=== PATIENT | male | born 1940 | race Caucasian/White ===

== ENCOUNTER → 2016-10-07 | Outpatient (CLI) | payer MEDICARE, BC ==
[~2016-10-07] VITALS: Ht 180.3 cm; Wt 76.7 kg
[~2016-10-07] MED LIST: ALDA25TA PO; AMLO5TAB2 PO; ASPI32ECTA PO; ATOR1TAB21 PO; HYDR200T3 PO; LABETALOL HCL 100 MG/20 ML VIAL As Ordered ONE; LIDOCAINE 2% INJ 100 MG/5 ML SDV (FOR ANES.) As Ordered ONE; METF500T PO; MIDAZOLAM INJ 2 MG/2 ML VIAL (J2250) As Ordered ONE; NS 1,000 ML IV SCH; OMEP20CA3 PO; ONDANSETRON 4MG/2ML VIAL (J2405) As Ordered ONE; PROPOFOL 200 MG/20 ML VIAL As Ordered ONE; [UNRECOGNIZED DRUG - CODE] PO
--- NOTE | 2016-10-07 12:22 | ROOR ---
Patient Name: Taj Marks Procedure Date: 10/07/2016 12:03 PM Date of : 1940 Age: 76 Room: [facility] Gender: Male Note Status: Finalized Procedure: Upper GI endoscopy + SBB Indications: Iron deficiency anemia Providers: Eder Freire MD Referring MD: Main Chavez NP Requesting Provider: Medicines: Monitored Anesthesia Care Complications: No immediate complications. Procedure: Pre-Anesthesia Assessment: - The heart rate, respiratory rate, oxygen saturations, blood pressure, adequacy of pulmonary ventilation, and response to care were monitored throughout the procedure. The Endoscope was introduced through the mouth, and advanced to the second part of duodenum. The upper GI endoscopy was accomplished without difficulty. The patient tolerated the procedure well. Findings: The Z-line was regular and was found 38 cm from the incisors. A small hiatus hernia was present. No other significant abnormalities were identified in a careful examination of the stomach. The exam of the duodenum was otherwise normal. Multiple biopsies were obtained with cold forceps for evaluation of celiac disease randomly in the 2nd part of the duodenum. The exam was otherwise without abnormality. Impression: - Z-line regular, 38 cm from the incisors. - Small hiatus hernia. - The examination was otherwise normal. - Multiple biopsies were obtained in the 2nd part of the duodenum. - The examination was otherwise normal. Recommendation: - Patient has a contact number available for emergencies. The signs and symptoms of potential delayed complications were discussed with the patient. Return to normal activities tomorrow. Written discharge instructions were provided to the patient. - Discharge patient to home. - Continue present medications. - Await pathology results. - Telephone GI clinic for pathology results in 1 week. - Return to referring physician. - The findings and recommendations were discussed with the patient's family. Eder Freire MD Eder Freire MD 10/07/2016 12:21:27 PM This report has been signed electronically. Number of Addenda: 0 Note Initiated On: 10/07/2016 12:03 PM Estimated Blood Loss: Estimated blood loss: none.
--- NOTE | 2016-10-07 12:36 | ROOR ---
Patient Name: Taj Marks Procedure Date: 10/07/2016 12:04 PM Date of : 1940 Age: 76 Room: [facility] Gender: Male Note Status: Finalized Procedure: Colonoscopy to Cecum Indications: Unexplained iron deficiency anemia Providers: Eder Freire MD Referring MD: Main Chavez NP Requesting Provider: Medicines: Monitored Anesthesia Care Complications: No immediate complications. Procedure: Pre-Anesthesia Assessment: - The heart rate, respiratory rate, oxygen saturations, blood pressure, adequacy of pulmonary ventilation, and response to care were monitored throughout the procedure. The Colonoscope was introduced through the anus and advanced to the cecum, identified by appendiceal orifice and ileocecal valve. The colonoscopy was performed without difficulty. The patient tolerated the procedure well. The quality of the bowel preparation was good. Findings: The perianal and digital rectal examinations were normal. Non-bleeding internal hemorrhoids were found during retroflexion. The hemorrhoids were small and Grade I (internal hemorrhoids that do not prolapse). Multiple small and large-mouthed diverticula were found in the recto-sigmoid colon, in the sigmoid colon and in the descending colon. The exam was otherwise without abnormality on direct and retroflexion views. Impression: - Non-bleeding internal hemorrhoids. - Diverticulosis in the recto-sigmoid colon, in the sigmoid colon and in the descending colon. - The examination was otherwise normal on direct and retroflexion views. - No specimens collected. - The exam was otherwise normal to the cecum. Recommendation: - Patient has a contact number available for emergencies. The signs and symptoms of potential delayed complications were discussed with the patient. Return to normal activities tomorrow. Written discharge instructions were provided to the patient. - Discharge patient to home. - Continue present medications. - Repeat colonoscopy for symptoms only, due to age. - Return to referring physician. - The findings and recommendations were discussed with the patient's family. Eder Freire MD Eder Freire MD 10/07/2016 12:36:21 PM This report has been signed electronically. Number of Addenda: 0 Note Initiated On: 10/07/2016 12:04 PM Estimated Blood Loss: Estimated blood loss: none.
[2016-10-07 13:00] VITALS: BP 137/66
== END | disposition home or self-care (01) ==
LOC: M OPP 10:36
PROVIDERS: ATTEND Internal Medicine Gastroenterology
DX: D50.9 Iron deficiency anemia, unspecified (principal); K64.0 First degree hemorrhoids; K57.30 Diverticulosis of large intestine without perforation or abscess without bleeding; K44.9 Diaphragmatic hernia without obstruction or gangrene; I10 Essential (primary) hypertension; E78.00 Pure hypercholesterolemia, unspecified; E11.9 Type 2 diabetes mellitus without complications; R12 Heartburn; M35.3 Polymyalgia rheumatica; Z79.899 Other long term (current) drug therapy; Z79.82 Long term (current) use of aspirin; Z79.84 Long term (current) use of oral hypoglycemic drugs; Z87.891 Personal history of nicotine dependence
CPT/HCPCS: 43239; 45378; 88305; J2250; J2405

== ENCOUNTER 2019-03-12 22:38 | Emergency (ER) | payer MEDICARE, BC ==
[~2019-03-12] VITALS: Ht 180.3 cm; Wt 77.3 kg
[~2019-03-12 22:38] MED LIST changes: -ALDA25TA PO; -AMLO5TAB2 PO; +AMLO5TAB6 PO; +ASPI-255 PO; -ASPI32ECTA PO; -LABETALOL HCL 100 MG/20 ML VIAL As Ordered ONE; -LIDOCAINE 2% INJ 100 MG/5 ML SDV (FOR ANES.) As Ordered ONE; -METF500T PO; +METF500T13 PO; -MIDAZOLAM INJ 2 MG/2 ML VIAL (J2250) As Ordered ONE; -NS 1,000 ML IV SCH; -ONDANSETRON 4MG/2ML VIAL (J2405) As Ordered ONE; -PROPOFOL 200 MG/20 ML VIAL As Ordered ONE; +SPIR1TAB34 PO
[2019-03-12] MEDS ORDERED: METH2.5T48 PO (22:55)
[2019-03-12] MEDS ORDERED: FOLI1TAB11 PO (22:55)
[2019-03-12] MEDS ORDERED: ASPIRIN 325 MG TAB PO ONE (23:00)
[2019-03-12 23:05] LABS: BASO # 0.1 10^3/uL (0.0-0.2); BASO % 0.5 % (0.0-1.0); EOS # 0.2 10^3/uL (0.0-0.50); HEMATOCRIT 34.5 % (42.0-52.0); HEMOGLOBIN 11.4 g/dl (13.5-17.5); LYMPH % 20.1 % (24.0-44.0); MEAN CORPUSCULAR HEMOGLOBIN 31.8 pg (27.0-33.0); MEAN CORPUSCULAR VOLUME 96.1 fl (80.0-96.0); MONO # 0.9 10^3/uL (0.0-0.8); MONO % 8.9 % (0.0-5.0); NEUTROPHILS # 6.7 10^3/uL (1.8-7.7); NEUTROPHILS % 68.1 % (36.0-66.0); PLATELET COUNT, AUTOMATED 308 10^3/uL (150-450); RED BLOOD COUNT 3.59 10^6/uL (4.30-6.10); WHITE BLOOD COUNT 9.8 10^3/uL (4.0-10.0)
[2019-03-12 23:16] LABS: INR 1.05; PARTIAL THROMBOPLASTIN TIME 30.8 SECONDS (25.0-38.4); PROTHROMBIN TIME 13.4 SECONDS (11.8-14.0)
[2019-03-12 23:30] LABS: BLOOD UREA NITROGEN 27 MG/DL (7-18); CALCIUM LEVEL 9.3 MG/DL (8.8-10.2); CARBON DIOXIDE LEVEL 26 MEQ/L (21-32); CHLORIDE LEVEL 107 MEQ/L (98-107); CK-MB VALUE MASS 4.1 NG/ML (<3.6); CPK CREATINE PHOSPHOKINASE 172 U/L (39-308); CREATININE FOR GFR 1.41 MG/DL (0.70-1.30); GLOMERULAR FILTRATION RATE 51.6 (>42); GLUCOSE, FASTING 129 MG/DL (70-100); MB/CK RELATIVE INDEX 2.38 (< OR =4); POTASSIUM SERUM 4.2 MEQ/L (3.5-5.1); SODIUM LEVEL 141 MEQ/L (136-145); TROPONIN I < 0.02 NG/ML (< 0.10)
[2019-03-13 03:32] LABS: CK-MB VALUE MASS 3.4 NG/ML (<3.6); CPK CREATINE PHOSPHOKINASE 157 U/L (39-308); MB/CK RELATIVE INDEX 2.17 (< OR =4); TROPONIN I < 0.02 NG/ML (< 0.10)
[2019-03-13 04:00] VITALS: BP 132/60
--- NOTE | 2019-03-13 07:10 | REP ---
Clinical: Chest pain. Technique: Portable AP upright view. Comparison: None. Findings: COPD and emphysematous changes are appreciated with scattered scarring. No focal consolidation, effusion, or pneumothorax. This time and cardiac silhouette normal. Skeletal structures intact. Impression: COPD/emphysematous changes. Electronically Signed by Manish Beaulieu MD 03/13/2019 07:02 A
--- NOTE | 2019-03-13 07:11 | ECGEPIP ---
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
--- NOTE | 2019-03-13 07:13 | ECGEPIP ---
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
== END 2019-03-13 04:02 | disposition home or self-care (01) ==
LOC: M ED 22:38
DX: R07.89 Other chest pain (principal); R00.1 Bradycardia, unspecified; I44.0 Atrioventricular block, first degree; E11.9 Type 2 diabetes mellitus without complications; I10 Essential (primary) hypertension; K21.9 Gastro-esophageal reflux disease without esophagitis; I20.9 Angina pectoris, unspecified; Z87.891 Personal history of nicotine dependence; Z79.82 Long term (current) use of aspirin; Z79.899 Other long term (current) drug therapy

== ENCOUNTER 2019-12-16 11:01 | Observation (INO) | payer MEDICARE, BC ==
[~2019-12-16] VITALS: Ht 177.8 cm; Wt 79.9 kg
[~2019-12-16 11:01] MED LIST changes: +FOLI1TAB11 PO; +METH2.5T48 PO; +OMEP1CAP73 PO; -OMEP20CA3 PO
[2019-12-16] MEDS ORDERED: ALBUTEROL 90 MCG/ACT 8GM HFA INHALER INH ONE (12:15)
--- NOTE | 2019-12-16 12:40 | REP ---
Clinical: Cough and dyspnea. Comparison: 03/12/2019. Findings: Mediastinum and cardiac silhouette are normal. Lung tong demonstrate diffuse chronic pleuroparenchymal changes. A very subtle superimposed left basilar infiltrate cannot be excluded and should be correlated with auscultation. No focal consolidation. No effusion. No pneumothorax. Skeletal structures intact. Impression: Chronic stable changes. Very subtle superimposed left basilar infiltrate cannot be excluded and should be correlated with physical examination and auscultation. Electronically Signed by Manish Beaulieu MD 12/16/2019 12:32 P
[2019-12-16 12:48] LABS: BASO # 0.1 10^3/uL (0.0-0.2); BASO % 0.3 % (0.0-1.0); EOS # 0.1 10^3/uL (0.0-0.5); EOS % 0.4 % (0.0-3.0); HEMATOCRIT 37.2 % (42.0-52.0); HEMOGLOBIN 12.3 g/dl (13.5-17.5); LYMPH # 0.9 10^3/uL (1.5-5.0); LYMPH % 3.4 % (24.0-44.0); MEAN CORPUSCULAR HEMOGLOBIN 31.1 pg (27.0-33.0); MEAN CORPUSCULAR HGB CONC 33.1 g/dl (32.0-36.5); MEAN CORPUSCULAR VOLUME 94.2 fl (80.0-96.0); MONO # 1.7 10^3/uL (0.0-0.8); MONO % 6.1 % (0.0-5.0); NEUTROPHILS # 24.2 10^3/uL (1.5-8.5); NEUTROPHILS % 88.3 % (36.0-66.0); PLATELET COUNT, AUTOMATED 413 10^3/uL (150-450); RED BLOOD COUNT 3.95 10^6/uL (4.30-6.10); WHITE BLOOD COUNT 27.4 10^3/uL (4.0-10.0)
[2019-12-16 13:16] LABS: ALBUMIN 3.2 GM/DL (3.2-5.2); ALT/SGPT 49 U/L (12-78); BILIRUBIN,DIRECT 0.2 MG/DL (0.0-0.2); BILIRUBIN,TOTAL 0.4 MG/DL (0.2-1.0); BLOOD UREA NITROGEN 40 MG/DL (7-18); CALCIUM LEVEL 10.2 MG/DL (8.8-10.2); CARBON DIOXIDE LEVEL 24 MEQ/L (21-32); CHLORIDE LEVEL 103 MEQ/L (98-107); CK-MB VALUE MASS 2.4 NG/ML (<3.6); CPK CREATINE PHOSPHOKINASE 97 U/L (39-308); CREATININE FOR GFR 1.97 MG/DL (0.70-1.30); GLUCOSE, FASTING 122 MG/DL (70-100); MB/CK RELATIVE INDEX 2.47 (< OR =4); NT-PRO BNP 160 PG/ML (<450); POTASSIUM SERUM 5.1 MEQ/L (3.5-5.1); SODIUM LEVEL 136 MEQ/L (136-145); TOTAL PROTEIN 7.2 GM/DL (6.4-8.2); TROPONIN I < 0.02 NG/ML (< 0.10)
--- NOTE | 2019-12-16 13:58 | REP ---
Clinical: Cough and leukocytosis with history of COPD. Technique: Axial noncontrast images from the thoracic inlet to the upper abdomen with coronal and sagittal re-formations. Findings: Lung tong demonstrate mild chronic interstitial changes and minimal basilar scarring (left greater than right). Extremely subtle multifocal areas of airspace disease and mild left lower lobe atelectasis cannot be excluded and may reflect an early pneumonitis. No discrete focal consolidation yet appreciated. No pleural effusion or pneumothorax. Tracheobronchial tree is patent. No adenopathy. Thoracic aorta without aneurysm. No cardiomegaly or pericardial effusion. Surrounding musculoskeletal structures are intact. Limited upper abdomen demonstrates bilateral renal hypodensities likely representing cysts and nonspecific 1.7 cm left adrenal nodule. Impression: 1. No prior examinations are available for comparison and a subtle early multifocal pneumonitis with left basilar prominence cannot definitively be excluded. 2. Hepatic hypodensities likely representing cysts and nonspecific 1.7 cm left adrenal nodule likely adenoma although evaluation is limited. Outpatient follow-up pre and postcontrast CT should be considered for further investigation unless prior examinations are made available for comparison. Electronically Signed by Manish Beaulieu MD 12/16/2019 01:49 P
[2019-12-16] MEDS: NS 1,000 ML IV SCH (16:10)
[2019-12-16] MEDS: PIPERACILLIN/TAZOBACTAM SOD 4.5 GM in D5W MINI-BAG PLUS 50 ML IV SCH ×2 (16:10→23:57)
[2019-12-16] MEDS ORDERED: AFRISPR3 NARES (16:23)
[2019-12-16] MEDS ORDERED: METH2.5T48 PO (16:23)
[2019-12-16] MEDS ORDERED: C 50TAB PO (16:23)
[2019-12-16] MEDS ORDERED: VITMTA PO (16:23)
[2019-12-16 16:24] LABS: CK-MB VALUE MASS 2.1 NG/ML (<3.6); CPK CREATINE PHOSPHOKINASE 132 U/L (39-308); MB/CK RELATIVE INDEX 1.59 (< OR =4); TROPONIN I < 0.02 NG/ML (< 0.10)
[2019-12-16 16:30] VITALS: BP 117/75
[2019-12-16] MEDS: ASPIRIN ENTERIC 325 MG TAB PO SCH (18:02)
[2019-12-16] MEDS: MULTIVITAMINS/MINERALS THERAP 1 TAB PO SCH (18:03)
[2019-12-16] MEDS: HYDROXYCHLOROQUINE 200 MG TAB PO SCH (18:03)
[2019-12-16] MEDS: ATORVASTATIN 20 MG TAB PO SCH (18:03)
[2019-12-16] MEDS: FOLIC ACID 1 MG TAB PO SCH (18:03)
[2019-12-16] MEDS: amLODIPine 5 MG TAB PO SCH (18:05)
[2019-12-16 18:27] LABS: APPEARANCE, URINE HAZY (CLEAR); BACTERIA, URINE AUTO NEGATIVE (NEGATIVE); BILIRUBIN, URINE AUTO NEGATIVE (NEGATIVE); BLOOD, URINE BLOOD NEGATIVE (NEGATIVE); COLOR, URINE YELLOW (YELLOW); GLUCOSE, URINE (UA) AUTO NEGATIVE (NEGATIVE); KETONE, URINE AUTO TRACE mg/dL (NEGATIVE); LEUKOCYTE ESTERASE, URINE AUTO NEGATIVE (NEGATIVE); NITRITE, URINE AUTO NEGATIVE (NEGATIVE); PROTEIN, URINE AUTO NEGATIVE (NEGATIVE); RBC, URINE AUTO 2 /HPF (0-3); SPECIFIC GRAVITY URINE AUTO 1.017 (1.002-1.035); SQUAMOUS EPITHELIAL CELL UR AU 0 /HPF (0-6); UROBILINOGEN, URINE AUTO 0.2 mg/dL (0.0-2.0); WBC, URINE AUTO 2 /HPF (0-3)
--- NOTE | 2019-12-16 19:10 | HPE ---
DATE OF ADMISSION: 12/16/2019 TIME: Approximately 3:00 p.m. CHIEF COMPLAINT: Worsening shortness of breath despite being treated as an outpatient for pneumonia. HISTORY OF PRESENT ILLNESS: Mr. Marks is an 79-year-old gentleman who has a past medical history pertinent for psoriatic arthritis, for which he is on immunosuppressive therapy, consistent of Plaquenil, as well as Methotrexate. He stopped his methotrexate approximately 2 weeks ago when he started feeling more short of breath. This has progressed. He recently contacted his primary care provider about 6 days ago and was prescribed Levaquin, he has completed approximately 5 of a 7 day course and continues to feel no improvement. Therefore, he sought medical attention today in the emergency room. The patient also has a history of coronary artery disease. He underwent a left heart catheterization in 2002. At that time, he was told that he had 50% disease and was managed with medications only. He has had no subsequent catheterization since then. His last stress test was approximately 5 years ago and he was told that he had some disease but apparently had gotten lost to followup. He reports having some chest pressure symptoms at times and he reports that his shortness of breath is more pronounced with activity. He does have a chronic sinusitis and had seen his ENT doctor approximately 2 months ago. Otherwise, he reports no significant worsening of his postnasal drip. He has no orthopnea. No lower extremity swelling. Today in the emergency room, he was noted to have oxygen saturation of 97% on room air. He was treated with a nebulizer with some improvement in his dyspnea. He is not exhibiting any labored breathing nor any wheezing at rest. A chest x-ray was questionable for a left lower lobe infiltrate and therefore the emergency room physical proceeded to obtain a CT scan of his chest with PE protocol and this did not show any evidence of pulmonary embolism, but did show that he possibly could have developing pneumonitis. His white blood cell count is 27,000 today. He is otherwise afebrile and hemodynamically stable. The only other abnormality on his laboratories is that his baseline creatinine, which is usually around 1.6 secondary to chronic kidney disease stage III is 1.9 today. Otherwise, his electrocardiogram (EKG) as well as preliminary troponin and basic metabolic panel (BMP) are all relatively within his baseline range. Due to his elevated white blood cell count and no improvement with outpatient antibiotics, it is recommended for admission to the hospitalist service for further treatment and evaluation. ALLERGIES: No known drug allergies. MEDICATIONS: The patient's current medications at home are: - Norvasc 5 mg daily - full dose aspirin - atorvastatin 20 mg - folic acid 1 mg twice a day - Plaquenil 20 mg twice a day - Moexipril 7.5 mg by mouth daily - omeprazole 20 mg by mouth daily - aldactone/hydrochlorothiazide one tablet daily PAST MEDICAL HISTORY: 1. Psoriatic arthritis. 2. Hyperlipidemia. 3. Hypertension. 4. Gastroesophageal reflux disease (GERD). 5. Coronary artery disease, medically managed, status post left heart catheterization in 2002. 6. History of tobacco abuse, he quit in 1967. 7. History of chronic obstructive pulmonary disease (COPD) documented on previous films but was unaware of this and has not been treated for it. 8. Chronic kidney disease stage III. 9. History of rheumatic fever as a child with no concomitant rheumatic heart disease. 10. History of chronic sinusitis. 11. History of basal cell carcinoma on his nose that was subsequently excised. PAST SURGICAL HISTORY: Pertinent for: 1. Skin excision of basal cell carcinoma with grafting. 2. Left heart catheterization. SOCIAL HISTORY: He is an ex smoker, quit in 1967. He is . He lives with his . He occasionally drinks wine. He does not use any illicit drugs. His is his surrogate decision maker. He is a FULL CODE. FAMILY HISTORY: Notable for his mother who from complications of chronic obstructive pulmonary disease (COPD). Father from complications of diabetes. REVIEW OF SYSTEMS: 12-systems reviewed with the patient and otherwise negative. He reports that he has been off his methotrexate for approximately 2 to 4 weeks. He last saw his ENT physician approximately 2 months ago and was told that everything is fine with his sinusitis. RELEVANT LABORATORIES: Electrocardiogram (EKG) showed normal sinus rhythm with borderline first degree AV block. Initial troponin is negative, pro BNP is 160. White count is 27,000 with left shift with 88% neutrophils. Hemoglobin 12, hematocrit 37, platelet count 413. Sodium 136, potassium 5.1, chloride 103, bicarbonate 24, BUN 40, creatinine 1.97, glucose 122, lactic acid is 2.5, calcium is 10.2. CT scan of the chest, please reference full report and images for details, no prior examination available for comparison, showed subtle early multifocal pneumonitis with left basilar prominence cannot definitively be excluded, hepatic hypodense that likely represents cyst, and nonspecified 1.7 cm left adrenal nodule, likely adenoma, although evaluation is limited, outpatient followup pre and post contrast CT should be considered for further investigation unless prior examinations are made available for comparison. Chest x-ray showed chronic stable changes, very subtle superimposed left basilar infiltrate cannot be excluded and should be correlated with physical examination and auscultation. IMPRESSION: 1. Leukocytosis, likely secondary to underlying community acquired pneumonia. Given that the patient has a history of being on immunosuppressive medications, he likely could have a gram-negative pneumonia consistent with possible pseudomonas. He will be admitted to observation status for now. He will be placed on intravenous Zosyn, which will be renally dosed. We will repeat complete blood count (CBC) in the morning. We will order sputum, as well as blood cultures. 2. Chronic obstructive pulmonary disease (COPD) without exacerbation. The patient will be given DuoNeb as needed for now. We will restart him on Spiriva at discharge. 3. Acute on chronic renal failure with chronic kidney disease stage III. We will obtain urine sodium, as well as creatinine to calculate a fraction of secretion of sodium. THe patient will be gently hydrated with normal saline at 75 mL an hour. We will hold his fpuftjxptqm-dqnmnvmzyf-inpioo (DINAH) inhibitor, as well as aldactone and hydrochlorothiazide. Recheck his basic metabolic panel (BMP) in the morning. 4. 1.7 cm adrenal nodule noted on CT of the chest. This can be followed up as an outpatient. 5. Chronic coronary artery disease. The patient will be monitored on telemetry. We will repeat the serial troponins and we will also order echocardiogram to assess for LV function. I would recommend that if his troponins remain negative and echo does not show any significant wall motion abnormality that he undergo a stress test as an outpatient. 6. Psoriatic arthritis. The patient's methotrexate has already been held by himself. We will continue with his Plaquenil for now. His psoriatic arthritis is stable. The patient will be a FULL CODE and placed on deep vein thrombosis (DVT) prophylaxis consisting of Lovenox and sequential compression devices.
[2019-12-16] MEDS: IPRATROPIUM 0.5MG/ALBUTEROL 2.5MG INH SOL UD 3ML (DUONEB)(J7620) NEB SCH (19:51)
[2019-12-16] MEDS: ENOXAPARIN 40 MG/0.4 ML SYRINGE (J1650) SC SCH (20:32)
[2019-12-16 20:37] LABS: CK-MB VALUE MASS 2.7 NG/ML (<3.6); CPK CREATINE PHOSPHOKINASE 130 U/L (39-308); MB/CK RELATIVE INDEX 2.08 (< OR =4); TROPONIN I < 0.02 NG/ML (< 0.10)
[2019-12-16 22:00] VITALS: BP 124/78
[2019-12-17] MEDS: IPRATROPIUM 0.5MG/ALBUTEROL 2.5MG INH SOL UD 3ML (DUONEB)(J7620) NEB SCH ×4 (01:22→20:01)
[2019-12-17] MEDS: NS 1,000 ML IV SCH ×2 (03:47→18:06)
[2019-12-17 06:00] VITALS: BP 140/69
[2019-12-17 06:15] LABS: HEMATOCRIT 34.6 % (42.0-52.0); HEMOGLOBIN 11.3 g/dl (13.5-17.5); MEAN CORPUSCULAR HEMOGLOBIN 30.8 pg (27.0-33.0); MEAN CORPUSCULAR HGB CONC 32.7 g/dl (32.0-36.5); MEAN CORPUSCULAR VOLUME 94.3 fl (80.0-96.0); PLATELET COUNT, AUTOMATED 421 10^3/uL (150-450); RED BLOOD COUNT 3.67 10^6/uL (4.30-6.10); WHITE BLOOD COUNT 17.1 10^3/uL (4.0-10.0)
[2019-12-17 06:47] LABS: CALCIUM LEVEL 9.8 MG/DL (8.8-10.2); CHOLESTEROL RISK RATIO 2.2 (<5); CREATININE FOR GFR 1.92 MG/DL (0.70-1.30); GLOMERULAR FILTRATION RATE 36.1 (>35); POTASSIUM SERUM 3.9 MEQ/L (3.5-5.1)
[2019-12-17] MEDS: PIPERACILLIN/TAZOBACTAM SOD 4.5 GM in D5W MINI-BAG PLUS 50 ML IV SCH ×3 (08:47→22:55)
[2019-12-17] MEDS: ATORVASTATIN 20 MG TAB PO SCH (08:48)
[2019-12-17] MEDS: MULTIVITAMINS/MINERALS THERAP 1 TAB PO SCH (08:48)
[2019-12-17] MEDS: FOLIC ACID 1 MG TAB PO SCH (08:48)
[2019-12-17] MEDS: ASPIRIN ENTERIC 325 MG TAB PO SCH (08:48)
[2019-12-17] MEDS: HYDROXYCHLOROQUINE 200 MG TAB PO SCH (08:48)
[2019-12-17] MEDS: amLODIPine 5 MG TAB PO SCH (08:51)
[2019-12-17] MEDS ORDERED: PREVNAR 13 VACCINE SYRINGE (CPT CODE:90670) IM ONE (09:00)
[2019-12-17 14:00] VITALS: BP 118/67
--- NOTE | 2019-12-17 14:11 | IPNPDOC ---
Subjective Date Seen The patient was seen on 12/17/19. Subjective Chief Complaint/HPI alma rosa feels improved breathing this morning, no fever. Less winded when ambulating to bathroom. Objective Physical Examination General Exam: Positive: Cooperative, No Acute Distress Eye Exam: Positive: PERRLA, EOMI; Negative: Sclera icteric ENT Exam: Positive: Mucous membr. moist/pink Neck Exam: Positive: Supple; Negative: JVD Chest Exam: Positive: Clear to auscultation Heart Exam: Positive: Rate Normal Telemetry: Positive: No significant arrhythmia Abdomen Exam: Positive: Normal bowel sounds Extremity Exam: Negative: Clubbing, Cyanosis, Edema Skin Exam: Negative: Rash Neuro Exam: Positive: Normal Gait, Normal Speech, Strength at 5/5 X4 ext Psych Exam: Positive: Mental status NL, Mood NL Assessment /Plan Assessment # Possible gram negative CAP with leukocytosis failed outpatient therapy with oral levaquin # Hx chronic immunosuppression - wbc improving, down from 27k to 17k this am - continue zosyn to cover for possible gram negative organism with hx of immunosuppression - procalcitonin pending, but a normal value with hx of immunosuppression would still require abx treatment - hopefully home in am # COPD w/o exacerbation - start Spiriva at discharge - nebs prn - echo pending in am to eval LVEF # JAMES with chronic kidney disease stage III. - holding ACEI, aldactone and HCTZ - continue IVFs x 24 hours - check renal ULS # 1.7 cm adrenal nodule noted on CT of the chest. - follow up as an outpatient with pcp # Chronic coronary artery disease. - serial trops x 3 normal - echo pending - LDL 33 - stress test as outpatient # Psoriatic arthritis - stable - holding methotrexate - continue Plaquenil Plan/VTE VTE Prophylaxis Ordered?: Yes VTE Exclusion Mechanical Proph: N/A:VTE Prophy Ordered VTE Exclusion Pharmacological: N/A:VTE Prophy Ordered VS, I&O, 24H, Fishbone Vital Signs/I&O Vital Signs Date Time Temp Pulse Resp B/P (MAP) Pulse Ox O2 Delivery O2 Flow Rate FiO2 12/17/19 08:51 93 113/64 12/17/19 06:00 98.5 18 97 Room Air I&O- Last 24 Hours up to 6 AM 12/17/19 06:00 Intake Total 1825 ml Output Total 0 ml Balance 1825 ml Laboratory Data 24H LABS Laboratory Tests 2 12/16/19 15:44: Total Creatine Kinase 132, Creatine Kinase MB 2.1, Creatine Kinase MB Relative Index 1.59, Troponin I < 0.02 12/16/19 17:06: Lactic Acid Followup at 4 Hours 2.6*H 12/16/19 17:58: Urine Color YELLOW, Urine Appearance HAZY, Urine pH 5.0, Urine Specific [place] 1.017, Urine Protein NEGATIVE, Urine Glucose (Auto)(UA) NEGATIVE, Urine Ketones (Auto) TRACEH, Urine Blood NEGATIVE, Urine Nitrite NEGATIVE, Urine Bilirubin NEGATIVE, Urine Urobilinogen 0.2, Urine Leukocyte Esterase (Auto) NEGATIVE, Urine WBC (Auto) 2, Urine RBC (Auto) 2, Urine Hyaline Casts (Auto) 3, Urine Bacteria (Auto) NEGATIVE, Urine Squamous Epithelial Cells 0, Urine Sperm (Auto) , Urine Random Creatinine 132.0, Urine Random Sodium 97 12/16/19 20:01: Total Creatine Kinase 130, Creatine Kinase MB 2.7, Creatine Kinase MB Relative Index 2.08, Troponin I < 0.02 12/17/19 05:07: Nucleated Red Blood Cells % (auto) 0.0, Anion Gap 9, Glomerular Filtration Rate 36.1, Calcium Level 9.8, Triglycerides Level 75, Total Cholesterol 88, LDL Cholesterol 33, Non-HDL Cholesterol (LDL + VLDL) 48, Total HDL Cholesterol 40, Cholesterol/HDL Ratio 2.200 CBC/BMP Laboratory Tests 12/17/19 05:07 Microbiology Microbiology 12/16/19 Gram Stain - Final, Resulted 12/16/19 Sputum Culture, Resulted Pending 12/16/19 Respiratory Virus Panel (PCR) (DANIA) - Final, Complete 12/16/19 Blood Culture - Preliminary, Resulted No growth after 24 hours . All specim... 12/16/19 Blood Culture - Preliminary, Resulted No growth after 24 hours . All specim... JANENE ANSARI MD Dec 17, 2019 13:51
--- NOTE | 2019-12-17 16:07 | ECGEPIP ---
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
[2019-12-17 20:19] VITALS: BP 159/73
[2019-12-17] MEDS: ENOXAPARIN 40 MG/0.4 ML SYRINGE (J1650) SC SCH (20:24)
--- NOTE | 2019-12-17 20:48 | ECGEPIP ---
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 PVCs are new Electronically Signed on 12-17-2019 20:48:27 EDT by Ahsan Barragan
[2019-12-17 21:15] LABS: MAGNESIUM LEVEL 1.6 MG/DL (1.8-2.4); POTASSIUM SERUM 4.4 MEQ/L (3.5-5.1)
[2019-12-17] MEDS ORDERED: MAG SULF 1GM/100ML (MAG RUN) 1 GM in IV 1 EA IV ONE (21:45)
[2019-12-17 22:00] VITALS: BP 152/70
[2019-12-18] MEDS: IPRATROPIUM 0.5MG/ALBUTEROL 2.5MG INH SOL UD 3ML (DUONEB)(J7620) NEB SCH ×2 (01:26→07:47)
[2019-12-18] MEDS: NS 1,000 ML IV SCH (05:25)
[2019-12-18 06:00] VITALS: BP 149/70
[2019-12-18 07:47] LABS: HEMATOCRIT 35.3 % (42.0-52.0); HEMOGLOBIN 11.8 g/dl (13.5-17.5); MEAN CORPUSCULAR HEMOGLOBIN 32.3 pg (27.0-33.0); MEAN CORPUSCULAR HGB CONC 33.4 g/dl (32.0-36.5); MEAN CORPUSCULAR VOLUME 96.7 fl (80.0-96.0); PLATELET COUNT, AUTOMATED 431 10^3/uL (150-450); RED BLOOD COUNT 3.65 10^6/uL (4.30-6.10); WHITE BLOOD COUNT 15.9 10^3/uL (4.0-10.0)
[2019-12-18] MEDS ORDERED: MAGNESIUM OXIDE 400 MG TAB (MAG-OX) PO ONE (08:00)
[2019-12-18] MEDS: PIPERACILLIN/TAZOBACTAM SOD 4.5 GM in D5W MINI-BAG PLUS 50 ML IV SCH (08:15)
[2019-12-18] MEDS: ATORVASTATIN 20 MG TAB PO SCH (08:16)
[2019-12-18] MEDS: ASPIRIN ENTERIC 325 MG TAB PO SCH (08:16)
[2019-12-18] MEDS: MULTIVITAMINS/MINERALS THERAP 1 TAB PO SCH (08:16)
[2019-12-18] MEDS: FOLIC ACID 1 MG TAB PO SCH (08:16)
[2019-12-18 08:17] VITALS: BP 139/68
[2019-12-18] MEDS: amLODIPine 5 MG TAB PO SCH (08:17)
[2019-12-18] MEDS: HYDROXYCHLOROQUINE 200 MG TAB PO SCH (08:19)
[2019-12-18] MEDS ORDERED: AMOX875T2 PO (09:46)
[2019-12-18] MEDS ORDERED: SLOWTAB2 PO (09:46)
[2019-12-18] MEDS ORDERED: SPIR1CAP INH (09:57)
--- NOTE | 2019-12-18 09:58 | IPNPDOC ---
Subjective Date Seen The patient was seen on 12/18/19. Subjective Chief Complaint/HPI Taj's breathing is stable and has not worsened since admission. He actually feels better. Overnight he had some trigeminy and the tuber machine operator ordered an ekg which showed NSR with pvc and 1 avb. His magnesium level was found to be low. He denies any chest complaints. Objective Physical Examination General Exam: Positive: Cooperative, No Acute Distress Eye Exam: Positive: PERRLA, EOMI; Negative: Sclera icteric ENT Exam: Positive: Mucous membr. moist/pink Neck Exam: Positive: Supple; Negative: JVD Chest Exam: Positive: Clear to auscultation Heart Exam: Positive: Rate Normal, Normal S1, Normal S2; Negative: Murmurs Telemetry: Positive: PVCs Abdomen Exam: Positive: Normal bowel sounds Extremity Exam: Negative: Clubbing, Cyanosis, Edema Skin Exam: Negative: Rash Neuro Exam: Positive: Normal Gait, Normal Speech, Strength at 5/5 X4 ext Psych Exam: Positive: Mental status NL, Mood NL Assessment /Plan Assessment # Possible gram negative CAP with leukocytosis failed outpatient therapy with oral levaquin # Hx chronic immunosuppression - wbc improving, down from 27k to 15k this am - procalcitonin 0.2, but a normal value with hx of immunosuppression would still require abx treatment - home today - Augmentin bid x 5 days # COPD w/o exacerbation - start Spiriva at discharge - nebs prn - echo pending today to eval LVEF # JAMES with chronic kidney disease stage III. - holding ACEI, aldactone and HCTZ - continue IVFs x 24 hours - check renal ULS # 1.7 cm adrenal nodule noted on CT of the chest. - follow up as an outpatient with pcp # Chronic coronary artery disease. - serial trops x 3 normal - echo pending, once completed can go home - LDL 33 - stress test as outpatient # Psoriatic arthritis - stable - holding methotrexate - continue Plaquenil # PVCs due to HypoMag - slow mag bid x 10 days Plan/VTE VTE Prophylaxis Ordered?: Yes VTE Exclusion Mechanical Proph: N/A:VTE Prophy Ordered VTE Exclusion Pharmacological: N/A:VTE Prophy Ordered VS, I&O, 24H, Fishbone Vital Signs/I&O Vital Signs Date Time Temp Pulse Resp B/P (MAP) Pulse Ox O2 Delivery O2 Flow Rate FiO2 3/30/20 08:17 99 139/68 12/18/19 06:00 97.6 18 96 Room Air I&O- Last 24 Hours up to 6 AM 12/18/19 06:00 Intake Total 2505 ml Balance 2505 ml Laboratory Data 24H LABS Laboratory Tests 2 12/17/19 20:46: Magnesium Level 1.6L 12/18/19 05:12: Nucleated Red Blood Cells % (auto) 0.0 12/18/19 05:15: Magnesium Level 1.3L CBC/BMP Laboratory Tests 12/17/19 20:46 12/18/19 05:12 Microbiology Microbiology 12/16/19 Gram Stain - Final, Complete 12/16/19 Sputum Culture - Final, Complete 12/16/19 Respiratory Virus Panel (PCR) (DANIA) - Final, Complete 12/16/19 Blood Culture - Preliminary, Resulted No growth after 24 hours . All specim... 12/16/19 Blood Culture - Preliminary, Resulted No growth after 24 hours . All specim... JANENE ANSARI MD Dec 18, 2019 09:58
--- NOTE | 2019-12-18 15:33 | ECHO ---
DATE OF STUDY: 12/18/2019 REFERRING PHYSICIAN: Dr. Wilson Haddad INDICATION: Dyspnea. HEIGHT: 178 cm WEIGHT: 80 kg 2-D MEASUREMENTS: Left atrium: 3.2 cm Ventricular septum: 1.06 cm Posterior wall: 0.85 cm Left ventricle diastole: 3.2 cm Aortic root: 2.6 cm Aortic annulus: 2.0 cm Inferior vena cava: 1.7 cm (more than 50% respiratory variation) DOPPLER MEASUREMENTS: Trace aortic regurgitation. No aortic stenosis. Aortic valve velocity: 134 cm/sec LVOT velocity: 101 cm/sec LVOT VTI: 21.4 cm No mitral stenosis or regurgitation. Mitral E velocity: 61.7 cm/sec Mitral A velocity: 87.4 cm/sec Very mild tricuspid regurgitation. Estimate right ventricle systolic pressure 27-32 mmHg assuming a right atrial pressure of 5-10 mmHg. No pulmonic regurgitation. Pulmonary artery acceleration time method suggests PA systolic pressure 22 mmHg. MITRAL ANNULAR TISSUE DOPPLER E prime septal: 8.2 cm/sec E prime lateral: 8.5 cm/sec DESCRIPTION: The rhythm was sinus. This was a moderately technically difficult echocardiogram. This was a 2-D, M-mode, color flow Doppler and pulsed wave Doppler examination and included mitral annular tissue Doppler. CONCLUSIONS: 1. Hyperkinetic left ventricular systolic function. No obvious regional wall motion abnormalities. Left ventricular ejection fraction (LVEF) at least 75%. Grade 1 LV diastolic dysfunction. 2. Suggestive of normal PA systolic pressure and estimated right ventricular systolic pressure. Normal right ventricle size and systolic function. 3. No pericardial perfusion. 4. Mild aortic valve sclerosis of a 3-cusp aortic valve. Trace aortic regurgitation. 5. Moderately technically difficult echocardiogram.
--- NOTE | 2019-12-19 07:03 | DSES ---
DATE OF ADMISSION: 12/16/2019 DATE OF DISCHARGE: 12/18/2019 DISCHARGE DIAGNOSES: 1. Possible gram negative community acquired pneumonia with leukocytosis and failed outpatient therapy with oral Levaquin. 2. History of chronic immunosuppression. 3. Chronic obstructive pulmonary disease (COPD) without exacerbation based on CT chest imaging. 4. Acute kidney injury on chronic kidney disease stage III. 5. 1.7 cm adrenal nodule noted on CT scan of the chest. 6. Chronic coronary artery disease. 7. Psoriatic arthritis. 8. Premature ventricular contractions (PVCs) due to hypomagnesemia. 9. Hypomagnesemia. PROCEDURES PERFORMING DURING HOSPITALIZATION: None. CONSULTANTS ON THIS CASE: None. DISPOSITION: The patient was discharged home. LABS THAT ARE PENDING AT TIME OF DISCHARGE: None. DISCHARGE INSTRUCTIONS: The patient was instructed to take antibiotics as prescribed for the next 5 days. He is to followup with his primary care provider in a week and with Dr. Emery in 1-2 weeks for outpatient cardiac stress testing. CONDITION AT DISCHARGE: Improved from admission. RELEVANT LABS OBTAINED DURING THE PATIENT'S HOSPITAL STAY: Sputum gram stain and culture showed normal kristina present. Respiratory viral panel was negative. Blood cultures after 48 hours showed no growth. White count on admission was 27,000. With treatment with antibiotics he improved to 15.9. Hemoglobin was 11.8, hematocrit 35.3, platelet count 431,000. Lactic acid was 2.6 on admission, magnesium was 1.6, sodium 136, potassium 3.9, chloride 103, bicarb 24, anion gap 9, creatinine 1.92, glucose 116, cholesterol was 88, triglycerides 75, LDL 33, HDL was 40. Troponin markers times three were negative. Procalcitonin was 0.2. Urinalysis was unremarkable. IMAGING STUDIES OBTAINED DURING THE PATIENT'S HOSPITALIZATION: CT scan of the chest: Please reference imaging and radiologic reports for detail. No prior examinations were available for comparison. Subtle early multifocal pneumonitis with left basilar prominence cannot definitively be excluded. Hepatic hypodensities likely representing cysts and nonspecific 1.7 cm left adrenal nodule likely adenoma although evaluation is limited. Outpatient followup pre and postcontrast CT should be considered for further investigation unless prior examinations are made available for comparison. DISCHARGE MEDICATIONS: - amoxicillin 875 mg twice a day for five days - Slow-Mag one tablet twice a day for 10 days - Spiriva one capsule daily - Norvasc 5 mg daily - ascorbic acid 500 mg by mouth daily - full dose aspirin daily - atorvastatin 20 mg daily - folic acid 2 mg daily - Plaquenil 400 mg daily - methotrexate 15 mg weekly - moexipril 7.5 mg by mouth daily - multivitamin one capsule daily - omeprazole 20 mg daily - Afrin two sprays twice a day as needed for nasal congestion - spironolactone/hydrochlorothiazide one tablet daily HOSPITAL COURSE: Mr. Marks is an 79-year-old gentleman who began experiencing shortness of breath (SOB) as an outpatient. He was prescribed oral Levaquin by his primary care physician. After taking it for approximately five of a seven day course, the patient did not feel improved whatsoever so he sought medical attention in the ED. He was noted to have stable oxygen saturation in excess of 95% on room air; however, he was noted to have a significantly elevated white blood cell count of 27,000. A CT chest without contrast was obtained due to his renal function. This demonstrated ground glass opacity suspicious for early developing pneumonia/pneumonitis. He was admitted to the hospitalist service. He had blood culture drawn which grew no organism during his stay. Respiratory viral panel was found to be negative. Because the patient is immunocompromised a procalcitonin had been drawn in the ED, but came back normal; however, in this setting it is hard to determine whether he had a true infection, so he as he was improving with antibiotics we chose to continue them. He was transitioned from Zosyn to Augmentin. An echocardiogram was checked during this hospitalization to rule out any underlying cardiomyopathy. He was found to have a normal left ventricular ejection fraction (LVEF) without any visible wall motion abnormalities or significant valvular heart disease. Serial troponins times three were negative. I recommended a followup with Dr. Emery who he has had a past relationship with for outpatient stress testing as it has been some time since he has had a stress test and it has been over 17 years since he had a left heart catheterization, which at that time showed 50% coronary artery disease (CAD). The patient is discharged home in stable condition.
== END 2019-12-18 12:57 | disposition home or self-care (01) ==
LOC: M ED 11:01 → M ED INP 11:02 → ENRESERVTM 15:34 → ENRESERVDT 15:34 → M MSPAV 16:32
PROVIDERS: ADMIT Internal Medicine; ATTEND Internal Medicine
DX: J18.9 Pneumonia, unspecified organism (principal); D72.829 Elevated white blood cell count, unspecified; D89.89 Other specified disorders involving the immune mechanism, not elsewhere classified; J44.9 Chronic obstructive pulmonary disease, unspecified; N17.9 Acute kidney failure, unspecified; N18.3 Chronic kidney disease, stage 3 (moderate); E27.9 Disorder of adrenal gland, unspecified; I25.10 Atherosclerotic heart disease of native coronary artery without angina pectoris; L40.50 Arthropathic psoriasis, unspecified; E83.42 Hypomagnesemia; I49.3 Ventricular premature depolarization; I44.0 Atrioventricular block, first degree; E78.5 Hyperlipidemia, unspecified; I11.9 Hypertensive heart disease without heart failure; K21.9 Gastro-esophageal reflux disease without esophagitis; J32.9 Chronic sinusitis, unspecified; Z85.828 Personal history of other malignant neoplasm of skin; Z87.891 Personal history of nicotine dependence; Z79.899 Other long term (current) drug therapy; Z79.2 Long term (current) use of antibiotics; Z79.82 Long term (current) use of aspirin
CPT/HCPCS: 36415; 71045; 71250; 80048; 80061; 80076; 81001; 82550; 82553; 82570; 83605; 83735; 83880; 84145; 84300; 84484; 85025; 85027; 87040; 87070; 87205; 87486; 87581; 87633; 87798; 90670; 93005; 93041; 93306; 94640; 94760; 96365; 96372; 96376; 99285; G0009; G0378; J1650; J2543; J3475

== ENCOUNTER → 2019-12-22 | Outpatient (CLI) | payer MEDICARE, BC ==
[~2019-12-22] MED LIST changes: +AFRISPR3 NARES; +AMOX875T2 PO; +AUGM875T28 PO; +C 50TAB PO; +SLOWTAB2 PO; +SPIR1CAP INH; +VITMTA PO
== END ==
LOC: M LABSMTC 10:45
PROVIDERS: ATTEND Family Medicine
DX: Z11.59 Encounter for screening for other viral diseases (principal); Z20.828 Contact with and (suspected) exposure to other viral communicable diseases

== ENCOUNTER 2019-12-23 14:39 | Inpatient (IN) | payer MEDICARE, BC ==
[~2019-12-23] VITALS: Ht 180.3 cm; Wt 75.8 kg
[~2019-12-23 14:39] MED LIST changes: -AUGM875T28 PO
[2019-12-23 16:37] LABS: BASO # 0.1 10^3/uL (0.0-0.2); BASO % 0.3 % (0.0-1.0); EOS # 0.1 10^3/uL (0.0-0.5); EOS % 0.3 % (0.0-3.0); HEMOGLOBIN 12.5 g/dl (13.5-17.5); LYMPH # 1.4 10^3/uL (1.5-5.0); MEAN CORPUSCULAR HEMOGLOBIN 30.9 pg (27.0-33.0); MEAN CORPUSCULAR HGB CONC 32.9 g/dl (32.0-36.5); MEAN CORPUSCULAR VOLUME 94.1 fl (80.0-96.0); MONO # 1.7 10^3/uL (0.0-0.8); NEUTROPHILS % 88.9 % (36.0-66.0); PLATELET COUNT, AUTOMATED 482 10^3/uL (150-450); RED BLOOD COUNT 4.04 10^6/uL (4.30-6.10)
[2019-12-23 16:47] LABS: WHITE BLOOD COUNT 34.9 10^3/uL (4.0-10.0)
[2019-12-23 17:11] LABS: ALBUMIN 3.1 GM/DL (3.2-5.2); ALT/SGPT 58 U/L (12-78); BILIRUBIN,DIRECT 0.1 MG/DL (0.0-0.2); BILIRUBIN,TOTAL 0.5 MG/DL (0.2-1.0); BLOOD UREA NITROGEN 34 MG/DL (7-18); CALCIUM LEVEL 10.7 MG/DL (8.8-10.2); CARBON DIOXIDE LEVEL 23 MEQ/L (21-32); CHLORIDE LEVEL 103 MEQ/L (98-107); CK-MB VALUE MASS 1.9 NG/ML (<3.6); CPK CREATINE PHOSPHOKINASE 78 U/L (39-308); GLOMERULAR FILTRATION RATE 34.4 (>35); GLUCOSE, FASTING 121 MG/DL (70-100); MB/CK RELATIVE INDEX 2.44 (< OR =4); NT-PRO BNP 299 PG/ML (<450); POTASSIUM SERUM 4.7 MEQ/L (3.5-5.1); SODIUM LEVEL 134 MEQ/L (136-145); THYROID STIMULATING HORMONE 0.876 uIU/ML (0.358-3.740); TOTAL PROTEIN 7.4 GM/DL (6.4-8.2); TROPONIN I < 0.02 NG/ML (< 0.10)
[2019-12-23] MEDS ORDERED: PIPERACILLIN/TAZOBACTAM SOD 3.375 GM in D5W MINI-BAG PLUS 50 ML IV ONE (17:45)
[2019-12-23] MEDS ORDERED: NS 500 ML IV ONE (17:45)
[2019-12-23] MEDS ORDERED: AUGM875T28 PO (18:00)
[2019-12-23] MEDS ORDERED: SLOWTAB2 PO (18:00)
[2019-12-23] MEDS ORDERED: ACETAMINOPHEN TAB 650MG DOSE (2X325MG) PO PRN (18:15)
[2019-12-23] MEDS ORDERED: cefTRIAXone SOD 2 GM in D5W MINI-BAG PLUS 50 ML IV SCH (19:00)
--- NOTE | 2019-12-23 19:17 | HPEPDOC ---
[facility] Medical History & Physical Date of Admission Dec 23, 2019 Date of Service: Dec 23, 2019 Primary Care Physician: ЮЛИЯ GANT MD [facility] Attending Physician: MARISELA SANDOVAL MD History and Physical CHIEF COMPLAINT: Worsening SOB, recent admission for PNA HISTORY OF PRESENT ILLNESS: Taj Marks is a 79 YO M with psoriatic arthritis (on Plaquenil) who presents shortly after discharge from previous admission for community-acquired pneumonia with worsening shortness of breath, cough productive of yellow sputum, and fever of 100.8 at home. He states that since his discharge on December 17, he has felt worse over time. He feels much more short of breath with activity and has been coughing more frequently. Prior to the last admission he completed a course of Levaquin with no improvement of his symptoms. On the last admission, the patient had 3 days of IV Zosyn and was then transitioned to and sent home on PO Augmentin. He completed the course of Augmentin. His sputum culture from last admission grew gram positive cocci in clusters, chains and gram positive rods. PAST MEDICAL HISTORY: 1. Psoriatic arthritis. 2. Hyperlipidemia. 3. Hypertension. 4. Gastroesophageal reflux disease (GERD). 5. Coronary artery disease, medically managed, status post left heart catheterization in 2002. 6. History of tobacco abuse, he quit in 1967. 7. History of chronic obstructive pulmonary disease (COPD) documented on previous films but was unaware of this and has not been treated for it. 8. Chronic kidney disease stage III. 9. History of rheumatic fever as a child with no concomitant rheumatic heart disease. 10. History of chronic sinusitis. 11. History of basal cell carcinoma on his nose that was subsequently excised. PAST SURGICAL HISTORY: 1. Skin excision of basal cell carcinoma with grafting. 2. Left heart catheterization. SOCIAL HISTORY: He is an ex smoker, quit in 1967. He is . He lives with his . He occasionally drinks wine. He does not use any illicit drugs. His is his surrogate decision maker. He is a [employer]. FAMILY HISTORY: Notable for his mother who from complications of chronic obstructive pulmonary disease (COPD). Father from complications of diabetes. ALLERGIES: Please see below. REVIEW OF SYSTEMS: CONSTITUTIONAL: Reports Fevers and chills HEENT: denies vision changes, no sinus problems, denies any trouble swallowing CARDIOVASCULAR: no palpitations RESPIRATORY: Reports worsening shortness of breath and frequent coughing productive of yellow sputum GENITOURINARY: No dysuria MUSCULOSKELETAL: Denies any joint/muscle pain GASTROINTESTINAL: Denies abdominal pain, no nausea/vomiting/diarrhea SKIN: No new rashes or lesions NEUROLOGICAL: No loss of sensation PSYCHIATRIC: Reports normal mood, no delusions or hallucinations ENDOCRINE: No hot/cold intolerance HEMATOLOGIC/LYMPHATIC: No easy bruising, no lumps/bumps ALLERGIC/IMMUNOLOGIC: No sinus symptoms HOME MEDICATIONS: Please see below. PHYSICAL EXAMINATION: VITAL SIGNS: Please see below. GENERAL APPEARANCE: Laying in bed, appears stated age, no acute distress, calm, cooperative HEENT: EOMI, PERRLA, neck is supple with no thyromegaly or lymphadenopathy RESPIRATORY: Decreased breath sounds bilaterally with no adventitious breath sounds appreciated CARDIOVASCULAR: no JVD, RRR, no murmurs/rubs/gallops ABDOMEN: Soft, nontender to palpation in all four quadrants, no masses/organomegaly EXTREMITIES: no clubbing, cyanosis or edema noted NEUROLOGICAL: No obvious focal deficits PSYCHIATRIC: normal mood/affect Skin: No rashes or ulcers. LN: No significant cervical or inguinal lymphadenopathy LABORATORY DATA: See below. IMAGING: CXR (unofficial read): possible left lower lobe infiltrate CT CHEST (12/16/2019): Impression: 1. No prior examinations are available for comparison and a subtle early multifocal pneumonitis with left basilar prominence cannot definitively be excluded. 2. Hepatic hypodensities likely representing cysts and nonspecific 1.7 cm left adrenal nodule likely adenoma although evaluation is limited. Outpatient follow-up pre and postcontrast CT should be considered for further investigation unless prior examinations are made available for comparison. MICROBIOLOGY: Please see below. ASSESSMENT: This is an 79 YO M with history of psoriatic arthritis (on Plaquenil) who presents with worsening shortness of breath and frequent cough in setting of recent hospitalization for community-acquired PNA. PLAN: 1. Leukocytosis: ddx- PNA vs viral respiratory infection -Patient was tested for COVID-19 on 12/22/19, pending results -WBC found to be 34.9 and was last measured at 15.9 at discharge from last hospitalization. Patient has not been on steroids -Started on IV Doxycycline and IV Zosyn -Blood cultures pending -Peripheral smear ordered for leukocytosis, awaiting pathologist review 2. Shortness of breath, cough: likely due to treatment failure of CA-PNA -Patient is afebrile and not requiring supplemental oxygen -CXR today shows no change in LLL infiltrate compared to prior CXR. Previous Chest CT demonstrates LLL atelectasis and possible multifocal pneumonitis -Sputum culture pending 3. CAD: LH Cath in 2002 revealed 50% disease and managed on medications only -Continue ASA 4. COPD: -Patient has no known formal diagnosis of COPD but has heavy smoking history and is on Spiriva prescribed by PCP. Will need outpatient PFTs 5. Acute on Chronic Renal failure, Stage III: -BUN/Cr found to be 34/2.0. Appears to be at baseline 5. Psoriatic arthritis: -Continue Plaquenil 6. HTN: -Continue HCTZ, Spironolactone, Amlodipine 7. GERD: -Continue Omeprazole DVT ppx: Lovenox DISPO: Pending clinical improvement Attending Addendum: I discussed the care and management of this patient with resident in detail and agree with the plan above. Vital Signs Vital Signs Date Time Temp Pulse Resp B/P (MAP) Pulse Ox O2 Delivery O2 Flow Rate FiO2 12/23/19 17:09 98.0 12/23/19 16:31 88 20 100/55 (70) 93 Room Air Laboratory Data Labs 24H Laboratory Tests 2 12/23/19 15:59: Anion Gap 8, Glomerular Filtration Rate 34.4L, Calcium Level 10.7H, Total Bilirubin 0.5, Direct Bilirubin 0.1, Aspartate Amino Transf (AST/SGOT) 32, Alanine Aminotransferase (ALT/SGPT) 58, Alkaline Phosphatase 96, Total Creatine Kinase 78, Creatine Kinase MB 1.9, Creatine Kinase MB Relative Index 2.44, T roponin I < 0.02, [id number]-Type Natriuretic Peptide 299, Total Protein 7.4, Albumin 3.1L, Albumin/Globulin Ratio 0.72L, Thyroid Stimulating Hormone (TSH) 0.876 12/23/19 16:00: Immature Granulocyte % (Auto) 1.5, Neutrophils (%) (Auto) 88.9H, Lymphocytes (%) (Auto) 4.0L, Monocytes (%) (Auto) 5.0, Eosinophils (%) (Auto) 0.3, Basophils (%) (Auto) 0.3, Neutrophils # (Auto) 31.0H, Lymphocytes # (Auto) 1.4L, Monocytes # (Auto) 1.7H, Eosinophils # (Auto) 0.1, Basophils # (Auto) 0.1, Nucleated Red Blood Cells % (auto) 0.0, Lactic Acid Level 2.2*H CBC/BMP Laboratory Tests 12/23/19 15:59 12/23/19 16:00 Microbiology Microbiology 12/23/19 Blood Culture, Received Pending 12/23/19 Gram Stain, Received Pending 12/23/19 Sputum Culture, Received Pending 12/23/19 Blood Culture, Received Pending Home Medications Scheduled Amlodipine Besylate (Amlodipine Besylate) 5 Mg Tab, 5 MG PO DAILY Amoxicillin/Potassium Clav (Augmentin 875-125 Tablet) 1 Each Tablet, 1 TAB PO BID TOOK LAST TAB MORNING OF 12/23/2019 Ascorbic Acid (Vitamin C) 500 Mg Tablet, 500 MG PO DAILY Aspirin (Aspirin EC) 325 Mg Tabec, 325 MG PO DAILY Atorvastatin Calcium (Atorvastatin Calcium) 20 Mg Tab, 20 MG PO DAILY Folic Acid (Folic Acid) 1 Mg Tablet, 2 MG PO DAILY Hydroxychloroquine Sulfate (Hydroxychloroquine Sulfate) 200 Mg Tab, 400 MG PO DAILY Magnesium Chloride (Slow-Mag) 71.5 Mg Tablet.dr, 1 TAB PO BID Moexipril HCl (Moexipril HCl) 7.5 Mg Tab, 7.5 MG PO DAILY Multivitamins (Thera M Plus Tablet) 1 Each Tablet, 1 TAB PO DAILY Omeprazole (Omeprazole) 20 Mg Cap, 20 MG PO DAILY Spironolact/Hydrochlorothiazid (Spironolactone-Hctz 25-25 Tab) 1 Ea Tab, 1 TAB PO DAILY Scheduled PRN Oxymetazoline HCl (Afrin) 15 Ml Mist, 2 SPRAYS NARES BID PRN for NASAL CONGESTION Allergies Coded Allergies: No Known Allergies (Unverified , 12/23/19) A-FIB/CHADSVASC A-FIB History Current/History of A-Fib/PAF?: No GME ATTESTATION GME ATTESTATION My faculty preceptor for this patient encounter was physically present during the encounter and was fully available. All aspects of the patient interview, examination, medical decision making process, and medical care plan development were reviewed and approved by the faculty preceptor. The faculty preceptor is aware and concurs with the plan as stated in the body of this note and will attest to such by his/her cosignature. CASSIUS ALEXANDER MD Dec 23, 2019 19:17 MARISELA SANDOVAL MD Dec 23, 2019 20:34
[2019-12-23 19:52] LABS: ERYTHROCYTE SEDIMENTATION RATE 75 mm/hr (0-20)
[2019-12-23 21:00] VITALS: BP 110/70
[2019-12-23] MEDS ORDERED: DOCUSATE SODIUM 100 MG CAP PO SCH (21:00)
[2019-12-23] MEDS: DOXYCYCLINE HYCLATE 100 MG in D5W MINI-BAG PLUS 100 ML IV SCH (21:29)
[2019-12-24] VITALS (7 sets, daily range): BP systolic 92–120; BP diastolic 46–78
[2019-12-24] MEDS: PIPERACILLIN/TAZOBACTAM SOD 2.25 GM in D5W MINI-BAG PLUS 50 ML IV SCH ×4 (01:32→22:30)
[2019-12-24 06:39] LABS: HEMATOCRIT 35.7 % (42.0-52.0); HEMOGLOBIN 11.7 g/dl (13.5-17.5); MEAN CORPUSCULAR HEMOGLOBIN 30.7 pg (27.0-33.0); MEAN CORPUSCULAR HGB CONC 32.8 g/dl (32.0-36.5); MEAN CORPUSCULAR VOLUME 93.7 fl (80.0-96.0); PLATELET COUNT, AUTOMATED 420 10^3/uL (150-450); RED BLOOD COUNT 3.81 10^6/uL (4.30-6.10); WHITE BLOOD COUNT 18.4 10^3/uL (4.0-10.0)
--- NOTE | 2019-12-24 06:52 | REP ---
CHEST, SINGLE VIEW: Single view of the chest is performed and compared to a prior study of 12/16/2019. There appears to be left base infiltrate once again, appearing similar to the prior exam. There is underlying interstitial prominence bilaterally. The heart is normal in size. The mediastinal silhouette is unchanged. IMPRESSION: Left base infiltrate appears similar to prior study 12/16/2019. Electronically Signed by Umair Okeefe MD 12/24/2019 10:54 A
[2019-12-24 06:55] LABS: ALBUMIN 2.6 GM/DL (3.2-5.2); BILIRUBIN,TOTAL 0.5 MG/DL (0.2-1.0); CALCIUM LEVEL 9.8 MG/DL (8.8-10.2); CREATININE FOR GFR 1.7 MG/DL (0.70-1.30); GLOMERULAR FILTRATION RATE 41.5 (>35); POTASSIUM SERUM 4.4 MEQ/L (3.5-5.1); TOTAL PROTEIN 6.5 GM/DL (6.4-8.2)
[2019-12-24] MEDS: SPIRONOLACTONE 25 MG TAB PO SCH (08:48)
[2019-12-24] MEDS: ATORVASTATIN 20 MG TAB PO SCH (08:49)
[2019-12-24] MEDS: lisinopriL 5 MG TAB PO SCH (08:49)
[2019-12-24] MEDS: amLODIPine 5 MG TAB PO SCH (08:49)
[2019-12-24] MEDS: OMEPRAZOLE 20 MG CAP PO SCH (08:49)
[2019-12-24] MEDS: HYDROXYCHLOROQUINE 200 MG TAB PO SCH (08:49)
[2019-12-24] MEDS: ASPIRIN ENTERIC 325 MG TAB PO SCH (08:50)
[2019-12-24] MEDS: FOLIC ACID 1 MG TAB PO SCH (08:50)
[2019-12-24] MEDS ORDERED: hydroCHLOROthiazide 25 MG TAB PO SCH (09:00)
[2019-12-24] MEDS ORDERED: ENOXAPARIN 40MG/0.4ML SYRINGE (J1650 PER 10MG) SC SCH (09:00)
[2019-12-24] MEDS: DOXYCYCLINE HYCLATE 100 MG in D5W MINI-BAG PLUS 100 ML IV SCH (09:29)
[2019-12-24] MEDS: MAG SULF 1GM/100ML (MAG RUN) 1 GM in IV 1 EA IV SCH ×5 (10:36→15:21)
--- NOTE | 2019-12-24 14:42 | IPNPDOC ---
Date Seen The patient was seen on 12/24/19. Progress Note SUBJECTIVE: 79-year-old male with past medical history of coronary artery disease status post left heart cath, COPD, psoriatic arthritis, rheumatoid arthritis, hypertension and hyperlipidemia was admitted for possible pneumonia. Patient was recently hospitalized for pneumonia, treated with 3 days of IV Zosyn followed by oral Augmentin to complete antibiotic course at home. Patient completed his antibiotics 1-2 days prior to arrival, reports initial improvement in symptoms but further progression. 2. Worsening dyspnea and cough productive of yellow sputum. Patient reports feeling better today, continues to have mild dyspnea and cough, otherwise asymptomatic. He denies any chest pain, nausea, vomiting, abdominal pain or diarrhea. 10 point review of system is negative except for above PHYSICAL EXAMINATION: VITAL SIGNS: Please see below. GENERAL: No distress HEENT: Normocephalic, atraumatic, moist mucous membranes NECK: Supple CARDIOVASCULAR EXAMINATION: S1, S2, no murmurs RESPIRATORY EXAMINATION: Scattered rhonchi, no wheezing ABDOMINAL EXAMINATION: Soft, nontender, nondistended, positive bowel sounds EXTREMITIES: Range of motion intact SKIN: No rash NEUROLOGICAL EXAMINATION: Alert and oriented 3, no focal deficits PSYCHIATRIC EXAMINATION: Calm and cooperative LABORATORY DATA, IMAGING STUDIES, MICROBIOLOGY: Please see below. ASSESSMENT AND PLAN: 79-year-old male with multiple medical comorbidities is admitted for pneumonia. PROBLEMS: 1. Possible pneumonia: Patient recently hospitalized and treated for pneumonia, returned with continuation of shortness of breath/cough along with significant leukocytosis. Based on patient's history and presentation. It is unknown if current symptoms are chronic due to underlying COPD or related to partially treated pneumonia. It is my suspicion that patient does not have an overwhelming infection that was not treated adequately previously, inflammatory markers significantly elevated, which may indicate an alternative etiology for leukocytosis. We'll continue antibiotics through today, if patient continues to improve, we'll discontinue antibiotics tomorrow. Pro-calcitonin pending. 2. COPD: Continue home regimen, supplemental oxygen as needed to maintain O2 sats between 88-92%. 3. Hypertension: Continue Norvasc and lisinopril, appears slightly dehydrated, blood pressure low normal, will discontinue hydrochlorothiazide for now. 4. Coronary artery disease: Continue optimal medical management with aspirin, statin. 5. Chronic kidney disease: Currently at baseline, will monitor. 6. Rheumatoid arthritis: Continue Plaquenil. DVT prophylaxis: Lovenox. GI prophylaxis: Home PPI VS, I&O, 24H, Fishbone Vital Signs/I&O Vital Signs Date Time Temp Pulse Resp B/P (MAP) Pulse Ox O2 Delivery O2 Flow Rate FiO2 12/24/19 12:00 98.5 82 16 102/54 (70) 90 Room Air I&O- Last 24 Hours up to 6 AM 12/24/19 06:00 Intake Total 890 ml Output Total 400 ml Balance 490 ml Laboratory Data 24H LABS Laboratory Tests 2 12/23/19 15:59: Anion Gap 8, Glomerular Filtration Rate 34.4L, Calcium Level 10.7H, Total Bilirubin 0.5, Direct Bilirubin 0.1, Aspartate Amino Transf (AST/SGOT) 32, Alanine Aminotransferase (ALT/SGPT) 58, Alkaline Phosphatase 96, Total Creatine Kinase 78, Creatine Kinase MB 1.9, Creatine Kinase MB Relative Index 2.44, Troponin I < 0.02, C-Reactive Protein, Quantitative 10.70H, KN-Jjr-Y-Type Natriuretic Peptide 299, Total Protein 7.4, Albumin 3.1L, Albumin/Globulin Ratio 0.72L, Thyroid Stimulating Hormone (TSH) 0.876 12/23/19 16:00: Immature Granulocyte % (Auto) 1.5, Neutrophils (%) (Auto) 88.9H, Lymphocytes (%) (Auto) 4.0L, Monocytes (%) (Auto) 5.0, Eosinophils (%) (Auto) 0.3, Basophils (%) (Auto) 0.3, Neutrophils # (Auto) 31.0H, Lymphocytes # (Auto) 1.4L, Monocytes # (Auto) 1.7H, Eosinophils # (Auto) 0.1, Basophils # (Auto) 0.1, Nucleated Red Blood Cells % (auto) 0.0, Differential Slide Review Report, Peripheral Blood Smear Path Consult PERIPHERAL SMEAR, Erythrocyte Sedimentation Rate 75H, Lactic Acid Level 2.2*H 12/23/19 19:47: Urine Color YELLOW, Urine Appearance CLOUDYH, Urine pH 5.0, Urine Specific Grav ity 1.024, Urine Protein NEGATIVE, Urine Glucose (UA) 1+H, Urine Ketones TRACEH, Urine Blood NEGATIVE, Urine Nitrite NEGATIVE, Urine Bilirubin NEGATIVE, Urine Urobilinogen 0.2, Urine Leukocyte Esterase NEGATIVE, Urine WBC (Auto) 34H, Urine RBC (Auto) 125H, Urine Hyaline Casts (Auto) 9, Urine Bacteria (Auto) NEGATIVE, Urine Squamous Epithelial Cells 1, Urine Calcium Oxalate Cryst (Auto) MODERATE, Urine Mucus (Auto) SMALL, Urine Sperm (Auto) SMALLH, Methicillin-Resist S.aureus DNA PCR NOT DETECTED 12/23/19 20:49: Lactic Acid Followup at 4 Hours 2.3*H 12/24/19 05:53: Nucleated Red Blood Cells % (auto) 0.0, Anion Gap 10, Glomerular Filtration Rate 41.5, Calcium Level 9.8, Magnesium Level 1.0L, Total Bilirubin 0.5, Aspartate Amino Transf (AST/SGOT) 23, Alanine Aminotransferase (ALT/SGPT) 46, Alkaline Phosphatase 87, Total Protein 6.5, Albumin 2.6L, Albumin/Globulin Ratio 0.67L CBC/BMP Laboratory Tests 12/23/19 15:59 12/23/19 16:00 12/24/19 05:53 Microbiology Microbiology 12/23/19 Urine Culture, Received Pending 12/23/19 Respiratory Virus Panel (PCR) (DANIA) - Final, Complete 12/23/19 Blood Culture, Received Pending 12/23/19 Gram Stain - Final, Resulted 12/23/19 Sputum Culture, Resulted Pending 12/23/19 Blood Culture, Received Pending MARISELA SANDOVAL MD Dec 24, 2019 14:42
[2019-12-24] MEDS ORDERED: MAGNESIUM SULFATE 1GM/100ML D5W BAG (10MG/ML) As Ordered ONE (15:17)
[2019-12-24] MEDS ORDERED: SODIUM CHLORIDE 0.9% 1000ML IV ONE (17:30)
[2019-12-24] MEDS ORDERED: ENOXAPARIN 30MG/0.3ML SYRINGE (J1650 PER 10MG) SC SCH (21:00)
[2019-12-25] VITALS: BP 102/52
[2019-12-25] MEDS: DOXYCYCLINE HYCLATE 100 MG in D5W MINI-BAG PLUS 100 ML IV SCH ×2 (00:12→09:39)
[2019-12-25] MEDS: PIPERACILLIN/TAZOBACTAM SOD 2.25 GM in D5W MINI-BAG PLUS 50 ML IV SCH ×2 (03:35→08:20)
[2019-12-25 04:00] VITALS: BP 102/54
[2019-12-25 05:29] LABS: HEMATOCRIT 34.6 % (42.0-52.0); HEMOGLOBIN 11.6 g/dl (13.5-17.5); MEAN CORPUSCULAR HEMOGLOBIN 31.8 pg (27.0-33.0); MEAN CORPUSCULAR HGB CONC 33.5 g/dl (32.0-36.5); MEAN CORPUSCULAR VOLUME 94.8 fl (80.0-96.0); PLATELET COUNT, AUTOMATED 405 10^3/uL (150-450); RED BLOOD COUNT 3.65 10^6/uL (4.30-6.10); WHITE BLOOD COUNT 16.1 10^3/uL (4.0-10.0)
[2019-12-25 06:06] LABS: ALBUMIN 2.6 GM/DL (3.2-5.2); BILIRUBIN,TOTAL 0.3 MG/DL (0.2-1.0); CALCIUM LEVEL 9.7 MG/DL (8.8-10.2); CREATININE FOR GFR 1.86 MG/DL (0.70-1.30); GLOMERULAR FILTRATION RATE 37.4 (>35); PHOSPHORUS LEVEL 4.1 MG/DL (2.5-4.9); POTASSIUM SERUM 4.5 MEQ/L (3.5-5.1); TOTAL PROTEIN 6.5 GM/DL (6.4-8.2)
[2019-12-25 06:54] LABS: MAGNESIUM LEVEL 1.7 MG/DL (1.8-2.4)
[2019-12-25 07:56] VITALS: BP 132/60
[2019-12-25] MEDS: HYDROXYCHLOROQUINE 200 MG TAB PO SCH (08:18)
[2019-12-25] MEDS: FOLIC ACID 1 MG TAB PO SCH (08:18)
[2019-12-25] MEDS: OMEPRAZOLE 20 MG CAP PO SCH (08:18)
[2019-12-25] MEDS: ATORVASTATIN 20 MG TAB PO SCH (08:18)
[2019-12-25] MEDS: SPIRONOLACTONE 25 MG TAB PO SCH (08:19)
[2019-12-25] MEDS: ASPIRIN ENTERIC 325 MG TAB PO SCH (08:23)
[2019-12-25] MEDS ORDERED: MAGNESIUM OXIDE 400 MG TAB (MAG-OX) PO ONE (09:00)
[2019-12-25 11:39] VITALS: BP 127/60
[2019-12-25] MEDS: amLODIPine 5 MG TAB PO SCH (12:21)
[2019-12-25] MEDS: lisinopriL 5 MG TAB PO SCH (12:22)
[2019-12-27 14:07] LABS: BODY FLUID CULTURE Not indicated. (.); LEGIONELLA ANTIGEN URINE Negative (Negative); ORGANISM ID Not indicated. (.); SPECIMEN SOURCE Urine (.); URINE STREP PNEUMONIAE ANTIGEN Negative (Negative)
--- NOTE | 2020-01-02 08:17 | DS.PDOC ---
Discharge Summary General Date of Admission Dec 23, 2019 at 19:08 Date of Discharge 12/25/19 Attending Physician: MARISELA SANDOVAL MD Discharge Summary PROCEDURES PERFORMED DURING STAY: None. ADMITTING DIAGNOSES: 1. Leukocytosis, dehydration. DISCHARGE DIAGNOSES: 1. Leukocytosis, dehydration. COMPLICATIONS/CHIEF COMPLAINT: Ckd,Copd,Leukocytosis,Pneumonia. HISTORY OF PRESENT ILLNESS: 79-year-old male with past medical history of coronary artery disease, COPD and chronic kidney disease, was admitted initially for possible recurrent pneumonia. He had recently been hospitalized and treated for pneumonia, workup was negative and his clinical presentation was not suspicious for infectious etiology. Patient did have elevated lactate, low normal blood pressure and dehydration with slightly elevated creatinine from baseline at time of presentation. It was likely due to decreased oral intake along with patient's diuretics. Patient was given gentle hydration with holding diuretics and his labs had significant improvement. Leukocytosis, most likely reactive as it improved substantially within 24 hours. Patient's antibiotics were discontinued along with spironolactone and hydrochlorothiazide that he is advised to follow up outpatient with his PCP in 1-2 weeks to reassess the need for diuretics. He is clinically stable for discharge at this time. HOSPITAL COURSE: As above. DISCHARGE MEDICATIONS: Please see below. ALLERGIES: Please see below. PHYSICAL EXAMINATION: VITAL SIGNS: Please see below. GENERAL: No distress HEENT: Normocephalic, atraumatic, moist mucous membranes NECK: Supple CARDIOVASCULAR EXAMINATION: S1, S2, no murmurs RESPIRATORY EXAMINATION: Scattered rhonchi, no wheezing ABDOMINAL EXAMINATION: Soft, nontender, nondistended, positive bowel sounds EXTREMITIES: Range of motion intact SKIN: No rash NEUROLOGICAL EXAMINATION: Alert and oriented 3, no focal deficits PSYCHIATRIC EXAMINATION: Calm and cooperative LABORATORY DATA: Please see below. IMAGING: Chest x-ray without acute pathology PROGNOSIS: Fair ACTIVITY: As tolerated. DIET: Cardiac DISCHARGE PLAN: Follow with PCP in 1-2 weeks DISPOSITION: 01 Home, Self-Care. DISCHARGE INSTRUCTIONS: 1. As above. DISCHARGE CONDITION: Stable. TIME SPENT ON DISCHARGE: Greater than 26 minutes. Microbiology Microbiology 12/23/19 Urine Culture - Final, Complete 12/23/19 Respiratory Virus Panel (PCR) (DANIA) - Final, Complete 12/23/19 Blood Culture - Final, Complete NO GROWTH AFTER 5 DAYS 12/23/19 Gram Stain - Final, Complete 12/23/19 Sputum Culture - Final, Complete Yeast Like Organism 12/23/19 Blood Culture - Final, Complete NO GROWTH AFTER 5 DAYS Discharge Medications Scheduled Amlodipine Besylate (Amlodipine Besylate) 5 Mg Tab, 5 MG PO DAILY, (Reported) Ascorbic Acid (Vitamin C) 500 Mg Tablet, 500 MG PO DAILY, (Reported) Aspirin (Aspirin EC) 325 Mg Tabec, 325 MG PO DAILY, (Reported) Atorvastatin Calcium (Atorvastatin Calcium) 20 Mg Tab, 20 MG PO DAILY, (Reported) Folic Acid (Folic Acid) 1 Mg Tablet, 2 MG PO DAILY, (Reported) Hydroxychloroquine Sulfate (Hydroxychloroquine Sulfate) 200 Mg Tab, 400 MG PO DAILY, (Reported) Magnesium Chloride (Slow-Mag) 71.5 Mg Tablet.dr, 1 TAB PO BID, (Reported) Moexipril HCl (Moexipril HCl) 7.5 Mg Tab, 7.5 MG PO DAILY, (Reported) Multivitamins (Thera M Plus Tablet) 1 Each Tablet, 1 TAB PO DAILY, (Reported) Omeprazole (Omeprazole) 20 Mg Cap, 20 MG PO DAILY, (Reported) Scheduled PRN Oxymetazoline HCl (Afrin) 15 Ml Mist, 2 SPRAYS NARES BID PRN for NASAL CONGESTION, (Reported) Allergies Coded Allergies: No Known Allergies (Unverified , 12/23/19) MARISELA SANDOVAL MD Jan 02, 2020 08:17
== END 2019-12-25 14:28 | disposition home or self-care (01) | DRG 641 ==
LOC: M ED 14:39 → M ED INP 19:08 → ENRESERV 20:00 → M PCU 21:00
PROVIDERS: ADMIT Internal Medicine; ATTEND Internal Medicine
DX: E86.0 Dehydration (principal); D72.829 Elevated white blood cell count, unspecified; L40.50 Arthropathic psoriasis, unspecified; E78.5 Hyperlipidemia, unspecified; N18.3 Chronic kidney disease, stage 3 (moderate); J44.9 Chronic obstructive pulmonary disease, unspecified; I12.9 Hypertensive chronic kidney disease with stage 1 through stage 4 chronic kidney disease, or unspecified chronic kidney disease; K21.9 Gastro-esophageal reflux disease without esophagitis; I25.10 Atherosclerotic heart disease of native coronary artery without angina pectoris; J32.9 Chronic sinusitis, unspecified; Z85.828 Personal history of other malignant neoplasm of skin; Z79.82 Long term (current) use of aspirin; Z11.59 Encounter for screening for other viral diseases; Z20.828 Contact with and (suspected) exposure to other viral communicable diseases; Z87.891 Personal history of nicotine dependence

== ENCOUNTER → 2020-01-03 | Outpatient (CLI) | payer MEDICARE, BC ==
[~2020-01-03] MED LIST changes: +AUGM875T28 PO; +ISOVUE-370 76% 100ML VIAL (Q9967) As Ordered ONE
--- NOTE | 2020-01-03 17:32 | REP ---
CT ABDOMEN WITH AND WITHOUT IV CONTRAST: CT abdomen performed prior to and following the intravenous administration of 75 mL Isovue-370. Sagittal and coronal reconstruction images are performed. COMPARISON: Comparison made with prior CT of the chest 12/16/2019. Visualized lung bases demonstrate interstitial fibrotic change. The liver is unremarkable. The spleen is normal in size with no intrinsic abnormality. Low density nodule of the right adrenal gland measures 9 mm in diameter consistent with a small adenoma. There is an oval low density nodule in the left adrenal gland measuring 2.1 x 1.4 cm consistent with an adenoma. There is benign thickening of the adjacent inferior left adrenal gland. The pancreas demonstrates no mass. There are bilateral renal cysts. The dominant cysts in the right upper pole measure 2.5 cm and 2.8 cm in diameter. There is a dominant cyst in the left mid kidney 2.7 cm. There is no hydronephrosis bilaterally. There is no evidence of nephrolithiasis. There is calcification of the thoracic aorta without aneurysm. There is no adenopathy, free air or free fluid. No bowel wall thickening is seen. There are degenerative changes of the spine. IMPRESSION: Bilateral adrenal adenomas. Bilateral renal cysts. Electronically Signed by Umair Okeefe MD 01/03/2020 07:28 P
== END ==
LOC: M RAD 15:05
PROVIDERS: ATTEND Internal Medicine Cardiovascular Disease
DX: N28.1 Cyst of kidney, acquired (principal); D35.00 Benign neoplasm of unspecified adrenal gland
CPT/HCPCS: 74170; Q9967

== ENCOUNTER → 2020-02-10 | Outpatient (CLI) | payer MEDICARE, BC ==
[~2020-02-10] MED LIST changes: -ISOVUE-370 76% 100ML VIAL (Q9967) As Ordered ONE
--- NOTE | 2020-02-13 11:43 | REP ---
REASON FOR EXAM: Followup. COMPARISON: 12/23/[address] Beaulieu. The patchy opacities seen previously in the left lower lobe have significantly improved if not completely cleared. There is basilar fibrotic change status quo. The pleural angles remain sharp. The heart is not enlarged. There are no new abnormal opacities. There is no significant change in the appearance of the osseous structures. IMPRESSION: Improvement and chronic changes as described above. Electronically Signed by Wesley Crowley DO 02/13/2020 12:27 P
== END ==
LOC: M LAB 08:15
PROVIDERS: ATTEND Family Medicine
DX: D72.829 Elevated white blood cell count, unspecified (principal); R05 Cough; J84.10 Pulmonary fibrosis, unspecified

== ENCOUNTER → 2020-03-07 | Outpatient (CLI) | payer MEDICARE, BC ==
[~2020-03-07] MED LIST changes: +AMLO1TAB24 PO; -AMLO5TAB6 PO
[2020-03-07 15:43] LABS: BASO % 0.1 % (0.0-1.0); HEMATOCRIT 36.8 % (42.0-52.0); LYMPH # 0.4 10^3/uL (1.5-5.0); LYMPH % 3.2 % (24.0-44.0); MEAN CORPUSCULAR HEMOGLOBIN 30.8 pg (27.0-33.0); MEAN CORPUSCULAR HGB CONC 32.6 g/dl (32.0-36.5); MEAN CORPUSCULAR VOLUME 94.6 fl (80.0-96.0); MONO # 0.2 10^3/uL (0.0-0.8); MONO % 1.5 % (0.0-5.0); NEUTROPHILS # 12.4 10^3/uL (1.5-8.5); NEUTROPHILS % 94.4 % (36.0-66.0); PLATELET COUNT, AUTOMATED 199 10^3/uL (150-450); RED BLOOD COUNT 3.89 10^6/uL (4.30-6.10); WHITE BLOOD COUNT 13.1 10^3/uL (4.0-10.0)
[2020-03-07 16:02] LABS: ERYTHROCYTE SEDIMENTATION RATE 7 mm/hr (0-20)
[2020-03-07 16:39] LABS: ALBUMIN 3.5 GM/DL (3.2-5.2); ALT/SGPT 74 U/L (12-78); BILIRUBIN,TOTAL 0.8 MG/DL (0.2-1.0); BLOOD UREA NITROGEN 35 MG/DL (7-18); C REACTIVE PROTEIN QUANTITATIV 0.37 MG/DL (0.00-0.30); CARBON DIOXIDE LEVEL 23 MEQ/L (21-32); CHLORIDE LEVEL 97 MEQ/L (98-107); CREATININE FOR GFR 1.46 MG/DL (0.70-1.30); GLOMERULAR FILTRATION RATE 49.5 (>35); GLUCOSE, FASTING 542 MG/DL (70-100); RHEUMATOID FACTOR QUANT < 10.0 IU/ML (<15.0); SODIUM LEVEL 128 MEQ/L (136-145); TOTAL PROTEIN 6.5 GM/DL (6.4-8.2)
[2020-03-26 17:10] LABS: ANCA-ATYPICAL <1:20 titer (Neg:<1:20); ANGIOTENSIN 1 CONVERTING ENZYM 7 U/L (14-82); ANTINUCLEAR ANTIBODIES DIRECT Negative (Negative); ASPERGILLUS FUMIGATUS AB Negative (Negative); AUREOBASIDIUM PULLULANS Negative (Negative); CYCLIC CITRULLINATED PEPTIDE 6 units (0-19); CYTOPLASMIC NEUTROP AB ANCA-C <1:20 titer (Neg:<1:20); MICROPOLYSPORA FAENI AB Negative (Negative); PERINUCLEAR AB ANCA-P <1:20 titer (Neg:<1:20); PIGEON SERUM AB Negative (Negative); SJOGREN'S ANTI SS-A <0.2 AI (0.0-0.9); SJOGREN'S ANTI SS-B <0.2 AI (0.0-0.9); THERMOACTINOMYCES SACCHARI Negative (Negative); THERMOACTINOMYCES VULGARIS Negative (Negative)
[2020-04-06 08:06] LABS: ANTI JO-1 ANTIBODIES <0.2
== END ==
LOC: M LAB 14:59
PROVIDERS: ATTEND Internal Medicine Pulmonary Disease
DX: J84.9 Interstitial pulmonary disease, unspecified (principal)

== ENCOUNTER → 2020-03-20 | Outpatient (CLI) | payer MEDICARE, BC ==
[~2020-03-20] MED LIST changes: -AMLO1TAB24 PO; +AMLO5TAB6 PO
--- NOTE | 2020-03-20 09:23 | REP ---
Clinical: Evaluate for interstitial pulmonary disease. Comparison: 12/16/2019. Technique: Axial high-resolution images obtained in prone and supine positioning on inspiration and expiration. Findings: Minimal chronic scarring at the lingula and right middle lobe are again identified and essentially unchanged as compared with 12/16/2019. No significant abnormal interstitial or reticulonodular changes are appreciated by CT to suggest pulmonary disease. No acute consolidation, significant nodule or mass lesion. The previously noted scattered interstitial pneumonitis on 12/16/2019 appears to have resolved. Chronic stable 2 cm bulla is identified in the left upper lobe and essentially unchanged. No effusion. No pneumothorax. Mediastinum again demonstrates atherosclerotic changes to the thoracic aorta and coronary arteries without aortic aneurysm or cardiomegaly. No pericardial effusion. No obvious adenopathy. Surrounding musculoskeletal structures are intact. Impression: 1. Minimal chronic-appearing age-related changes without CT evidence for underlying interstitial pulmonary disease. 2. No acute mediastinal or pleuroparenchymal process and no adenopathy noted. 3. Previously identified presumed interstitial pneumonitis on 12/16/2019 appears to have resolved. Electronically Signed by Manish Beaulieu MD 03/20/2020 09:15 A
== END ==
LOC: M RAD 07:21
PROVIDERS: ATTEND Internal Medicine Pulmonary Disease
DX: J84.9 Interstitial pulmonary disease, unspecified (principal)

== ENCOUNTER → 2020-07-04 | Outpatient (CLI) | payer MEDICARE, BC ==
[~2020-07-04] MED LIST changes: +AMLO1TAB24 PO; -AMLO5TAB6 PO
--- NOTE | 2020-07-04 12:27 | REPPI ---
INDICATION: L40.50 Z79.52 COMPARISON: None. TECHNIQUE: AP, lateral, bilateral oblique views of the right and left hand.. FINDINGS: Right hand demonstrates mild advanced arthritic changes at the 1st through 4th metacarpal heads and MCP joints including joint space narrowing and spurring at the 1st, 2nd, and 3rd metacarpal heads. Moderate osteoarthritic changes noted involving the interphalangeal joints including subchondral sclerosis, scattered marginal spurring and minimal joint space narrowing. Advanced arthritic changes are also suggested at the 1st and 2nd carpometacarpal joints including subchondral sclerosis/heterogeneity, joint space narrowing and spurring. Left hand demonstrates mild advanced arthritic changes at the 1st through 3rd metacarpal heads and MCP joints including joint space narrowing and spurring at the 1st, and 3rd metacarpal heads. Moderate osteoarthritic changes noted involving the interphalangeal joints including subchondral sclerosis, scattered marginal spurring and minimal joint space narrowing most notably at the 5th proximal interphalangeal joint. Moderate arthritic changes are also suggested at the 1st and 2nd carpometacarpal joints including subchondral sclerosis/heterogeneity, joint space and narrowing. IMPRESSION: Scattered moderate to advanced osteoarthritic degenerative changes <Electronically signed by Manish Beaulieu > 07/04/20 [id number]
--- NOTE | 2020-07-04 13:08 | REPPI ---
INDICATION: L40.50 Z79.52 COMPARISON: None. TECHNIQUE: AP, lateral, bilateral oblique views of the right and left foot. FINDINGS: Right foot demonstrates generalized age-related changes and a large calcaneal heel spur. There is mild arthritic change at the 1st metatarsophalangeal joint including subchondral sclerosis with minimal joint space narrowing. No evidence for obvious acute or healed injury. Left foot demonstrates generalized age-related changes and a moderate calcaneal heel spur. There is mild arthritic change at the 1st metatarsophalangeal joint including subchondral sclerosis with minimal joint space narrowing. No evidence for obvious acute or healed injury IMPRESSION: Generalized age-related changes as noted above. No acute fracture or dislocation. <Electronically signed by Manish Beaulieu > 07/04/20 [id number]
--- NOTE | 2020-07-04 13:11 | REPPI ---
INDICATION: L40.50 Z79.52 COMPARISON: None. TECHNIQUE: AP, lateral, bilateral oblique views of the right and left wrist. FINDINGS: Left wrist demonstrates moderate arthritic changes at the 1st and 2nd carpal/metacarpal joints include subchondral sclerosis/heterogeneity, joint space narrowing, and subtle spurring. Increased sclerosis to the radial surface with decreased radiocarpal joint space is also appreciated. Right wrist demonstrates moderate arthritic changes at the 1st and 2nd carpal/metacarpal joints include subchondral sclerosis/heterogeneity, joint space narrowing, and subtle spurring. Increased sclerosis to the radial surface with decreased radiocarpal joint space is also appreciated. IMPRESSION: Symmetric bilateral arthritic changes <Electronically signed by Manish Beaulieu > 07/04/20 [id number]
--- NOTE | 2020-07-04 13:13 | REPPI ---
INDICATION: L40.50 Z79.52 COMPARISON: Comparison chest x-ray February 10, 2020.. TECHNIQUE: Three views of the left shoulder are obtained. FINDINGS: There is moderate glenohumeral osteoarthritic spurring. The glenohumeral articulation is normally aligned. There is mild AC joint spurring and narrowing. No erosive changes seen. Periarticular soft tissues are unremarkable. IMPRESSION: Moderate glenohumeral osteoarthritis. Mild AC joint osteoarthritis. No acute bony abnormality. <Electronically signed by Corby Cardenas > 07/04/20 [id number]
== END ==
LOC: M PLAIMG 11:42
PROVIDERS: ATTEND Internal Medicine
DX: M77.31 Calcaneal spur, right foot (principal); M77.32 Calcaneal spur, left foot; M19.071 Primary osteoarthritis, right ankle and foot; M19.072 Primary osteoarthritis, left ankle and foot; M19.041 Primary osteoarthritis, right hand; M19.042 Primary osteoarthritis, left hand; M19.012 Primary osteoarthritis, left shoulder; M19.031 Primary osteoarthritis, right wrist; M19.032 Primary osteoarthritis, left wrist; L40.50 Arthropathic psoriasis, unspecified; Z79.52 Long term (current) use of systemic steroids

== ENCOUNTER → 2020-07-04 | Outpatient (CLI) | payer MEDICARE, BC ==
--- NOTE | 2020-07-12 15:19 | DEXA ---
AP SPINE L1 - L4 1.404 1.7 2.1 LT FEMUR TOTAL 1.228 1.7 2.0 LT NECK 1.152 0.8 2.2 RT FEMUR TOTAL 1.134 1.0 1.4 RT NECK 1.053 0.1 1.4 TOTAL BODY TOTAL OTHER COMMENTS: Normal bone densitometry of the spine and hips. FOLLOW-UP: Recommendation for the next bone density exam: 5 years. KUSUM
== END ==
LOC: M WHC 10:57
PROVIDERS: ATTEND Internal Medicine
DX: L40.50 Arthropathic psoriasis, unspecified (principal); Z79.52 Long term (current) use of systemic steroids

== ENCOUNTER → 2021-03-28 | Outpatient (CLI) | payer MEDICARE, BC ==
--- NOTE | 2021-03-28 15:33 | REP ---
INDICATION: PAIN COMPARISON: None. TECHNIQUE: AP, lateral, bilateral oblique and sunrise views. FINDINGS: There is no evidence for acute fracture or dislocation. The tibiofemoral joint appears essentially age-appropriate. Martorell view demonstrates increased sclerosis along the posterior patellar margin with subtle patellofemoral joint space narrowing and small associated spurring/osteophyte formation. Lateral view demonstrates suprapatellar effusion. IMPRESSION: 1. Suprapatellar effusion along with degenerative changes to the patellofemoral joint. 2. No acute fracture or dislocation. <Electronically signed by Manish Beaulieu > 03/28/21 0244
== END ==
LOC: M WUC 14:26
PROVIDERS: ATTEND Physician Assistant
DX: M17.12 Unilateral primary osteoarthritis, left knee (principal)

== ENCOUNTER 2021-07-03 16:03 | Emergency (ER) | payer MEDICARE, BC ==
[~2021-07-03] VITALS: Ht 175.3 cm; Wt 77.2 kg
[~2021-07-03 16:03] MED LIST changes: -ATEN25TA PO; -ECOT81TA5 PO; -ELIQ5TAB PO; -GLIP2.5T6 PO; -OTEZ1TAB3 PO
--- OUTSIDE RECORDS SUMMARY | 2021-07-03 16:13 | CCD ---
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.52 Active confirmed 13246819195636115 Problem Interstitial lung disease J84.9 Active confirmed 207968993 Problem 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 Active confirmed 72130 9000 ALLERGIES No Known Allergies ENCOUNTERS from 1940 to 2021-04-22 Encounter Location Date Provider Diagnosis [facility] Rheumatology [address] [place] [address] [place] [address] Apr, Adri Mckeon Psoriatic arthritis L40.50 IMMUNIZATIONS No Information SOCIAL HISTORY Tobacco Use: Social History Observation Description Date Details (start date - stop date) Former Smoker Sex Assigned At : Social History Observation Description Sex Assigned At Unknown Alcohol Screening: Question Answer Notes Did you have a drink containing alcohol in the past year? Ye s Points 1 Interpretation Negative How often did you have six or more drinks on one occas ion in the past year? Never (0 points) How many drinks did you have on a typica l day when you were drinking in the past year? 1 or 2 (0 points) How often did you have a drink containing alcohol in t he past year? Monthly or less (1 point) Tobacco Use: Question Answer Notes Are you a: former smoker Smoking x 52 years. REASON FOR REFERRAL No Information VITAL SIGNS No information MEDICATIONS Medication SIG (Take, Route, Frequency, Duration) Notes Start Da te End Date Status Otezla 10 & 20 & 30 MG as directed Orally Twice a day for 30 day s 04 Jul, 2020 Not-Taking Methotrexate Sodium 7.5 MG as directed Orally Weekly Not-Taking glipiZIDE 5 MG 1 tablet 30 minutes before b reakfast Orally Once a day for 30 day(s) Active Magnesium Chloride - as directed Daily Not -Taking predniSONE 5 MG 1 tablet Orally Once a day for 30 days Active Aspirin 325 MG 1 tablet Orally Once a day for 30 day(s) Active predniSONE 1 MG 2 tablets Orally Once a day for 30 days Active Otezla 30 MG 1 tablet Orally Twice a day for 30 day(s) Jul, Active Multivitamin - 1 tablet Orally Once a day for 30 day(s) Active Atorvastatin Calcium 20 MG 1 tablet Orally Once a day for 30 day(s) Everyother day Active Omeprazole 40 MG 1 capsule 30 minutes before morning meal Orally Once a day for 30 day(s) Active Folic Acid 1 MG 1 tablet Orally Once a day for 30 day(s) x1 tabl et twice daily Not-Taking Moexipril HCl 7.5 MG 1 tablet 1 hour before a romain l Orally Once a day for 30 day(s) Active Spironolactone-HCTZ 25-25 MG one half Orally Once a day Active Minoxidil 2.5 MG 1 tablet Orally Once a day for 30 day(s) 3 tablets d aily Not-Taking Vitamin D3 125 MCG (5000 UT) 1 tablet Orally Once a day Active predniSONE 2.5 MG 3 tablet Orally Once a day for 30 days 0 2 Jul, 2020 Not-Taking Vitamin C - as directed Orally X1 Daily Activ e Hydroxychloroquine Sulfate 200 MG 1 tablet Orally twice judy y for 90 days 200 MG twice daily Active PROCEDURES No Information RESULTS No Results REASON FOR VISIT Medication Refill Request: Prednisone MEDICAL (GENERAL) HISTORY Type Description Date Medical History Diabetes Mellitus Medical History Psoriatic Arthritis Medical History Psoriasis Medical History Iron Deficiency Anemia Medical History Diverticulosis Medical History Hemorrhoids Medical History Rheumatic Fever Medical History Low Back Pain Medical History Angina Medical History Hypertension Medical History Esophageal Reflux Medical History Vitamin D Deficiency Medical History Internal Hemmorrhoids Surgical History Basal cell carcinoma-nose 2018 Hospitalization History Lung issues 12/2019 Goals Section No Information Health Concerns No Information MEDICAL EQUIPMENT No Information MENTAL STATUS No Information FUNCTIONAL STATUS No Information ASSESSMENTS Encounter Date Diagnosis Assessment Notes Treatment Notes Treatm ent Clinical Notes Apr, Psoriatic arthritis (ICD-10 - L40.50) PLAN OF TREATMENT Medication Medication Name Sig Start Date Stop Date predniSONE 1 MG 2 tablets Orally Once a day for 30 days predniSONE 5 MG 1 tablet Orally Once a day for 30 days Next Appt Details Provider Name:Adri Mckeon, 2021-04-28 09:45:00 AM, [address] [facility], , [place], [address], Provider Name:Bee Lara, 2021-06-10 07:30:00 AM, [address] [facility], , [place], [address], Insurance Providers Payer Name Payer Address Payer Phone Insured Name Patient Relati onship to Insured Coverage Start Date Coverage End Date [facility] [phone] [facility] [phone] [place] E[place]ON MEDICARE Part A and B [address] [facility] [phone] [place] E[place]ON
--- OUTSIDE RECORDS SUMMARY | 2021-07-03 16:13 | CCD | Continuity of Care Document ---
Author Author Taj FREIRE M.D. Organization Unknown Address [address] [place] [address] Phone [phone] Care Team Providers Care Wash Box Operator Name Role Phone Noah Rowe MD [facility] [phone] Problems Active Problems Provider Date Diarrhea Eder Freire M.D. Onset: 04/03/20 21 Screening for malignant neoplasm of colon Eder ellison M.D. Onset: 08/21/2016 Anemia Eder Freire M.D. Onset: 08/24/20 16 Social History Type Date Description Comments Sex Unknown ETOH Use Occasionally Tobacco Use Start: Unknown End: Unknown Patient is a former smoker QUIT 1969 Allergies, Adverse Reactions, Alerts Description No Known Drug Allergies Medications Active Medications SIG Qnty Indications Ordering Provide r Date Hydroxychloroquine Sulfate 200mg T ninats Jesus Aguilar MD Prednisone 5mg Tablets Take 3 Tablets By Mouth Every Morning For 1 Week And Then 2 Every Morn Unknown Spironolactone/Hydrochlorothiazide 25-25mg Tablets Jesus Aguilar MD Moexipril HCL 7.5mg Tablets Jesus Aguilar MD Atorvastatin Calcium 20mg Tablets Jesus Aguilar MD Omeprazole 20mg Capsules Jesus Salmon MD Aspirin 325mg Tablets Unknown Otezla 30mg Tablets Unknown Multiple Vitamin Tablets Unknown Vitamin C 500mg Capsules Unknown D3 High Potency 125mcg (5000 Ut) C apsules Unknown Immunizations Description No Information Available Vital Signs Date Vital Result Comment 04/03/2021 4:03pm Height 71 inches 5'11" Weight 171.00 lb BP Systolic 130 mmHg BP Diastolic 64 mmHg Heart Rate 80 /min BMI (Body Mass Index) 23.8 kg/m2 Weight 77.566 kg Body Temperature 96.3 F 08/21/2016 11:33am Height 71 inches 5'11" Weight 169.00 lb BP Systolic 135 mmHg BP Diastolic 82 mmHg Heart Rate 62 /min BMI (Body Mass Index) 23.6 kg/m2 Weight 76.658 kg Results Description No Information Available Procedures Date Code Description Status 04/03/2021 29674 Office/Outpatient New Low MDM 30 -44 Minutes Completed Medical Devices Description No Information Available Encounters Type Date Location Provider Dx Diagnosis Office Visit 04/03/2021 3:45p Main Office Eder Freire M.D. R 19.4 Change in bowel habit Assessments Date Code Description Provider 04/03/2021 R19.4 Change in bowel habit Eder Freire M.D. Plan of Treatment Future Appointment(s):* 06/05/2021 3:30 pm - Eder Freire M.D. at Main Office 04/03/2021 - Eder Freire M.D.* R19.4 Change in bowel habit* Comments:* 80 yo wm who presents for a h/o diarrhea/irregular bowel habits. Last scope was in 2017. No c/o abdominal pain, weight loss, positive change in bowel habits, no rectal bleeding. No family h/o colon cancer. No h/o chest pain, or sob. Pt is on Otezla/Plaquenil for psoriatic arthritis. Side effects include, diarrhea + nausea/vomiting.Plan:1. High fiber diet.2. Metamucil daily.3. Hold on scopes.4. Office in 2 months. Functional Status Description No Information Available Mental Status Description No Information Available Referrals Description No Information Available
--- OUTSIDE RECORDS SUMMARY | 2021-07-03 16:13 | CCD ---
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.52 Active confirmed [id number] Problem Interstitial lung disease J84.9 Active confirmed 137533402 Problem 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 Active confirmed 86048 9000 ALLERGIES No Known Allergies ENCOUNTERS from 1940 to 2021-05-06 Encounter Location Date Provider Diagnosis [facility] Rheumatology [address] [place] [address] [place] [address] Apr, Adri Mckeon IMMUNIZATIONS No Information SOCIAL HISTORY Tobacco Use: [...] Notes Start Da te End Date Status Magnesium Chloride - as directed Daily Not -Taking Multivitamin - 1 tablet Orally Once a day for 30 day(s) Active Methotrexate Sodium 7.5 MG as directed Orally Weekly Not-Taking predniSONE 2.5 MG 3 tablet Orally Once a day for 30 days 0 2 Jul, 2020 Not-Taking Aspirin 325 MG 1 tablet Orally Once a day for 30 day(s) Active Folic Acid 1 MG 1 tablet Orally Once a day for 30 day(s) x1 tabl et twice daily Not-Taking predniSONE 1 MG 4 tablets Orally Once a day for 30 days Active Hydroxychloroquine Sulfate 200 MG 1 tablet Orally twice judy y for 90 days 200 MG twice daily Active Otezla 30 MG 1 tablet Orally Twice a day for 30 day(s) Jul, Active Vitamin D3 125 MCG (5000 UT) 1 tablet Orally Once a day Active Atorvastatin Calcium 20 MG 1 tablet Orally Once a day for 30 day(s) Everyother day Active Spironolactone-HCTZ 25-25 MG one half Orally Once a day Active glipiZIDE 5 MG 1 tablet 30 minutes before b reakfast Orally Once a day for 30 day(s) Active Vitamin C - as directed Orally X1 Daily Activ e Omeprazole 40 MG 1 capsule 30 minutes before morning meal Orally Once a day for 30 day(s) Active Moexipril HCl 7.5 MG 1 tablet 1 hour before a romain l Orally Once a day for 30 day(s) Active predniSONE 5 MG 1 tablet Orally Once a day for 30 days Active Otezla 10 & 20 & 30 MG as directed Orally Twice a day for 30 day s Jul, Not-Taking Minoxidil 2.5 MG 1 tablet Orally Once a day for 30 day(s) 3 tablets d aily Not-Taking PROCEDURES No Information RESULTS No Results REASON FOR VISIT Increased knee pain, phlegm MEDICAL (GENERAL) HISTORY Type Description Date Medical [...] No Information FUNCTIONAL STATUS No Information ASSESSMENTS No Information PLAN OF TREATMENT Medication Medication Name Sig Start Date Stop Date predniSONE 1 MG 4 tablets Orally Once a day for 30 days predniSONE 5 MG 1 tablet Orally Once a day for 30 days Next Appt Details Provider Name:Bee Lara, 2021-06-10 07:30:00 AM, [address] [facility], , [place], [address], Provider Name:Adri Mckeon, 2021-06-26 11:15:00 AM, [address] [facility], , [place], [address], Insurance Providers Payer Name Payer Address Payer Phone Insured Name Patient Relati onship to Insured Coverage Start Date Coverage End Date [facility] [phone] [facility] [phone] [place] MEDICARE Part A and B [address] [facility] [id number] [phone] [place]CIAN[place] EATON self
--- OUTSIDE RECORDS SUMMARY | 2021-07-03 16:13 | CCD | Continuity of Care Document ---
Author Author Taj GARCIA MD Organization Unknown Address [address] [place] [address] Phone [phone] Care Team Providers Care Business Information Analyst Name Role Phone Bandar Carrero AUTM [phone] Noah Rowe MD AUTM [phone] Problems Description No Information Available Social History Type Date Description Comments Sex Unknown Allergies, Adverse Reactions, Alerts Description No Information Available Medications Active Medications SIG Qnty Indications Ordering Provide r Date Amoxicillin/Clavulanate Potassium 875-125mg Tablets Take One Tablet By Mouth Every 12 Hours For 7 Days Unknown Accu-Chek Verón[place] Plus w/Device Kit Use as Directed Daily Unknown Cephalexin 500mg Capsules Mayela Alvarenga PA-C Spironolactone/Hydrochlorothiazide 25-25mg Tablets Noah Rowe MD 0 Otezla 10&20&30mg TBPK Ardi Mckeon MD Prednisolone Acetate 1% Suspension Instill One Drop In The Left Eye Four Times A Day as Directed Unknown Glipizide ER 5mg Tablets ER 24HR Take 1 2 Tablets By Mouth Once A Day as Directed Unknown Omeprazole 40mg Capsules Noah Flynn MD Prednisone 2.5mg Tablets Adri Mckeon MD Glipizide ER 2.5mg Tablets ER 24HR Noah Rowe MD Moexipril HCL 7.5mg Tablets Noah Rowe MD Accu-Chek Verónica Plus Strips Noah Rowe MD Prednisone 5mg Tablets Adri Mckeon MD Prednisone 1mg Tablets Adri Mckeon MD Atorvastatin Calcium 20mg Tablets Noah Rowe MD Ipratropium Orient 0.03% Solution Noah Rowe MD Hydroxychloroquine Sulfate 200mg T ablets Adri Mckeon MD Otezla 30mg Tablets Adri Mckeon MD Immunizations Description No Information Available Vital Signs Date Vital Result Comment 04/01/2021 1:41pm Body Temperature 96.9 F Height 70.5 inches 5'10.50" Weight 170.12 lb BMI (Body Mass Index) 24.1 kg/m2 Results Description No Information Available Procedures Date Code Description Status 04/01/2021 51028 Office/Outpatient New Low MDM 30 -44 Minutes Completed Medical Devices Description No Information Available Encounters Type Date Location Provider Dx Diagnosis Office Visit 04/01/2021 1:15p [facility] Frederick Garcia MD M17.12 Unilateral primary osteoarthritis, left knee Assessments Date Code Description Provider 04/01/2021 M17.12 Unilateral primary osteoarthriti s, left knee Frederick Garcia MD Plan of Treatment 04/01/2021 - Frederick Garcia MD* M17.12 Unilateral primary osteoarthritis, left knee* Follow up:* prn Functional Status Description No Information Available Mental Status Description No Information Available Referrals Description No Information Available
--- OUTSIDE RECORDS SUMMARY | 2021-07-03 16:13 | CCD | Continuity of Care Document ---
Author Author Pulmonary Lab, Taj Moreland Organization Unknown Address [address] [place] [address] Phone [phone] Care Team Providers Care Press Tender Star Signal Name Role Phone Noah Rowe M.D. AUTM [phone] Dulce Reyes AUTM [phone] AUTM Unavailable Problems Active Problems Provider Date Essential hypertension Amandeep Washington MD Onset: 09/22/2019 Social History Type Date Description Comments Sex Unknown ETOH Use Currently consumes alcohol 6 a w [place] Tobacco Use Start: Unknown End: Patient is a former smoker pt does not recall how much he smoked daily or what age/year he started Smoking Status Reviewed: 11/01/20 Patient is a former smoker pt does not recall how much he smoked daily or what age/year he started Allergies, Adverse Reactions, Alerts Description No Known Drug Allergies Medications Active Medications SIG Qnty Indications Ordering Provide r Date Spironolactone/Hydrochlorothiazide 25-25mg Tablets 1 tab by mouth once dialy Unknown Atorvastatin Calcium 20mg Tablets 1 tab by mouth every other day Unknown Amlodipine Besylate 2.5mg Tablets 1 tab by mouth every day Unknown Moexipril HCL 7.5mg Tablets 1 tab once daily Unknown Omeprazole 40mg Capsules DR once daily Unknown Multi Vitamin Tablets 1 t ab once daily Unknown Vitamin D3 Maximum Strength 125mcg (5000 Ut) Capsules once daily Unknown Aspirin Adult 325mg Tablets 1 tab by mouth every day Unknown Glipizide 5mg Tablets over 200 one tab daily, under 200 2 tabs daily Unknown Plaquenil 200mg Tablets 2 tabs by mouth every day Unknown Prednisone 5mg Tablets 1 1/2 by mouth every day (7.5mg) Unknown Otezla 30mg Tablets 1 tab by mouth twice a day Unknown Immunizations Description No Information Available Vital Signs Date Vital Result Comment 11/01/2020 10:15am BP Systolic 118 mmHg BP Diastolic 80 mmHg Heart Rate 65 /min O2 % BldC Oximetry 95 % Body Temperature 96.3 F Height 71 inches 5'11" Weight 177.00 lb BMI (Body Mass Index) 24.7 kg/m2 [place] Body Weight 172 lb Weight 80.287 kg BSA (Body Surface Area) 2.00 m2 08/01/2020 8:16am BP Systolic 138 mmHg BP Diastolic 72 mmHg Heart Rate 71 /min O2 % BldC Oximetry 99 % Body Temperature 97.0 F Height 71 inches 5'11" Weight 176.00 lb BMI (Body Mass Index) 24.5 kg/m2 [place] Body Weight 172 lb Weight 79.834 kg BSA (Body Surface Area) 2.00 m2 Results Description No Information Available Procedures Date Code Description Status 11/01/2020 18842 Office/Outpatient Established Mo d MDM 30-39 Min Completed 11/01/2020 96651 Diffusing Capacity Completed 11/01/2020 66047 Plethysmography Determination Lyn ng Volumes & Per Airway Resist Completed 11/01/2020 04773 Spirometry Completed Medical Devices Description No Information Available Encounters Type Date Location Provider Dx Diagnosis Office Visit 11/01/2020 11:00a [facility] Pulmonary/Thoracic K Elida colvin M.D. J84.9 Interstitial pulmonary disea se, unspecified J43.9 Emphysema, unspecified Z87.891 Personal history of nicotine dependence L40.9 Psoriasis, unspecified Assessments Date Code Description Provider 04/14/2021 J84.9 Interstitial pulmonary disease, unspecified Pulmonary Lab 11/01/2020 J84.9 Interstitial pulmonary disease, unspecified Elida Parikh M.D. 11/01/2020 J84.9 Interstitial pulmonary disease, unspecified Pulmonary Lab 11/01/2020 J43.9 Emphysema, unspecified Rony Parikh M.D. 11/01/2020 Z87.891 Personal history of nicotine dep Elida Ross M.D. 11/01/2020 L40.9 Psoriasis, unspecified Rony Parikh M.D. Plan of Treatment Future Appointment(s):* 04/18/2021 2:00 pm - Elida Parikh M.D. at [facility] Pulmonary/Thoracic 11/01/2020 - Elida Parikh M.D.* J84.9 Interstitial pulmonary disease, unspecified * J43.9 Emphysema, unspecified * Z87.891 Personal history of nicotine dependence * L40.9 Psoriasis, unspecified * * Follow up:* Follow-up in 5-6 mo with PFT Functional Status Functional Condition Comment Date Status Independent with all ADL's Activ e Independent with all IADL's Acti ve Mental Status Mental Condition Comment Date Status None Active Referrals Description No Information Available
--- OUTSIDE RECORDS SUMMARY | 2021-07-03 16:13 | CCD ---
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 Active confirmed [id number] Problem Interstitial lung disease J84.9 Active confirmed 081011517 Problem 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 Active confirmed 20158 9000 ALLERGIES No Known Allergies ENCOUNTERS from 1940 to 2021-05-22 Encounter Location Date Provider Diagnosis [facility] Rheumatology [address] [place] [address] [place] [address] May, Adri Mckeon Psoriatic arthritis L40.50 IMMUNIZATIONS No [...] Once a day for 30 days Active Vitamin D3 125 MCG (5000 UT) 1 tablet Orally Once a day Active Hydroxychloroquine Sulfate 200 MG 1 tablet Orally twice judy y for 90 days 200 MG twice daily Active Otezla 30 MG 1 tablet Orally Twice a day for 30 day(s ) Please contact the patient, when the prescription is ready, thank you. Jul, Active Atorvastatin Calcium 20 MG 1 tablet [...] Results REASON FOR VISIT Medication Refill Request: Otezla Refill MEDICAL (GENERAL) HISTORY Type Description Date Medical History Diabetes Mellitus Medical History Psoriatic Arthritis Medical History Psoriasis Medical History Iron Deficiency Anemia Medical History Diverticulosis Medical History Hemorrhoids Medical History Rheumatic Fever Medical History Low Back Pain Medical History Angina Medical History Hypertension Medical History Esophageal Reflux Medical History Vitamin D Deficiency Medical History Internal Hemmorrhoids Surgical History Basal cell carcinoma-nose 2019 Hospitalization History Lung issues 12/2019 Goals Section No Information Health Concerns No Information MEDICAL EQUIPMENT No Information MENTAL STATUS No Information FUNCTIONAL STATUS No Information ASSESSMENTS Encounter Date Diagnosis Assessment Notes Treatment Notes Treatm ent Clinical Notes May, Psoriatic arthritis (ICD-10 - L40.50) PLAN OF TREATMENT Medication Medication Name Sig Start Date Stop Date Otezla 30 MG 1 tablet Orally Twice a day for 30 day(s) Jul predniSONE 5 MG 1 tablet Orally Once a day for 30 days predniSONE 1 MG 4 tablets Orally Once a day for 30 days Next Appt Details Provider Name:Bee Lara, 2021-06-10 07:30:00 AM, [address] [facility], , [place], [address], Provider Name:Adri Mckeon, 2021-06-26 11:15:00 AM, [address] [facility], , [place], [address], Insurance Providers Payer Name Payer Address Payer Phone Insured Name Patient Relati onship to Insured Coverage Start Date Coverage End Date [facility] [phone] [place] [phone] [employer] MEDICARE Part A and B [address] [facility] [address] [phone] [employer]
--- OUTSIDE RECORDS SUMMARY | 2021-07-03 16:13 | CCD | Continuity of Care Document ---
Author Author Taj FREIRE M.D. Organization Unknown Address [address] [place] [address] Phone [phone] Care Team Providers Care Maintenance Carpenter Name Role Phone Noah Rowe MD [facility] [phone] Problems Active Problems Provider Date Diarrhea Eder [...] Provide r Date Hydroxychloroquine Sulfate 200mg T innats Jesus Aguilar MD Prednisone 5mg Tablets Take [...] Available Vital Signs Date Vital Result Comment 06/05/2021 3:39pm Height 71 inches 5'11" Weight 174.00 lb BP Systolic 127 mmHg BP Diastolic 66 mmHg Heart Rate 66 /min BMI (Body Mass Index) 24.3 kg/m2 Weight 78.926 kg Body Temperature 97.8 F 04/03/2021 4:03pm Height 71 inches 5'11" Weight 171.00 lb BP Systolic 130 mmHg BP Diastolic 64 mmHg Heart Rate 80 /min BMI (Body Mass Index) 23.8 kg/m2 Weight 77.566 kg Body Temperature 96.3 F Results Description No Information Available Procedures Date Code Description Status 06/05/2021 80962 Office/Outpatient Established Lo w MDM 20-29 Min Completed 04/03/2021 67916 Office/Outpatient New Low MDM 30 -44 Minutes Completed Medical Devices Description No Information Available Encounters Type Date Location Provider Dx Diagnosis Office Visit 06/05/2021 3:30p Main Office Eder Freire M.D. R 19.4 Change in bowel habit Office Visit 04/03/2021 3:45p Main Office Eder Freire M.D. R 19.4 Change in bowel habit Assessments Date Code Description Provider 06/05/2021 R19.4 Change in bowel habit Eder Freire M.D. 04/03/2021 R19.4 Change in bowel habit Eder Freire M.D. Plan of Treatment 06/05/2021 - Eder Freire M.D.* R19.4 Change in bowel habit* Comments:* 80 yo wm who presented for a h/o diarrhea/irregular bowel habits. Last scope was in 2017. No c/o abdominal pain, weight loss, positive change in bowel habits, no rectal bleeding. No family h/o colon cancer. No h/o chest pain, or sob. Pt is on Otezla/Plaquenil for psoriatic arthritis. Side effects include, diarrhea + nausea/vomiting.Pt feels better with regular bowel habits. He has decreased his Plaquenil to 100 mgs po qd. Plan:1. Maintain Metamucil.2. Office prn. Functional Status Description No Information Available Mental Status Description No Information Available Referrals Description No Information Available
--- OUTSIDE RECORDS SUMMARY | 2021-07-03 16:13 | CCD | Continuity of Care Document ---
Author Author Taj FREIRE M.D. Organization Unknown Address [address] [place] [address] Phone [phone] Care Team Providers Care [employer] Officer Name Role Phone Noah Rowe MD [facility] [phone] Problems Active Problems Provider Date Diarrhea Eder [...] Available Procedures Date Code Description Status 06/05/2021 79305 Office/Outpatient Established Lo w MDM 20-29 Min Completed 04/03/2021 69727 Office/Outpatient New Low MDM 30 -44 Minutes [...]
--- OUTSIDE RECORDS SUMMARY | 2021-07-03 16:13 | CCD | Continuity of Care Document ---
Author Author Taj NICHOLS M.D. Organization Unknown Address [address] [place] [address] Phone [phone] Care Team Providers Care Yacht Rigger Name Role Phone Noah Rowe M.D. AUTM [phone] AUTM Unavailable Problems Active Problems Provider Date Essential hypertension Amandeep Washington MD Onset: 09/22/2019 Social History Type Date Description Comments Sex Unknown ETOH Use Currently consumes alcohol 6 a w [place] Tobacco Use Start: Unknown End: Patient is a former smoker pt does not recall how much he smoked daily or what age/year he started Smoking Status Reviewed: 04/18/21 Patient is a former smoker pt does [...] Available Vital Signs Date Vital Result Comment 04/18/2021 1:56pm BP Systolic 110 mmHg BP Diastolic 70 mmHg Heart Rate 95 /min O2 % BldC Oximetry 96 % Room Air 11/01/2020 10:15am BP Systolic 118 mmHg BP Diastolic 80 mmHg Heart Rate 65 /min O2 % BldC Oximetry 95 % Body Temperature 96.3 F Height 71 inches 5'11" Weight 177.00 lb BMI (Body Mass Index) 24.7 kg/m2 [place] Body Weight 172 lb Weight 80.287 kg BSA (Body Surface Area) 2.00 m2 Results Description No Information Available Procedures Date Code Description Status 04/18/2021 87721 Office/Outpatient Established Mo d MDM 30-39 Min Completed 04/14/2021 38963 Diffusing Capacity Completed 04/14/2021 92826 Plethysmography Determination Lyn ng Volumes & Per Airway Resist Completed 04/14/2021 12927 Spirometry Completed 11/01/2020 38195 Office/Outpatient Established Mo d MDM 30-39 Min Completed 11/01/2020 79612 Diffusing Capacity Completed 11/01/2020 24833 Plethysmography Determination Lyn ng Volumes & Per Airway Resist Completed 11/01/2020 47677 Spirometry Completed Medical Devices Description No Information Available Encounters Type Date Location Provider Dx Diagnosis Office Visit 11/01/2020 11:00a [facility] Pulmonary/Thoracic K Elida colvin M.D. J84.9 Interstitial pulmonary disea se, unspecified J43.9 Emphysema, unspecified Z87.891 Personal history of nicotine dependence L40.9 Psoriasis, unspecified Assessments Date Code Description Provider 04/18/2021 J84.9 Interstitial pulmonary disease, unspecified Elida Nichols M.D. 04/18/2021 J43.9 Emphysema, unspecified Rony Nichols M.D. 04/18/2021 Z87.891 Personal history of nicotine dep endence Elida Nichols M.D. 04/18/2021 L40.9 Psoriasis, unspecified Rony Nichols M.D. 04/14/2021 J84.9 Interstitial pulmonary disease, unspecified Pulmonary Lab 11/01/2020 J84.9 Interstitial pulmonary disease, unspecified Elida Nichols M.D. 11/01/2020 J84.9 Interstitial pulmonary disease, unspecified Pulmonary Lab 11/01/2020 J43.9 Emphysema, unspecified Rony Nichols M.D. 11/01/2020 Z87.891 Personal history of nicotine dep endence Elida Nichols M.D. 11/01/2020 L40.9 Psoriasis, unspecified Rony Nichols M.D. Plan of Treatment Future Appointment(s):* 08/26/2021 3:00 pm - Elida Nichols M.D. at [facility] Pulmonary/Thoracic * 08/26/2021 2:00 pm - Pulmonary Lab at [facility] Pulmonary/Thoracic 04/18/2021 - Elida Nichols M.D.* J84.9 Interstitial pulmonary disease, unspecified * J43.9 Emphysema, unspecified * Z87.891 Personal history of nicotine dependence * L40.9 Psoriasis, unspecified * * New Labs:* PFT/HGB Off/No Meds, Scheduled: 08/26/21 * Follow up:* Follow up in 4-5 months with PFT and CXR. Functional Status Functional Condition Comment Date Status Independent with all ADL's Activ e Independent with all IADL's Acti ve Mental Status Mental Condition Comment Date Status None Active Referrals Description No Information Available
--- OUTSIDE RECORDS SUMMARY | 2021-07-03 16:13 | CCD ---
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 Active confirmed [id number] Problem Interstitial lung disease J84.9 Active confirmed 791158355 Problem 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 Active confirmed 54704 9000 ALLERGIES No Known Allergies ENCOUNTERS from 1940 to 2021-04-23 Encounter Location Date Provider Diagnosis [facility] Rheumatology [address] [place] [address] [place] [address] 16 Mar, 2021 Adri Mckeon Psoriatic arthritis L40.50 ; 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 ; skilled nursing systemic steroid user Z79.52 ; Interstitial lung disease J84.9 and Other fpc (current) drug therapy Z79.899 IMMUNIZATIONS No Information SOCIAL HISTORY Tobacco Use: [...] REASON FOR REFERRAL No Information VITAL SIGNS Weight 173.4 lbs Mar, Weight-kg 78.6 kg Mar, Height 70 in Mar, BMI 24.88 kg/m2 Mar, Heart Rate 90 /min Mar, Respiratory Rate 18 /min Mar, Temperature 96.5 degrees Fahrenheit Mar, Oximetry 99 Mar, Blood pressure systolic 118 mm Hg Mar, Blood pressure diastolic 62 mm Hg Mar, MEDICATIONS Medication SIG (Take, Route, Frequency, Duration) Notes Start Da te End Date Status Otezla 10 & 20 & 30 MG as directed Orally Twice a day for 30 day s Jul, Not-Taking Methotrexate Sodium 7.5 MG as directed [...] Information RESULTS No Results REASON FOR VISIT C/o nausea and diarrhea yesterday. Last week patient had a flare up in the left knee. States that symptoms could possibly be related to medications that the pat ient is taking. MEDICAL (GENERAL) HISTORY Type Description Date Medical [...] Notes Treatment Notes Treatm ent Clinical Notes Mar, Psoriatic arthritis (ICD-10 - L40.50) The clinical presentation appears consistent with Psoriatic Arthritis, with significant improvement in the symptomatology. - Continue Plaquenil 200 mg twice daily (initiated by an outside provider). - At this point, there is significant patient safety concern with the potential treatment with leflunomide and TNF inhibitors. These medications will put the patient at a significant increased risk of infection. The risks do not outweigh the benefits of the medications. Given his history of recurrent infections, the safest medication for this patient is Apremilast (Otezla). Apremilast does not have the infection side effects profile that will significantly decrease his immune system and increase his infection risk. Continue Otezla 30 mg twice daily (initiated 09/2020). - Will slowly taper off the prednisone, given the improvement in the overall symptomatology. Continue Prednisone 7 mg daily. Will plan to decrease the prednisone again at the next visit. - He was agreeable and expressed understanding of the plan. All questions and concerns were addressed. Mar, Generalized OA (ICD-10 - M15.9) Symptomatic osteoarthritis is present in multiple joints (hands, wrists, feet). Strongly encouraged participation in a consistent exercise regimen and weight maintenance (174.2 lbs -> 180 -> 173.4) without weight gain, focusing on improvement in quality of life for pain relief associated with osteoarthritis. Strongly encouraged the patient to not gain weight, which could worsen the osteo arthritis symptomatology. 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 Discussed the risks and benefits of the prednisone therapy including the plan to eventually taper off the medication slowly. At this time, the benefits of the prednisone outweigh the risks of the medication. Will continue to monitor the side effects of fpc steroid use. Mar, Interstitial lung disease (ICD-10 - J84.9) Will monitor the interstitial lung disease (ILD) in the setting of Otezla therapy. Will monitor the lungs with the decrease in the prednisone therapy. Will work with pulmonology to optimize treatment for the ILD. 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 Will monitor the vitamin D level closely in the setting of Plaquenil and chronic prednisone use. Mar, Other Total time is s pent on the date of the encounter: 45 minutes PLAN OF TREATMENT Medication Medication Name Sig Start Date Stop Date predniSONE 1 MG 2 tablets Orally Once a day for 30 days predniSONE 5 MG 1 tablet Orally Once a day for 30 days Treatment Notes Assessment Notes Clinical Notes Psoriatic arthritis The clinical present ation appears consistent with Psoriatic Arthritis, with significant improvement in the symptomatology.- Continue Plaquenil 200 mg twice daily (initiated by an outside provider).- At this point, there is significant patient safety concern with the potential treatment with leflunomide and TNF inhibitors. These medications will put the patient at a significant increased risk of infection. The risks do not outweigh the benefits of the medications. Given his history of recurrent infections, the safest medication for this patient is Apremilast (Otezla). Apremilast does not have the infection side effects profile that will significantly decrease his immune system and increase his infection risk. Continue Otezla 30 mg twice daily (initiated 09/2020).- Will slowly taper off the prednisone, given the improvement in the overall symptomatology. Continue Prednisone 7 mg daily. Will plan to decrease the prednisone again at the next visit.- He was agreeable and expressed understanding of the plan. All questions and concerns were addressed. Generalized OA Symptomatic osteoart hritis is present in multiple joints (hands, wrists, feet). Strongly encouraged participation in a consistent exercise regimen and weight maintenance (174.2 lbs -> 180 -> 173.4) without weight gain, focusing on improvement in quality of life for pain relief associated with osteoarthritis. Strongly encouraged the patient to not gain weight, which could worsen the osteoarthritis symptomatology. skilled nursing systemic steroid user The bone density scan was previously reviewed and normal - no evidence of osteopenia or osteoporosis. Discussed the risks and benefits of the prednisone therapy including the plan to eventually taper off the medication slowly. At this time, the benefits of the prednisone outweigh the risks of the medication. Will continue to monitor the side effects of fpc steroid use. Interstitial lung disease Will monitor t he interstitial lung disease (ILD) in the setting of Otezla therapy. Will monitor the lungs with the decrease in the prednisone therapy. Will work with pulmonology to optimize treatment for the ILD. Other color control supervisor (current) drug therapy P laquenil: This medication is an immunosuppressant and considered a high risk medication, as there is increased potential for adverse reaction and significant toxicity. Will monitor the vitamin D level closely in the setting of Plaquenil and chronic prednisone use. Treatment Notes Test Name Order Date ERYTHROCYTE SEDIMENTATION RATE 2021-04-04 CBC with Differential 2021-04-04 C REACTIVE PROTEIN QUANTITATIV (At [facility]) 2021-04-04 LIVER PROFILE 2021-04-04 Hydroxychloroquine level 2021-04-04 Basic Metabolic Profile (BMP) 2021-04-04 VITAMIN D 25-HYDROXY 2021-04-04 Next Appt Details Provider Name:Adri Mckeon, 2021-04-28 09:45:00 AM, [address] [facility], , [place], [address], Provider Name:Bee Lara, 2021-06-10 07:30:00 AM, [address] [facility], , [place], [address], Insurance Providers Payer Name Payer Address Payer Phone Insured Name Patient Relati onship to Insured Coverage Start Date Coverage End Date [facility] [id number] [facility] [id number] [place] MEDICARE Part A and B [address] [facility] [phone] [place] self
--- OUTSIDE RECORDS SUMMARY | 2021-07-03 16:13 | CCD ---
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 Active confirmed 09937929346785673 Problem Interstitial lung disease J84.9 Active confirmed 315269445 Problem 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 Active confirmed 35398 9000 ALLERGIES No Known Allergies ENCOUNTERS from 1940 to 2021-04-24 Encounter Location Date Provider Diagnosis [facility] Rheumatology [address] [place] [address] [place] [address] Apr, Adri Mckeon IMMUNIZATIONS No Information SOCIAL [...] Information RESULTS No Results REASON FOR VISIT Urgent refill request: predniSONE 2.5 MG Tablet MEDICAL (GENERAL) HISTORY Type Description Date Medical [...] Provider Name:Adri Mckeon, 2021-04-28 09:45:00 AM, [address] [facility], , [place], [address], Provider Name:Bee Lara, 2021-06-10 07:30:00 AM, [address] [facility], , [place], [address], Insurance Providers Payer Name Payer Address Payer Phone Insured Name Patient Relati onship to Insured Coverage Start Date Coverage End Date MEDICARE Part A and B [address] [facility] [phone] MARCIAN[place] EATON [facility] [id number] [facility] [phone] [place] E[place]
--- OUTSIDE RECORDS SUMMARY | 2021-07-03 16:13 | CCD | Continuity of Care Document ---
Author Author Taj NICHOLS M.D. Organization Unknown Address [address] [place] [address] Phone [phone] Care Team Providers Care Machine Cutter Name Role Phone Noah Rowe M.D. AUTM [phone] AUTM Unavailable Problems Active Problems Provider Date Essential hypertension Amandeep Washington MD Onset: 09/22/2019 Social History Type Date Description Comments Sex Unknown ETOH Use Currently consumes alcohol 6 a w [place] Tobacco Use Start: Unknown End: Patient is [...] lb BMI (Body Mass Index) 24.7 kg/m2 [place] Body Weight 172 lb Weight 80.287 kg BSA (Body Surface Area) 2.00 m2 Results Description No Information Available Procedures Date Code Description Status 04/18/2021 07485 Office/Outpatient Established Mo d MDM 30-39 Min Completed 04/14/2021 21869 Diffusing Capacity Completed 04/14/2021 45491 Plethysmography Determination Lyn ng Volumes & Per Airway Resist Completed 04/14/2021 38338 Spirometry Completed Medical Devices Description No Information Available Encounters Type Date Location Provider Dx Diagnosis Office Visit 04/18/2021 2:00p [facility] Pulmonary/Thoracic K Elida colvin M.D. J84.9 [...] J84.9 Interstitial pulmonary disease, unspecified Pulmonary Lab Plan of Treatment Future Appointment(s):* 08/26/2021 3:00 pm - Elida Nichols M.D. at [facility] Pulmonary/Thoracic * 08/26/2021 2:00 pm - Pulmonary Lab at [facility] Pulmonary/Thoracic 04/18/2021 - Elida Nichols M.D.* [...]
--- OUTSIDE RECORDS SUMMARY | 2021-07-03 16:13 | CCD ---
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 Z79.52 Active confirmed 86550424916549155 Problem Interstitial lung disease J84.9 Active confirmed 319214330 Problem 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 Active confirmed 06602 9000 ALLERGIES No Known Allergies ENCOUNTERS from 1940 to 2021-04-04 Encounter Location Date Provider Diagnosis [facility] Rheumatology [address] [place] [address] [place] [address] [facility] No Information SOCIAL HISTORY Tobacco Use: [...] Notes Start Da te End Date Status predniSONE 5 MG 1 tablet Orally Once a day for 30 days January, Active Minoxidil 2.5 MG 1 tablet Orally Once a day for 30 day(s) Not-Taking Hydroxychloroquine Sulfate 200 MG 1 tablet Orally twice daily for 90 days Active Multivitamin - 1 tablet Orally Once a day for 30 day(s) Active Otezla 30 MG 1 tablet Orally Twice a day for 30 day(s) Jul, Active Atorvastatin Calcium 20 MG 1 tablet Orally Once a day for 30 day(s) Active Omeprazole 40 MG 1 capsule 30 minutes before morning meal Orally Once a day for 30 day(s) Active Methotrexate Sodium 7.5 MG as directed Orally Not-Taking predniSONE 2.5 MG 3 tablet Orally Once a day for 30 days 0 2 Jul, 2020 Active Vitamin C - as directed Orally Activ e Folic Acid 1 MG 1 tablet Orally Once a day for 30 day(s) Not-Taking Otezla 10 & 20 & 30 MG as directed Orally Twice a day for 30 day s Jul, Not-Taking Magnesium Chloride - as directed Not -Taking Moexipril HCl 7.5 MG 1 tablet 1 hour before a romain l Orally Once a day for 30 day(s) Active glipiZIDE 5 MG 1 tablet 30 minutes before b reakfast Orally Once a day for 30 day(s) Active Spironolactone-HCTZ 25-25 MG one half Orally Once a day Active predniSONE 1 MG 2 tablets Orally Once a day for 30 days January, Active Aspirin 325 MG 1 tablet Orally Once a day for 30 day(s) Active PROCEDURES No Information RESULTS No Results REASON FOR VISIT Apt Request: Swollen knee, GI upset MEDICAL (GENERAL) HISTORY Type Description Date Medical [...] Name Sig Start Date Stop Date predniSONE 5 MG 1 tablet Orally Once a day for 30 days January, predniSONE 1 MG 2 tablets Orally Once a day for 30 days January, Hydroxychloroquine Sulfate 200 MG 1 tablet Orally twice daily fo r 90 days Otezla 30 MG 1 tablet Orally Twice a day for 30 day(s) Jul Next Appt Details Provider Name:Adri M Mike, 2021-04-04 05:15:00 PM, [address] [place] [address], , [place], [address], Provider Name:Bee Lara, 2021-04-07 09:45:00 AM, [address] [place] [address], , [place], [address], Provider Name:Adri Mckeon, 2021-04-28 09:45:00 AM, [address] [place] [address], , [place], [address], Insurance Providers Payer Name Payer Address Payer Phone Insured Name Patient Relati onship to Insured Coverage Start Date Coverage End Date MEDICARE Part A and B [address] [facility] [phone] [place] E[place] [facility] [phone] [facility] [id number] [place] self
--- OUTSIDE RECORDS SUMMARY | 2021-07-03 16:13 | CCD ---
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.52 Active confirmed 90670332850063189 Problem Interstitial lung disease J84.9 Active confirmed 472980113 Problem 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 Active confirmed 69768 9000 ALLERGIES No Known Allergies ENCOUNTERS from 1940 to 2021-05-01 Encounter Location Date Provider Diagnosis [facility] Rheumatology [address] [place] [address] [place] [address] Apr, Adri Mckeon IMMUNIZATIONS No Information SOCIAL [...] Information RESULTS No Results REASON FOR VISIT Prednisone 2.5 mg MEDICAL (GENERAL) HISTORY Type Description Date Medical [...] Provider Name:Bee Lara, 2021-06-10 07:30:00 AM, [address] [facility], , [place], [address], Provider Name:Adri Mckeon, 2021-06-26 11:15:00 AM, [address] [facility], , [place], [address], Insurance Providers Payer Name Payer Address Payer Phone Insured Name Patient Relati onship to Insured Coverage Start Date Coverage End Date [facility] [phone] [facility] [phone] [place] MEDICARE Part A and B [address] [facility] [phone] MARCIAN[place] EATON self
--- OUTSIDE RECORDS SUMMARY | 2021-07-03 16:13 | CCD | Continuity of Care Document ---
Author Author [facility] Organization Unknown Address [address] [place] [address] Phone [phone] Care Team Providers Care Inventory Taker Name Role Phone Noah Rowe M.D. AUTM [phone] Dulce Reyes AUTM [phone] AUTM Unavailable Problems Active Problems Provider Date Essential hypertension Amandeep Washington MD Onset: 09/22/2019 Social History Type Date Description Comments Sex Unknown ETOH Use Currently consumes alcohol 6 a w [place] Tobacco Use Start: Unknown End: Patient is [...] lb BMI (Body Mass Index) 24.7 kg/m2 [place] Body Weight 172 lb Weight 80.287 kg BSA (Body Surface Area) 2.00 m2 08/01/2020 8:16am BP Systolic 138 mmHg BP Diastolic 72 mmHg Heart Rate 71 /min O2 % BldC Oximetry 99 % Body Temperature 97.0 F Height 71 inches 5'11" Weight 176.00 lb BMI (Body Mass Index) 24.5 kg/m2 [place] Body Weight 172 lb Weight 79.834 kg BSA (Body Surface Area) 2.00 m2 Results Description No Information Available Procedures Date Code Description Status 04/14/2021 49093 Diffusing Capacity Completed 04/14/2021 35992 Plethysmography Determination Lyn ng Volumes & Per Airway Resist Completed 04/14/2021 07470 Spirometry Completed 11/01/2020 11749 Office/Outpatient Established Mo d MDM 30-39 Min Completed 11/01/2020 58442 Diffusing Capacity Completed 11/01/2020 11536 Plethysmography Determination Lyn ng Volumes & Per Airway Resist Completed 11/01/2020 41644 Spirometry Completed Medical Devices Description No Information Available Encounters Type Date Location Provider Dx Diagnosis Office Visit 11/01/2020 11:00a [facility] K Elida colvin M.D. J84.9 Interstitial [...] 2:00 pm - Elida Parikh M.D. at [facility] 11/01/2020 - Elida Parikh M.D.* J84.9 [...]
--- OUTSIDE RECORDS SUMMARY | 2021-07-03 16:13 | CCD ---
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 [id number] Problem Interstitial lung disease J84.9 Active confirmed 824218229 Problem 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 Active confirmed 08604 [id number] ALLERGIES No Known Allergies ENCOUNTERS from 1940 to 2021-04-30 Encounter Location Date Provider Diagnosis [facility] Rheumatology [address] [place] [address] [place] [address] Apr, Adri Mckeon Psoriatic arthritis L40.50 ; 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 ; [facility] systemic steroid user Z79.52 ; Interstitial lung disease J84.9 ; Stage 3b chronic kidney disease N18.32 and 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 IMMUNIZATIONS No Information [...] FOR REFERRAL No Information VITAL SIGNS Weight 173.8 lbs Apr, Weight-kg 78.84 kg Apr, Height 70 in Apr, BMI 24.93 kg/m2 Apr, Heart Rate 77 /min Apr, Respiratory Rate 20 /min Apr, Temperature 96.7 degrees Fahrenheit Apr, Oximetry 95 Apr, Blood pressure systolic 130 mm Hg Apr, Blood pressure diastolic 64 mm Hg Apr, MEDICATIONS Medication SIG (Take, Route, Frequency, Duration) [...] RESULTS No Results REASON FOR VISIT C/o left elbow/knee joint aches MEDICAL (GENERAL) HISTORY Type Description Date Medical [...] Notes Apr, Psoriatic arthritis (ICD-10 - L40.50) The clinical presentation appears consistent with Psoriatic Arthritis, with significant improvement in the symptomatology. - At this point, there is significant [...] given the improvement in the overall symptomatology. Will decrease Prednisone 7 mg to 6.5 mg daily. - During the office visit, I had a long discussion and counseling session concerning the medication regimen. At this time, the patient has a Plaquenil level of 2481 ng/mL on 04/07/2021. If levels are greater than 500 ng/mL, then the patient is generally adherent to Plaquenil medication regimen. The proposed blood target concentrations should be 1,000 ng/mL. During the office visit, I had a discussion and counseling session concerning the medication regimen. At this time, will decrease the Plaquenil 200 mg twice daily to 200 mg daily. Will monitor the clinical presentation closely. - He was agreeable and expressed understanding of the plan. All questions and concerns were addressed. Apr, Generalized OA (ICD-10 - M15.9) Symptomatic osteoarthritis is present in multiple joints (hands, wrists, feet). Strongly encouraged participation in a consistent exercise regimen and weight maintenance (174.2 lbs -> 180 -> 173.4 -> 173.8) without weight gain, focusing on improvement in quality of life for pain relief associated with osteoarthritis. Strongly encouraged the patient to not gain weight, which could worsen the osteoarthritis symptomatology. Apr, [facility] systemic steroid user (ICD-10 - Z79.52 ) [...] continue to monitor the side effects of equipment operator intermodal yard steroid use. Apr, Interstitial lung disease (ICD-10 - J84.9) Will monitor the interstitial lung disease (ILD) in the setting of Otezla therapy. Will monitor the lungs with the decrease in the prednisone therapy. Will work with pulmonology to optimize treatment for the ILD. Apr, Stage 3b chronic kidney disease (ICD-10 - N18.32 ) Chronic kidney disease is a barrier to treatment for Psoriatic Arthritis. 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 Apr, Other 04/29/2021 - Please lower the Prednisone to 6.5 mg daily immediately 05/12/2021 - Decrease the Plaquenil to 200 mg daily The total time spent on the date of the encounter: 42 minutes PLAN OF TREATMENT Medication Medication Name Sig Start Date Stop Date predniSONE 1 MG 4 tablets Orally Once a day for 30 days predniSONE 5 MG 1 tablet Orally Once a day for 30 days Treatment Notes Assessment Notes Clinical Notes Psoriatic arthritis The clinical present ation appears consistent with Psoriatic Arthritis, with significant improvement in the symptomatology.- At this point, there is significant patient [...] given the improvement in the overall symptomatology. Will decrease Prednisone 7 mg to 6.5 mg daily.- During the office visit, I had a long discussion and counseling session concerning the medication regimen. At this time, the patient has a Plaquenil level of 2481 ng/mL on 04/07/2021. If levels are greater than 500 ng/mL, then the patient is generally adherent to Plaquenil medication regimen. The proposed blood target concentrations should be 1,000 ng/mL. During the office visit, I had a discussion and counseling session concerning the medication regimen. At this time, will decrease the Plaquenil 200 mg twice daily to 200 mg daily. Will monitor the clinical presentation closely.- He was agreeable and expressed understanding of the plan. All questions and concerns were addressed. Generalized OA Symptomatic osteoart hritis is present in multiple joints (hands, wrists, feet). Strongly encouraged participation in a consistent exercise regimen and weight maintenance (174.2 lbs -> 180 -> 173.4 -> 173.8) without weight gain, focusing on improvement in quality of life for pain relief associated with osteoarthritis. Strongly encouraged the patient to not gain weight, which could worsen the osteoarthritis symptomatology. 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 Discussed the risks and benefits of the prednisone therapy including the plan to eventually taper off the medication slowly. At this time, the benefits of the prednisone outweigh the risks of the medication. Will continue to monitor the side effects of detention steroid use. Interstitial lung disease Will monitor t he interstitial lung disease (ILD) in the setting of Otezla therapy. Will monitor the lungs with the decrease in the prednisone therapy. Will work with pulmonology to optimize treatment for the ILD. Stage 3b chronic kidney disease Chronic kidney disease is a barrier to treatment for Psoriatic Arthritis. Other detention (current) drug therapy P laquenil: This medication is an immunosuppressant and considered a high risk medication, as there is increased potential for adverse reaction and significant toxicity. Next Appt Details Provider Name:Bee Christine Marco, 2021-06-10 07:30:00 AM, [address] [facility], , [place], [address], Provider Name:Adri Mckeon, 2021-06-26 11:15:00 AM, [address] [facility], , [place], [address], Insurance Providers Payer Name Payer Address Payer Phone Insured Name Patient Relati onship to Insured Coverage Start Date Coverage End Date MEDICARE Part A and B [address] [facility] [id number] [employer] self [facility] [id number] [facility] [phone] [place] self
--- OUTSIDE RECORDS SUMMARY | 2021-07-03 16:14 | CCD ---
Author Author [facility] Organization [facility] Address Unknown Phone Unavailable Care Team Providers Care [employer] Supervisor Name Role Phone NO, PCP Unavailable Unavailable Marita Freire MD Unavailable Unavailable Marita Freire MD Unavailable Unavailable Marita Freire MD Unavailable Unavailable Marita Freire MD Unavailable Unavailable Marita Freire MD Unavailable Unavailable Marita Freire MD Unavailable Unavailable Marita Freire MD Unavailable Unavailable Marita Freire MD Unavailable Unavailable Marita Freire MD Unavailable Unavailable Marita Freire MD Unavailable Unavailable Marita Freire MD Unavailable Unavailable Marita Freire MD Unavailable Unavailable Marita Freire MD Unavailable Unavailable Marita Freire MD Unavailable Unavailable Marita Freire MD Unavailable Unavailable Marita Freire MD Unavailable Unavailable Marita Freire MD Unavailable Unavailable Marita Freire MD Unavailable Unavailable Marita Freire MD Unavailable Unavailable Marita Freire MD Unavailable Unavailable Marita Freire MD Unavailable Unavailable Marita Freire MD Unavailable Unavailable Marita Freire MD Unavailable Unavailable Marita Freire MD Unavailable Unavailable Marita Freire MD Unavailable Unavailable Marita Freire MD Unavailable Unavailable Marita Freire MD Unavailable Unavailable Marita Freire MD Unavailable Unavailable Marita Freire MD Unavailable Unavailable Marita Freire MD Unavailable Unavailable Marita Freire MD Unavailable Unavailable Marita Freire MD Unavailable Unavailable Marita Freire MD Unavailable Unavailable Marita Freire MD Unavailable Unavailable Marita Freire MD Unavailable Unavailable Marita Freire MD Unavailable Unavailable Marita Freire MD Unavailable Unavailable Marita Freire MD Unavailable Unavailable Marita Freire MD Unavailable Unavailable Marita Freire MD Unavailable Unavailable Marita Freire MD Unavailable Unavailable Marita Freire MD Unavailable Unavailable Marita Freire MD Unavailable Unavailable Marita Freire MD Unavailable Unavailable Marita Freire MD Unavailable Unavailable Marita Freire MD Unavailable Unavailable Marita Freire MD Unavailable Unavailable Marita Freire MD Unavailable Unavailable Marita Freire MD Unavailable Unavailable Marita Freire MD Unavailable Unavailable Elida Parikh MD Unavailable Unavailable Elida Parikh MD Unavailable Unavailable Elida Parikh MD Unavailable Unavailable Elida Parikh MD Unavailable Unavailable Elida Parikh MD Unavailable Unavailable Elida Parikh MD Unavailable Unavailable Elida Parikh MD Unavailable Unavailable Elida Parikh MD Unavailable Unavailable Elida Parikh MD Unavailable Unavailable Elida Parikh MD Unavailable Unavailable Elida Parikh MD Unavailable Unavailable Elida Parikh MD Unavailable Unavailable Elida Parikh MD Unavailable Unavailable Elida Parikh MD Unavailable Unavailable Elida Parikh MD Unavailable Unavailable Elida Parikh MD Unavailable Unavailable Elida Parikh MD Unavailable Unavailable Elida Parikh MD Unavailable Unavailable Elida Parikh MD Unavailable Unavailable Elida Parikh MD Unavailable Unavailable Elida Parikh MD Unavailable Unavailable Elida Parikh MD Unavailable Unavailable Elida Parikh MD Unavailable Unavailable Elida Parikh MD Unavailable Unavailable Elida Parikh MD Unavailable Unavailable Elida Parikh MD Unavailable Unavailable Elida Parikh MD Unavailable Unavailable Elida Parikh MD Unavailable Unavailable Elida Parikh MD Unavailable Unavailable Elida Parikh MD Unavailable Unavailable Ana Garcia MD Unavailable Unavailable Ana Garcia MD Unavailable Unavailable Ana Garcia MD Unavailable Unavailable Ana Garcia MD Unavailable Unavailable Ana Garcia MD Unavailable Unavailable Ana Garcia MD Unavailable Unavailable Ana Garcia MD Unavailable Unavailable Ana Garcia MD Unavailable Unavailable Ana Garcia MD Unavailable Unavailable Ana Garcia MD Unavailable Unavailable Jose, Ana Mack MD Unavailable Unavailable LETTIERE, A DEANDRE PA Unavailable Unavailable LETTIERE, A DEANDRE PA Unavailable Unavailable LETTIERE, A DEANDRE PA Unavailable Unavailable LETTIERE, A DEANDRE PA Unavailable Unavailable LETTIERE, A DEANDRE PA Unavailable Unavailable LETTIERE, A DEANDRE PA Unavailable Unavailable LETTIERE, A DEANDRE PA Unavailable Unavailable LETTIERE, A DEANDRE PA Unavailable Unavailable LETTIERE, A DEANDRE PA Unavailable Unavailable LETTIERE, A DEANDRE PA Unavailable Unavailable LETTIERE, A DEANDRE PA Unavailable Unavailable LETTIERE, A DEANDRE PA Unavailable Unavailable LETTIERE, A DEANDRE PA Unavailable Unavailable LETTIERE, A DEANDRE PA Unavailable Unavailable LETTIERE, A DEANDRE PA Unavailable Unavailable LETTIERE, A DEANDRE PA Unavailable Unavailable LETTIERE, A DEANDRE PA Unavailable Unavailable LETTIERE, A DEANDRE PA Unavailable Unavailable LETTIERE, A DEANDRE PA Unavailable Unavailable LETTIERE, A DEANDRE PA Unavailable Unavailable LETTIERE, A DEANDRE PA Unavailable Unavailable LETTIERE, A DEANDRE PA Unavailable Unavailable LETTIERE, A DEANDRE PA Unavailable Unavailable LETTIERE, A DEANDRE PA Unavailable Unavailable LETTIERE, A DEANDRE PA Unavailable Unavailable LETTIERE, A DEANDRE PA Unavailable Unavailable LETTIERE, A DEANDRE PA Unavailable Unavailable LETTIERE, A DEANDRE PA Unavailable Unavailable LETTIERE, A DEANDRE PA Unavailable Unavailable LETTIERE, A DEANDRE PA Unavailable Unavailable LETTIERE, A DEANDRE PA Unavailable Unavailable Rob Peralta MD Unavailable Unavailable Rob Peralta MD Unavailable Unavailable Rob Peralta MD Unavailable Unavailable Rob Peralta MD Unavailable Unavailable Rob Peralta MD Unavailable Unavailable Rob Peralta MD Unavailable Unavailable Rob Peralta MD Unavailable Unavailable Rob Peralta MD Unavailable Unavailable KathrynRob montes MD Unavailable Unavailable KathrynRob montes MD Unavailable Unavailable KathrynRob montes MD Unavailable Unavailable Rob Peralta MD Unavailable Unavailable KathrynRob montes MD Unavailable Unavailable KathrynRob montes MD Unavailable Unavailable KathrynRob montes MD Unavailable Unavailable KathrynRob montes MD Unavailable Unavailable KathrynRob MD Unavailable Unavailable KathrynRob montes MD Unavailable Unavailable Rob Peralta MD Unavailable Unavailable Rob Peralta MD Unavailable Unavailable Rob Peralta MD Unavailable Unavailable KathrynRob montes MD Unavailable Unavailable Rob Peralta MD Unavailable Unavailable Rob Peralta MD Unavailable Unavailable KathrynRob montes MD Unavailable Unavailable KathrynRob montes MD Unavailable Unavailable Kathryn, Noaman MD Unavailable Unavailable Rob Peralta MD Unavailable Unavailable Rob Peralta MD Unavailable Unavailable Rob Peralta MD Unavailable Unavailable Rob Peralta MD Unavailable Unavailable Rob Peralta MD Unavailable Unavailable Rob Peralta MD Unavailable Unavailable Rob Peralta MD Unavailable Unavailable HERMES, L YAZ PA Unavailable Unavailable HERMES, L YAZ PA Unavailable Unavailable HERMES, L YAZ PA Unavailable Unavailable HERMES, L YAZ PA Unavailable Unavailable HERMES, L YAZ PA Unavailable Unavailable HERMES, L YAZ PA Unavailable Unavailable HERMES, L YAZ PA Unavailable Unavailable HERMES, L YAZ PA Unavailable Unavailable HERMES, L YAZ PA Unavailable Unavailable HERMES, L YAZ PA Unavailable Unavailable HERMES, L YAZ PA Unavailable Unavailable HERMES, L YAZ PA Unavailable Unavailable HERMES, L YAZ PA Unavailable Unavailable HERMES, L YAZ PA Unavailable Unavailable HERMES, L YAZ PA Unavailable Unavailable HERMES, L YAZ PA Unavailable Unavailable Campanaro, Mare Mayela PA Unavailable Unavailable Campanaro, Mare Mayela PA Unavailable Unavailable Campanaro, Mare Mayela PA Unavailable Unavailable Campanaro, Mare Mayela PA Unavailable Unavailable Campanaro, Mare Mayela PA Unavailable Unavailable Campanaro, Mare Mayela PA Unavailable Unavailable Campanaro, Mare Mayela PA Unavailable Unavailable Campanaro, Mare Mayela PA Unavailable Unavailable Campanaro, Mare Mayela PA Unavailable Unavailable Campanaro, Mare Mayela PA Unavailable Unavailable Campanaro, Mare Mayela PA Unavailable Unavailable Campanaro, Mare Mayela PA Unavailable Unavailable Campanaro, Mare Mayela PA Unavailable Unavailable Campanaro, Mare Mayela PA Unavailable Unavailable Campanaro, Mare Mayela PA Unavailable Unavailable Campanaro, Mare Mayela PA Unavailable Unavailable Campanaro, Mare Mayela PA Unavailable Unavailable Re-disclosure Warning The records that you are about to access may contain information from federally-assisted alcohol or drug abuse programs. If such information is present, then the following federally mandated warning applies: This information has been disclosed to you from records protected by federal confidentiality rules (42 CFR part 2). The federal rules prohibit you from making any further disclosure of this information unless further disclosure is expressly permitted by the written consent of the person to whom it pertains or as otherwise permitted by 42 CFR part 2. A general authorization for the release of medical or other information is NOT sufficient for this purpose. The Federal rules restrict any use of the information to criminally investigate or prosecute any alcohol or drug abuse patient.The records that you are about to access may contain highly sensitive health information, the redisclosure of which is protected by Article 27-F of the [facility] Public Health law. If you continue you may have access to information: Regarding HIV / AIDS; Provided by facilities licensed or operated by the [facility] Office of Mental Health; or Provided by the [facility] Office for People With Developmental Disabilities. If such information is present, then the following [facility] mandated warning applies: This information has been disclosed to you from confidential records which are protected by state law. State law prohibits you from making any further disclosure of this information without the specific written consent of the person to whom it pertains, or as otherwise permitted by law. Any unauthorized further disclosure in violation of state law may result in a fine or senior living sentence or both. A general authorization for the release of medical or other information is NOT sufficient authorization for further disc losure. Allergies and Adverse Reactions Type Description Substance Reaction Status Data Source(s ) No Known Allergies No Known Allergies [facility] No Known Drug Allergies No Known Drug Allergies [facility] Family History Family Member Name Family Member Gender Family Member Status Date o f Status Description Data Source(s) Unknown Female Problem [facility] ([facility]) Encounters Encounter Providers Location Date Indications Data Source(s ) Outpatient Attender: Eder Freire MD Main Office 06/05/2021 03:30:00 PM EDT [facility] ([facility]) Unknown [address] [facility] [place] [address] 05/21/2021 12:00:00 AM EDT eCW1 ([facility]) Unknown [address] [facility] [address] [place] [address] 05/05/2021 12:00:00 AM EDT eCW1 ([facility]) Unknown [address] [facility] [address] [place] [address] 05/01/2021 12:00:00 AM EDT eCW1 ([facility]) Outpatient [address] [facility] [place] [address] 04/28/2021 12:00:00 AM EDT eCW1 ([facility]) Unknown [address] [facility] [place] [address] 04/24/2021 12:00:00 AM EDT eCW1 ([facility]) Unknown [address] [facility] [place] [address] 04/21/2021 12:00:00 AM EDT eCW1 ([facility]) Outpatient Attender: Elida Washington/Usama/Eliud/Ravin ndl 04/18/2021 02:00:00 PM EDT MED[facility] ([facility]) Outpatient [address] [facility] [place] [address] 04/04/2021 12:00:00 AM EDT eCW1 ([facility]) Outpatient Attender: Eder Freire MD Main Office 04/03/2021 03:45:00 PM EDT MED[facility] ([facility]) OFFICE OUTPATIENT NEW 30 MINUTES Attender: Frederick Garcia MD Phy sical Therapy 04/01/2021 01:15:00 PM EDT [facility] ([facility]) Unknown [address] [facility] [address] 03/31/2021 12:00:00 AM EDT eCW1 ([facility]) Outpatient Attender: DEANDRE gambino 03/28/2021 02:50:00 PM EDT [facility] ([facility]) Unknown [address] [facility] [place] [address] 03/27/2021 12:00:00 AM EDT eCW1 ([facility]) Outpatient Attender: YAZ VARELA Main Office 03/21/2021 0 8:45:00 AM EDT MED[facility] ([facility]) Unknown [address] [facility] [place] [address] 02/27/2021 12:00:00 AM EDT eCW1 ([facility]) Outpatient [address] [facility] [address] [place] [address] 01/20/2021 12:00:00 AM EDT eCW1 ([facility]) Outpatient [address] [facility] [address] [place] [address] 01/02/2021 12:00:00 AM EDT eCW1 ([facility]) Unknown [address] [facility] [address] [place] [address] 12/18/2020 12:00:00 AM EDT eCW1 ([facility]) Outpatient Attender: Elida Washington/Usama/Eliud/Ravin ndl 11/01/2020 10:00:00 AM EST [facility] ([facility]) Outpatient [address] [facility] [address] [place] [address] 10/21/2020 12:00:00 AM EST eCW1 ([facility]) Unknown [address] [facility] [address] [place] [address] 10/03/2020 12:00:00 AM EST eCW1 ([facility]) Outpatient Attender: Rob Peralta MDConsultant: PCP NO 08/28/2020 07:00:00 AM EST - 08/28/2020 09:20:00 AM EST [facility] Patient discharged. Outpatient Attender: Rob Peralta MDConsultant: PCP NO 08/07/2020 12:51:15 PM EST - 08/09/2020 11:01:00 AM EST [facility] Patient discharged. Outpatient Attender: Elida Washington/Usama/Eliud/Ravin ndl 08/01/2020 07:30:00 AM EST [facility] ([facility]) [place] [address] [facility] [address] [place] [address] 07/25/2020 12:00:00 AM EST eCW1 ([facility]) Unknown [address] [facility] [address] [place] [address] 07/25/2020 12:00:00 AM EST eCW1 ([facility]) [place] [address] [facility] [address] [place] [address] 07/23/2020 12:00:00 AM EST eCW1 ([facility]) Outpatient [address] [facility] [address] [place] [address] 07/22/2020 12:00:00 AM EST eCW1 ([facility]) Outpatient Attender: Mayela gambino 07/01/2020 06:15:00 PM EDT MED[facility] ([facility]) Outpatient Attender: Elida Washington/Usama/Eliud/Ravin ndl 05/28/2020 01:00:00 PM EDT MED[facility] ([facility]) Immunizations Vaccine Date Status Description Data Source(s) COVID-19 VACCINE, MRNA-1273, LNP-S (MODERNA)/PF 11/12/2020 1 2:00:00 AM EST completed [facility] COVID-19 VACCINE Moderna 10/16/2020 12:00:00 AM EST completed [facility] Vaccine Series Complete: NOThis Data was Submitted to [facility] Via [facility]. COVID-19 VACCINE, MRNA-1273, LNP-S (MODERNA)/PF 10/16/2020 1 2:00:00 AM EST completed [facility] INFLUENZA VIRUS VACCINE QUADRIVAL [id number](6 MOS AND UP)/PF 07/09/2020 12:00:00 AM EDT completed [facility] Medications Medication Brand Name Start Date Product Form Dose Route Admi nistrative Instructions Pharmacy Instructions Status Indications Reaction Description Data Source(s) 500 mg 06/19/2021 12:00:00 AM EDT tablet 7 TAKE ONE TABLET BY MOUTH EVERY DAY FOR 7 DAYS TAKE ONE TABLET BY MOUTH EVERY DAY FOR 7 DAYS SOLD: 06/19/2021 [facility] 1 mg 04/24/2021 12:00:00 AM EDT tablet 10 TAKE TWO TABLETS BY MOUTH EVERY DAY FOR 5 DAYS TAKE TWO TABLETS BY MOUTH EVERY DAY FOR 5 DAYS SOLD: 021 [facility] 5 mg 04/24/2021 12:00:00 AM EDT tablet 5 TAKE ONE TABLET BY MOUTH EVERY DAY FOR 5 DAYS TAKE ONE TABLET BY MOUTH EVERY DAY FOR 5 DAYS SOLD: 04/25/2021 [facility] Magnesium Oxide 400 MG Oral Tablet Magnesium Oxide 03/21/2021 12:00 :00 AM EDT ORAL active [facility] Omeprazole 40 MG Delayed Release Oral Capsule Omeprazole 03/20/2021 12:00:00 AM EDT ORAL active [facility] ([facility]) Spironolactone 25 MG Oral Tablet Spironolactone 03/20/2021 12:00:00 A M EDT ORAL active [facility] ([facility]) Prednisone 5 MG Oral Tablet Prednisone 03/20/2021 12:00:00 AM EDT active [facility] ([facility]) Glipizide 5 MG Oral Tablet Glipizide 03/20/2021 12:00:00 AM EDT ORAL active [facility] ([facility]) Prednisone 1 MG Oral Tablet PredniSONE 1 MG PredniSONE 1 MG 01/20/2021 12:00:00 AM EDT 2.0 {tablets} active PredniSONE 1 MG eCW1 ([facility]) Prednisone 5 MG Oral Tablet PredniSONE 5 MG PredniSONE 5 MG 01/20/2021 12:00:00 AM EDT 1.0 {tablet} active PredniSONE 5 MG eCW1 ([facility]) Prednisone 1 MG Oral Tablet predniSONE 1 MG predniSONE 1 MG 01/20/2021 12:00:00 AM EDT 2.0 {tablets} active predniSONE 1 MG eCW1 ([facility]) 5 mg 01/20/2021 12:00:00 AM EDT tablet 30 TAKE ONE TABLET BY MOUTH EVERY DAY TAKE ONE TABLET BY MOUTH EVERY DAY SOLD: 01/23/2021 [facility] Prednisone 1 MG Oral Tablet predniSONE 1 MG predniSONE 1 MG 01/20/2021 12:00:00 AM EDT 2.0 {tablets} active predniSONE 1 MG eCW1 ([facility]) 1 mg 01/20/2021 12:00:00 AM EDT tablet 60 TAKE TWO TABLETS BY MOUTH EVERY DAY TAKE TWO TABLETS BY MOUTH EVERY DAY SOLD: 01/23/2021 [facility] Prednisone 5 MG Oral Tablet predniSONE 5 MG predniSONE 5 MG 01/20/2021 12:00:00 AM EDT 1.0 {tablet} active predniSONE 5 MG eCW1 ([facility]) Prednisone 1 MG Oral Tablet predniSONE 1 MG predniSONE 1 MG 01/20/2021 12:00:00 AM EDT 2.0 {tablets} active predniSONE 1 MG eCW1 ([facility]) Prednisone 5 MG Oral Tablet predniSONE 5 MG predniSONE 5 MG 01/20/2021 12:00:00 AM EDT 1.0 {tablet} active predniSONE 5 MG eCW1 ([facility]) Prednisone 5 MG Oral Tablet predniSONE 5 MG predniSONE 5 MG 01/20/2021 12:00:00 AM EDT 1.0 {tablet} active predniSONE 5 MG eCW1 ([facility]) Amoxicillin 875 MG / Clavulanate 125 MG Oral Tablet 87 5-125 mg AMOXICILLIN/POTASSIUM CLAV 01/10/2021 12:00:00 AM EDT tablet 14 TAKE ONE TABLET BY MOUTH EVERY 12 HOURS FOR 7 DAYS TAKE ONE TABLET BY MOUTH EVERY 12 HOURS FOR 7 DAYS SOLD: 01/10/2021 [facility] 2.5 mg 01/07/2021 12:00:00 AM EDT tablet extended release 24hr 60 TAKE 1 TO 2 TABLETS BY MOUTH ONCE DAILY TAKE 1 TO 2 TABLETS BY MOUTH ONCE DAILY SOLD: 05/09/2021 [facility] 2.5 mg 01/07/2021 12:00:00 AM EDT tablet extended release 24hr 60 TAKE 1 TO 2 TABLETS BY MOUTH ONCE DAILY TAKE 1 TO 2 TABLETS BY MOUTH ONCE DAILY SOLD: 01/10/2021 [facility] 2.5 mg 01/07/2021 12:00:00 AM EDT tablet extended release 24hr 60 TAKE 1 TO 2 TABLETS BY MOUTH ONCE DAILY TAKE 1 TO 2 TABLETS BY MOUTH ONCE DAILY SOLD: 06/30/2021 [facility] 2.5 mg 01/07/2021 12:00:00 AM EDT tablet extended release 24hr 60 TAKE 1 TO 2 TABLETS BY MOUTH ONCE DAILY TAKE 1 TO 2 TABLETS BY MOUTH ONCE DAILY SOLD: 04/03/2021 [facility] 2.5 mg 01/07/2021 12:00:00 AM EDT tablet extended release 24hr 60 TAKE 1 TO 2 TABLETS BY MOUTH ONCE DAILY TAKE 1 TO 2 TABLETS BY MOUTH ONCE DAILY SOLD: 03/06/2021 [facility] 0.03 % 10/07/2020 12:00:00 AM EST spray,non-aerosol 30 2 SPRAYS IN EACH NOSTRIL TWO TIMES A DAY 2 SPRAYS IN EACH NOSTRIL TWO TIMES A DAY SOLD: 10/09/2020 [facility] 1 % 08/29/2020 12:00:00 AM EST drops,suspension 5 INSTILL ONE DROP IN THE LEFT EYE FOUR TIMES A DAY DIRECTED INSTILL ONE DROP IN THE LEFT EYE FOUR TIMES A DAY DIRECTED SOLD: 08/29/2020 [facility] apremilast 30 MG Oral Tablet [Otezla] Otezla 30 MG Otezla 30 MG 07/24/2020 12:00:00 AM EST 1.0 {tablet} active Ot ezla 30 MG eCW1 ([facility]) apremilast 30 MG Oral Tablet [Otezla] Otezla 30 MG Otezla 30 MG 07/24/2020 12:00:00 AM EST 1.0 {tablet} active Ot ezla 30 MG eCW1 ([facility]) apremilast 30 MG Oral Tablet [Otezla] Otezla 30 MG Otezla 30 MG 07/24/2020 12:00:00 AM EST 1.0 {tablet} active Ot ezla 30 MG eCW1 ([facility]) apremilast 30 MG Oral Tablet [Otezla] Otezla 30 MG Otezla 30 MG 07/24/2020 12:00:00 AM EST 1.0 {tablet} active Ot ezla 30 MG eCW1 ([facility]) apremilast 30 MG Oral Tablet [Otezla] Otezla 30 MG Otezla 30 MG 07/24/2020 12:00:00 AM EST 1.0 {tablet} active Ot ezla 30 MG eCW1 ([facility]) Otezla 10 & 20 & 30 MG Otezla 10 & 20 & 30 MG 07/24/2020 12:00:[address] suspended Otezla 10 & 20 & 30 MG eC W1 ([facility]) Otezla 10 & 20 & 30 MG Otezla 10 & 20 & 30 MG 07/24/2020 12:00:[address] suspended Otezla 10 & 20 & 30 MG eC W1 ([facility]) Otezla 10 & 20 & 30 MG Otezla 10 & 20 & 30 MG 07/24/2020 12:00:[address] suspended Otezla 10 & 20 & 30 MG eC W1 ([facility]) Otezla 10 & 20 & 30 MG Otezla 10 & 20 & 30 MG 07/24/2020 12:00:[address] suspended Otezla 10 & 20 & 30 MG eC W1 ([facility]) apremilast 30 MG Oral Tablet [Otezla] Otezla 30 MG Otezla 30 MG 07/24/2020 12:00:00 AM EST 1.0 {tablet} active Ot ezla 30 MG eCW1 ([facility]) Otezla 10 & 20 & 30 MG Otezla 10 & 20 & 30 MG 07/24/2020 12:00:[address] active Otezla 10 & 20 & 30 MG eC W1 ([facility]) Otezla 10 & 20 & 30 MG Otezla 10 & 20 & 30 MG 07/24/2020 12:00:[address] suspended Otezla 10 & 20 & 30 MG eC W1 ([facility]) apremilast 30 MG Oral Tablet [Otezla] Otezla 30 MG Otezla 30 MG 07/24/2020 12:00:00 AM EST 1.0 {tablet} active Ot ezla 30 MG eCW1 ([facility]) Otezla 10 & 20 & 30 MG Otezla 10 & 20 & 30 MG 07/24/2020 12:00:[address] active Otezla 10 & 20 & 30 MG eC W1 ([facility]) Otezla 10 & 20 & 30 MG Otezla 10 & 20 & 30 MG 07/24/2020 12:00:[address] suspended Otezla 10 & 20 & 30 MG eC W1 ([facility]) Otezla 10 & 20 & 30 MG Otezla 10 & 20 & 30 MG 07/24/2020 12:00:[address] active Otezla 10 & 20 & 30 MG eC W1 ([facility]) Otezla 10 & 20 & 30 MG Otezla 10 & 20 & 30 MG 07/24/2020 12:00:[address] suspended Otezla 10 & 20 & 30 MG eC W1 ([facility]) Otezla 10 & 20 & 30 MG Otezla 10 & 20 & 30 MG 07/24/2020 12:00:[address] active Otezla 10 & 20 & 30 MG eC W1 ([facility]) apremilast 30 MG Oral Tablet [Otezla] Otezla 30 MG Otezla 30 MG 07/24/2020 12:00:00 AM EST 1.0 {tablet} active Ot ezla 30 MG eCW1 ([facility]) apremilast 30 MG Oral Tablet [Otezla] Otezla 30 MG Otezla 30 MG 07/24/2020 12:00:00 AM EST 1.0 {tablet} active Ot ezla 30 MG eCW1 ([facility]) apremilast 30 MG Oral Tablet [Otezla] Otezla 30 MG Otezla 30 MG 07/24/2020 12:00:00 AM EST 1.0 {tablet} active Ot ezla 30 MG eCW1 ([facility]) apremilast 30 MG Oral Tablet [Otezla] Otezla 30 MG Otezla 30 MG 07/24/2020 12:00:00 AM EST 1.0 {tablet} active Ot ezla 30 MG eCW1 ([facility]) apremilast 30 MG Oral Tablet [Otezla] Otezla 30 MG Otezla 30 MG 07/24/2020 12:00:00 AM EST 1.0 {tablet} active Ot ezla 30 MG eCW1 ([facility]) Otezla 10 & 20 & 30 MG Otezla 10 & 20 & 30 MG 07/24/2020 12:00:[address] active Otezla 10 & 20 & 30 MG eC W1 ([facility]) apremilast 30 MG Oral Tablet [Otezla] Otezla 30 MG Otezla 30 MG 07/24/2020 12:00:00 AM EST 1.0 {tablet} active Ot ezla 30 MG eCW1 ([facility]) Otezla 10 & 20 & 30 MG Otezla 10 & 20 & 30 MG 07/24/2020 12:00:[address] suspended Otezla 10 & 20 & 30 MG eC W1 ([facility]) Otezla 10 & 20 & 30 MG Otezla 10 & 20 & 30 MG 07/24/2020 12:00:[address] suspended Otezla 10 & 20 & 30 MG eC W1 ([facility]) apremilast 30 MG Oral Tablet [Otezla] Otezla 30 MG Otezla 30 MG 07/24/2020 12:00:00 AM EST 1.0 {tablet} active Ot ezla 30 MG eCW1 ([facility]) Otezla 10 & 20 & 30 MG Otezla 10 & 20 & 30 MG 07/24/2020 12:00:[address] active Otezla 10 & 20 & 30 MG eC W1 ([facility]) apremilast 30 MG Oral Tablet [Otezla] Otezla 30 MG Otezla 30 MG 07/24/2020 12:00:00 AM EST 1.0 {tablet} active Ot ezla 30 MG eCW1 ([facility]) Otezla 10 & 20 & 30 MG Otezla 10 & 20 & 30 MG 07/24/2020 12:00:[address] active Otezla 10 & 20 & 30 MG eC W1 ([facility]) Otezla 10 & 20 & 30 MG Otezla 10 & 20 & 30 MG 07/24/2020 12:00:[address] suspended Otezla 10 & 20 & 30 MG eC W1 ([facility]) apremilast 30 MG Oral Tablet [Otezla] Otezla 30 MG Otezla 30 MG 07/24/2020 12:00:00 AM EST 1.0 {tablet} active Ot ezla 30 MG eCW1 ([facility]) Otezla 10 & 20 & 30 MG Otezla 10 & 20 & 30 MG 07/24/2020 12:00:[address] suspended Otezla 10 & 20 & 30 MG eC W1 ([facility]) apremilast 30 MG Oral Tablet [Otezla] Otezla 30 MG Otezla 30 MG 07/24/2020 12:00:00 AM EST 1.0 {tablet} active Ot ezla 30 MG eCW1 ([facility]) apremilast 30 MG Oral Tablet [Otezla] Otezla 30 MG Otezla 30 MG 07/24/2020 12:00:00 AM EST 1.0 {tablet} active Ot ezla 30 MG eCW1 ([facility]) apremilast 30 MG Oral Tablet [Otezla] Otezla 30 MG Otezla 30 MG 07/24/2020 12:00:00 AM EST 1.0 {tablet} active Ot ezla 30 MG eCW1 ([facility]) Otezla 10 & 20 & 30 MG Otezla 10 & 20 & 30 MG 07/24/2020 12:00:[address] active Otezla 10 & 20 & 30 MG eC W1 ([facility]) 2.5 mg 07/23/2020 12:00:00 AM EST tablet 90 TAKE THREE TABLETS BY MOUTH ONCE A DAY TAKE THREE TABLETS BY MOUTH ONCE A DAY SOLD: 11/25/2020 [facility] 2.5 mg 07/23/2020 12:00:00 AM EST tablet 80 TAKE THREE TABLETS BY MOUTH ONCE A DAY TAKE THREE TABLETS BY MOUTH ONCE A DAY SOLD: 09/19/2020 [facility] 2.5 mg 07/23/2020 12:00:00 AM EST tablet 90 TAKE THREE TABLETS BY MOUTH ONCE A DAY TAKE THREE TABLETS BY MOUTH ONCE A DAY SOLD: 07/24/2020 [facility] 2.5 mg 07/23/2020 12:00:00 AM EST tablet 90 TAKE THREE TABLETS BY MOUTH ONCE A DAY TAKE THREE TABLETS BY MOUTH ONCE A DAY SOLD: 10/25/2020 [facility] Prednisone 2.5 MG Oral Tablet PredniSONE 2.5 MG PredniSONE 2 .5 MG 07/22/2020 12:00:00 AM EST 3.0 {tablet} active Pr edniSONE 2.5 MG eCW1 ([facility]) Prednisone 2.5 MG Oral Tablet PredniSONE 2.5 MG PredniSONE 2 .5 MG 07/22/2020 12:00:00 AM EST 3.0 {tablet} active Pr edniSONE 2.5 MG eCW1 ([facility]) Prednisone 2.5 MG Oral Tablet PredniSONE 2.5 MG PredniSONE 2 .5 MG 07/22/2020 12:00:00 AM EST 3.0 {tablet} active Pr edniSONE 2.5 MG eCW1 ([facility]) Prednisone 2.5 MG Oral Tablet predniSONE 2.5 MG predniSONE 2 .5 MG 07/22/2020 12:00:00 AM EST 3.0 {tablet} active pr edniSONE 2.5 MG eCW1 ([facility]) Prednisone 2.5 MG Oral Tablet predniSONE 2.5 MG predniSONE 2 .5 MG 07/22/2020 12:00:00 AM EST 3.0 {tablet} suspended predniSONE 2.5 MG eCW1 ([facility]) Prednisone 2.5 MG Oral Tablet predniSONE 2.5 MG predniSONE 2 .5 MG 07/22/2020 12:00:00 AM EST 3.0 {tablet} suspended predniSONE 2.5 MG eCW1 ([facility]) Prednisone 2.5 MG Oral Tablet predniSONE 2.5 MG predniSONE 2 .5 MG 07/22/2020 12:00:00 AM EST 3.0 {tablet} active pr edniSONE 2.5 MG eCW1 ([facility]) Prednisone 2.5 MG Oral Tablet predniSONE 2.5 MG predniSONE 2 .5 MG 07/22/2020 12:00:00 AM EST 3.0 {tablet} suspended predniSONE 2.5 MG eCW1 ([facility]) Prednisone 2.5 MG Oral Tablet PredniSONE 2.5 MG PredniSONE 2 .5 MG 07/22/2020 12:00:00 AM EST 3.0 {tablet} active Pr edniSONE 2.5 MG eCW1 ([facility]) Prednisone 2.5 MG Oral Tablet PredniSONE 2.5 MG PredniSONE 2 .5 MG 07/22/2020 12:00:00 AM EST 3.0 {tablet} active Pr edniSONE 2.5 MG eCW1 ([facility]) Prednisone 2.5 MG Oral Tablet predniSONE 2.5 MG predniSONE 2 .5 MG 07/22/2020 12:00:00 AM EST 3.0 {tablet} suspended predniSONE 2.5 MG eCW1 ([facility]) Prednisone 2.5 MG Oral Tablet PredniSONE 2.5 MG PredniSONE 2 .5 MG 07/22/2020 12:00:00 AM EST 3.0 {tablet} active Pr edniSONE 2.5 MG eCW1 ([facility]) Prednisone 2.5 MG Oral Tablet PredniSONE 2.5 MG PredniSONE 2 .5 MG 07/22/2020 12:00:00 AM EST 3.0 {tablet} active Pr edniSONE 2.5 MG eCW1 ([facility]) Prednisone 2.5 MG Oral Tablet PredniSONE 2.5 MG PredniSONE 2 .5 MG 07/22/2020 12:00:00 AM EST 3.0 {tablet} active Pr edniSONE 2.5 MG eCW1 ([facility]) Prednisone 2.5 MG Oral Tablet PredniSONE 2.5 MG PredniSONE 2 .5 MG 07/22/2020 12:00:00 AM EST 3.0 {tablet} active Pr edniSONE 2.5 MG eCW1 ([facility]) Prednisone 2.5 MG Oral Tablet predniSONE 2.5 MG predniSONE 2 .5 MG 07/22/2020 12:00:00 AM EST 3.0 {tablet} suspended predniSONE 2.5 MG eCW1 ([facility]) Prednisone 2.5 MG Oral Tablet predniSONE 2.5 MG predniSONE 2 .5 MG 07/22/2020 12:00:00 AM EST 3.0 {tablet} active pr edniSONE 2.5 MG eCW1 ([facility]) Prednisone 2.5 MG Oral Tablet predniSONE 2.5 MG predniSONE 2 .5 MG 07/22/2020 12:00:00 AM EST 3.0 {tablet} suspended predniSONE 2.5 MG eCW1 ([facility]) Prednisone 2.5 MG Oral Tablet predniSONE 2.5 MG predniSONE 2 .5 MG 07/22/2020 12:00:00 AM EST 3.0 {tablet} suspended predniSONE 2.5 MG eCW1 ([facility]) Hydroxychloroquine Sulfate 200 MG Oral Tablet HYDROXYCHLOROQ UINE SULFATE 07/08/2020 12:00:00 AM EDT tablet 60 TAKE TWO TABLE TS BY MOUTH EVERY DAY TAKE TWO TABLETS BY MOUTH EVERY DAY SOLD: 09/03/2020 [facility] Prednisone 5 MG Oral Tablet PredniSONE 5 MG PredniSONE 5 MG 07/08/2020 12:00:00 AM EDT 2.0 {tablets} active PredniSONE 5 MG eCW1 ([facility]) Prednisone 5 MG Oral Tablet PredniSONE 5 MG PredniSONE 5 MG 07/08/2020 12:00:00 AM EDT 2.0 {tablets} active PredniSONE 5 MG eCW1 ([facility]) Hydroxychloroquine Sulfate 200 MG Oral Tablet HYDROXYCHLOROQ UINE SULFATE 07/08/2020 12:00:00 AM EDT tablet 60 TAKE TWO TABLE TS BY MOUTH EVERY DAY TAKE TWO TABLETS BY MOUTH EVERY DAY SOLD: 08/07/2020 [facility] 5 mg 07/08/2020 12:00:00 AM EDT tablet 60 TAKE TWO TABLETS BY MOUTH EVERY DAY IN THE MORNING TAKE TWO TABLETS BY MOUTH EVERY DAY IN THE MORNING DARNELL [facility] Prednisone 5 MG Oral Tablet PredniSONE 5 MG PredniSONE 5 MG 07/08/2020 12:00:00 AM EDT 2.0 {tablets} active PredniSONE 5 MG eCW1 ([facility]) Prednisone 5 MG Oral Tablet PredniSONE 5 MG PredniSONE 5 MG 07/08/2020 12:00:00 AM EDT 2.0 {tablets} active PredniSONE 5 MG eCW1 ([facility]) Prednisone 5 MG Oral Tablet PredniSONE 5 MG PredniSONE 5 MG 07/08/2020 12:00:00 AM EDT 2.0 {tablets} active PredniSONE 5 MG eCW1 ([facility]) Hydroxychloroquine Sulfate 200 MG Oral Tablet HYDROXYCHLOROQ UINE SULFATE 07/08/2020 12:00:00 AM EDT tablet 60 TAKE TWO TABLE TS BY MOUTH EVERY DAY TAKE TWO TABLETS BY MOUTH EVERY DAY SOLD: 07/09/2020 [facility] Prednisone 5 MG Oral Tablet PredniSONE 5 MG PredniSONE 5 MG 07/08/2020 12:00:00 AM EDT 2.0 {tablets} active PredniSONE 5 MG eCW1 ([facility]) Prednisone 5 MG Oral Tablet PredniSONE 5 MG PredniSONE 5 MG 07/08/2020 12:00:00 AM EDT 2.0 {tablets} active PredniSONE 5 MG eCW1 ([facility]) BLOOD SUGAR DIAGNOSTIC 07/08/2020 12:00:00 AM EDT strip 50 TEST TWO TIMES A DAY TEST TWO TIMES A DAY SOLD: 07/09/2020 [facility] Prednisone 5 MG Oral Tablet PredniSONE 5 MG PredniSONE 5 MG 07/08/2020 12:00:00 AM EDT 2.0 {tablets} active PredniSONE 5 MG eCW1 ([facility]) Cephalexin 500 MG Oral Capsule CEPHALEXIN 07/01/2020 12:00:00 AM EDT capsule 20 TAKE ONE CAPSULE BY MOUTH TWO TIMES A DAY FOR 10 DAYS TAKE ONE CAPSULE BY MOUTH TWO TIMES A DAY FOR 10 DAYS SOLD: 07/01/2020 [facility] Cephalexin 500 MG Oral Tablet Cephalexin 07/01/2020 12:00:00 AM EDT ORAL active MEDENT ([facility]) Hydroxychloroquine Sulfate 200 MG Oral Tablet HYDROXYCHLOROQ UINE SULFATE 06/18/2020 12:00:00 AM EDT tablet 28 TAKE 2 TABLETS BY MOUTH ONCE A DAY TAKE 2 TABLETS BY MOUTH ONCE A DAY SOLD: 06/21/2020 [facility] 5 mg 05/29/2020 12:00:00 AM EDT tablet 45 TAKE ONE TABLET BY MOUTH EVERY DAY, TAPER PER CALENDAR TAKE ONE TABLET BY MOUTH EVERY DAY, TAPE R PER CALENDAR SOLD: 05/29/2020 [facility] Prednisone 5 MG Oral Tablet Prednisone 05/28/2020 12:00:00 AM EDT ORAL completed MEDENT ([facility], ) Prednisone 10 MG Oral Tablet Prednisone 03/25/2020 12:00:00 AM EDT completed MEDENT ([facility], ) 5 mg 03/21/2020 12:00:00 AM EDT tablet extended release 24hr 60 TAKE 1-2 TABLETS BY MOUTH ONCE A DAY DIRECTED TAKE 1-2 TABLETS BY MOUTH ONCE A DAY DIRECTED SOLD: 07/29/2020 [facility] 5 mg 03/21/2020 12:00:00 AM EDT tablet extended release 24hr 60 TAKE 1-2 TABLETS BY MOUTH ONCE A DAY DIRECTED TAKE 1-2 TABLETS BY MOUTH ONCE A DAY DIRECTED SOLD: 11/30/2020 [facility] 5 mg 03/21/2020 12:00:00 AM EDT tablet extended release 24hr 60 TAKE 1-2 TABLETS BY MOUTH ONCE A DAY DIRECTED TAKE 1-2 TABLETS BY MOUTH ONCE A DAY DIRECTED SOLD: 05/29/2020 [facility] 5 mg 03/21/2020 12:00:00 AM EDT tablet extended release 24hr 60 TAKE 1-2 TABLETS BY MOUTH ONCE A DAY DIRECTED TAKE 1-2 TABLETS BY MOUTH ONCE A DAY DIRECTED SOLD: 09/30/2020 [facility] Insurance Providers Payer name Policy type / Coverage type Policy ID Covered libertarian ID Covered libertarian's relationship to vickers Policy Vickers Plan Information Medicare [place] [employer] Primary [id number] Self [place] 200/700 [id number] SP [id number] MEDICARE [id number] SP [id number] A MEDICARE [id number] SELF [id number] BLUE CROSS [id number] SELF [id number] MEDICARE [id number] SELF [id number] A MEDICARE [id number] SP [id number] [place] 200/700 [id number] SP [id number] MEDICARE [id number] SP [id number] MEDICARE PART A -O/P [id number] 18 [id number] BS [facility] Part B [id number] Self BCBS [facility] 210/710 [id number] SP [id number] Problems, Conditions, and Diagnoses Code Display Name Description Problem Type Effective Dates Data Source(s) N69522 Unspecified pterygium of left eye Unspecified pt erygium of left eye Diagnosis 08/28/2020 07:00:00 AM [facility] [id number] Encounter for other preprocedural examin ation Encounter for other preprocedural examination Diagnosis 08/09/2020 10:01:00 AM [facility] [id number] Diarrhea Diarrhea Problem 04/03/2021 12:00:00 AM ED T VIRGIE ([facility]) Z12.83 [id number] Screening exam for skin cancer Problem 04/01/2021 12:00:00 AM EDT eCW1 ([facility]) R94.31 Electrocardiogram abnormal Electrocardiogram abnormal Problem 03/21/2021 12:00:00 AM EDT VIRGIE ([facility]) Z85.828 [id number] Hx of basal cell carcinoma Problem 12:00:00 AM EDT eCW1 ([facility]) M15.9 [id number] Generalized OA Problem 07/22/2020 12:00:00 A M EST eCW1 ([facility]) J84.9 [id number] Interstitial lung disease Problem 07/22/2020 12:00:00 AM EST eCW1 ([facility]) 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) Plethysmography Determination Lung Volumes & Per Airway Resi st 04/14/2021 12:00:00 AM EDT MEDENT ([facility] DIFFUSING CAPACITY 04/14/2021 12:00:00 AM EDT MEDENT ([facility]) OFFICE OUTPATIENT NEW 30 MINUTES 04/03/2021 12:00:00 A M EDT MEDENT ([facility]) OFFICE OUTPATIENT NEW 30 MINUTES 04/01/2021 12:00:00 A M EDT MEDENT ([facility]) OFFICE OUTPATIENT VISIT 15 MINUTES 03/28/2021 12:00:00 AM EDT MEDENT ([facility]) ECG ROUTINE ECG W/LEAST 12 LDS W/I&R 03/21/2021 12:00: 00 AM EDT MEDENT ([facility]) OFFICE OUTPATIENT VISIT 25 MINUTES 03/21/2021 12:00:00 AM EDT MEDENT ([facility]) Spirometry 11/01/2020 12:00:00 AM EST M EDENT ([facility], ) Plethysmography Determination Lung Volumes & Per Airway Resi st 11/01/2020 12:00:00 AM EST MEDENT ([facility] ) DIFFUSING CAPACITY 11/01/2020 12:00:00 AM EST MEDENT ([facility]) OFFICE OUTPATIENT VISIT 25 MINUTES 11/01/2020 12:00:00 AM EST MEDENT ([facility]) Spirometry 08/01/2020 12:00:00 AM EST M EDENT ([facility]) Spirometry 05/28/2020 12:00:00 AM EDT M EDENT ([facility]) Results ID Date Data Source [id number] 06/10/2021 02:15:00 PM EDT [facility] Name Value Range Interpretation Code Description Data Helena rce(s) Supporting Document(s) SARS-CoV-2 RNA Resp Ql GABBY+probe NOT DETECTED [facility] This lab was ordered by [facility] and reported by [facility]. ID Date Data Source [id number] 03/03/2021 03:43:00 PM EDT MEDENT ([facility] Name Value Range Interpretation Code Description Data Helena rce(s) Supporting Document(s) Magnesium Level 1.37 [facility] ([facility]) Uric Acid 3.5 [facility] ([facility] ID Date Data Source [id number] 03/03/2021 03:43:00 PM EDT MEDENT ([facility] Name Value Range Interpretation Code Description Data Helena rce(s) Supporting Document(s) White Blood Count 10.6 MED[facility] ([facility]) Red Blood Count 3.88 [facility] ([facility]) Hemoglobin 12.1 MEDENT ([facility]) Platelets 305 [facility] Hematocrit 37.2 MEDENT ([facility]) ID Date Data Source [id number] 03/03/2021 03:43:00 PM EDT MEDENT ([facility] Name Value Range Interpretation Code Description Data Helena rce(s) Supporting Document(s) Glucose 157 MEDENT [facility] Blood Urea Nitrogen 32.4 [facility] Creatinine 1.5 [facility]) Glomerular filtration rate/1.73 sq M.pre dicted [Volume Rate/Area] in Serum or Plasma by Creatinine-based formula (MDRD) 45 MEDENT ([facility]) Sodium 138 [facility] Potassium 5.17 [facility] Chloride 102.3 [facility] Carbon Dioxide 27.9 MEDENT ([facility]) Calcium 9.9 [facility] Phosphorus 3.1 [facility] ([facility]) Albumin 4.1 [facility] ID Date Data Source [id number] 10/08/2020 08:32:00 AM EST MEDENT ([facility] Name Value Range Interpretation Code Description Data Helena rce(s) Supporting Document(s) White Blood Count 10.7 4.3-10.9 MEDENT ([facility]) Red Blood Count 3.99 4.70-6.20 MEDENT ([facility]) Hematocrit Laboratory test result 39.0-50.0 ME DENT ([facility]) Platelets 229 130-400 MEDENT ([facility] Hemoglobin 12.6 13.0-17.0 [facility]) ID Date Data Source [id number] 10/08/2020 08:32:00 AM EST MEDENT ([facility] Name Value Range Interpretation Code Description Data Helena rce(s) Supporting Document(s) Blood Urea Nitrogen 31.5 5-21 MEDENT ([facility]) Glucose 123 70-100 [facility] Creatinine 1.6 0.6-1.5 [facility] ([facility]) Glomerular filtration rate/1.73 sq M.pre dicted [Volume Rate/Area] in Serum or Plasma by Creatinine-based formula (MDRD) 42 [facility] ([facility]) Sodium 138.3 136-146 [facility] Potassium 4.19 3.5-5.3 [facility] Chloride 99.6 98-110 [facility] Calcium 9.4 8.4-10.4 [facility] Carbon Dioxide 25.3 20-32 [facility] Albumin 4.2 3.5-4.7 [facility] Phosphorus 4.2 [facility] ([facility]) ID Date Data Source [id number] 09/26/2020 11:38:00 [place] [address] OPERATIVE SUMMARYNAME: UMA TARIQ DATE OF : 1940TTENDING PHYS: Rob Peralta MD DATE: 08/28/20 MR#: [id number] OF PROCEDURE: 08/28/2020PREOPERATIVE DIAGNOSIS: Pterygium, left eye.POSTOPERATIVE DIAGNOSIS: Pterygium, left eyePROCEDURE: Pterygium excision with mitomycin application and amniotic membrane graft, lefteye.SURGEON: Rob Peralta MD.HOT BLASTER: None.COMPLICATIONS: None.INDICATION: Advancing pterygium endangering the visual axis.DETAILS OF PROCEDURE:The patient was brought to the operating room and laid in supine position. The eye was preppedand draped in a sterile fashion for ophthalmic surgery, following which topical tetracaine dropswere placed. A subc onjunctival injection of 2% lidocaine with 1:100,000 epinephrine was thengiven in the subconjunctival space underneath the pterygium. With smooth forceps and bluntWestcott scissors, the pterygium was excised from the periphery towards the center. Residualfibrovascular growth was then removed with the help of the [place] blade. Hemostasis wasobtained using low temp cautery. After good hemostasis was obtained, the bed was dried, amnioticmembrane was cut to the size and placed with the help of the Tisseel glue. Prior to this, mitomycin0.1 mg/cc was applied to the sclera bed for a minute and a half, followed by copious irrigationbalanced salt solution. Tobradex ointment was applied, the eye was patched, and patient returned tothe recovery room in stable condition.DD: Rob Perlata MD 09/26/20 10:44 [address] [place] [address] OPERATIVE SUMMARYNAME: UMA TARIQ DATE OF : 1940TTENDING PHYS: Rob Peralta MD DATE: 08/28/20 MR#: [id number]: SSR 09/26/20 11:22DS: Rob Peralta MD 10/03/20 11:48 2 Name Value Range Interpretation Code Description Data Helena rce(s) Supporting Document(s) ID Date Data Source [id number] 08/23/2020 05:27:00 PM EST [facility] Name Value Range Interpretation Code Description Data Helena rce(s) Supporting Document(s) SARS-CoV-2 (COVID-19) [facility] This lab was ordered by [facility] and reported by [email or web address]. ID Date Data Source [id number] 08/01/2020 08:14:00 AM EST MEDENT ([facility], ) Name Value Range Interpretation Code Description Data Helena rce(s) Supporting Document(s) PDFReport Laboratory test result MEDENT ([facility]) FVC-Pred 4.16 L MEDENT ([facility]) FVC-Pre 4.07 L MEDENT ([facility]) Fev1-Pred 2.95 L MEDENT ([facility]) FVC-LLN 3.20 L MEDENT ([facility]) FVC-%Pred-Pre 98 L MEDENT ([facility]) Fev1-LLN 2.14 L MEDENT ([facility]) Fev1-%Pred-Pre 100 L MEDENT ([facility]) Fev1-Pre 2.96 L MEDENT ([facility]) Fev6-%Pred-Pre 103 L MEDENT ([facility]) Fev6-Pre 4.01 L MEDENT ([facility]) Fev6-Pred 3.88 L MEDENT ([facility]) Rro3zcj-Iits 71 % MEDENT ([facility]) Zko4yrw-Yam 73 % [facility] ([facility]) Fev6-LLN 2.95 L MEDENT ([facility]) Iow0nbl-Extc 93 % MEDENT ([facility]) Yzg8whl-%Pred-Pre 101 % MEDENT ([facility]) Hbd8ynv-CZP 62 % [facility] ([facility]) Zqt7izl-Ecr 98 % [facility]ENT ([facility]) Rqg7dib-%Pred-Pre 105 % MEDENT ([facility]) FEFMax-Pred 7.34 L/E/sec MEDENT ([facility]) FEFMax-LLN 4.94 L/E/sec MEDENT ([facility]) FEFMax-%Pred-Pre 98 L/E/sec MEDENT ([facility]) FEFMax-Pre 7.24 L/E/sec MEDENT ([facility]) Zgv0369-Hiwj 2.02 L/E/sec MEDENT ([facility]) Htn3559-Ijm 2.02 L/E/sec MEDENT ([facility]) Llr0423-%Pred-Pre 99 L/E/sec MEDENT ([facility]) ExpTime-Pre 7.07 sec MEDENT ([facility]) Agq2394-SMK 0.37 L/E/sec MEDENT ([facility]) Zrg3isp6-Muvj 76 % MEDENT ([facility]) Cpk0zei0-QGR 67 % MEDENT ([facility]) Fqt6cwk6-Zkn 74 % [facility] ([facility]) Cqj6epx1-%Pred-Pre 97 % MEDENT ([facility]) Procedure Social History Code Duration Value Status Description Data Source(s ) Smoking 04/28/2021 12:00:00 AM EDT Former Smoker completed Former Smoker eCW1 ([facility]) Smoking 04/28/2021 12:00:00 AM EDT Former Smoker completed Former Smoker eCW1 ([facility]) Smoking 04/28/2021 12:00:00 AM EDT Former Smoker completed Former Smoker eCW1 ([facility]) Smoking 04/28/2021 12:00:00 AM EDT Former Smoker completed Former Smoker eCW1 ([facility]) Smoking 04/18/2021 12:00:00 AM EDT Patient is a former smoker completed Patient is a former smoker MEDENT ([facility], ) Smoking 04/04/2021 12:00:00 AM EDT Former Smoker completed Former Smoker eCW1 ([facility]) Smoking 04/04/2021 12:00:00 AM EDT Former Smoker completed Former Smoker eCW1 ([facility]) Smoking 04/04/2021 12:00:00 AM EDT Former Smoker completed Former Smoker eCW1 ([facility]) Smoking 03/21/2021 12:00:00 AM EDT Patient is a former smoker completed Patient is a former smoker MEDENT ([facility]) Smoking 01/20/2021 12:00:00 AM EDT Former Smoker completed Former Smoker eCW1 ([facility]) Smoking 01/20/2021 12:00:00 AM EDT Former Smoker completed Former Smoker eCW1 ([facility]) Smoking 01/20/2021 12:00:00 AM EDT Former Smoker completed Former Smoker eCW1 ([facility]) Smoking 01/20/2021 12:00:00 AM EDT Former Smoker completed Former Smoker eCW1 ([facility]) Smoking 01/02/2021 12:00:00 AM EDT Former Smoker completed Former Smoker eCW1 ([facility]) Smoking 10/21/2020 12:00:00 AM EST Former Smoker completed Former Smoker eCW1 ([facility]) Smoking 10/21/2020 12:00:00 AM EST Former Smoker completed Former Smoker eCW1 ([facility]) Smoking 07/22/2020 12:00:00 AM EST Former Smoker completed Former Smoker eCW1 ([facility]) Smoking 07/22/2020 12:00:00 AM EST Former Smoker completed Former Smoker eCW1 ([facility]) Smoking 07/22/2020 12:00:00 AM EST Former Smoker completed Former Smoker eCW1 ([facility]) Smoking 07/22/2020 12:00:00 AM EST Former Smoker completed Former Smoker eCW1 ([facility]) Smoking 07/22/2020 12:00:00 AM EST Former Smoker completed Former Smoker eCW1 ([facility]) Smoking 07/01/2020 12:00:00 AM EDT Patient is a former smoker completed Patient is a former smoker MEDENT ([facility]) Vital Signs ID Date Data Source UNK Name Value Range Interpretation Code Description Data Source(s) Body weight 174.00 [lb_av] 174.00 [lb_av] MEDEN T ([facility]) Body height 71 [in_i] 71 [in_i] MEDENT ([facility]) 5'11" Systolic blood pressure 127 mm[Hg] 127 mm[Hg] M EDENT ([facility]) Diastolic blood pressure 66 mm[Hg] 66 mm[Hg] MEDENT ([facility]) Heart rate 66 /min 66 /min MEDENT ([facility]) Body mass index (BMI) [Ratio] 24.3 kg/m2 24.3 k g/m2 MEDENT ([facility]) Body weight 78.926 kg 78.926 kg [facility] Body temperature 97.8 [degF] 97.8 [degF] MEDENT ([facility]) Body weight 173.8 [lb_av] 173.8 [lb_av] eCW1 ([facility]) Body weight 78.84 kg 78.84 kg eCW1 ([facility]) Body height 70 [in_i] 70 [in_i] eCW1 ([facility]) Body mass index (BMI) [Ratio] 24.93 kg/m2 24.93 kg/m2 eCW1 ([facility]) Heart rate 77 /min 77 /min eCW1 ([facility]) Respiratory rate 20 /min 20 /min eCW1 ([facility]) Body temperature 96.7 [degF] 96.7 [degF] eCW1 ( [facility]) Systolic blood pressure 130 mm[Hg] 130 mm[Hg] e CW1 ([facility]) Diastolic blood pressure 64 mm[Hg] 64 mm[Hg] eCW1 ([facility]) Systolic blood pressure 110 mm[Hg] 110 mm[Hg] M EDENT ([facility], ) Diastolic blood pressure 70 mm[Hg] 70 mm[Hg] MEDENT ([facility], ) Heart rate 95 /min 95 /min MEDENT ([facility], ) Oxygen saturation in Arterial blood by Pulse oximetry 96 % 96 % [facility] Room Air Body weight 173.4 [lb_av] 173.4 [lb_av] eCW1 ([facility]) Body weight 78.6 kg 78.6 kg W1 ([facility]) Body height 70 [in_i] 70 [in_i] eCW1 ([facility]) Body mass index (BMI) [Ratio] 24.88 kg/m2 24.88 kg/m2 [facility] ([facility]) Heart rate 90 /min 90 /min eCW1 ([facility]) Respiratory rate 18 /min 18 /min eCW1 ([facility]) Body temperature 96.5 [degF] 96.5 [degF] eCW1 ( [facility]) Systolic blood pressure 118 mm[Hg] 118 mm[Hg] e CW1 ([facility]) Diastolic blood pressure 62 mm[Hg] 62 mm[Hg] eCW1 ([facility]) Diastolic blood pressure 64 mm[Hg] 64 mm[Hg] MEDENT ([facility]) Heart rate 80 /min 80 /min MEDENT ([facility]) Body height 71 [in_i] 71 [in_i] [facility]ENT [facility] 5'11" Body weight 171.00 [lb_av] 171.00 [lb_av] MEDEN T ([facility]) Systolic blood pressure 130 mm[Hg] 130 mm[Hg] M EDENT ([facility]) Body mass index (BMI) [Ratio] 23.8 kg/m2 23.8 k g/m2 MEDENT ([facility]) Body weight 77.566 kg 77.566 kg MEDENT ([facility]) Body temperature 96.3 [degF] 96.3 [degF] MEDENT ([facility]) Body temperature 96.9 [degF] 96.9 [degF] MEDENT ([facility] ) Body height 70.5 [in_i] 70.5 [in_i] MEDENT ([facility] ) 5'10.50" Body weight 170.12 [lb_av] 170.12 [lb_av] MEDEN T ([facility] ) Body mass index (BMI) [Ratio] 24.1 kg/m2 24.1 k g/m2 MEDENT ([facility] ) Systolic blood pressure 124 mm[Hg] 124 mm[Hg] M EDENT ([facility]) Diastolic blood pressure 75 mm[Hg] 75 mm[Hg] MEDENT ([facility]) Heart rate 78 /min 78 /min MEDENT ([facility]) Respiratory rate 16 /min 16 /min MEDENT ( [facility]) Oxygen saturation in Arterial blood by Pulse oximetry 98 % 98 % MEDENT ([facility], [facility]) Body temperature 96.8 [degF] 96.8 [degF] MEDENT ([facility], [facility]) Body weight 178.00 [lb_av] 178.00 [lb_av] MEDEN T ([facility], [facility]) Body height 70 [in_i] 70 [in_i] MEDENT ([facility]) 5'10" Body mass index (BMI) [Ratio] 25.5 kg/m2 25.5 k g/m2 MEDENT ([facility], [facility]) Body mass index (BMI) [Ratio] 24.7 kg/m2 24.7 k g/m2 MEDENT ([facility]) Systolic blood pressure--sitting 124 mm[Hg] 124 mm[Hg] MEDENT ([facility]) Ra, large cuff Body weight 177.00 [lb_av] 177.00 [lb_av] MEDEN T ([facility]) Body height 71 [in_i] 71 [in_i] VIRGIE [facility] 5'11" Diastolic blood pressure--sitting 76 mm[Hg] 76 mm[Hg] MEDPRAMOD ([facility]) Ra, large cuff Body weight 180.4 [lb_av] 180.4 [lb_av] eCW1 ([facility]) Body weight 81.8 kg 81.8 kg eCW1 ([facility]) Body height 70 [in_i] 70 [in_i] eCW1 ([facility]) Body mass index (BMI) [Ratio] 25.88 kg/m2 25.88 kg/m2 eCW1 ([facility]) Heart rate 77 /min 77 /min eCW1 ([facility]) Respiratory rate 18 /min 18 /min eCW1 ([facility]) Body temperature 97.0 [degF] 97.0 [degF] eCW1 ( [facility]) Systolic blood pressure 118 mm[Hg] 118 mm[Hg] e CW1 ([facility]) Diastolic blood pressure 68 mm[Hg] 68 mm[Hg] eCW1 ([facility]) Systolic blood pressure 136 mm[Hg] 136 mm[Hg] e CW1 ([facility]) Body weight 182.2 [lb_av] 182.2 [lb_av] eCW1 ([facility]) Body height 70 [in_i] 70 [in_i] eCW1 ([facility]) Diastolic blood pressure 78 mm[Hg] 78 mm[Hg] eCW1 ([facility]) Body mass index (BMI) [Ratio] 26.14 kg/m2 26.14 kg/m2 eCW1 ([facility]) Oxygen saturation in Arterial blood by Pulse oximetry 95 % 95 % VIRGIE ([facility], ) Body temperature 96.3 [degF] 96.3 [degF] VIRGIE ([facility], ) Body height 71 [in_i] 71 [in_i] VIRGIE ([facility]) 5'11" Body weight 177.00 [lb_av] 177.00 [lb_av] MEDEN T ([facility]) Body mass index (BMI) [Ratio] 24.7 kg/m2 24.7 k g/m2 [facility] ([facility]) [place] body weight 172 [lb_av] 172 [lb_av] MEDEN T ([facility]) Body weight 80.287 kg 80.287 kg [facility] ([facility]) Body surface area Derived from formula 2.00 m2 2.00 m2 [facility] ([facility]) Diastolic blood pressure 80 mm[Hg] 80 mm[Hg] [facility] ([facility]) Heart rate 65 /min 65 /min [facility] ([facility]) Systolic blood pressure 118 mm[Hg] 118 mm[Hg] [facility] Oxygen saturation in Arterial blood by Pulse oximetry 95 % 95 % [facility] ([facility]) Body temperature 96.3 [degF] 96.3 [degF] [facility] ([facility]) Body height 71 [in_i] 71 [in_i] [facility] ([facility]) 5'11" Body weight 177.00 [lb_av] 177.00 [lb_av] MEDEN T ([facility]) Body mass index (BMI) [Ratio] 24.7 kg/m2 24.7 k g/m2 [facility] ([facility]) [place] body weight 172 [lb_av] 172 [lb_av] [facility] Body weight 80.287 kg 80.287 kg [facility] ([facility]) Body surface area Derived from formula 2.00 m2 2.00 m2 [facility] ([facility]) Body weight 177.8 [lb_av] 177.8 [lb_av] eCW1 ([facility]) Body weight 80.6 kg 80.6 kg eCW1 ([facility]) Diastolic blood pressure 82 mm[Hg] 82 mm[Hg] eCW1 ([facility]) Body height 70 [in_i] 70 [in_i] eCW1 ([facility]) Body mass index (BMI) [Ratio] 25.51 kg/m2 25.51 kg/m2 eCW1 ([facility]) Heart rate 99 /min 99 /min eCW1 ([facility]) Body temperature 97.1 [degF] 97.1 [degF] eCW1 ( [facility]) Systolic blood pressure 130 mm[Hg] 130 mm[Hg] e CW1 ([facility]) Body weight 176.00 [lb_av] 176.00 [lb_av] MEDEN T ([facility], ) Body mass index (BMI) [Ratio] 24.5 kg/m2 24.5 k g/m2 MEDENT ([facility], ) Oxygen saturation in Arterial blood by Pulse oximetry 99 % 99 % [facility] ([facility], ) Body temperature 97.0 [degF] 97.0 [degF] MEDENT ([facility]) Body height 71 [in_i] 71 [in_i] MEDENT ([facility]) 5'11" [place] body weight 172 [lb_av] 172 [lb_av] MEDEN T ([facility], ) Body weight 79.834 kg 79.834 kg [facility] Body surface area Derived from formula 2.00 m2 2.00 m2 [facility], ) Systolic blood pressure 138 mm[Hg] 138 mm[Hg] M EDENT ([facility], ) Diastolic blood pressure 72 mm[Hg] 72 mm[Hg] MEDENT ([facility], ) Heart rate 71 /min 71 /min [facility] ([facility], ) Oxygen saturation in Arterial blood by Pulse oximetry 99 % 99 % [facility] ([facility]) Body temperature 97.0 [degF] 97.0 [degF] MEDENT ([facility], ) Body height 71 [in_i] 71 [in_i] MEDENT ([facility]) 5'11" Body weight 176.00 [lb_av] 176.00 [lb_av] MEDEN T ([facility]) Body mass index (BMI) [Ratio] 24.5 kg/m2 24.5 k g/m2 [facility] ([facility]) [place] body weight 172 [lb_av] 172 [lb_av] MEDEN T ([facility]) Body weight 79.834 kg 79.834 kg MEDENT ([facility]) Body surface area Derived from formula 2.00 m2 2.00 m2 [facility] ([facility]) Body weight 174.2 [lb_av] 174.2 [lb_av] eCW1 ([facility]) Body weight 79.0 kg 79.0 kg W1 ([facility]) Body height 70 [in_i] 70 [in_i] eCW1 ([facility]) Body mass index (BMI) [Ratio] 24.99 kg/m2 24.99 kg/m2 W1 ([facility]) Heart rate 86 /min 86 /min W1 ([facility]) Body temperature 96.2 [degF] 96.2 [degF] W1 ( [facility]) Systolic blood pressure 126 mm[Hg] 126 mm[Hg] e CW1 ([facility]) Diastolic blood pressure 68 mm[Hg] 68 mm[Hg] eCW1 ([facility]) Body height 70 [in_i] 70 [in_i] MEDENT ([facility], [facility]) 5'10" Body mass index (BMI) [Ratio] 24.1 kg/m2 24.1 k g/m2 MEDENT ([facility]) Systolic blood pressure 139 mm[Hg] 139 mm[Hg] M EDENT ([facility], [facility]) Diastolic blood pressure 65 mm[Hg] 65 mm[Hg] MEDENT ([facility], [facility]) Heart rate 72 /min 72 /min MEDENT ([facility], [facility]) Respiratory rate 14 /min 14 /min MEDENT ( [facility]) Oxygen saturation in Arterial blood by Pulse oximetry 97 % 97 % [facility] ([facility]) Body temperature 98.2 [degF] 98.2 [degF] [facility] ([facility]) Body weight 168.00 [lb_av] 168.00 [lb_av] MEDEN T ([facility]) Systolic blood pressure 120 mm[Hg] 120 mm[Hg] [facility]) Body height 71 [in_i] 71 [in_i] [facility] ([facility]) 5'11" Diastolic blood pressure 80 mm[Hg] 80 mm[Hg] [facility] ([facility]) Heart rate 64 /min 64 /min [facility] ([facility]) Oxygen saturation in Arterial blood by Pulse oximetry 99 % 99 % [facility] ([facility]) Body temperature 97.6 [degF] 97.6 [degF] [facility] ([facility]) Body mass index (BMI) [Ratio] 23.6 kg/m2 23.6 k g/m2 [facility] ([facility]) [place] body weight 172 [lb_av] 172 [lb_av] [facility] Body weight 169.00 [lb_av] 169.00 [lb_av] [facility] Body weight 76.658 kg 76.658 kg [facility] ([facility]) ID Date Data Source [id number] 10/03/2020 11:49:19 AM EST [facility] Name Value Range Interpretation Code Description Data Source(s) WEIGHT RECORDED 170.00 pounds 170.00 pounds [facility] Height 70 Inches 070 Inches [facility] Patient Treatment Plan of Care Planned Activity Planned Date Details Description Data Source (s) Prednisone 1 MG Oral Tablet 01/20/2021 12:00:00 AM EDT eCW1 ([facility]) Prednisone 5 MG Oral Tablet 01/20/2021 12:00:00 AM EDT eCW1 ([facility]) Prednisone 5 MG Oral Tablet 01/20/2021 12:00:00 AM EDT eCW1 ([facility]) Prednisone 1 MG Oral Tablet 01/20/2021 12:00:00 AM EDT eCW1 ([facility]) Prednisone 1 MG Oral Tablet 01/20/2021 12:00:00 AM EDT eCW1 ([facility]) Prednisone 5 MG Oral Tablet 01/20/2021 12:00:00 AM EDT eCW1 ([facility]) Prednisone 1 MG Oral Tablet 01/20/2021 12:00:00 AM EDT eCW1 ([facility]) Prednisone 5 MG Oral Tablet 01/20/2021 12:00:00 AM EDT eCW1 ([facility]) apremilast 30 MG Oral Tablet [Otezla] 07/24/2020 12:00:00 AM EST eCW1 ([facility]) apremilast 30 MG Oral Tablet [Otezla] 07/24/2020 12:00:00 AM EST eCW1 ([facility]) apremilast 30 MG Oral Tablet [Otezla] 07/24/2020 12:00:00 AM EST eCW1 ([facility]) apremilast 30 MG Oral Tablet [Otezla] 07/24/2020 12:00:00 AM EST eCW1 ([facility]) Otezla 10 & 20 & 30 MG 07/24/2020 12:00:00 AM EST eCW1 ([facility]) apremilast 30 MG Oral Tablet [Otezla] 07/24/2020 12:00:00 AM EST eCW1 ([facility]) Otezla 10 & 20 & 30 MG 07/24/2020 12:00:00 AM EST eCW1 ([facility]) apremilast 30 MG Oral Tablet [Otezla] 07/24/2020 12:00:00 AM EST eCW1 ([facility]) Otezla 10 & 20 & 30 MG 07/24/2020 12:00:00 AM EST eCW1 ([facility]) apremilast 30 MG Oral Tablet [Otezla] 07/24/2020 12:00:00 AM EST eCW1 ([facility]) Otezla 10 & 20 & 30 MG 07/24/2020 12:00:00 AM EST eCW1 ([facility]) apremilast 30 MG Oral Tablet [Otezla] 07/24/2020 12:00:00 AM EST eCW1 ([facility]) Otezla 10 & 20 & 30 MG 07/24/2020 12:00:00 AM EST eCW1 ([facility]) apremilast 30 MG Oral Tablet [Otezla] 07/24/2020 12:00:00 AM EST eCW1 ([facility]) Prednisone 2.5 MG Oral Tablet 07/22/2020 12:00:00 AM EST eCW1 ([facility]) Prednisone 2.5 MG Oral Tablet 07/22/2020 12:00:00 AM EST eCW1 ([facility]) Prednisone 2.5 MG Oral Tablet 07/22/2020 12:00:00 AM EST eCW1 ([facility]) Prednisone 2.5 MG Oral Tablet 07/22/2020 12:00:00 AM EST eCW1 ([facility]) Prednisone 2.5 MG Oral Tablet 07/22/2020 12:00:00 AM EST eCW1 ([facility]) Prednisone 2.5 MG Oral Tablet 07/22/2020 12:00:00 AM EST eCW1 ([facility])
--- NOTE | 2021-07-03 16:37 | REP ---
INDICATION: CHEST PAIN. COMPARISON: Multiple the latest 02/10/2020 a two view exam TECHNIQUE: Portable FINDINGS: The technique utilized in obtaining the radiograph has magnified the cardiac silhouette and accentuated the interstitial markings. The superior mediastinal structures are midline. The cardiac silhouette is unremarkable in size, shape, and position. The diaphragmatic surfaces of the lungs are regular, and the costophrenic angles are clear. The pulmonary tong are clear. The imaged osseous structures are intact. IMPRESSION: There is no acute cardiopulmonary disease. <Electronically signed by Wesley Crowley > 07/03/21 [id number]
[2021-07-03] MEDS: METOPROLOL 5 MG/5 ML VIAL IV SCH ×3 (17:15→17:25)
[2021-07-03 17:19] LABS: BASO # 0.1 10^3/uL (0.0-0.2); BASO % 0.4 % (0.0-1.0); EOS # 0.1 10^3/uL (0.0-0.5); EOS % 0.6 % (0.0-3.0); HEMATOCRIT 40.9 % (42.0-52.0); LYMPH # 0.7 10^3/uL (1.5-5.0); LYMPH % 6.3 % (24.0-44.0); MEAN CORPUSCULAR HEMOGLOBIN 30.2 pg (27.0-33.0); MEAN CORPUSCULAR HGB CONC 31.8 g/dl (32.0-36.5); MEAN CORPUSCULAR VOLUME 94.9 fl (80.0-96.0); MONO # 0.9 10^3/uL (0.0-0.8); MONO % 7.5 % (2.0-8.0); NEUTROPHILS # 9.6 10^3/uL (1.5-8.5); NEUTROPHILS % 84.7 % (36.0-66.0); PLATELET COUNT, AUTOMATED 352 10^3/uL (150-450); RED BLOOD COUNT 4.31 10^6/uL (4.30-6.10); WHITE BLOOD COUNT 11.4 10^3/uL (4.0-10.0)
[2021-07-03 17:35] LABS: ALBUMIN 3.7 GM/DL (3.2-5.2); ALT/SGPT 30 U/L (12-78); BILIRUBIN,DIRECT 0.2 MG/DL (0.0-0.2); BILIRUBIN,TOTAL 0.4 MG/DL (0.2-1.0); BLOOD UREA NITROGEN 27 MG/DL (7-18); CALCIUM LEVEL 9.6 MG/DL (8.8-10.2); CARBON DIOXIDE LEVEL 28 MEQ/L (21-32); CHLORIDE LEVEL 103 MEQ/L (98-107); CK-MB VALUE MASS 2.6 NG/ML (<3.6); CPK CREATINE PHOSPHOKINASE 84 U/L (39-308); CREATININE FOR GFR 1.63 MG/DL (0.70-1.30); FREE T4 0.96 NG/DL (0.76-1.46); GLOMERULAR FILTRATION RATE 43.3 (>35); GLUCOSE, FASTING 109 MG/DL (70-100); LIPASE 68 U/L (73-393); NT-PRO BNP 356 PG/ML (<450); POTASSIUM SERUM 4.5 MEQ/L (3.5-5.1); SODIUM LEVEL 138 MEQ/L (136-145); THYROID STIMULATING HORMONE 0.611 uIU/ML (0.358-3.740); TOTAL PROTEIN 7.8 GM/DL (6.4-8.2); TROPONIN I < 0.02 NG/ML (< 0.10)
[2021-07-03 17:36] LABS: INR 1.04
[2021-07-03 17:37] LABS: PARTIAL THROMBOPLASTIN TIME 33.2 SECONDS (25.9-37.0)
--- OUTSIDE RECORDS SUMMARY | 2021-07-03 17:38 | CCD ---
Author Author [facility] Organization [facility] Address Unknown Phone Unavailable Care Team Providers Care Audiovisual Equipment Operator Name Role Phone NO, PCP Unavailable Unavailable [...] Unavailable Elida Parikh MD Unavailable Unavailable Elida Parihk MD Unavailable Unavailable Elida Parikh MD Unavailable [...] A DEANDRE PA Unavailable Unavailable LETTIERE, A DENADRE PA Unavailable Unavailable LETTIERE, A DEANDRE PA [...] is protected by Article 27-F of the [facility] Public Health law. If you continue you may have access to information: Regarding HIV / AIDS; Provided by facilities licensed or operated by the [facility] Office of Mental Health; or Provided by the [facility] Office for People With Developmental Disabilities. If such information is present, then the following [facility] mandated warning applies: This information has [...] law may result in a fine or half-way sentence or both. A general authorization for the release of medical or other information is NOT sufficient authorization for further disc losure. Allergies and Adverse Reactions Type Description Substance Reaction Status Data Source(s ) No Known Allergies No Known Allergies [facility] No Known Drug Allergies No Known Drug Allergies [facility] Family History Family Member Name Family Member Gender Family Member Status Date o f Status Description Data Source(s) Unknown Female Problem [facility]ENT ([facility]) Encounters Encounter Providers Location Date Indications Data Source(s ) Outpatient Attender: Eder Freire MD Main Office 06/05/2021 03:30:00 PM EDT [facility] ([facility]) Unknown [address] [facility] [address] [address] 05/21/2021 12:00:00 AM EDT eCW1 ([facility]) Unknown [address] [facility] [address] [place] [address] 05/05/2021 12:00:00 AM EDT eCW1 ([facility]) Unknown [address] [facility] [address] [place] [address] 05/01/2021 12:00:00 AM EDT eCW1 ([facility]) Outpatient [address] [facility] [address] [place] [address] 04/28/2021 12:00:00 AM EDT eCW1 ([facility]) Unknown [address] [facility] [address] [address] 04/24/2021 12:00:00 AM EDT eCW1 ([facility]) Unknown [address] [facility] [address] [address] 04/21/2021 12:00:00 AM EDT eCW1 ([facility]) Outpatient Attender: Elida Washington/Usama/Eliud/Ravin ndl 04/18/2021 02:00:00 PM EDT MEDENT ([facility]) Outpatient [address] [facility] [address] [address] 04/04/2021 12:00:00 AM EDT eCW1 ([facility]) Outpatient Attender: Eder Freire MD Main Office 04/03/2021 03:45:00 PM EDT MED[facility] ([facility]) OFFICE OUTPATIENT NEW 30 MINUTES Attender: Frederick Garcia MD Phy sical Therapy 04/01/2021 01:15:00 PM EDT MEDENT ([facility]) Unknown [address] [facility] [address] 03/31/2021 12:00:00 AM EDT eCW1 ([facility]) Outpatient Attender: DEANDRE gambino 03/28/2021 02:50:00 PM EDT MEDENT ([facility]) Unknown [address] [facility] [address] [address] 03/27/2021 12:00:00 AM EDT eCW1 ([facility]) Outpatient Attender: YAZ VARELA Main Office 03/21/2021 0 8:45:00 AM EDT MEDENT ([facility]) Unknown [address] [facility] [address] [address] 02/27/2021 12:00:00 AM EDT eCW1 ([facility]) Outpatient [address] [facility] [address] [place] [address] 01/20/2021 12:00:00 AM EDT eCW1 [facility] Outpatient [address] [facility] [place] [address] 01/02/2021 12:00:00 AM EDT eCW1 ([facility]) Unknown [address] [facility] [address] [place] [address] 12/18/2020 12:00:00 AM EDT eCW1 ([facility]) Outpatient Attender: Elida Washington/Usama/Eliud/Ravin ndl 11/01/2020 10:00:00 AM EST MEDENT ([facility]) Outpatient [address] [facility] [address] [place] [address] 10/21/2020 12:00:00 AM EST eCW1 ([facility]) Unknown [address] [facility] [address] [place] [address] 10/03/2020 12:00:00 AM EST eCW1 ([facility]) Outpatient Attender: Rob Peralta MDConsultant: PCP NO 08/28/2020 07:00:00 AM EST - 08/28/2020 09:20:00 AM EST [facility] Patient discharged. Outpatient Attender: Rob Peralta MDConsultant: PCP NO 08/07/2020 12:51:15 PM EST - 08/09/2020 11:01:00 AM EST [facility] Patient discharged. Outpatient Attender: Elida Washington/Usama/Eliud/Ravin ndl 08/01/2020 07:30:00 AM EST MEDENT ([facility]) Unknown [address] [facility] [address] [place] [address] 07/25/2020 12:00:00 AM EST eCW1 ([facility]) Unknown [address] [facility] [address] [place] [address] 07/25/2020 12:00:00 AM EST eCW1 ([facility]) Unknown [address] [facility] [place] [address] 07/23/2020 12:00:00 AM EST eCW1 ([facility]) Outpatient [address] [facility] [address] [place] [address] 07/22/2020 12:00:00 AM EST eCW1 ([facility]) Outpatient Attender: Mayela gambino 07/01/2020 06:15:00 PM EDT MEDENT ([facility]) Outpatient Attender: Elida Washington/Usama/Eliud/Ravin ndl 05/28/2020 01:00:00 PM EDT MEDENT ([facility]) Immunizations Vaccine Date Status Description Data Source(s) COVID-19 VACCINE, MRNA-1273, LNP-S (MODERNA)/PF 11/12/2020 1 2:00:00 AM EST completed [facility] COVID-19 VACCINE Moderna 10/16/2020 12:00:00 AM EST completed [facility] Vaccine Series Complete: NOThis Data was Submitted to [facility] Via [facility]. COVID-19 VACCINE, MRNA-1273, LNP-S (MODERNA)/PF 10/16/2020 1 2:00:00 AM EST completed [facility] INFLUENZA VIRUS VACCINE QUADRIVAL [id number](6 MOS AND UP)/PF 07/09/2020 12:00:00 AM EDT [...] 12:00 :00 AM EDT ORAL active MEDENT ([facility]) Omeprazole 40 MG Delayed Release Oral Capsule Omeprazole 03/20/2021 12:00:00 AM EDT ORAL active [facility] [place] Spironolactone 25 MG Oral Tablet Spironolactone 03/20/2021 12:00:00 A M EDT ORAL active [facility] [place] Prednisone 5 MG Oral Tablet Prednisone 03/20/2021 12:00:00 AM EDT active MEDENT ([facility]) Glipizide 5 MG Oral Tablet Glipizide 03/20/2021 12:00:00 AM EDT ORAL active MEDENT ([facility]) Prednisone 1 MG Oral Tablet PredniSONE 1 MG PredniSONE 1 MG 01/20/2021 12:00:00 AM EDT 2.0 {tablets} active PredniSONE 1 MG eCW1 ([facility]) Prednisone 5 MG Oral Tablet PredniSONE 5 MG PredniSONE 5 MG 01/20/2021 12:00:00 AM EDT 1.0 {tablet} active PredniSONE 5 MG eCW1 ([facility]) Prednisone 1 MG Oral Tablet predniSONE 1 MG predniSONE 1 MG 01/20/2021 12:00:00 AM EDT 2.0 {tablets} active predniSONE 1 MG eCW1 ([facility]) 5 mg 01/20/2021 12:00:00 AM EDT tablet 30 TAKE ONE TABLET BY MOUTH EVERY DAY TAKE ONE TABLET BY MOUTH EVERY DAY SOLD: 01/23/2021 [facility] Prednisone 1 MG Oral Tablet predniSONE 1 MG predniSONE 1 MG 01/20/2021 12:00:00 AM EDT 2.0 {tablets} active predniSONE 1 MG eCW1 ([facility]) 1 mg 01/20/2021 12:00:00 AM EDT tablet 60 TAKE TWO TABLETS BY MOUTH EVERY DAY TAKE TWO TABLETS BY MOUTH EVERY DAY SOLD: 01/23/2021 [facility] Prednisone 5 MG Oral Tablet predniSONE 5 MG predniSONE 5 MG 01/20/2021 12:00:00 AM EDT 1.0 {tablet} active predniSONE 5 MG eCW1 ([facility]) Prednisone 1 MG Oral Tablet predniSONE 1 MG predniSONE 1 MG 01/20/2021 12:00:00 AM EDT 2.0 {tablets} active predniSONE 1 MG eCW1 ([facility]) Prednisone 5 MG Oral Tablet predniSONE 5 MG predniSONE 5 MG 01/20/2021 12:00:00 AM EDT 1.0 {tablet} active predniSONE 5 MG eCW1 ([facility]) Prednisone 5 MG Oral Tablet predniSONE 5 MG predniSONE 5 MG 01/20/2021 12:00:00 AM EDT 1.0 {tablet} active predniSONE 5 MG eCW1 ([facility]) Amoxicillin 875 MG / Clavulanate 125 MG [...] {tablet} active Ot ezla 30 MG eCW1 ([facility]) apremilast 30 MG Oral Tablet [Otezla] Otezla 30 MG Otezla 30 MG 07/24/2020 12:00:00 AM EST 1.0 {tablet} active Ot ezla 30 MG eCW1 ([facility]) apremilast 30 MG Oral Tablet [Otezla] Otezla 30 MG Otezla 30 MG 07/24/2020 12:00:00 AM EST 1.0 {tablet} active Ot ezla 30 MG eCW1 ([facility]) apremilast 30 MG Oral Tablet [Otezla] Otezla 30 MG Otezla 30 MG 07/24/2020 12:00:00 AM EST 1.0 {tablet} active Ot ezla 30 MG eCW1 ([facility]) apremilast 30 MG Oral Tablet [Otezla] Otezla 30 MG Otezla 30 MG 07/24/2020 12:00:00 AM EST 1.0 {tablet} active Ot ezla 30 MG eCW1 ([facility]) Otezla 10 & 20 & 30 MG Otezla 10 & 20 & 30 MG 07/24/2020 12:00:[address] suspended Otezla 10 & 20 & 30 MG eC W1 ([facility]) Otezla 10 & 20 & 30 MG Otezla 10 & 20 & 30 MG 07/24/2020 12:00:[address] suspended Otezla 10 & 20 & 30 MG eC W1 ([facility]) Otezla 10 & 20 & 30 MG Otezla 10 & 20 & 30 MG 07/24/2020 12:00:[address] suspended Otezla 10 & 20 & 30 MG eC W1 ([facility]) Otezla 10 & 20 & 30 MG Otezla 10 & 20 & 30 MG 07/24/2020 12:00:[address] suspended Otezla 10 & 20 & 30 MG eC W1 ([facility]) apremilast 30 MG Oral Tablet [Otezla] Otezla 30 MG Otezla 30 MG 07/24/2020 12:00:00 AM EST 1.0 {tablet} active Ot ezla 30 MG eCW1 ([facility]) Otezla 10 & 20 & 30 MG Otezla 10 & 20 & 30 MG 07/24/2020 12:00:[address] active Otezla 10 & 20 & 30 MG eC W1 ([facility]) Otezla 10 & 20 & 30 MG Otezla 10 & 20 & 30 MG 07/24/2020 12:00:[address] suspended Otezla 10 & 20 & 30 MG eC W1 ([facility]) apremilast 30 MG Oral Tablet [Otezla] Otezla 30 MG Otezla 30 MG 07/24/2020 12:00:00 AM EST 1.0 {tablet} active Ot ezla 30 MG eCW1 ([facility]) Otezla 10 & 20 & 30 MG Otezla 10 & 20 & 30 MG 07/24/2020 12:00:[address] active Otezla 10 & 20 & 30 MG eC W1 ([facility]) Otezla 10 & 20 & 30 MG Otezla 10 & 20 & 30 MG 07/24/2020 12:00:[address] suspended Otezla 10 & 20 & 30 MG eC W1 ([facility]) Otezla 10 & 20 & 30 MG Otezla 10 & 20 & 30 MG 07/24/2020 12:00:[address] active Otezla 10 & 20 & 30 MG eC W1 ([facility]) Otezla 10 & 20 & 30 MG Otezla 10 & 20 & 30 MG 07/24/2020 12:00:[address] suspended Otezla 10 & 20 & 30 MG eC W1 ([facility]) Otezla 10 & 20 & 30 MG Otezla 10 & 20 & 30 MG 07/24/2020 12:00:[address] active Otezla 10 & 20 & 30 MG eC W1 ([facility]) apremilast 30 MG Oral Tablet [Otezla] Otezla 30 MG Otezla 30 MG 07/24/2020 12:00:00 AM EST 1.0 {tablet} active Ot ezla 30 MG eCW1 ([facility]) apremilast 30 MG Oral Tablet [Otezla] Otezla 30 MG Otezla 30 MG 07/24/2020 12:00:00 AM EST 1.0 {tablet} active Ot ezla 30 MG eCW1 ([facility]) apremilast 30 MG Oral Tablet [Otezla] Otezla 30 MG Otezla 30 MG 07/24/2020 12:00:00 AM EST 1.0 {tablet} active Ot ezla 30 MG eCW1 ([facility]) apremilast 30 MG Oral Tablet [Otezla] Otezla 30 MG Otezla 30 MG 07/24/2020 12:00:00 AM EST 1.0 {tablet} active Ot ezla 30 MG eCW1 ([facility]) apremilast 30 MG Oral Tablet [Otezla] Otezla 30 MG Otezla 30 MG 07/24/2020 12:00:00 AM EST 1.0 {tablet} active Ot ezla 30 MG eCW1 ([facility]) Otezla 10 & 20 & 30 MG Otezla 10 & 20 & 30 MG 07/24/2020 12:00:[address] active Otezla 10 & 20 & 30 MG eC W1 ([facility]) apremilast 30 MG Oral Tablet [Otezla] Otezla 30 MG Otezla 30 MG 07/24/2020 12:00:00 AM EST 1.0 {tablet} active Ot ezla 30 MG eCW1 ([facility]) Otezla 10 & 20 & 30 MG Otezla 10 & 20 & 30 MG 07/24/2020 12:00:[address] suspended Otezla 10 & 20 & 30 MG eC W1 ([facility]) Otezla 10 & 20 & 30 MG Otezla 10 & 20 & 30 MG 07/24/2020 12:00:[address] suspended Otezla 10 & 20 & 30 MG eC W1 ([facility]) apremilast 30 MG Oral Tablet [Otezla] Otezla 30 MG Otezla 30 MG 07/24/2020 12:00:00 AM EST 1.0 {tablet} active Ot ezla 30 MG eCW1 ([facility]) Otezla 10 & 20 & 30 MG Otezla 10 & 20 & 30 MG 07/24/2020 12:00:[address] active Otezla 10 & 20 & 30 MG eC W1 ([facility]) apremilast 30 MG Oral Tablet [Otezla] Otezla 30 MG Otezla 30 MG 07/24/2020 12:00:00 AM EST 1.0 {tablet} active Ot ezla 30 MG eCW1 ([facility]) Otezla 10 & 20 & 30 MG Otezla 10 & 20 & 30 MG 07/24/2020 12:00:[address] active Otezla 10 & 20 & 30 MG eC W1 ([facility]) Otezla 10 & 20 & 30 MG Otezla 10 & 20 & 30 MG 07/24/2020 12:00:[address] suspended Otezla 10 & 20 & 30 MG eC W1 ([facility]) apremilast 30 MG Oral Tablet [Otezla] Otezla 30 MG Otezla 30 MG 07/24/2020 12:00:00 AM EST 1.0 {tablet} active Ot ezla 30 MG eCW1 ([facility]) Otezla 10 & 20 & 30 MG Otezla 10 & 20 & 30 MG 07/24/2020 12:00:[address] suspended Otezla 10 & 20 & 30 MG eC W1 ([facility]) apremilast 30 MG Oral Tablet [Otezla] Otezla 30 MG Otezla 30 MG 07/24/2020 12:00:00 AM EST 1.0 {tablet} active Ot ezla 30 MG eCW1 ([facility]) apremilast 30 MG Oral Tablet [Otezla] Otezla 30 MG Otezla 30 MG 07/24/2020 12:00:00 AM EST 1.0 {tablet} active Ot ezla 30 MG eCW1 ([facility]) apremilast 30 MG Oral Tablet [Otezla] Otezla 30 MG Otezla 30 MG 07/24/2020 12:00:00 AM EST 1.0 {tablet} active Ot ezla 30 MG eCW1 ([facility]) Otezla 10 & 20 & 30 MG Otezla 10 & 20 & 30 MG 07/24/2020 12:00:[address] active Otezla 10 & 20 & 30 MG eC W1 ([facility]) 2.5 mg 07/23/2020 12:00:00 AM EST tablet [...] {tablet} active Pr edniSONE 2.5 MG eCW1 ([facility]) Prednisone 2.5 MG Oral Tablet PredniSONE 2.5 MG PredniSONE 2 .5 MG 07/22/2020 12:00:00 AM EST 3.0 {tablet} active Pr edniSONE 2.5 MG eCW1 ([facility]) Prednisone 2.5 MG Oral Tablet PredniSONE 2.5 MG PredniSONE 2 .5 MG 07/22/2020 12:00:00 AM EST 3.0 {tablet} active Pr edniSONE 2.5 MG eCW1 ([facility]) Prednisone 2.5 MG Oral Tablet predniSONE 2.5 MG predniSONE 2 .5 MG 07/22/2020 12:00:00 AM EST 3.0 {tablet} active pr edniSONE 2.5 MG eCW1 ([facility]) Prednisone 2.5 MG Oral Tablet predniSONE 2.5 MG predniSONE 2 .5 MG 07/22/2020 12:00:00 AM EST 3.0 {tablet} suspended predniSONE 2.5 MG eCW1 ([facility]) Prednisone 2.5 MG Oral Tablet predniSONE 2.5 MG predniSONE 2 .5 MG 07/22/2020 12:00:00 AM EST 3.0 {tablet} suspended predniSONE 2.5 MG eCW1 ([facility]) Prednisone 2.5 MG Oral Tablet predniSONE 2.5 MG predniSONE 2 .5 MG 07/22/2020 12:00:00 AM EST 3.0 {tablet} active pr edniSONE 2.5 MG eCW1 ([facility]) Prednisone 2.5 MG Oral Tablet predniSONE 2.5 MG predniSONE 2 .5 MG 07/22/2020 12:00:00 AM EST 3.0 {tablet} suspended predniSONE 2.5 MG eCW1 ([facility]) Prednisone 2.5 MG Oral Tablet PredniSONE 2.5 MG PredniSONE 2 .5 MG 07/22/2020 12:00:00 AM EST 3.0 {tablet} active Pr edniSONE 2.5 MG eCW1 ([facility]) Prednisone 2.5 MG Oral Tablet PredniSONE 2.5 MG PredniSONE 2 .5 MG 07/22/2020 12:00:00 AM EST 3.0 {tablet} active Pr edniSONE 2.5 MG eCW1 ([facility]) Prednisone 2.5 MG Oral Tablet predniSONE 2.5 MG predniSONE 2 .5 MG 07/22/2020 12:00:00 AM EST 3.0 {tablet} suspended predniSONE 2.5 MG eCW1 ([facility]) Prednisone 2.5 MG Oral Tablet PredniSONE 2.5 MG PredniSONE 2 .5 MG 07/22/2020 12:00:00 AM EST 3.0 {tablet} active Pr edniSONE 2.5 MG eCW1 ([facility]) Prednisone 2.5 MG Oral Tablet PredniSONE 2.5 MG PredniSONE 2 .5 MG 07/22/2020 12:00:00 AM EST 3.0 {tablet} active Pr edniSONE 2.5 MG eCW1 ([facility]) Prednisone 2.5 MG Oral Tablet PredniSONE 2.5 MG PredniSONE 2 .5 MG 07/22/2020 12:00:00 AM EST 3.0 {tablet} active Pr edniSONE 2.5 MG eCW1 ([facility]) Prednisone 2.5 MG Oral Tablet PredniSONE 2.5 MG PredniSONE 2 .5 MG 07/22/2020 12:00:00 AM EST 3.0 {tablet} active Pr edniSONE 2.5 MG eCW1 ([facility]) Prednisone 2.5 MG Oral Tablet predniSONE 2.5 MG predniSONE 2 .5 MG 07/22/2020 12:00:00 AM EST 3.0 {tablet} suspended predniSONE 2.5 MG eCW1 ([facility]) Prednisone 2.5 MG Oral Tablet predniSONE 2.5 MG predniSONE 2 .5 MG 07/22/2020 12:00:00 AM EST 3.0 {tablet} active pr edniSONE 2.5 MG eCW1 ([facility]) Prednisone 2.5 MG Oral Tablet predniSONE 2.5 MG predniSONE 2 .5 MG 07/22/2020 12:00:00 AM EST 3.0 {tablet} suspended predniSONE 2.5 MG eCW1 ([facility]) Prednisone 2.5 MG Oral Tablet predniSONE 2.5 MG predniSONE 2 .5 MG 07/22/2020 12:00:00 AM EST 3.0 {tablet} suspended predniSONE 2.5 MG eCW1 ([facility]) Hydroxychloroquine Sulfate 200 MG Oral Tablet HYDROXYCHLOROQ UINE SULFATE 07/08/2020 12:00:00 AM EDT tablet 60 TAKE TWO TABLE TS BY MOUTH EVERY DAY TAKE TWO TABLETS BY MOUTH EVERY DAY SOLD: 09/03/2020 [facility] Prednisone 5 MG Oral Tablet PredniSONE 5 MG PredniSONE 5 MG 07/08/2020 12:00:00 AM EDT 2.0 {tablets} active PredniSONE 5 MG eCW1 ([facility]) Prednisone 5 MG Oral Tablet PredniSONE 5 MG PredniSONE 5 MG 07/08/2020 12:00:00 AM EDT 2.0 {tablets} active PredniSONE 5 MG eCW1 ([facility]) Hydroxychloroquine Sulfate 200 MG Oral Tablet HYDROXYCHLOROQ [...] 2.0 {tablets} active PredniSONE 5 MG eCW1 ([facility]) Prednisone 5 MG Oral Tablet PredniSONE 5 MG PredniSONE 5 MG 07/08/2020 12:00:00 AM EDT 2.0 {tablets} active PredniSONE 5 MG eCW1 ([facility]) Prednisone 5 MG Oral Tablet PredniSONE 5 MG PredniSONE 5 MG 07/08/2020 12:00:00 AM EDT 2.0 {tablets} active PredniSONE 5 MG eCW1 ([facility]) Hydroxychloroquine Sulfate 200 MG Oral Tablet HYDROXYCHLOROQ UINE SULFATE 07/08/2020 12:00:00 AM EDT tablet 60 TAKE TWO TABLE TS BY MOUTH EVERY DAY TAKE TWO TABLETS BY MOUTH EVERY DAY SOLD: 07/09/2020 [facility] Prednisone 5 MG Oral Tablet PredniSONE 5 MG PredniSONE 5 MG 07/08/2020 12:00:00 AM EDT 2.0 {tablets} active PredniSONE 5 MG eCW1 ([facility]) Prednisone 5 MG Oral Tablet PredniSONE 5 MG PredniSONE 5 MG 07/08/2020 12:00:00 AM EDT 2.0 {tablets} active PredniSONE 5 MG eCW1 ([facility]) BLOOD SUGAR DIAGNOSTIC 07/08/2020 12:00:00 AM EDT strip 50 TEST TWO TIMES A DAY TEST TWO TIMES A DAY SOLD: 07/09/2020 [facility] Prednisone 5 MG Oral Tablet PredniSONE 5 MG PredniSONE 5 MG 07/08/2020 12:00:00 AM EDT 2.0 {tablets} active PredniSONE 5 MG eCW1 ([facility]) Cephalexin 500 MG Oral Capsule CEPHALEXIN 07/01/2020 12:00:00 AM EDT capsule 20 TAKE ONE CAPSULE BY MOUTH TWO TIMES A DAY FOR 10 DAYS TAKE ONE CAPSULE BY MOUTH TWO TIMES A DAY FOR 10 DAYS SOLD: 07/01/2020 [facility] Cephalexin 500 MG Oral Tablet Cephalexin 07/01/2020 12:00:00 AM EDT ORAL active MEDENT ([facility]) Hydroxychloroquine Sulfate 200 MG Oral Tablet HYDROXYCHLOROQ [...] 05/28/2020 12:00:00 AM EDT ORAL completed MEDENT ([facility], ) Prednisone 10 MG Oral Tablet Prednisone 03/25/2020 12:00:00 AM EDT completed MEDENT ([facility], ) 5 mg 03/21/2020 12:00:00 AM EDT [...] type / Coverage type Policy ID Covered constitution party ID Covered constitution party's relationship to vickers Policy Vickers Plan Information Medicare [employer] Medicare Primary [id number] Self [place] 200/700 [id number] SP [id number] MEDICARE [id number] SP [id number] A MEDICARE [id number] SELF [id number] BLUE CROSS [id number] SELF [id number] MEDICARE [id number] SELF [id number] A MEDICARE [id number] SP [id number] [place] 200/700 [id number] SP [id number] MEDICARE [id number] SP [id number] MEDICARE PART A -O/P [id number] 18 [id number] BS Of [facility] Part B [id number] Self BCBS [facility] 210/710 [id number] Problems, Conditions, and Diagnoses Code Display Name Description Problem Type Effective Dates Data Source(s) [id number] Unspecified pterygium of left eye Unspecified pt erygium of left eye Diagnosis 08/28/2020 07:00:00 AM [facility] [id number] Encounter for other preprocedural examin ation Encounter for other preprocedural examination Diagnosis 08/09/2020 10:01:00 AM [facility] [id number] Diarrhea Diarrhea Problem 04/03/2021 12:00:00 AM ED T [facility]IRGIE ([facility]) Z12.83 [id number] Screening exam for skin cancer Problem 04/01/2021 12:00:00 AM EDT eCW1 ([facility]) R94.31 Electrocardiogram abnormal Electrocardiogram abnormal Problem 03/21/2021 12:00:00 AM EDT [facility]IRG[facility] ([facility]) Z85.828 [id number] Hx of basal cell carcinoma Problem 12:00:00 AM EDT eCW1 ([facility]) M15.9 [id number] Generalized OA Problem 07/22/2020 12:00:00 A M EST eCW1 ([facility]) J84.9 [id number] Interstitial lung disease Problem 07/22/2020 12:00:00 AM EST eCW1 ([facility]) Z79.52 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) Plethysmography Determination Lung Volumes & Per Airway Resi st 04/14/2021 12:00:00 AM EDT MEDENT ([facility], ) DIFFUSING CAPACITY 04/14/2021 12:00:00 AM EDT MEDENT ([facility]) OFFICE OUTPATIENT NEW 30 MINUTES 04/03/2021 12:00:00 A M EDT MEDENT ([facility]) OFFICE OUTPATIENT NEW 30 MINUTES 04/01/2021 12:00:00 A M EDT MEDENT ([facility]) OFFICE OUTPATIENT VISIT 15 MINUTES 03/28/2021 12:00:00 AM EDT MEDENT ([facility], [facility]) ECG ROUTINE ECG W/LEAST 12 LDS W/I&R 03/21/2021 12:00: 00 AM EDT MEDENT ([facility]) OFFICE OUTPATIENT VISIT 25 MINUTES 03/21/2021 12:00:00 AM EDT MEDENT ([facility]) Spirometry 11/01/2020 12:00:00 AM EST M EDENT ([facility], ) Plethysmography Determination Lung Volumes & Per Airway Resi st 11/01/2020 12:00:00 AM EST MEDENT ([facility], ) DIFFUSING CAPACITY 11/01/2020 12:00:00 AM EST MEDENT ([facility]) OFFICE OUTPATIENT VISIT 25 MINUTES 11/01/2020 12:00:00 AM EST MEDENT ([facility]) Spirometry 08/01/2020 12:00:00 AM EST M EDENT ([facility]) Spirometry 05/28/2020 12:00:00 AM EDT M EDENT ([facility]) Results ID Date Data Source [id number] 06/10/2021 02:15:00 PM EDT [facility] Name Value Range Interpretation Code Description Data Helena rce(s) Supporting Document(s) SARS-CoV-2 RNA Resp Ql GABBY+probe NOT DETECTED [facility] This lab was ordered by BARNEY pizarro and reported by [facility] [employer]. ID Date Data Source [id number] 03/03/2021 03:43:00 PM EDT MEDENT ([facility]) Name Value Range Interpretation Code Description Data Helena rce(s) Supporting Document(s) Magnesium Level 1.37 MEDENT ([facility]) Uric Acid 3.5 MEDENT ([facility]) ID Date Data Source [id number] 03/03/2021 03:43:00 PM EDT MEDENT ([facility]) Name Value Range Interpretation Code Description Data Helena rce(s) Supporting Document(s) White Blood Count 10.6 MEDENT ([facility]) Red Blood Count 3.88 MEDENT ([facility]) Hemoglobin 12.1 MEDENT ([facility]) Platelets 305 MEDENT ([facility]) Hematocrit 37.2 MEDENT ([facility]) ID Date Data Source [id number] 03/03/2021 03:43:00 PM EDT MEDENT ([facility]) Name Value Range Interpretation Code Description Data Helena rce(s) Supporting Document(s) Glucose 157 MEDENT ([facility]) Blood Urea Nitrogen 32.4 MEDENT ([facility]) Creatinine 1.5 [facility] ([facility] [place]) Glomerular filtration rate/1.73 sq M.pre dicted [Volume Rate/Area] in Serum or Plasma by Creatinine-based formula (MDRD) 45 [facility] ([facility]) Sodium 138 [facility] [place] Potassium 5.17 [facility] ([facility] [place] Chloride 102.3 [facility] ([facility] [place] Carbon Dioxide 27.9 MEDENT ([facility]) Calcium 9.9 [facility] ([facility] [place] Phosphorus 3.1 [facility] ([facility]) Albumin 4.1 [facility] ([facility] [place] ID Date Data Source [id number] 10/08/2020 08:32:00 AM EST MEDENT ([facility]) Name Value Range Interpretation Code Description Data Helena rce(s) Supporting Document(s) White Blood Count 10.7 4.3-10.9 MEDENT ([facility]) Red Blood Count 3.99 4.70-6.20 MEDENT ([facility]) Hematocrit Laboratory test result 39.0-50.0 ME DENT ([facility]) Platelets 229 130-400 MEDENT ([facility]) Hemoglobin 12.6 13.0-17.0 [facility] ([facility]) ID Date Data Source [id number] 10/08/2020 08:32:00 AM EST MEDENT ([facility]) Name Value Range Interpretation Code Description Data Helena rce(s) Supporting Document(s) Blood Urea Nitrogen 31.5 5-21 MEDENT ([facility]) Glucose 123 70-100 MEDENT ([facility] [place]) ID Date Data Source [id number] 09/26/2020 11:38:00 [place] [address] OPERATIVE SUMMARYNAME: UMA TARIQ DATE OF : 1940TTENDING PHYS: Rob Peralta MD DATE: 08/28/20 MR#: [id number] PROCEDURE: 08/28/2020PREOPERATIVE DIAGNOSIS: Pterygium, left eye.POSTOPERATIVE DIAGNOSIS: Pterygium, left eyePROCEDURE: Pterygium excision with mitomycin application and amniotic membrane graft, lefteye.SURGEON: Rob Peralta MD.FISCAL SPECIALIST: None.COMPLICATIONS: None.INDICATION: Advancing pterygium endangering the visual [...] then removed with the help of the Saxman blade. Hemostasis wasobtained using low temp cautery. [...] tothe recovery room in stable condition.DD: Rob Peralta MD 09/26/20 10:44 [address] [place] [address] OPERATIVE SUMMARYNAME: UMA TARIQ DATE OF : 1940TTENDING PHYS: Rob Peralta MD DATE: 08/28/20 MR#: [id number]: SSR 09/26/20 11:22DS: Rob Peralta MD 10/03/20 11:48 2 Name Value Range Interpretation Code Description Data Helena rce(s) Supporting Document(s) ID Date Data Source [id number] 08/23/2020 05:27:00 PM EST [facility] Name Value Range Interpretation Code Description Data Helena rce(s) Supporting Document(s) SARS-CoV-2 (COVID-19) [facility] This lab was ordered by [facility] and reported by [employer]. ID Date Data Source [id number] 08/01/2020 08:14:00 AM EST MEDENT ([facility], ) Name Value Range Interpretation Code Description Data Helena rce(s) Supporting Document(s) PDFReport Laboratory test result MEDENT ([facility]) FVC-Pred 4.16 L MEDENT ([facility]) FVC-Pre 4.07 L MEDENT ([facility]) Fev1-Pred 2.95 L MEDENT ([facility]) FVC-LLN 3.20 L MEDENT ([facility]) FVC-%Pred-Pre 98 L MEDENT ([facility]) Fev1-LLN 2.14 L MEDENT ([facility]) Fev1-%Pred-Pre 100 L MEDENT ([facility]) Fev1-Pre 2.96 L MEDENT ([facility]) Fev6-%Pred-Pre 103 L MEDENT ([facility]) Fev6-Pre 4.01 L MEDENT ([facility]) Fev6-Pred 3.88 L MEDENT ([facility]) Rdp2wri-Yplr 71 % MEDENT ([facility]) Phs7zut-Qoh 73 % MEDENT ([facility]) Fev6-LLN 2.95 L MEDENT ([facility]) Jct3iwg-Ixhn 93 % MEDENT ([facility]) Pla2rvf-%Pred-Pre 101 % MEDENT ([facility]) Ncz4huz-CJF 62 % MEDENT ([facility]) Mtl4wjr-Deb 98 % MEDENT ([facility]) Xcs9vrw-%Pred-Pre 105 % MEDENT ([facility]) FEFMax-Pred 7.34 L/E/sec MEDENT ([facility]) FEFMax-LLN 4.94 L/E/sec MEDENT ([facility]) FEFMax-%Pred-Pre 98 L/E/sec MEDENT ([facility]) FEFMax-Pre 7.24 L/E/sec MEDENT ([facility]) Hvc5965-Kjhw 2.02 L/E/sec MEDENT ([facility]) Tdo2152-Fry 2.02 L/E/sec MEDENT ([facility]) Hlg5439-%Pred-Pre 99 L/E/sec MEDENT ([facility]) ExpTime-Pre 7.07 sec MEDENT ([facility]) Bif7732-VKB 0.37 L/E/sec MEDENT ([facility]) Vhd0fma4-Ltlx 76 % MEDENT ([facility]) Hsd4gzh7-SZG 67 % MEDENT ([facility]) Vce0ahi3-Kjw 74 % MEDENT ([facility]) Str1ovd8-%Pred-Pre 97 % MEDENT ([facility]) Procedure Social History Code Duration Value Status Description Data Source(s ) Smoking 04/28/2021 12:00:00 AM EDT Former Smoker completed Former Smoker eCW1 ([facility]) Smoking 04/28/2021 12:00:00 AM EDT Former Smoker completed Former Smoker eCW1 ([facility]) Smoking 04/28/2021 12:00:00 AM EDT Former Smoker completed Former Smoker eCW1 ([facility]) Smoking 04/28/2021 12:00:00 AM EDT Former Smoker completed Former Smoker eCW1 ([facility]) Smoking 04/18/2021 12:00:00 AM EDT Patient is a former smoker completed Patient is a former smoker MEDENT ([facility], ) Smoking 04/04/2021 12:00:00 AM EDT Former Smoker completed Former Smoker eCW1 ([facility]) Smoking 04/04/2021 12:00:00 AM EDT Former Smoker completed Former Smoker eCW1 ([facility]) Smoking 04/04/2021 12:00:00 AM EDT Former Smoker completed Former Smoker eCW1 ([facility]) Smoking 03/21/2021 12:00:00 AM EDT Patient is a former smoker completed Patient is a former smoker MEDENT ([facility]) Smoking 01/20/2021 12:00:00 AM EDT Former Smoker completed Former Smoker eCW1 ([facility]) Smoking 01/20/2021 12:00:00 AM EDT Former Smoker completed Former Smoker eCW1 ([facility]) Smoking 01/20/2021 12:00:00 AM EDT Former Smoker completed Former Smoker eCW1 ([facility]) Smoking 01/20/2021 12:00:00 AM EDT Former Smoker completed Former Smoker eCW1 ([facility]) Smoking 01/02/2021 12:00:00 AM EDT Former Smoker completed Former Smoker eCW1 ([facility]) Smoking 10/21/2020 12:00:00 AM EST Former Smoker completed Former Smoker eCW1 ([facility]) Smoking 10/21/2020 12:00:00 AM EST Former Smoker completed Former Smoker eCW1 ([facility]) Smoking 07/22/2020 12:00:00 AM EST Former Smoker completed Former Smoker eCW1 ([facility]) Smoking 07/22/2020 12:00:00 AM EST Former Smoker completed Former Smoker eCW1 ([facility]) Smoking 07/22/2020 12:00:00 AM EST Former Smoker completed Former Smoker eCW1 ([facility]) Smoking 07/22/2020 12:00:00 AM EST Former Smoker completed Former Smoker eCW1 ([facility]) Smoking 07/22/2020 12:00:00 AM EST Former Smoker completed Former Smoker eCW1 ([facility]) Smoking 07/01/2020 12:00:00 AM EDT Patient is a former smoker completed Patient is a former smoker MEDENT ([facility]) Vital Signs ID Date Data Source UNK Name Value Range Interpretation Code Description Data Source(s) Body weight 174.00 [lb_av] 174.00 [lb_av] MEDEN T ([facility]) Body height 71 [in_i] 71 [in_i] [facility]) 5'11" Systolic blood pressure [...] Body weight 173.8 [lb_av] 173.8 [lb_av] eCW1 ([facility]) Body weight 78.84 kg 78.84 kg eCW1 ([facility]) Body height 70 [in_i] 70 [in_i] eCW1 ([facility]) Body mass index (BMI) [Ratio] 24.93 kg/m2 24.93 kg/m2 eCW1 ([facility]) Heart rate 77 /min 77 /min eCW1 ([facility]) Respiratory rate 20 /min 20 /min eCW1 ([facility] Body temperature 96.7 [degF] 96.7 [degF] eCW1 ( [facility]) Systolic blood pressure 130 mm[Hg] 130 mm[Hg] e CW1 ([facility]) Diastolic blood pressure 64 mm[Hg] 64 mm[Hg] eCW1 ([facility]) Systolic blood pressure 110 mm[Hg] 110 mm[Hg] M EDENT ([facility], ) Diastolic blood pressure 70 mm[Hg] 70 mm[Hg] MEDENT ([facility], ) Heart rate 95 /min 95 /min MEDENT ([facility], ) Oxygen saturation in Arterial blood by [facility]ulse [facility]etry 96 % 96 % [facility] Room Air Body weight 173.4 [lb_av] 173.4 [lb_av] eCW1 ([facility]) Body weight 78.6 kg 78.6 kg W1 ([facility]) Body height 70 [in_i] 70 [in_i] eCW1 ([facility]) Body mass index (BMI) [Ratio] 24.88 kg/m2 24.88 kg/m2 [facility] ([facility]) Heart rate 90 /min 90 /min eCW1 ([facility]) Respiratory rate 18 /min 18 /min eCW1 ([facility]) Body temperature 96.5 [degF] 96.5 [degF] eCW1 ( [facility]) Systolic blood pressure 118 mm[Hg] 118 mm[Hg] e CW1 ([facility]) Diastolic blood pressure 62 mm[Hg] 62 mm[Hg] eCW1 ([facility]) Diastolic blood pressure 64 mm[Hg] 64 mm[Hg] [...] Body weight 77.566 kg 77.566 kg MEDENT ([facility]) Body temperature 96.3 [degF] 96.3 [degF] MEDENT ([facility]) Body temperature 96.9 [degF] 96.9 [degF] MEDENT ([facility] ) Body height 70.5 [in_i] 70.5 [in_i] MEDENT ([facility] ) 5'10.50" Body weight 170.12 [lb_av] 170.12 [lb_av] MEDEN T ([facility] ) Body mass index (BMI) [Ratio] 24.1 kg/m2 24.1 k g/m2 MEDENT ([facility] ) Systolic blood pressure 124 mm[Hg] 124 mm[Hg] M EDENT ([facility], [facility]) Diastolic blood pressure 75 mm[Hg] 75 mm[Hg] MEDENT ([facility], [facility]) Heart rate 78 /min 78 /min MEDENT ([facility], [facility]) Respiratory rate 16 /min 16 /min MEDENT ( [facility], [facility]) Oxygen saturation in Arterial blood by Pulse oximetry 98 % 98 % MEDENT ([facility], [facility]) Body temperature 96.8 [degF] 96.8 [degF] MEDENT ([facility], [facility]) Body weight 178.00 [lb_av] 178.00 [lb_av] MEDEN T ([facility], [facility]) Body height 70 [in_i] 70 [in_i] MEDENT ([facility], [facility]) 5'10" Body mass index (BMI) [Ratio] 25.5 kg/m2 25.5 k g/m2 MEDENT ([facility], [facility]) Systolic blood pressure--sitting 124 mm[Hg] 124 mm[Hg] MEDENT ([facility]) Ra, large cuff Body mass index (BMI) [Ratio] 24.7 kg/m2 24.7 k g/m2 MEDENT ([facility]) Body weight 177.00 [lb_av] 177.00 [lb_av] MEDEN T ([facility]) Body height 71 [in_i] 71 [in_i] VIRGIE ([facility]) 5'11" Diastolic blood pressure--sitting 76 mm[Hg] 76 mm[Hg] VIRGIE ([facility]) Ra, large cuff Body weight 180.4 [lb_av] 180.4 [lb_av] eCW1 ([facility]) Body weight 81.8 kg 81.8 kg eCW1 ([facility]) Body height 70 [in_i] 70 [in_i] eCW1 ([facility]) Body mass index (BMI) [Ratio] 25.88 kg/m2 25.88 kg/m2 eCW1 ([facility]) Heart rate 77 /min 77 /min eCW1 ([facility]) Respiratory rate 18 /min 18 /min eCW1 ([facility]) Body temperature 97.0 [degF] 97.0 [degF] eCW1 ( [facility]) Systolic blood pressure 118 mm[Hg] 118 mm[Hg] e CW1 ([facility]) Diastolic blood pressure 68 mm[Hg] 68 mm[Hg] eCW1 ([facility]) Body weight 182.2 [lb_av] 182.2 [lb_av] eCW1 ([facility]) Body height 70 [in_i] 70 [in_i] eCW1 ([facility]) Body mass index (BMI) [Ratio] 26.14 kg/m2 26.14 kg/m2 eCW1 ([facility]) Systolic blood pressure 136 mm[Hg] 136 mm[Hg] e CW1 ([facility]) Diastolic blood pressure 78 mm[Hg] 78 mm[Hg] eCW1 ([facility]) Oxygen saturation in Arterial blood by Pulse oximetry 95 % 95 % VIRGIE ([facility], ) Body temperature 96.3 [degF] 96.3 [degF] VIRGIE ([facility], ) Body height 71 [in_i] 71 [in_i] VIRGIE ([facility]) 5'11" Body weight 177.00 [lb_av] 177.00 [lb_av] MEDEN T ([facility]) Body mass index (BMI) [Ratio] 24.7 kg/m2 24.7 k g/m2 [facility] ([facility]) [place] body weight 172 [lb_av] 172 [lb_av] MEDEN T ([facility]) Body weight 80.287 kg 80.287 kg [facility] ([facility]) Body surface area Derived from formula 2.00 m2 2.00 m2 [facility] ([facility]) Diastolic blood pressure 80 mm[Hg] 80 mm[Hg] [facility] ([facility]) Heart rate 65 /min 65 /min [facility] ([facility]) Systolic blood pressure 118 mm[Hg] 118 mm[facility]] [facility] Oxygen saturation in Arterial blood by Pulse oximetry 95 % 95 % [facility] ([facility]) Body temperature 96.3 [degF] 96.3 [degF] [facility] ([facility]) Body height 71 [in_i] 71 [in_i] [facility] ([facility]) 5'11" Body weight 177.00 [lb_av] 177.00 [lb_av] MEDEN T ([facility]) Body mass index (BMI) [Ratio] 24.7 kg/m2 24.7 k g/m2 [facility] ([facility]) [place] body weight 172 [lb_av] 172 [lb_av] [facility] Body weight 80.287 kg 80.287 kg [facility] ([facility]) Body surface area Derived from formula 2.00 m2 2.00 m2 [facility] ([facility]) Body weight 177.8 [lb_av] 177.8 [lb_av] eCW1 ([facility]) Body weight 80.6 kg 80.6 kg eCW1 ([facility]) Body height 70 [in_i] 70 [in_i] eCW1 ([facility]) Body mass index (BMI) [Ratio] 25.51 kg/m2 25.51 kg/m2 W1 ([facility]) Heart rate 99 /min 99 /min W1 ([facility]) Body temperature 97.1 [degF] 97.1 [degF] eCW1 ( [facility]) Systolic blood pressure 130 mm[Hg] 130 mm[Hg] e CW1 ([facility]) Diastolic blood pressure 82 mm[Hg] 82 mm[Hg] eCW1 ([facility]) Body weight 176.00 [lb_av] 176.00 [lb_av] MEDEN T ([facility], ) Body mass index (BMI) [Ratio] 24.5 kg/m2 24.5 k g/m2 MEDENT ([facility]) Oxygen saturation in Arterial blood by Pulse oximetry 99 % 99 % [facility] ([facility]) Body temperature 97.0 [degF] 97.0 [degF] [facility] Body height 71 [in_i] 71 [in_i] [facility] 5'11" [place] body weight 172 [lb_av] 172 [lb_av] MEDEN T ([facility]) Body weight 79.834 kg 79.834 kg [facility] ([facility]) Body surface area Derived from formula 2.00 m2 2.00 m2 [facility] ([facility], ) Systolic blood pressure 138 mm[Hg] 138 mm[Hg] M EDENT ([facility]) Diastolic blood pressure 72 mm[Hg] 72 mm[Hg] MEDENT ([facility], ) Heart rate 71 /min 71 /min [facility] ([facility], ) Oxygen saturation in Arterial blood by Pulse oximetry 99 % 99 % [facility] ([facility]) Body temperature 97.0 [degF] 97.0 [degF] [facility] Body height 71 [in_i] 71 [in_i] [facility] ([facility]) 5'11" Body weight 176.00 [lb_av] 176.00 [lb_av] MEDEN T ([facility]) Body mass index (BMI) [Ratio] 24.5 kg/m2 24.5 k g/m2 [facility] ([facility]) [place] body weight 172 [lb_av] 172 [lb_av] MEDEN T ([facility]) Body weight 79.834 kg 79.834 kg MEDENT ([facility]) Body surface area Derived from formula 2.00 m2 2.00 m2 [facility] ([facility]) Body weight 174.2 [lb_av] 174.2 [lb_av] eCW1 ([facility]) Body weight 79.0 kg 79.0 kg W1 ([facility]) Body height 70 [in_i] 70 [in_i] eCW1 ([facility]) Body mass index (BMI) [Ratio] 24.99 kg/m2 24.99 kg/m2 W1 ([facility]) Heart rate 86 /min 86 /min W1 ([facility]) Body temperature 96.2 [degF] 96.2 [degF] W1 ( [facility]) Systolic blood pressure 126 mm[Hg] 126 mm[Hg] e CW1 ([facility]) Diastolic blood pressure 68 mm[Hg] 68 mm[Hg] eCW1 ([facility]) Body height 70 [in_i] 70 [in_i] MEDENT ([facility], [facility]) 5'10" Body mass index (BMI) [Ratio] 24.1 kg/m2 24.1 k g/m2 MEDENT ([facility], [facility]) Systolic blood pressure 139 mm[Hg] 139 mm[Hg] M EDENT ([facility], [facility]) Diastolic blood pressure 65 mm[Hg] 65 mm[Hg] MEDENT ([facility], [facility]) Heart rate 72 /min 72 /min MEDENT ([facility], [facility]) Respiratory rate 14 /min 14 /min MEDENT ( [facility]) Oxygen saturation in Arterial blood by Pulse oximetry 97 % 97 % [facility] ([facility]) Body temperature 98.2 [degF] 98.2 [degF] [facility] ([facility]) Body weight 168.00 [lb_av] 168.00 [lb_av] MEDEN T ([facility]) Systolic blood pressure 120 mm[Hg] 120 [facility]Hg] [facility] Diastolic blood pressure 80 mm[Hg] 80 mm[Hg] [facility] ([facility]) Heart rate 64 /min 64 /min [facility] ([facility]) Oxygen saturation in Arterial blood by Pulse oximetry 99 % 99 % [facility] ([facility]) Body temperature 97.6 [degF] 97.6 [degF] [facility] ([facility]) Body height 71 [in_i] 71 [in_i] [facility] ([facility]) 5'11" Body weight 169.00 [lb_av] 169.00 [lb_av] MEDEN T ([facility]) Body mass index (BMI) [Ratio] 23.6 kg/m2 23.6 k g/m2 [facility] ([facility]) [place] body weight 172 [lb_av] 172 [lb_av] [facility] Body weight 76.658 kg 76.658 kg [facility] ([facility]) ID Date Data Source [id number] 10/03/2020 11:49:19 AM EST [facility] Name Value Range Interpretation Code Description Data Source(s) WEIGHT RECORDED 170.00 pounds 170.00 pounds [facility] Height 70 Inches 070 Inches [facility] Patient Treatment Plan of Care Planned Activity Planned Date Details Description Data Source (s) Prednisone 1 MG Oral Tablet 01/20/2021 12:00:00 AM EDT eCW1 ([facility]) Prednisone 5 MG Oral Tablet 01/20/2021 12:00:00 AM EDT eCW1 ([facility]) Prednisone 5 MG Oral Tablet 01/20/2021 12:00:00 AM EDT eCW1 (Formerly [facility]) Prednisone 1 MG Oral Tablet 01/20/2021 12:00:00 AM EDT eCW1 (Formerly [facility]) Prednisone 1 MG Oral Tablet 01/20/2021 12:00:00 AM EDT eCW1 (Formerly [facility]) Prednisone 5 MG Oral Tablet 01/20/2021 12:00:00 AM EDT eCW1 (Formerly [facility]) Prednisone 1 MG Oral Tablet 01/20/2021 12:00:00 AM EDT eCW1 (Formerly [facility]) Prednisone 5 MG Oral Tablet 01/20/2021 12:00:00 AM EDT eCW1 (Formerly [facility]) apremilast 30 MG Oral Tablet [Otezla] 07/24/2020 12:00:00 AM EST eCW1 (Formerly [facility]) apremilast 30 MG Oral Tablet [Otezla] 07/24/2020 12:00:00 AM EST eCW1 (Formerly [facility]) apremilast 30 MG Oral Tablet [Otezla] 07/24/2020 12:00:00 AM EST eCW1 (Formerly [facility]) apremilast 30 MG Oral Tablet [Otezla] 07/24/2020 12:00:00 AM EST eCW1 (Formerly [facility]) Otezla 10 & 20 & 30 MG 07/24/2020 12:00:00 AM EST eCW1 (Formerly [facility]) apremilast 30 MG Oral Tablet [Otezla] 07/24/2020 12:00:00 AM EST eCW1 (Formerly [facility]) Otezla 10 & 20 & 30 MG 07/24/2020 12:00:00 AM EST eCW1 (Formerly [facility]) apremilast 30 MG Oral Tablet [Otezla] 07/24/2020 12:00:00 AM EST eCW1 (Formerly [facility]) Otezla 10 & 20 & 30 MG 07/24/2020 12:00:00 AM EST eCW1 (Formerly [facility]) apremilast 30 MG Oral Tablet [Otezla] 07/24/2020 12:00:00 AM EST eCW1 (Formerly [facility]) Otezla 10 & 20 & 30 MG 07/24/2020 12:00:00 AM EST eCW1 (Formerly [facility]) apremilast 30 MG Oral Tablet [Otezla] 07/24/2020 12:00:00 AM EST eCW1 (Formerly [facility]) Otezla 10 & 20 & 30 MG 07/24/2020 12:00:00 AM EST eCW1 (Formerly [facility]) apremilast 30 MG Oral Tablet [Otezla] 07/24/2020 12:00:00 AM EST eCW1 (Formerly [facility]) Prednisone 2.5 MG Oral Tablet 07/22/2020 12:00:00 AM EST eCW1 (Formerly [facility]) Prednisone 2.5 MG Oral Tablet 07/22/2020 12:00:00 AM EST eCW1 (Formerly [facility]) Prednisone 2.5 MG Oral Tablet 07/22/2020 12:00:00 AM EST eCW1 (Formerly [facility]) Prednisone 2.5 MG Oral Tablet 07/22/2020 12:00:00 AM EST eCW1 (Formerly [facility]) Prednisone 2.5 MG Oral Tablet 07/22/2020 12:00:00 AM EST eCW1 (Formerly [facility]) Prednisone 2.5 MG Oral Tablet 07/22/2020 12:00:00 AM EST eCW1 (Formerly [facility])
[2021-07-03] MEDS ORDERED: GLIP2.5T6 PO (17:55)
[2021-07-03] MEDS ORDERED: OTEZ1TAB3 PO (17:55)
[2021-07-03] MEDS ORDERED: ELIQ5TAB PO (18:05)
[2021-07-03] MEDS ORDERED: ATEN25TA PO (18:07)
[2021-07-03 18:15] VITALS: BP 133/74
[2021-07-03] MEDS ORDERED: APIXABAN 5 MG TAB (ELIQUIS) PO ONE (18:15)
[2021-07-03] MEDS ORDERED: ATENOLOL 12.5MG PER 1/2 TABLET PO ONE (18:15)
[2021-07-03] MEDS ORDERED: ECOT81TA5 PO (18:46)
[2021-07-03 20:45] VITALS: BP 133/64
--- NOTE | 2021-07-04 08:27 | ECGEPIP ---
[facility] - ED Test Date: 2021-07-03 Pat Name: MARCIANO EATON Department: Room: - Gender: Male Certified Retinal Angiographer: CRISTHIANPRATIBHABRAULIO : 1940 Requested By: STEPHON Beavers Order Number: [id number] Reading MD: Carl Saleh Measurements Intervals [place] Rate: 125 P: UT: QRS: 38 QRSD: 74 T: 16 QT: 292 QTc: 421 Interpretive Statements Atrial fibrillation with rapid ventricular response Nonspecific T wave abnormality RHYTHM/RATE CHANGE COMPARED TO 12/17/19 Electronically Signed on 07-04-2021 8:27:29 EDT by Carl Saleh
--- NOTE | 2021-07-04 08:28 | ECGEPIP ---
[facility] - ED Test Date: 2021-07-03 Pat Name: MARCIANO EATON Department: Room: - Gender: Male [employer]er: TOREY : 1940 Requested By: STEPHON Beavers Order Number: [id number] Reading MD: Carl Saleh Measurements Intervals [place] Rate: 59 P: 74 MI: 216 QRS: 41 QRSD: 82 T: 47 QT: 370 QTc: 366 Interpretive Statements Sinus bradycardia with marked sinus arrhythmia with 1st degree AV block RHYTHM/RATE CHANGE COMPARED TO PRIOR ON SAME DATE Electronically Signed on 07-04-2021 8:28:17 EDT by Carl Saleh
== END 2021-07-03 21:01 | disposition home or self-care (01) ==
LOC: M ED 16:03
DX: I48.91 Unspecified atrial fibrillation (principal); I10 Essential (primary) hypertension; J44.9 Chronic obstructive pulmonary disease, unspecified; E78.5 Hyperlipidemia, unspecified; I25.10 Atherosclerotic heart disease of native coronary artery without angina pectoris; L40.50 Arthropathic psoriasis, unspecified; E83.42 Hypomagnesemia; Z79.899 Other long term (current) drug therapy; Z79.82 Long term (current) use of aspirin; Z79.01 Long term (current) use of anticoagulants; Z87.891 Personal history of nicotine dependence

== ENCOUNTER → 2021-07-03 | Outpatient (REF) | payer MEDICARE, BC ==
[~2021-07-03] MED LIST changes: +ATEN25TA PO; +ECOT81TA5 PO; +ELIQ5TAB PO; +GLIP2.5T6 PO; +OTEZ1TAB3 PO
== END ==
LOC: M LAB REF 17:33
PROVIDERS: ATTEND Internal Medicine Nephrology
DX: E83.42 Hypomagnesemia (principal)

== ENCOUNTER → 2021-08-21 | Outpatient (CLI) | payer MEDICARE, BC ==
[~2021-08-21] MED LIST changes: +ATEN25TA PO; +ECOT81TA5 PO; +ELIQ5TAB PO; +GLIP2.5T6 PO; +OTEZ1TAB3 PO
--- NOTE | 2021-08-21 13:53 | REP ---
INDICATION: PULMONARY DX COMPARISON: Multiple the latest 03/20/2020 also without contrast TECHNIQUE: Standard helical technique without contrast FINDINGS: The mediastinum and pulmonary tobias are unchanged. No mass or adenopathy has developed. There are no pleural or pericardial effusions. The imaged upper abdomen is unchanged. There are bilateral renal cysts status quo. There is a benign low-density left adrenal gland nodule status quo. There is no significant change in appearance of the imaged osseous structures. Evaluation of the lung tong shows emphysematous changes with biapical pleuroparenchymal scarring status quo. 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 In the medial basal segment of the right lower lobe there is a new 1 cm sized nodule. IMPRESSION: There is a new irregular 1 cm size nodule in the medial basal segment of the right lower lobe. Close interval follow-up is recommended. Consider PET-CT at this time. <Electronically signed by Wesley Crowley > 08/21/21 [id number]
== END ==
LOC: M PLAIMG 10:25
PROVIDERS: ATTEND Internal Medicine Pulmonary Disease
DX: J84.9 Interstitial pulmonary disease, unspecified (principal); R91.1 Solitary pulmonary nodule; N28.1 Cyst of kidney, acquired

== ENCOUNTER → 2021-10-29 | Outpatient (REF) | payer MEDICARE, BC | LOC: M LAB REF 16:48 | PROVIDERS: ATTEND Nurse Practitioner Family | DX: E83.42 Hypomagnesemia (principal) ==

== ENCOUNTER → 2021-12-26 | Outpatient (REF) | payer MEDICARE, BC | LOC: M SFHCDERM 17:17 | PROVIDERS: ATTEND Dermatology | DX: L85.8 Other specified epidermal thickening (principal) ==

== ENCOUNTER → 2022-01-06 | Outpatient (CLI) | payer MEDICARE, BC | LOC: M PLAIMG 09:28 | PROVIDERS: ATTEND Internal Medicine Pulmonary Disease | DX: R91.8 Other nonspecific abnormal finding of lung field (principal) ==

== ENCOUNTER → 2022-02-18 | Outpatient (CLI) | payer MEDICARE, BC | LOC: M RAD 11:42 | PROVIDERS: ATTEND Family Medicine | DX: M25.522 Pain in left elbow (principal); M25.422 Effusion, left elbow; M25.722 Osteophyte, left elbow ==

== ENCOUNTER → 2022-03-11 | Outpatient (CLI) | payer MEDICARE, BC ==
[2022-03-11 14:04] LABS: BASO % 0.3 % (0.0-1.0); EOS % 0.1 % (0.0-3.0); HEMATOCRIT 40.2 % (42.0-52.0); HEMOGLOBIN 12.8 g/dl (13.5-17.5); LYMPH % 7.5 % (24.0-44.0); MEAN CORPUSCULAR HEMOGLOBIN 30.6 pg (27.0-33.0); MEAN CORPUSCULAR HGB CONC 31.8 g/dl (32.0-36.5); MEAN CORPUSCULAR VOLUME 96.2 fl (80.0-96.0); MONO # 0.4 10^3/uL (0.0-0.8); MONO % 2.8 % (2.0-8.0); NEUTROPHILS # 11.7 10^3/uL (1.5-8.5); NEUTROPHILS % 88.3 % (36.0-66.0); PLATELET COUNT, AUTOMATED 331 10^3/uL (150-450); RED BLOOD COUNT 4.18 10^6/uL (4.30-6.10); WHITE BLOOD COUNT 13.3 10^3/uL (4.0-10.0)
[2022-03-11 14:30] LABS: ALBUMIN 3.7 GM/DL (3.2-5.2); BILIRUBIN,TOTAL 0.4 MG/DL (0.2-1.0); C REACTIVE PROTEIN QUANTITATIV 1.18 MG/DL (0.00-0.30); CALCIUM LEVEL 10.1 MG/DL (8.8-10.2); CREATININE FOR GFR 1.56 MG/DL (0.70-1.30); GLOMERULAR FILTRATION RATE 45.6 (>35); POTASSIUM SERUM 4.4 MEQ/L (3.5-5.1); TOTAL PROTEIN 7.6 GM/DL (6.4-8.2)
[2022-03-11 14:38] LABS: ERYTHROCYTE SEDIMENTATION RATE 37 mm/hr (0-20)
== END ==
LOC: M LAB 13:19
PROVIDERS: ATTEND Family Medicine
DX: M35.3 Polymyalgia rheumatica (principal)

== ENCOUNTER → 2022-03-28 | Outpatient (CLI) | payer MEDICARE, BC | LOC: M RAD 10:16 | PROVIDERS: ATTEND Internal Medicine | DX: M25.422 Effusion, left elbow (principal) ==

== ENCOUNTER → 2022-04-02 | Outpatient (REF) | payer MEDICARE, BC | LOC: M SFHCRHEU 10:48 | PROVIDERS: ATTEND Internal Medicine | DX: Z79.899 Other long term (current) drug therapy (principal); Z79.52 Long term (current) use of systemic steroids ==

== ENCOUNTER 2022-06-11 11:34 | Emergency (ER) | payer MEDICARE, BC ==
[~2022-06-11] VITALS: Ht 175.3 cm; Wt 77.6 kg
[2022-06-11] MEDS ORDERED: SPIR1TAB34 (11:50)
[2022-06-11] MEDS ORDERED: PRED1TABL (11:50)
[2022-06-11 12:59] LABS: BASO # 0.1 10^3/uL (0.0-0.2); BASO % 0.2 % (0.0-1.0); HEMOGLOBIN 13.5 g/dl (13.5-17.5); LYMPH # 0.6 10^3/uL (1.5-5.0); LYMPH % 3.1 % (24.0-44.0); MEAN CORPUSCULAR HEMOGLOBIN 30.8 pg (27.0-33.0); MEAN CORPUSCULAR HGB CONC 31.4 g/dl (32.0-36.5); MEAN CORPUSCULAR VOLUME 98.2 fl (80.0-96.0); MONO # 1.3 10^3/uL (0.0-0.8); MONO % 6.5 % (2.0-8.0); NEUTROPHILS # 18.4 10^3/uL (1.5-8.5); NEUTROPHILS % 89.5 % (36.0-66.0); PLATELET COUNT, AUTOMATED 318 10^3/uL (150-450); RED BLOOD COUNT 4.38 10^6/uL (4.30-6.10); WHITE BLOOD COUNT 20.6 10^3/uL (4.0-10.0)
[2022-06-11 13:33] LABS: RSV AMPLIFICATION NEGATIVE (NEGATIVE)
[2022-06-11 13:48] LABS: ALBUMIN 3.9 GM/DL (3.2-5.2); BILIRUBIN,DIRECT 0.3 MG/DL (0.0-0.2); BILIRUBIN,TOTAL 1.2 MG/DL (0.2-1.0); CALCIUM LEVEL 9.6 MG/DL (8.8-10.2); CREATININE FOR GFR 1.68 MG/DL (0.70-1.30); GLOMERULAR FILTRATION RATE 41.9 (>35); POTASSIUM SERUM 4.7 MEQ/L (3.5-5.1); TOTAL PROTEIN 7.6 GM/DL (6.4-8.2)
[2022-06-11] MEDS ORDERED: ISOVUE-370 76% 100ML VIAL As Ordered ONE (13:50)
[2022-06-11] MEDS ORDERED: AUGM12TA11 PO (14:52)
[2022-06-11] MEDS ORDERED: AUGMENTIN 875 MG TAB PO ONE (14:55)
[2022-06-11 15:00] VITALS: BP 97/65
== END 2022-06-11 15:10 | disposition home or self-care (01) ==
LOC: M ED 11:34
DX: K57.32 Diverticulitis of large intestine without perforation or abscess without bleeding (principal); I48.91 Unspecified atrial fibrillation; E11.9 Type 2 diabetes mellitus without complications; I10 Essential (primary) hypertension; K21.9 Gastro-esophageal reflux disease without esophagitis
CPT/HCPCS: 36415; 74177; 80047; 80048; 80076; 83690; 85025; 87631; 93005; 93041; 99284; Q9967

== ENCOUNTER → 2022-06-13 | Outpatient (REF) | payer MEDICARE, BC ==
[~2022-06-13] MED LIST changes: +AUGM12TA11 PO; +PRED1TABL; +SPIR1TAB34
== END ==
LOC: M LAB REF 13:03
PROVIDERS: ATTEND Internal Medicine
DX: R19.7 Diarrhea, unspecified (principal)

== ENCOUNTER → 2022-09-07 | Outpatient (CLI) | payer MEDICARE, BC | LOC: M RAD 09:52 | PROVIDERS: ATTEND Internal Medicine | DX: M54.50 Low back pain, unspecified (principal); M16.0 Bilateral primary osteoarthritis of hip ==

== ENCOUNTER → 2022-10-20 | Outpatient (REF) | payer MEDICARE, BC ==
[~2022-10-20] MED LIST changes: +APRE30TA3 PO; -OTEZ1TAB3 PO
== END ==
LOC: M SFHCDERM 14:16
PROVIDERS: ATTEND Nurse Practitioner Family
DX: C44.42 Squamous cell carcinoma of skin of scalp and neck (principal); L57.0 Actinic keratosis

== ENCOUNTER → 2022-12-16 | Outpatient (REF) | payer MEDICARE, BC | LOC: M SFHCDERM 18:02 | PROVIDERS: ATTEND Dermatology | DX: L57.0 Actinic keratosis (principal); L90.5 Scar conditions and fibrosis of skin ==

== ENCOUNTER 2023-01-09 08:52 | Emergency (ER) | payer MEDICARE, BC ==
[~2023-01-09] VITALS: Ht 180.3 cm; Wt 78.2 kg
[2023-01-09 09:45] LABS: BASO # 0.1 10^3/uL (0.0-0.2); BASO % 0.5 % (0.0-1.0); EOS # 0.1 10^3/uL (0.0-0.5); EOS % 0.6 % (0.0-3.0); HEMOGLOBIN 13.6 g/dl (13.5-17.5); LYMPH # 2.1 10^3/uL (1.5-5.0); LYMPH % 16.3 % (24.0-44.0); MEAN CORPUSCULAR HEMOGLOBIN 30.2 pg (27.0-33.0); MEAN CORPUSCULAR HGB CONC 31.6 g/dl (32.0-36.5); MEAN CORPUSCULAR VOLUME 95.3 fl (80.0-96.0); MONO # 0.9 10^3/uL (0.0-0.8); MONO % 7.1 % (2.0-8.0); NEUTROPHILS # 9.4 10^3/uL (1.5-8.5); NEUTROPHILS % 74.9 % (36.0-66.0); PLATELET COUNT, AUTOMATED 357 10^3/uL (150-450); RED BLOOD COUNT 4.51 10^6/uL (4.30-6.10); WHITE BLOOD COUNT 12.6 10^3/uL (4.0-10.0)
[2023-01-09] MEDS ORDERED: ISOVUE-370 76% 100ML VIAL As Ordered ONE (09:52)
[2023-01-09] MEDS ORDERED: ASPI81CH33 PO (09:55)
[2023-01-09 09:56] LABS: INR 1.06
[2023-01-09] MEDS ORDERED: HYDR-3490 PO (09:56)
[2023-01-09] MEDS ORDERED: DIGO0.123 (09:56)
[2023-01-09] MEDS ORDERED: AMIL25TA (09:56)
[2023-01-09] MEDS ORDERED: atenoloL 25 MG TAB PO ONE (10:00)
[2023-01-09 10:15] LABS: RSV AMPLIFICATION NEGATIVE (NEGATIVE)
[2023-01-09 10:18] LABS: ALBUMIN 3.8 G/DL (3.2-5.2); BILIRUBIN,DIRECT 0.2 MG/DL (<0.4); BILIRUBIN,TOTAL 0.5 MG/DL (0.3-1.2); CALCIUM LEVEL 9.7 MG/DL (8.3-10.6); CREATININE FOR GFR 1.28 MG/DL (0.70-1.30); GLOMERULAR FILTRATION RATE 57.1 (>35); POTASSIUM SERUM 4.5 MMOL/L (3.5-5.1); TOTAL PROTEIN 7.4 G/DL (5.7-8.2)
[2023-01-09 10:19] LABS: CK-MB VALUE MASS 4.7 NG/ML (<3.6); MB/CK RELATIVE INDEX 4.27 (< OR =4)
[2023-01-09 10:21] VITALS: BP 124/58
[2023-01-09 10:23] LABS: FREE T4 1.17 NG/DL (0.89-1.76); THYROID STIMULATING HORMONE 1.412 uIU/ML (0.55-4.78)
[2023-01-09 11:14] LABS: CK-MB VALUE MASS 3.7 NG/ML (<3.6)
[2023-01-09 11:19] LABS: MB/CK RELATIVE INDEX 3.85 (< OR =4)
[2023-01-09 13:08] LABS: CK-MB VALUE MASS 3.6 NG/ML (<3.6)
[2023-01-09 13:13] LABS: MB/CK RELATIVE INDEX 4.04 (< OR =4)
[2023-01-09 13:45] VITALS: BP 139/63
== END 2023-01-09 14:09 | disposition home or self-care (01) ==
LOC: M ED 08:52
DX: I48.0 Paroxysmal atrial fibrillation (principal); I25.10 Atherosclerotic heart disease of native coronary artery without angina pectoris; I25.2 Old myocardial infarction; I10 Essential (primary) hypertension; E78.5 Hyperlipidemia, unspecified; Z79.01 Long term (current) use of anticoagulants; Z79.899 Other long term (current) drug therapy
CPT/HCPCS: 36415; 71045; 71275; 80047; 80048; 80076; 82550; 82553; 83690; 83880; 84439; 84443; 84484; 85025; 85610; 85730; 87631; 93005; 93041; 94760; 99285; Q9967

== ENCOUNTER → 2023-05-11 | Outpatient (REF) | payer MEDICARE, BC ==
[~2023-05-11] MED LIST changes: +AMIL25TA; +ASPI81CH33 PO; +DIGO0.123; +HYDR-3490 PO; -HYDR200T3 PO; +HYDR200T46 PO
== END ==
LOC: M LAB REF 17:57
PROVIDERS: ATTEND Nurse Practitioner Family
DX: Z79.899 Other long term (current) drug therapy (principal)

== ENCOUNTER → 2023-07-21 | Outpatient (CLI) | payer MEDICARE, BC | LOC: M PLAIMG 07:23 | PROVIDERS: ATTEND Pain Medicine Interventional Pain Medicine | DX: M25.552 Pain in left hip (principal) ==

== ENCOUNTER → 2023-08-11 | Outpatient (CLI) | payer MEDICARE, BC | LOC: M PLAIMG 07:38 | PROVIDERS: ATTEND Pain Medicine Interventional Pain Medicine | DX: M54.16 Radiculopathy, lumbar region (principal); M47.896 Other spondylosis, lumbar region; M46.96 Unspecified inflammatory spondylopathy, lumbar region ==

== ENCOUNTER → 2023-10-11 | Outpatient (CLI) | payer MEDICARE, BC ==
[2023-10-11 09:10] LABS: HEMATOCRIT 42.4 % (42.0-52.0); HEMOGLOBIN 13.5 g/dl (13.5-17.5); MEAN CORPUSCULAR HEMOGLOBIN 30.4 pg (27.0-33.0); MEAN CORPUSCULAR HGB CONC 31.8 g/dl (32.0-36.5); MEAN CORPUSCULAR VOLUME 95.5 fl (80.0-96.0); PLATELET COUNT, AUTOMATED 267 10^3/uL (150-450); RED BLOOD COUNT 4.44 10^6/uL (4.30-6.10); WHITE BLOOD COUNT 11.4 10^3/uL (4.0-10.0)
[2023-10-11 09:47] LABS: ALBUMIN 3.9 G/DL (3.2-5.2); BILIRUBIN,TOTAL 0.7 MG/DL (0.3-1.2); CALCIUM LEVEL 10.2 MG/DL (8.3-10.6); CHOLESTEROL RISK RATIO 1.88 (<5); CREATININE FOR GFR 1.46 MG/DL (0.70-1.30); HDL CHOLESTEROL 81.3 MG/DL (>40); LDL CHOLESTEROL 50.3 MG/DL (<100); MAGNESIUM LEVEL 1.4 MG/DL (1.8-2.4); NON-HDL-C 71.7 MG/DL; POTASSIUM SERUM 4.2 MMOL/L (3.5-5.1); TOTAL PROTEIN 7.3 G/DL (5.7-8.2)
== END ==
LOC: M LAB 08:22
PROVIDERS: ATTEND Physician Assistant
DX: I48.0 Paroxysmal atrial fibrillation (principal); I25.10 Atherosclerotic heart disease of native coronary artery without angina pectoris; E78.00 Pure hypercholesterolemia, unspecified

== ENCOUNTER → 2023-10-11 | Outpatient (CLI) | payer MEDICARE, BC ==
[2023-10-11 09:10] LABS: BASO # 0.1 10^3/uL (0.0-0.2); BASO % 0.4 % (0.0-1.0); EOS # 0.1 10^3/uL (0.0-0.5); EOS % 0.5 % (0.0-3.0); HEMATOCRIT 41.2 % (42.0-52.0); HEMOGLOBIN 13.4 g/dl (13.5-17.5); LYMPH # 1.6 10^3/uL (1.5-5.0); LYMPH % 13.2 % (24.0-44.0); MEAN CORPUSCULAR HEMOGLOBIN 31.1 pg (27.0-33.0); MEAN CORPUSCULAR HGB CONC 32.5 g/dl (32.0-36.5); MEAN CORPUSCULAR VOLUME 95.6 fl (80.0-96.0); MONO # 0.9 10^3/uL (0.0-0.8); MONO % 7.8 % (2.0-8.0); NEUTROPHILS # 9.2 10^3/uL (1.5-8.5); NEUTROPHILS % 77.2 % (36.0-66.0); PLATELET COUNT, AUTOMATED 262 10^3/uL (150-450); RED BLOOD COUNT 4.31 10^6/uL (4.30-6.10); WHITE BLOOD COUNT 11.9 10^3/uL (4.0-10.0)
[2023-10-11 09:47] LABS: ALBUMIN 3.9 G/DL (3.2-5.2); BILIRUBIN,TOTAL 0.7 MG/DL (0.3-1.2); CALCIUM LEVEL 10.1 MG/DL (8.3-10.6); CREATININE FOR GFR 1.43 MG/DL (0.70-1.30); GLOMERULAR FILTRATION RATE 50.2 (>35); POTASSIUM SERUM 4.3 MMOL/L (3.5-5.1); TOTAL PROTEIN 7.3 G/DL (5.7-8.2)
[2023-10-11 10:10] LABS: HEMOGLOBIN A1c 6.8 % (4.0-6.0)
== END ==
LOC: M LAB 08:25
PROVIDERS: ATTEND Family Medicine
DX: Z01.818 Encounter for other preprocedural examination (principal); E09.9 Drug or chemical induced diabetes mellitus without complications

== ENCOUNTER 2023-11-17 06:08 | Observation (INO) | payer MEDICARE, BC ==
[~2023-11-17] VITALS: Ht 175.3 cm; Wt 76.6 kg
[2023-11-17] VITALS (7 sets, daily range): BP systolic 119–146; BP diastolic 59–67; TEMP 97.7–97.9; O2SAT 93–97
[~2023-11-17 06:08] MED LIST changes: -AMIL25TA; +AMIL25TA PO; +OMEP40CA5 PO; -PRED1TABL; +PRED1TABL PO; +PRED5TA PO; +VITA200020 PO
[2023-11-17] MEDS ORDERED: LR 1,000 ML IV SCH (06:40)
[2023-11-17] MEDS ORDERED: ROCURONIUM BROMIDE 50MG/5ML VIAL As Ordered ONE (07:06)
[2023-11-17] MEDS ORDERED: PHENYLephrine 500MCG 5ML (100MCG/ML) SYRINGE As Ordered ONE (07:06)
[2023-11-17] MEDS ORDERED: propofoL 200 MG/20 ML VIAL As Ordered ONE (07:06)
[2023-11-17] MEDS ORDERED: ONDANSETRON 4MG 2ML VIAL As Ordered ONE (07:06)
[2023-11-17] MEDS ORDERED: LIDOCAINE 2% 100MG/5ML SDV (FOR ANES.) As Ordered ONE (07:06)
[2023-11-17] MEDS ORDERED: ePHEDrine SULFATE 25 MG/5 ML(5MG/ML) SYRINGE As Ordered ONE (07:06)
[2023-11-17] MEDS ORDERED: SUGAMMADEX SODIUM 500 MG/5 ML VIAL (BRIDION) As Ordered ONE (07:07)
[2023-11-17] MEDS ORDERED: fentaNYL 100 MCG/2 ML INJECTION As Ordered ONE (07:07)
[2023-11-17] MEDS ORDERED: KETOROLAC 60MG 2ML VIAL As Ordered ONE (07:28)
[2023-11-17] MEDS ORDERED: EPINEPHrine 1MG/ML INJ 30ML MD-VIAL As Ordered ONE (07:29)
[2023-11-17] MEDS: ceFAZolin SOD 2 GM in IV 1 EA IV ONE (07:40)
[2023-11-17] MEDS: TRANEXAMIC ACID 100 MG/ML 10ML VIAL As Ordered ONE (08:35)
[2023-11-17] MEDS: VANCOMYCIN 1000MG/20ML VIAL As Ordered ONE (08:45)
[2023-11-17] MEDS ORDERED: ACETAMINOPHEN 1000MG 100ML IV BAG As Ordered ONE (09:09)
[2023-11-17] MEDS: ROPIVA 100MG/KETOR 15MG/EPINEPHRINE 0.3MG IN NS 50ML SYRINGE PA ONE (10:15)
[2023-11-17] MEDS ORDERED: fentaNYL 100 MCG/2 ML INJECTION IV PRN (10:45)
[2023-11-17] MEDS: LR 1,000 ML IV SCH (10:45)
[2023-11-17] MEDS ORDERED: ONDANSETRON 4MG 2ML VIAL IV PRN ×2 (10:45→11:15)
[2023-11-17] MEDS ORDERED: HYDROMORPHONE HCL 0.5 MG/ 0.5 ML SYRINGE IV PRN (10:45)
[2023-11-17] MEDS ORDERED: oxyCODONE 5MG TAB PO PRN (11:15)
[2023-11-17] MEDS ORDERED: SENNA 8.6 MG TAB (SENOKOT) PO PRN (11:15)
[2023-11-17] MEDS ORDERED: IBUPROFEN 600MG TAB PO PRN (11:15)
[2023-11-17] MEDS ORDERED: MORPHINE 4 MG/ML 1ML VIAL IV PRN (11:15)
[2023-11-17] MEDS ORDERED: diphenhydrAMINE 50MG/ML VIAL IV PRN (11:15)
[2023-11-17] MEDS: oxyCODONE 5MG TAB PO PRN (11:38)
[2023-11-17 12:34] LABS: BASO % 0.2 % (0.0-1.0); EOS % 0.1 % (0.0-3.0); HEMATOCRIT 36.6 % (42.0-52.0); HEMOGLOBIN 11.9 g/dl (13.5-17.5); LYMPH # 0.4 10^3/uL (1.5-5.0); LYMPH % 3.6 % (24.0-44.0); MEAN CORPUSCULAR HEMOGLOBIN 31.2 pg (27.0-33.0); MEAN CORPUSCULAR HGB CONC 32.5 g/dl (32.0-36.5); MEAN CORPUSCULAR VOLUME 95.8 fl (80.0-96.0); MONO # 0.1 10^3/uL (0.0-0.8); MONO % 0.9 % (2.0-8.0); NEUTROPHILS % 94.4 % (36.0-66.0); PLATELET COUNT, AUTOMATED 269 10^3/uL (150-450); RED BLOOD COUNT 3.82 10^6/uL (4.30-6.10); WHITE BLOOD COUNT 10.6 10^3/uL (4.0-10.0)
[2023-11-17] MEDS ORDERED: ELIQ5TAB PO (13:54)
[2023-11-17] MEDS ORDERED: ASPI81TA26 PO (13:54)
[2023-11-17] MEDS ORDERED: HOME MED LIST COMPLETE! XX SCH (14:20)
[2023-11-17 14:29] LABS: CALCIUM LEVEL 8.8 MG/DL (8.3-10.6); CREATININE FOR GFR 1.43 MG/DL (0.70-1.30); GLOMERULAR FILTRATION RATE 50.2 (>35); POTASSIUM SERUM 5.1 MMOL/L (3.5-5.1)
[2023-11-17] MEDS ORDERED: DEXTROSE 50% 50ML SYRINGE IV PRN (15:40)
[2023-11-17] MEDS ORDERED: GLUCAGON INJ 1MG VIAL SC PRN (15:40)
[2023-11-17] MEDS ORDERED: GLUCOSE 4GM CHEW TABLET PO PRN (15:40)
[2023-11-17] MEDS: ceFAZolin SOD 1 GM in D5W MINI-BAG PLUS 50 ML IV SCH (15:55)
[2023-11-17] MEDS: INSULIN LISPRO (NovoLOG) PER UNIT SC SCH ×2 (17:13→21:00)
[2023-11-17] MEDS: DOCUSATE SODIUM 100MG CAPSULE PO SCH (21:00)
[2023-11-17] MEDS: ACETAMINOPHEN TAB 650MG DOSE (2X325MG) PO PRN (21:16)
[2023-11-18 02:00] VITALS: BP 140/72; TEMP 97.9; O2SAT 96
[2023-11-18 07:09] LABS: HEMOGLOBIN 10.2 g/dl (13.5-17.5); MEAN CORPUSCULAR HEMOGLOBIN 30.9 pg (27.0-33.0); MEAN CORPUSCULAR HGB CONC 32.9 g/dl (32.0-36.5); MEAN CORPUSCULAR VOLUME 93.9 fl (80.0-96.0); PLATELET COUNT, AUTOMATED 280 10^3/uL (150-450); WHITE BLOOD COUNT 17.5 10^3/uL (4.0-10.0)
[2023-11-18 07:41] LABS: CALCIUM LEVEL 8.6 MG/DL (8.3-10.6); CREATININE FOR GFR 1.75 MG/DL (0.70-1.30); GLOMERULAR FILTRATION RATE 39.7 (>35); POTASSIUM SERUM 4.9 MMOL/L (3.5-5.1)
[2023-11-18] MEDS ORDERED: ENOXAPARIN 40MG/0.4ML SYRINGE (J1650 PER 10MG) SC SCH (09:00)
[2023-11-18] MEDS: ATORVASTATIN 20 MG TAB PO SCH (09:00)
[2023-11-18] MEDS: APIXABAN 5 MG TAB (ELIQUIS) PO SCH (09:00)
[2023-11-18] MEDS: ASCORBIC ACID 500 MG TAB PO SCH (09:00)
[2023-11-18] MEDS: OMEPRAZOLE 20MG CAP PO SCH (09:01)
[2023-11-18] MEDS: aMILoride 5 MG TAB PO SCH (09:01)
[2023-11-18] MEDS: ASPIRIN 81MG CHEW TABLET PO SCH (09:01)
[2023-11-18] MEDS: predniSONE 5 MG TAB PO SCH (09:02)
[2023-11-18] MEDS: predniSONE 1 MG TAB PO SCH (09:02)
[2023-11-18 10:20] VITALS: BP 133/67; TEMP 97.9; O2SAT 97
[2023-11-18] MEDS: PREVNAR-20 VACCINE 0.5ML SYRINGE IM.IMMUN ONE (10:48)
[2023-11-18] MEDS ORDERED: ELIQ2.5T PO (11:48)
[2023-11-18] MEDS ORDERED: OXYC-517 PO (11:48)
== END 2023-11-18 13:25 | disposition home or self-care (01) ==
LOC: M SDC 06:08 → M RR INP 06:09 → M MS5PR 12:35
PROVIDERS: ADMIT Internal Medicine; ATTEND Orthopaedic Surgery Hand Surgery
DX: M16.12 Unilateral primary osteoarthritis, left hip (principal); M54.16 Radiculopathy, lumbar region; G89.29 Other chronic pain; I12.9 Hypertensive chronic kidney disease with stage 1 through stage 4 chronic kidney disease, or unspecified chronic kidney disease; K21.9 Gastro-esophageal reflux disease without esophagitis; I25.10 Atherosclerotic heart disease of native coronary artery without angina pectoris; J44.9 Chronic obstructive pulmonary disease, unspecified; N18.30 Chronic kidney disease, stage 3 unspecified; E78.5 Hyperlipidemia, unspecified; I48.0 Paroxysmal atrial fibrillation; Z85.828 Personal history of other malignant neoplasm of skin; L40.50 Arthropathic psoriasis, unspecified; Z98.49 Cataract extraction status, unspecified eye; Z98.61 Coronary angioplasty status; Z79.899 Other long term (current) drug therapy; Z79.01 Long term (current) use of anticoagulants; Z79.82 Long term (current) use of aspirin; Z79.52 Long term (current) use of systemic steroids; Z87.891 Personal history of nicotine dependence; Z23 Encounter for immunization
CPT/HCPCS: 27130; 36415; 73501; 80048; 85025; 85027; 87635; 88300; 90677; 96374; 96376; 97116; 97161; 97530; C1713; C1776; G0009; G0378; G0379; J0131; J0690; J1100; J1815; J1885; J2371; J2405; J3010; J3370; J7512

== ENCOUNTER → 2023-11-26 | Outpatient (CLI) | payer MEDICARE, BC ==
[~2023-11-26] MED LIST changes: +ASPI81TA26 PO; +ELIQ2.5T PO; +OXYC-517 PO
== END ==
LOC: M SOG 07:59
PROVIDERS: ATTEND Physician Assistant
DX: Z47.1 Aftercare following joint replacement surgery (principal); Z96.642 Presence of left artificial hip joint

== ENCOUNTER → 2023-12-02 | Outpatient (CLI) | payer MEDICARE, BC ==
[2023-12-02 14:28] LABS: BASO # 0.1 10^3/uL (0.0-0.2); BASO % 0.4 % (0.0-1.0); EOS # 0.1 10^3/uL (0.0-0.5); EOS % 0.3 % (0.0-3.0); HEMATOCRIT 35.7 % (42.0-52.0); HEMOGLOBIN 11.4 g/dl (13.5-17.5); LYMPH # 1.7 10^3/uL (1.5-5.0); LYMPH % 9.1 % (24.0-44.0); MEAN CORPUSCULAR HEMOGLOBIN 31.8 pg (27.0-33.0); MEAN CORPUSCULAR HGB CONC 31.9 g/dl (32.0-36.5); MEAN CORPUSCULAR VOLUME 99.4 fl (80.0-96.0); MONO # 1.3 10^3/uL (0.0-0.8); MONO % 6.9 % (2.0-8.0); NEUTROPHILS # 15.2 10^3/uL (1.5-8.5); NEUTROPHILS % 82.2 % (36.0-66.0); PLATELET COUNT, AUTOMATED 471 10^3/uL (150-450); RED BLOOD COUNT 3.59 10^6/uL (4.30-6.10); WHITE BLOOD COUNT 18.5 10^3/uL (4.0-10.0)
[2023-12-02 14:55] LABS: ALBUMIN 3.5 G/DL (3.2-5.2); CALCIUM LEVEL 9.8 MG/DL (8.3-10.6); GLOMERULAR FILTRATION RATE 34.1 (>35); MAGNESIUM LEVEL 1.2 MG/DL (1.8-2.4); POTASSIUM SERUM 4.8 MMOL/L (3.5-5.1); TOTAL PROTEIN 7.2 G/DL (5.7-8.2)
[2023-12-02 15:01] LABS: THYROID STIMULATING HORMONE 2.412 uIU/ML (0.55-4.78)
== END ==
LOC: M PLAIMG 10:42
PROVIDERS: ATTEND Family Medicine
DX: J98.11 Atelectasis (principal); I48.0 Paroxysmal atrial fibrillation

== ENCOUNTER → 2023-12-03 | Outpatient (CLI) | payer MEDICARE, BC | LOC: M CARPUL 10:06 | PROVIDERS: ATTEND Physician Assistant | DX: R06.02 Shortness of breath (principal); R07.2 Precordial pain; I48.0 Paroxysmal atrial fibrillation ==

== ENCOUNTER → 2023-12-20 | Outpatient (CLI) | payer MEDICARE, BC ==
[2023-12-20 10:36] LABS: CALCIUM LEVEL 9.9 MG/DL (8.3-10.6); CREATININE FOR GFR 2.02 MG/DL (0.70-1.30); GLOMERULAR FILTRATION RATE 33.7 (>35); MAGNESIUM LEVEL 1.2 MG/DL (1.8-2.4); POTASSIUM SERUM 4.5 MMOL/L (3.5-5.1)
== END ==
LOC: M LAB 09:35
PROVIDERS: ATTEND Physician Assistant
DX: R06.02 Shortness of breath (principal); I48.91 Unspecified atrial fibrillation; E83.42 Hypomagnesemia

== ENCOUNTER → 2023-12-21 | Outpatient (CLI) | payer MEDICARE, BC | LOC: M LAB 10:24 | PROVIDERS: ATTEND Physician Assistant | DX: R06.02 Shortness of breath (principal) ==

== ENCOUNTER → 2023-12-23 | Outpatient (CLI) | payer MEDICARE, BC ==
[~2023-12-23] MED LIST changes: +ISOVUE-370 76% 100ML VIAL As Ordered ONE
[2023-12-23] MEDS: NS 500 ML IV ONE (09:10)
[2023-12-23] MEDS: NS 1,000 ML IV SCH (09:58)
[2023-12-23 12:38] LABS: HEMATOCRIT 34.1 % (42.0-52.0); HEMOGLOBIN 11.1 g/dl (13.5-17.5); MEAN CORPUSCULAR HEMOGLOBIN 31.3 pg (27.0-33.0); MEAN CORPUSCULAR HGB CONC 32.6 g/dl (32.0-36.5); MEAN CORPUSCULAR VOLUME 96.1 fl (80.0-96.0); PLATELET COUNT, AUTOMATED 343 10^3/uL (150-450); RED BLOOD COUNT 3.55 10^6/uL (4.30-6.10); WHITE BLOOD COUNT 12.9 10^3/uL (4.0-10.0)
== END ==
LOC: M RAD 07:20
PROVIDERS: ATTEND Physician Assistant
DX: R06.02 Shortness of breath (principal); R07.2 Precordial pain; N28.1 Cyst of kidney, acquired; Z96.649 Presence of unspecified artificial hip joint
CPT/HCPCS: 36415; 71275; 85027; Q9967

== ENCOUNTER → 2023-12-24 | Outpatient (CLI) | payer MEDICARE, BC ==
[~2023-12-24] MED LIST changes: -ISOVUE-370 76% 100ML VIAL As Ordered ONE
== END ==
LOC: M SOG 08:14
PROVIDERS: ATTEND Physician Assistant
DX: Z96.642 Presence of left artificial hip joint (principal); R79.1 Abnormal coagulation profile; R06.02 Shortness of breath; R07.2 Precordial pain

== ENCOUNTER → 2023-12-29 | Outpatient (CLI) | payer MEDICARE, BC ==
[2023-12-29 12:57] LABS: CREATININE FOR GFR 1.74 MG/DL (0.70-1.30)
== END ==
LOC: M LAB 11:21
PROVIDERS: ATTEND Internal Medicine
DX: I25.118 Atherosclerotic heart disease of native coronary artery with other forms of angina pectoris (principal)

== ENCOUNTER 2024-01-08 20:18 | Emergency (ER) | payer MEDICARE, BC ==
[~2024-01-08] VITALS: Ht 180.3 cm; Wt 73.9 kg
[2024-01-08 20:32] VITALS: TEMP 98.8
[2024-01-08 20:44] VITALS: BP 157/73
[2024-01-08] MEDS: METOPROLOL 5 MG/5 ML VIAL IV STA (20:44)
[2024-01-08] MEDS: METOPROLOL TART 25 MG TABLET PO ONE (20:44)
[2024-01-08 20:51] LABS: BASO # 0.1 10^3/uL (0.0-0.2); BASO % 0.4 % (0.0-1.0); EOS # 0.1 10^3/uL (0.0-0.5); HEMATOCRIT 35.9 % (42.0-52.0); HEMOGLOBIN 11.4 g/dl (13.5-17.5); LYMPH # 2.2 10^3/uL (1.5-5.0); LYMPH % 15.3 % (24.0-44.0); MEAN CORPUSCULAR HEMOGLOBIN 30.1 pg (27.0-33.0); MEAN CORPUSCULAR HGB CONC 31.8 g/dl (32.0-36.5); MEAN CORPUSCULAR VOLUME 94.7 fl (80.0-96.0); MONO % 7.3 % (2.0-8.0); NEUTROPHILS # 10.8 10^3/uL (1.5-8.5); NEUTROPHILS % 75.4 % (36.0-66.0); PLATELET COUNT, AUTOMATED 454 10^3/uL (150-450); RED BLOOD COUNT 3.79 10^6/uL (4.30-6.10); WHITE BLOOD COUNT 14.3 10^3/uL (4.0-10.0)
[2024-01-08 21:36] LABS: ALBUMIN 3.2 G/DL (3.2-5.2); BILIRUBIN,DIRECT 0.2 MG/DL (<0.4); BILIRUBIN,TOTAL 0.5 MG/DL (0.3-1.2); CALCIUM LEVEL 10.2 MG/DL (8.3-10.6); CK-MB VALUE MASS 2.6 NG/ML (<3.6); CREATININE FOR GFR 1.69 MG/DL (0.70-1.30); DIGOXIN LEVEL 1.2 NG/ML (0.8-2.0); GLOMERULAR FILTRATION RATE 41.4 (>35); MAGNESIUM LEVEL 1.6 MG/DL (1.8-2.4); MB/CK RELATIVE INDEX 3.71 (< OR =4); POTASSIUM SERUM 4.9 MMOL/L (3.5-5.1); TOTAL PROTEIN 7.1 G/DL (5.7-8.2)
[2024-01-08 21:38] LABS: THYROID STIMULATING HORMONE 1.738 uIU/ML (0.55-4.78)
[2024-01-08 21:55] LABS: FREE T4 1.07 NG/DL (0.89-1.76)
[2024-01-08] MEDS ORDERED: MED REC IN PROGRESS XX SCH (22:10)
[2024-01-08 22:12] LABS: INR 1.23; PROTHROMBIN TIME 15.1 SECONDS (12.5-14.5)
[2024-01-08 22:31] LABS: C REACTIVE PROTEIN QUANTITATIV 4.3 MG/DL (<1.0); CK-MB VALUE MASS 2.8 NG/ML (<3.6)
[2024-01-08 22:32] LABS: MB/CK RELATIVE INDEX 6.66 (< OR =4)
[2024-01-08] MEDS ORDERED: PANT40TA29 PO (23:07)
[2024-01-08] MEDS ORDERED: NITR0.4S14 SL (23:07)
[2024-01-08] MEDS ORDERED: CARV3.12 PO (23:07)
[2024-01-08] MEDS ORDERED: C-101TAB3 PO (23:07)
[2024-01-08] MEDS ORDERED: ELIQ2.5T PO (23:07)
[2024-01-08] MEDS ORDERED: CLOP75TA2 PO (23:07)
[2024-01-08] MEDS ORDERED: HOME MED LIST COMPLETE! XX SCH (23:15)
[2024-01-09 00:26] VITALS: BP 106/53; O2SAT 92
== END 2024-01-09 00:51 | disposition home or self-care (01) ==
LOC: M ED 20:18
DX: I48.91 Unspecified atrial fibrillation (principal); R07.9 Chest pain, unspecified; E11.9 Type 2 diabetes mellitus without complications; I25.10 Atherosclerotic heart disease of native coronary artery without angina pectoris; Z98.61 Coronary angioplasty status; Z79.84 Long term (current) use of oral hypoglycemic drugs; Z79.899 Other long term (current) drug therapy

== ENCOUNTER 2024-01-21 20:45 | Emergency (ER) | payer MEDICARE, BC ==
[~2024-01-21 20:45] MED LIST changes: +C-101TAB3 PO; +CARV3.12 PO; +CLOP75TA2 PO; +NITR0.4S14 SL; +PANT40TA29 PO
[2024-01-21 21:24] LABS: BASO % 0.3 % (0.0-1.0); EOS # 0.1 10^3/uL (0.0-0.5); EOS % 0.8 % (0.0-3.0); HEMATOCRIT 34.3 % (42.0-52.0); LYMPH # 1.9 10^3/uL (1.5-5.0); LYMPH % 14.6 % (24.0-44.0); MEAN CORPUSCULAR HEMOGLOBIN 30.9 pg (27.0-33.0); MEAN CORPUSCULAR HGB CONC 32.1 g/dl (32.0-36.5); MEAN CORPUSCULAR VOLUME 96.3 fl (80.0-96.0); MONO # 1.1 10^3/uL (0.0-0.8); MONO % 8.4 % (2.0-8.0); NEUTROPHILS # 9.8 10^3/uL (1.5-8.5); NEUTROPHILS % 74.7 % (36.0-66.0); PLATELET COUNT, AUTOMATED 330 10^3/uL (150-450); RED BLOOD COUNT 3.56 10^6/uL (4.30-6.10); WHITE BLOOD COUNT 13.2 10^3/uL (4.0-10.0)
[2024-01-21] MEDS ORDERED: MORPHINE 2 MG/ML 1ML VIAL IV ONE (21:45)
[2024-01-21 21:47] LABS: CK-MB VALUE MASS 5.6 NG/ML (<3.6)
[2024-01-21 21:48] LABS: MB/CK RELATIVE INDEX 6.08 (< OR =4)
[2024-01-21 21:56] LABS: CREATININE FOR GFR 1.4 MG/DL (0.70-1.30); GLOMERULAR FILTRATION RATE 51.4 (>35); POTASSIUM SERUM 3.8 MMOL/L (3.5-5.1)
[2024-01-21 22:22] LABS: INR 1.18; PARTIAL THROMBOPLASTIN TIME 31.6 SECONDS (24.8-34.2); PROTHROMBIN TIME 14.7 SECONDS (12.5-14.5)
[2024-01-21] MEDS: HEPARIN DRIP 25,000 UNITS in IV 1 EA IV SCH (22:31)
[2024-01-21] MEDS: ASPIRIN 81MG CHEW TABLET PO ONE (22:32)
[2024-01-21 23:00] VITALS: TEMP 98.5
[2024-01-21 23:15] VITALS: BP 129/60; O2SAT 97
== END 2024-01-21 23:30 | disposition short-term general hospital (02) ==
LOC: M ED 20:45
DX: I21.4 Non-ST elevation (NSTEMI) myocardial infarction (principal); I48.91 Unspecified atrial fibrillation; I25.10 Atherosclerotic heart disease of native coronary artery without angina pectoris; E11.9 Type 2 diabetes mellitus without complications; Z98.61 Coronary angioplasty status; Z87.891 Personal history of nicotine dependence; Z96.649 Presence of unspecified artificial hip joint; Z79.01 Long term (current) use of anticoagulants; Z79.84 Long term (current) use of oral hypoglycemic drugs; Z79.899 Other long term (current) drug therapy

== ENCOUNTER → 2024-02-23 | Outpatient (CLI) | payer MEDICARE, BC ==
[2024-02-23 11:21] LABS: HEMATOCRIT 31.1 % (42.0-52.0); HEMOGLOBIN 9.8 g/dl (13.5-17.5); MEAN CORPUSCULAR HEMOGLOBIN 29.1 pg (27.0-33.0); MEAN CORPUSCULAR HGB CONC 31.5 g/dl (32.0-36.5); MEAN CORPUSCULAR VOLUME 92.3 fl (80.0-96.0); PLATELET COUNT, AUTOMATED 415 10^3/uL (150-450); RED BLOOD COUNT 3.37 10^6/uL (4.30-6.10); WHITE BLOOD COUNT 14.3 10^3/uL (4.0-10.0)
[2024-02-23 11:52] LABS: ALBUMIN 2.7 G/DL (3.2-5.2); BILIRUBIN,TOTAL 0.6 MG/DL (0.3-1.2); CALCIUM LEVEL 9.5 MG/DL (8.3-10.6); CHOLESTEROL RISK RATIO 2.8 (<5); CREATININE FOR GFR 1.35 MG/DL (0.70-1.30); GLOMERULAR FILTRATION RATE 53.6 (>35); HDL CHOLESTEROL 44.6 MG/DL (>40); NON-HDL-C 80.4 MG/DL; POTASSIUM SERUM 4.5 MMOL/L (3.5-5.1); TOTAL PROTEIN 6.6 G/DL (5.7-8.2)
== END ==
LOC: M LAB 09:52
PROVIDERS: ATTEND Physician Assistant
DX: I25.118 Atherosclerotic heart disease of native coronary artery with other forms of angina pectoris (principal); R06.02 Shortness of breath

== ENCOUNTER → 2024-02-25 | Outpatient (REF) | payer MEDICARE, BC ==
[2024-02-25 19:57] LABS: PERCENT SATURATION 13.1 % (19.7-50.0)
[2024-02-25 19:59] LABS: FERRITIN 311.5 NG/ML (10.5-307.3)
== END ==
LOC: M LAB REF 17:10
PROVIDERS: ATTEND Nurse Practitioner Family
DX: D50.9 Iron deficiency anemia, unspecified (principal)

== ENCOUNTER → 2024-03-03 | Outpatient (CLI) | payer MEDICARE, BC ==
[~2024-03-03] VITALS: Ht 180.3 cm; Wt 70.4 kg
[~2024-03-03] MED LIST changes: +ALBUTEROL SULFATE 2.5MG/0.5ML INH NEB SOLN INH PRN; +EPINEPHrine INJ 1 MG/ML 1ML AMP IM PRN; +NS 1,000 ML IV SCH; +diphenhydrAMINE 50MG/ML VIAL IV PRN; +methylPREDNISolone 125MG 2ML VIAL IV PRN
[2024-03-03 11:30] VITALS: BP 158/68; O2SAT 95
[2024-03-03] MEDS: FERRIC CARBOXYMALTOSE INJ 750 MG in NS 250 ML (>50kg) IV ONE (11:38)
[2024-03-03 12:40] VITALS: BP 136/60; O2SAT 100
== END ==
LOC: M INFU 11:25
PROVIDERS: ATTEND Nurse Practitioner Family
DX: D50.9 Iron deficiency anemia, unspecified (principal)
CPT/HCPCS: 96365; J1439

== ENCOUNTER → 2024-03-07 | Outpatient (CLI) | payer MEDICARE, BC ==
[~2024-03-07] MED LIST changes: -ALBUTEROL SULFATE 2.5MG/0.5ML INH NEB SOLN INH PRN; -EPINEPHrine INJ 1 MG/ML 1ML AMP IM PRN; -NS 1,000 ML IV SCH; -diphenhydrAMINE 50MG/ML VIAL IV PRN; -methylPREDNISolone 125MG 2ML VIAL IV PRN
== END ==
LOC: M SOG 10:17
PROVIDERS: ATTEND Physician Assistant
DX: M25.561 Pain in right knee (principal); M85.861 Other specified disorders of bone density and structure, right lower leg

== ENCOUNTER → 2024-03-15 | Outpatient (CLI) | payer MEDICARE, BC ==
[2024-03-15 10:37] LABS: TOTAL 25(OH) VITAMIN D 69.9 NG/ML (20.0-100.0)
[2024-03-15 10:38] LABS: FOLATE 7.7 NG/ML (>5.4)
[2024-03-17 16:02] LABS: EBV AB TO NUCLEAR ANTIGEN > 600.00 U/mL (<18.00); EBV VIRAL CAPSID AG IGM < 36.00 U/mL (<36.00)
[2024-03-20 01:12] LABS: VITAMIN B1 LEVEL WHOLE BLOOD 94 nmol/L (78-185)
[2024-03-21 15:47] LABS: VITAMIN B7 (BIOTIN) 2171.3 pg/mL (221.0-3004.0)
[2024-03-22 17:17] LABS: VITAMIN B2 (RIBOFLAVIN) 38.4 nmol/L (6.2-39.0)
[2024-03-22 17:22] LABS: NICOTINAMIDE < 20 ng/mL (see note); NICOTINIC ACID < 20 ng/mL (see note)
== END ==
LOC: M LAB 09:23
PROVIDERS: ATTEND Internal Medicine
DX: R53.83 Other fatigue (principal); Z79.899 Other long term (current) drug therapy

== ENCOUNTER 2024-03-22 10:55 | Outpatient (CLI) | payer MEDICARE, BC ==
[~2024-03-22] VITALS: Ht 180.3 cm; Wt 73.0 kg
[~2024-03-22 10:55] MED LIST changes: +ALBUTEROL SULFATE 2.5MG/0.5ML INH NEB SOLN INH PRN; +EPINEPHrine INJ 1 MG/ML 1ML AMP IM PRN; +diphenhydrAMINE 50MG/ML VIAL IV PRN; +methylPREDNISolone 125MG 2ML VIAL IV PRN
[2024-03-22] MEDS ORDERED: NS 1,000 ML IV SCH (11:00)
[2024-03-22] MEDS: FERRIC CARBOXYMALTOSE INJ 750 MG in NS 250 ML (>50kg) IV ONE (11:07)
[2024-03-22 11:55] VITALS: BP 133/63; O2SAT 93
[2024-03-22 12:20] VITALS: BP 108/52; O2SAT 97
== END 2024-03-22 12:20 ==
LOC: M INFU 10:55
PROVIDERS: ATTEND Nurse Practitioner Family
DX: D50.9 Iron deficiency anemia, unspecified (principal)
CPT/HCPCS: 96365; J1439

== ENCOUNTER → 2024-03-29 | Outpatient (CLI) | payer MEDICARE, BC ==
[~2024-03-29] MED LIST changes: -ALBUTEROL SULFATE 2.5MG/0.5ML INH NEB SOLN INH PRN; -EPINEPHrine INJ 1 MG/ML 1ML AMP IM PRN; -diphenhydrAMINE 50MG/ML VIAL IV PRN; -methylPREDNISolone 125MG 2ML VIAL IV PRN
== END ==
LOC: M WHC 07:17
PROVIDERS: ATTEND Nurse Practitioner Family
DX: R33.9 Retention of urine, unspecified (principal); N18.31 Chronic kidney disease, stage 3a

== ENCOUNTER → 2024-03-30 | Outpatient (REF) | payer MEDICARE, BC | LOC: M LAB REF 15:08 | PROVIDERS: ATTEND Internal Medicine | DX: R53.83 Other fatigue (principal) ==

== ENCOUNTER → 2024-04-04 | Outpatient (CLI) | payer MEDICARE, BC | LOC: M SOG 14:12 | PROVIDERS: ATTEND Physician Assistant | DX: Z96.642 Presence of left artificial hip joint (principal); M16.11 Unilateral primary osteoarthritis, right hip ==

== ENCOUNTER 2024-04-19 09:33 | Emergency (ER) | payer MEDICARE, BC ==
[~2024-04-19] VITALS: Ht 180.3 cm; Wt 65.2 kg
[2024-04-19] MEDS: BENZOIN TINCTURE 60ML BTL TOP STA (10:37)
[2024-04-19 10:56] VITALS: BP 145/73; TEMP 97.2; O2SAT 92
== END 2024-04-19 10:59 | disposition home or self-care (01) ==
LOC: M ED 09:33
DX: S51.001A Unspecified open wound of right elbow, initial encounter (principal); W19.XXXA Unspecified fall, initial encounter; Y92.009 Unspecified place in unspecified non-institutional (private) residence as the place of occurrence of the external cause; Y93.9 Activity, unspecified; Y99.9 Unspecified external cause status; I48.91 Unspecified atrial fibrillation; E11.9 Type 2 diabetes mellitus without complications; Z79.01 Long term (current) use of anticoagulants; Z79.84 Long term (current) use of oral hypoglycemic drugs; Z79.899 Other long term (current) drug therapy

== ENCOUNTER 2024-05-16 12:08 | Emergency (ER) | payer MEDICARE, BC ==
[~2024-05-16] VITALS: Ht 180.3 cm; Wt 65.2 kg
[2024-05-16] MEDS: PANTOPRAZOLE 40MG VIAL IV ONE (13:34)
[2024-05-16] MEDS: PANTOPRAZOLE SODIUM 40 MG in D5W 50 ML IV SCH (13:35)
[2024-05-16 13:39] LABS: BASO % 0.3 % (0.0-1.0); EOS % 0.2 % (0.0-3.0); HEMATOCRIT 38.7 % (42.0-52.0); HEMOGLOBIN 11.9 g/dl (13.5-17.5); LYMPH # 1.2 10^3/uL (1.5-5.0); LYMPH % 9.6 % (24.0-44.0); MEAN CORPUSCULAR HEMOGLOBIN 28.9 pg (27.0-33.0); MEAN CORPUSCULAR HGB CONC 30.7 g/dl (32.0-36.5); MEAN CORPUSCULAR VOLUME 93.9 fl (80.0-96.0); MONO # 1.3 10^3/uL (0.0-0.8); MONO % 10.2 % (2.0-8.0); NEUTROPHILS % 77.9 % (36.0-66.0); PLATELET COUNT, AUTOMATED 340 10^3/uL (150-450); RED BLOOD COUNT 4.12 10^6/uL (4.30-6.10); WHITE BLOOD COUNT 12.9 10^3/uL (4.0-10.0)
[2024-05-16 14:10] LABS: BLOOD UREA NITROGEN 20 MG/DL (9-23); CALCIUM LEVEL 9.2 MG/DL (8.3-10.6); CARBON DIOXIDE LEVEL 26 MMOL/L (20-31); CHLORIDE LEVEL 103 MMOL/L (98-107); CREATININE FOR GFR 1.01 MG/DL (0.70-1.30); GLOMERULAR FILTRATION RATE > 60.0 (>35); GLUCOSE, FASTING 220 MG/DL (74-106); POTASSIUM SERUM 5.1 MMOL/L (3.5-5.1); SODIUM LEVEL 135 MMOL/L (136-145)
[2024-05-16] MEDS ORDERED: ATOR40TA75 PO (17:23)
[2024-05-16] MEDS ORDERED: DIGO0.123 PO (17:24)
[2024-05-16] MEDS ORDERED: FARX1TAB3 PO (17:24)
[2024-05-16] MEDS ORDERED: ATEN50TA2 PO (17:24)
[2024-05-16] MEDS ORDERED: STIO1AER INH (17:24)
[2024-05-16] MEDS ORDERED: HOME MED LIST COMPLETE! XX SCH (17:25)
[2024-05-16 20:45] VITALS: BP 157/74; TEMP 98.9; O2SAT 97
== END 2024-05-16 21:15 | disposition short-term general hospital (02) ==
LOC: M ED 12:08 → CANBEDREQ 16:32 → M ED 21:15
DX: K92.2 Gastrointestinal hemorrhage, unspecified (principal); I48.91 Unspecified atrial fibrillation; I25.10 Atherosclerotic heart disease of native coronary artery without angina pectoris; E11.9 Type 2 diabetes mellitus without complications; I10 Essential (primary) hypertension; D50.9 Iron deficiency anemia, unspecified; K57.90 Diverticulosis of intestine, part unspecified, without perforation or abscess without bleeding; Z95.5 Presence of coronary angioplasty implant and graft; Z79.84 Long term (current) use of oral hypoglycemic drugs
CPT/HCPCS: 71045; 80048; 85025; 86850; 86900; 86901; 93005; 93041; 96365; 96366; 96375; 99285; J2470

== ENCOUNTER 2024-10-09 22:26 | Emergency (ER) | payer MEDICARE, BC ==
[~2024-10-09] VITALS: Ht 177.8 cm; Wt 75.1 kg
[~2024-10-09 22:26] MED LIST changes: +ATEN50TA2 PO; +ATOR40TA75 PO; +DIGO0.123 PO; +FARX1TAB3 PO; +STIO1AER INH
[2024-10-10 01:29] VITALS: BP 145/64; TEMP 97.6; O2SAT 98
[2024-10-10] MEDS ORDERED: AZEL1SPR3 (11:30)
[2024-10-10] MEDS ORDERED: BACI500O8 TOP (13:22)
== END 2024-10-10 01:31 | disposition home or self-care (01) ==
LOC: M ED 22:26
DX: S81.812A Laceration without foreign body, left lower leg, initial encounter (principal); W26.8XXA Contact with other sharp object(s), not elsewhere classified, initial encounter; Y92.009 Unspecified place in unspecified non-institutional (private) residence as the place of occurrence of the external cause; Y93.9 Activity, unspecified; Y99.9 Unspecified external cause status; I11.9 Hypertensive heart disease without heart failure; R58 Hemorrhage, not elsewhere classified; I48.91 Unspecified atrial fibrillation; J44.9 Chronic obstructive pulmonary disease, unspecified; K21.9 Gastro-esophageal reflux disease without esophagitis; Z87.19 Personal history of other diseases of the digestive system; E11.9 Type 2 diabetes mellitus without complications; Z95.0 Presence of cardiac pacemaker; Z96.642 Presence of left artificial hip joint; Z98.61 Coronary angioplasty status; Z79.01 Long term (current) use of anticoagulants; Z79.899 Other long term (current) drug therapy

== ENCOUNTER 2024-10-10 10:38 | Emergency (ER) | payer MEDICARE, BC ==
[~2024-10-10] VITALS: Ht 177.8 cm; Wt 66.7 kg
[2024-10-10 10:41] VITALS: TEMP 97.4
[2024-10-10 11:24] LABS: HEMATOCRIT 43.2 % (42.0-52.0); HEMOGLOBIN 13.5 g/dl (13.5-17.5); MEAN CORPUSCULAR HEMOGLOBIN 29.6 pg (27.0-33.0); MEAN CORPUSCULAR HGB CONC 31.3 g/dl (32.0-36.5); MEAN CORPUSCULAR VOLUME 94.7 fl (80.0-96.0); PLATELET COUNT, AUTOMATED 233 10^3/uL (150-450); RED BLOOD COUNT 4.56 10^6/uL (4.30-6.10)
[2024-10-10] MEDS ORDERED: AZEL1SPR3 (11:30)
[2024-10-10] MEDS: LIDOCAINE W/EPINEPHRINE 1% 20ML VIAL SC ONE (12:18)
[2024-10-10 13:18] VITALS: BP 154/63; O2SAT 99
[2024-10-10] MEDS ORDERED: BACI500O8 TOP (13:22)
== END 2024-10-10 13:30 | disposition home or self-care (01) ==
LOC: M ED 10:38
DX: S81.812A Laceration without foreign body, left lower leg, initial encounter (principal); R58 Hemorrhage, not elsewhere classified; W26.8XXA Contact with other sharp object(s), not elsewhere classified, initial encounter; Y92.009 Unspecified place in unspecified non-institutional (private) residence as the place of occurrence of the external cause; Y93.9 Activity, unspecified; Y99.9 Unspecified external cause status; Z98.61 Coronary angioplasty status; Z95.0 Presence of cardiac pacemaker; Z96.642 Presence of left artificial hip joint; I48.91 Unspecified atrial fibrillation; I10 Essential (primary) hypertension; J44.9 Chronic obstructive pulmonary disease, unspecified; K21.9 Gastro-esophageal reflux disease without esophagitis; Z87.19 Personal history of other diseases of the digestive system; E11.9 Type 2 diabetes mellitus without complications; Z79.01 Long term (current) use of anticoagulants; Z79.899 Other long term (current) drug therapy

== ENCOUNTER → 2024-10-19 | Outpatient (REF) | payer MEDICARE, BC ==
[~2024-10-19] MED LIST changes: +AZEL1SPR3; +BACI500O8 TOP
== END ==
LOC: M SFHCRHEU 12:58
PROVIDERS: ATTEND Internal Medicine
DX: L40.50 Arthropathic psoriasis, unspecified (principal)

== ENCOUNTER → 2024-10-23 | Outpatient (CLI) | payer MEDICARE, BC | LOC: M SOG 07:50 | PROVIDERS: ATTEND Physician Assistant | DX: M25.552 Pain in left hip (principal) ==

== ENCOUNTER → 2024-10-25 | Outpatient (REF) | payer MEDICARE, BC | LOC: M LAB REF 15:07 | PROVIDERS: ATTEND Surgery | DX: D04.61 Carcinoma in situ of skin of right upper limb, including shoulder (principal); L90.5 Scar conditions and fibrosis of skin; L57.8 Other skin changes due to chronic exposure to nonionizing radiation; L85.8 Other specified epidermal thickening ==

== ENCOUNTER → 2024-10-25 | Outpatient (REF) | payer MEDICARE, BC | LOC: M SFHCDERM 17:12 | PROVIDERS: ATTEND Dermatology | DX: T14.8XXA Other injury of unspecified body region, initial encounter (principal) ==

== ENCOUNTER 2024-11-02 16:48 | Emergency (ER) | payer MEDICARE, BC ==
[~2024-11-02] VITALS: Ht 180.3 cm; Wt 68.6 kg
[2024-11-02] MEDS ORDERED: ISOVUE-370 76% 100ML VIAL As Ordered ONE (17:08)
[2024-11-02 17:49] LABS: BASO # 0.1 10^3/uL (0.0-0.2); BASO % 0.5 % (0.0-1.0); EOS # 0.1 10^3/uL (0.0-0.5); EOS % 0.5 % (0.0-3.0); HEMATOCRIT 36.6 % (42.0-52.0); HEMOGLOBIN 11.7 g/dl (13.5-17.5); LYMPH # 0.9 10^3/uL (1.5-5.0); LYMPH % 7.2 % (24.0-44.0); MEAN CORPUSCULAR HEMOGLOBIN 30.5 pg (27.0-33.0); MEAN CORPUSCULAR VOLUME 95.3 fl (80.0-96.0); MONO # 0.7 10^3/uL (0.0-0.8); MONO % 5.5 % (2.0-8.0); NEUTROPHILS # 10.3 10^3/uL (1.5-8.5); NEUTROPHILS % 85.6 % (36.0-66.0); PLATELET COUNT, AUTOMATED 263 10^3/uL (150-450); RED BLOOD COUNT 3.84 10^6/uL (4.30-6.10); WHITE BLOOD COUNT 12.1 10^3/uL (4.0-10.0)
[2024-11-02 18:01] LABS: INR 1.24; PARTIAL THROMBOPLASTIN TIME 30.9 SECONDS (24.8-34.2); PROTHROMBIN TIME 15.9 SECONDS (12.5-14.5)
[2024-11-02 18:32] LABS: CALCIUM LEVEL 9.5 MG/DL (8.3-10.6); CREATININE FOR GFR 1.66 MG/DL (0.70-1.30); GLOMERULAR FILTRATION RATE 42.1 (>35); POTASSIUM SERUM 5.2 MMOL/L (3.5-5.1)
[2024-11-02 21:12] VITALS: BP 115/56; TEMP 97.6; O2SAT 97
== END 2024-11-02 21:20 | disposition home or self-care (01) ==
LOC: M ED 16:48
DX: R51.9 Headache, unspecified (principal); H53.2 Diplopia; I48.91 Unspecified atrial fibrillation; E11.9 Type 2 diabetes mellitus without complications; J44.9 Chronic obstructive pulmonary disease, unspecified; Z87.19 Personal history of other diseases of the digestive system; Z79.01 Long term (current) use of anticoagulants; Z79.899 Other long term (current) drug therapy
CPT/HCPCS: 70450; 70496; 70498; 71045; 80047; 80048; 85025; 85610; 85730; 86850; 86900; 86901; 93005; 93041; 94760; 99285; Q9967

== ENCOUNTER → 2024-11-20 | Outpatient (CLI) | payer BC, MEDICARE | LOC: M SOG 08:07 | PROVIDERS: ATTEND Physician Assistant | DX: Z53.9 Procedure and treatment not carried out, unspecified reason (principal) ==

== ENCOUNTER → 2024-12-12 | Outpatient (REF) | payer MEDICARE, BC ==
[~2024-12-12] MED LIST changes: +AMIO200T49 PO; -AZEL1SPR3; +AZEL1SPR3 NARES; +BACT800T5 PO; +DIGO62.5 PO; +FINA5TAB2 PO; +FLUC100T3 PO; +GLIP2.5T46 PO; -GLIP2.5T6 PO; +LAGEVRIO PO; +LANTINJ4 SC; +METO1TAB32 PO; +NOVOINJ3 SUBQ; +PRED20TA PO
[2024-12-12 12:20] LABS: BASO % 0.1 % (0.0-1.0); EOS % 0.2 % (0.0-3.0); HEMATOCRIT 39.3 % (42.0-52.0); HEMOGLOBIN 12.7 g/dl (13.5-17.5); LYMPH # 1.3 10^3/uL (1.5-5.0); LYMPH % 7.9 % (24.0-44.0); MEAN CORPUSCULAR HEMOGLOBIN 29.4 pg (27.0-33.0); MEAN CORPUSCULAR HGB CONC 32.3 g/dl (32.0-36.5); MONO # 0.7 10^3/uL (0.0-0.8); MONO % 4.3 % (2.0-8.0); NEUTROPHILS # 14.6 10^3/uL (1.5-8.5); NEUTROPHILS % 86.8 % (36.0-66.0); PLATELET COUNT, AUTOMATED 209 10^3/uL (150-450); RED BLOOD COUNT 4.32 10^6/uL (4.30-6.10); WHITE BLOOD COUNT 16.8 10^3/uL (4.0-10.0)
[2024-12-12 12:34] LABS: ERYTHROCYTE SEDIMENTATION RATE 21 mm/hr (0-20)
[2024-12-12 12:53] LABS: ALBUMIN 2.9 G/DL (3.2-5.2); ALKALINE PHOSPHATASE 126 U/L (40-129); ALT/SGPT 31 U/L (7.0-40); AST/SGOT 15 U/L (<34); BILIRUBIN,DIRECT 0.2 MG/DL (<0.4); BILIRUBIN,TOTAL 0.8 MG/DL (0.3-1.2); BLOOD UREA NITROGEN 41 MG/DL (9-23); C REACTIVE PROTEIN QUANTITATIV 1.69 MG/DL (<1.0); CALCIUM LEVEL 8.9 MG/DL (8.3-10.6); CARBON DIOXIDE LEVEL 25 MMOL/L (20-31); CHLORIDE LEVEL 104 MMOL/L (98-107); CREATININE FOR GFR 0.97 MG/DL (0.70-1.30); GLOMERULAR FILTRATION RATE > 60.0 (>35); GLUCOSE, FASTING 191 MG/DL (74-106); POTASSIUM SERUM 4.7 MMOL/L (3.5-5.1); SODIUM LEVEL 137 MMOL/L (136-145)
[2024-12-12 12:55] LABS: HEPATITIS B SURFACE ANTIBODY NEGATIVE (POSITIVE)
[2024-12-12 13:07] LABS: HEPATITIS B SURFACE ANTIGEN NEGATIVE (NEGATIVE)
[2024-12-12 13:28] LABS: HEPATITIS C VIRUS ABY INDEX 0.07 INDEX (<0.8)
== END ==
LOC: M LAB REF 11:46
PROVIDERS: ATTEND Internal Medicine
DX: M31.6 Other giant cell arteritis (principal); Z11.59 Encounter for screening for other viral diseases

== ENCOUNTER → 2024-12-13 | Outpatient (CLI) | payer MEDICARE, BC ==
[~2024-12-13] MED LIST changes: -AMIO200T49 PO; +AZEL1SPR3; -AZEL1SPR3 NARES; -BACT800T5 PO; -DIGO62.5 PO; -FINA5TAB2 PO; -FLUC100T3 PO; -LAGEVRIO PO; -LANTINJ4 SC; -METO1TAB32 PO; -NOVOINJ3 SUBQ; -PRED20TA PO
== END ==
LOC: M WHC 09:50
PROVIDERS: ATTEND Internal Medicine
DX: Z11.59 Encounter for screening for other viral diseases (principal); Z79.52 Long term (current) use of systemic steroids

== ENCOUNTER → 2024-12-14 | Outpatient (REF) | payer MEDICARE, BC | LOC: M LAB REF 11:34 | PROVIDERS: ATTEND Internal Medicine | DX: M31.6 Other giant cell arteritis (principal); Z11.59 Encounter for screening for other viral diseases ==

== ENCOUNTER 2024-12-22 08:56 | Inpatient (IN) | payer MEDICARE, BC ==
[~2024-12-22] VITALS: Ht 175.3 cm; Wt 58.7 kg
[~2024-12-22 08:56] MED LIST changes: -AZEL1SPR3; +AZEL1SPR3 NARES
[2024-12-22] MEDS ORDERED: DIGOXIN 0.0625MG PER 1/2TABLET PO SCH (09:00)
[2024-12-22] MEDS ORDERED: NOVOINJ3 SUBQ (09:10)
[2024-12-22 09:31] LABS: ABG BASE EXCESS -2.7 (-2.0-2.0); ABG HCO3 17.2 MMOL/L (22.0-26.0); ABG O2 SATURATION 96.1 % (95.0-99.0); ABG PARTIAL PRESSURE CO2 20.4 mmHg (35.0-45.0); ABG STANDARD HCO3 22.2 MMOL/L. (22.0-26.0); ABG TOTAL CO2 17.8 MMOL/L (23.0-31.0); ABG pH (ARTERIAL) 7.543 UNITS (7.350-7.450)
[2024-12-22 10:18] LABS: BASO % 0.2 % (0.0-1.0); EOS % 0.1 % (0.0-3.0); HEMATOCRIT 45.4 % (42.0-52.0); HEMOGLOBIN 14.7 g/dl (13.5-17.5); LYMPH % 7.4 % (24.0-44.0); MEAN CORPUSCULAR HEMOGLOBIN 29.4 pg (27.0-33.0); MEAN CORPUSCULAR HGB CONC 32.4 g/dl (32.0-36.5); MEAN CORPUSCULAR VOLUME 90.8 fl (80.0-96.0); MONO # 0.5 10^3/uL (0.0-0.8); MONO % 3.8 % (2.0-8.0); NEUTROPHILS # 11.7 10^3/uL (1.5-8.5); NEUTROPHILS % 87.5 % (36.0-66.0); PLATELET COUNT, AUTOMATED 174 10^3/uL (150-450); WHITE BLOOD COUNT 13.3 10^3/uL (4.0-10.0)
[2024-12-22 10:34] LABS: CK-MB VALUE MASS 4.3 NG/ML (<3.6)
[2024-12-22 10:36] LABS: ALBUMIN 2.9 G/DL (3.2-5.2); ALKALINE PHOSPHATASE 103 U/L (40-129); ALT/SGPT 41 U/L (7.0-40); AST/SGOT 19 U/L (<34); BILIRUBIN,DIRECT 0.2 MG/DL (<0.4); BLOOD UREA NITROGEN 45 MG/DL (9-23); CALCIUM LEVEL 9.3 MG/DL (8.3-10.6); CARBON DIOXIDE LEVEL 22 MMOL/L (20-31); CHLORIDE LEVEL 100 MMOL/L (98-107); CREATININE FOR GFR 1.13 MG/DL (0.70-1.30); GLOMERULAR FILTRATION RATE > 60.0 (>35); GLUCOSE, FASTING 111 MG/DL (74-106); SODIUM LEVEL 137 MMOL/L (136-145); TOTAL PROTEIN 6.1 G/DL (5.7-8.2)
[2024-12-22 10:38] LABS: CPK CREATINE PHOSPHOKINASE 54 U/L (46-171); MB/CK RELATIVE INDEX 7.96 (< OR =4); THYROID STIMULATING HORMONE 1.464 uIU/ML (0.55-4.78)
[2024-12-22] MEDS ORDERED: ISOVUE-370 76% 100ML VIAL As Ordered ONE (11:37)
[2024-12-22] MEDS: NS 500 ML IV ONE (12:14)
[2024-12-22 13:19] LABS: CK-MB VALUE MASS 2.4 NG/ML (<3.6)
[2024-12-22] MEDS: cefTRIAXone SOD 2 GM in DEXTROSE 5% (D5W) ADV/MINI-BAG 50 ML IV ONE (13:20)
[2024-12-22 13:31] LABS: MB/CK RELATIVE INDEX 5.1 (< OR =4)
[2024-12-22 13:57] LABS: KETONE, URINE AUTO RFX NEGATIVE (NEGATIVE); LEUKOCYTE ESTERASE UR AUTO RFX NEGATIVE (NEGATIVE); MUCUS, URINE RFX SMALL (NEGATIVE); NITRITE, URINE AUTO RFX NEGATIVE (NEGATIVE); RBC, URINE AUTO RFX 2 /HPF (0-3); SQUAM EPITHELIAL CELL UR AURFX 0 /HPF (0-6); WBC, URINE AUTO RFX 0 /HPF (0-3)
[2024-12-22] MEDS ORDERED: LAGEVRIO PO (14:26)
[2024-12-22] MEDS ORDERED: LANTINJ4 SC (14:26)
[2024-12-22] MEDS ORDERED: BACT800T5 PO (14:26)
[2024-12-22] MEDS ORDERED: PRED20TA PO (14:26)
[2024-12-22] MEDS ORDERED: DIGO62.5 PO (14:26)
[2024-12-22] MEDS ORDERED: HOME MED LIST COMPLETE! XX SCH (14:30)
[2024-12-22] MEDS: NS 0.9% IV ONE (14:38)
[2024-12-22] MEDS: AZITHROMYCIN 250MG TABLET PO ONE (14:38)
[2024-12-22] MEDS: [UNRECOGNIZED DRUG - OTHER] IV ONE (14:38)
[2024-12-22] MEDS ORDERED: ALBUTEROL SULFATE 2.5MG/0.5ML INH CONCENTRATE NEB SOLN NEB PRN (14:45)
[2024-12-22] MEDS: HYDROCORTISONE 100MG/2ML VIAL IV ONE (14:49)
[2024-12-22] MEDS ORDERED: DEXTROSE 50% 50ML SYRINGE IV PRN (15:05)
[2024-12-22] MEDS ORDERED: GLUCAGON INJ 1MG VIAL SC PRN (15:05)
[2024-12-22 15:09] LABS: PROCALCITONIN 0.48 ng/ml
[2024-12-22] MEDS ORDERED: NITROGLYCERIN 0.4MG SUBL TABLET SL PRN (15:35)
[2024-12-22] MEDS: IPRATROPIUM 0.5MG/ALBUTEROL 2.5MG INH SOL UD 3ML NEB SCH (16:15)
[2024-12-22 16:36] LABS: INR 1.29; PARTIAL THROMBOPLASTIN TIME 32.8 SECONDS (24.8-34.2); PROTHROMBIN TIME 16.3 SECONDS (12.5-14.5)
[2024-12-22 16:43] LABS: CK-MB VALUE MASS 2.2 NG/ML (<3.6)
[2024-12-22 16:46] LABS: MB/CK RELATIVE INDEX 5.36 (< OR =4)
[2024-12-22 16:56] LABS: PROCALCITONIN 0.61 ng/ml
[2024-12-22] MEDS: AMIODARONE HCL 150 MG in IV 1 EA IV ONE (17:06)
[2024-12-22 17:17] LABS: DIGOXIN LEVEL 0.4 NG/ML (0.8-2.0)
[2024-12-22] MEDS: AMIODARONE HCL 360 MG in IV 1 EA IV SCH ×2 (17:19→22:53)
[2024-12-22] MEDS: INSULIN LISPRO (NovoLOG) PER UNIT SC SCH ×2 (17:30→20:50)
[2024-12-22] MEDS: NS (Normal Saline) 0.9% 1,000 ML IV SCH (17:58)
[2024-12-22] MEDS: ATORVASTATIN 20 MG TAB PO SCH (18:00)
[2024-12-22] MEDS: CLOPIDOGREL 75 MG TAB PO SCH (18:00)
[2024-12-22] MEDS: FORMOTEROL FUMARATE 20 MCG/2 ML INHALATION SOLUTION (PERFOROMIST) INH SCH (20:00)
[2024-12-22 20:30] VITALS: BP 110/60; TEMP 100.5; O2SAT 100
[2024-12-22] MEDS: REMDESIVIR 200 MG in NS 250 ML IV ONE (20:34)
[2024-12-22] MEDS ORDERED: NOREPINEPHRINE BITARTRATE 16 MG in D5W 484 ML IV SCH (20:35)
[2024-12-22] MEDS: DOXYCYCLINE HYCLATE 100MG TABLET PO SCH (20:48)
[2024-12-22] MEDS: guaiFENesin ER TABLET 600 MG TAB PO SCH (20:49)
[2024-12-22] MEDS: APIXABAN 5 MG TAB (ELIQUIS) PO SCH (20:49)
[2024-12-22] MEDS: DIGOXIN 0.0625MG PER 1/2TABLET PO SCH (20:49)
[2024-12-22] MEDS: NS (Normal Saline) 0.9% 1,000 ML IV ONE (20:50)
[2024-12-22] MEDS: LanTUS (INSULIN GLARGINE INJ) 1 UNITS/0.01 ML SC SCH (20:50)
[2024-12-22 21:00] VITALS: BP 88/52; O2SAT 84
[2024-12-22] MEDS ORDERED: BACTRIM 160MG/800MG DS TAB PO SCH (21:00)
[2024-12-22] MEDS: NOREPINEPHRINE 4MG IN D5 250ML 4 MG in IV 1 EA IV SCH (21:05)
[2024-12-22 22:00] VITALS: BP 100/57; O2SAT 98
[2024-12-22] MEDS: HYDROCORTISONE 100MG/2ML VIAL IV SCH (22:48)
[2024-12-22 23:00] VITALS: BP 95/53; O2SAT 98
[2024-12-22] MEDS ORDERED: HYDROCORTISONE 100MG/2ML VIAL IV SCH (23:00)
[2024-12-23] VITALS (18 sets, daily range): BP systolic 91–121; BP diastolic 50–78; TEMP 96.8–98.9; O2SAT 96–100
[2024-12-23 06:11] LABS: HEMATOCRIT 34.6 % (42.0-52.0); MEAN CORPUSCULAR HEMOGLOBIN 29.1 pg (27.0-33.0); MEAN CORPUSCULAR HGB CONC 31.5 g/dl (32.0-36.5); MEAN CORPUSCULAR VOLUME 92.3 fl (80.0-96.0); PLATELET COUNT, AUTOMATED 128 10^3/uL (150-450); RED BLOOD COUNT 3.75 10^6/uL (4.30-6.10); WHITE BLOOD COUNT 9.4 10^3/uL (4.0-10.0)
[2024-12-23 06:12] LABS: HEMOGLOBIN 10.9 g/dl (13.5-17.5)
[2024-12-23 06:36] LABS: ALBUMIN 1.9 G/DL (3.2-5.2); ALKALINE PHOSPHATASE 68 U/L (40-129); ALT/SGPT 29 U/L (7.0-40); AST/SGOT 18 U/L (<34); BILIRUBIN,TOTAL 0.3 MG/DL (0.3-1.2); BLOOD UREA NITROGEN 28 MG/DL (9-23); CALCIUM LEVEL 7.5 MG/DL (8.3-10.6); CARBON DIOXIDE LEVEL 22 MMOL/L (20-31); CHLORIDE LEVEL 108 MMOL/L (98-107); GLOMERULAR FILTRATION RATE > 60.0 (>35); GLUCOSE, FASTING 230 MG/DL (74-106); MAGNESIUM LEVEL 1.5 MG/DL (1.8-2.4); PHOSPHORUS LEVEL 3.4 MG/DL (2.4-5.1); POTASSIUM SERUM 4.5 MMOL/L (3.5-5.1); SODIUM LEVEL 138 MMOL/L (136-145); TOTAL PROTEIN 4.3 G/DL (5.7-8.2)
[2024-12-23] MEDS: TIOTROPIUM BROM 2.5MCG/ACTUATION 4GM INH IH SCH (07:35)
[2024-12-23] MEDS: MAGNESIUM OXIDE 400MG TAB (MAG-OX) PO ONE (08:33)
[2024-12-23] MEDS: PANTOPRAZOLE 40MG TAB (PROTONIX) PO SCH (08:33)
[2024-12-23] MEDS: predniSONE 20 MG TAB PO SCH (08:38)
[2024-12-23] MEDS ORDERED: ENOXAPARIN 40MG/0.4ML SYRINGE (J1650 PER 10MG) SC SCH (09:00)
[2024-12-23] MEDS: atenoloL 50 MG TAB PO SCH (11:41)
[2024-12-23] MEDS: BACTRIM 80MG/400MG TAB PO SCH (12:36)
[2024-12-23] MEDS: cefTRIAXone SOD 1 GM in DEXTROSE 5% (D5W) ADV/MINI-BAG 50 ML IV SCH (12:37)
[2024-12-23] MEDS: LanTUS (INSULIN GLARGINE INJ) 1 UNITS/0.01 ML SC SCH ×2 (12:50→20:42)
[2024-12-23] MEDS: METOPROLOL SUCC *XL* 25MG TAB (TopROL *XL*) PO SCH (13:08)
[2024-12-23] MEDS: MAG SULF 1GM/100ML (MAG RUN) 1 GM in IV 1 EA IV SCH (14:27)
[2024-12-23] MEDS: AMIODARONE 200 MG TAB (PACERONE) PO SCH (14:27)
[2024-12-23] MEDS: REMDESIVIR 100 MG in NS 100 ML IV SCH (18:25)
[2024-12-23] MEDS: METOPROLOL TART 12.5 MG PER 1/2 TAB PO ONE (20:17)
[2024-12-23] MEDS ORDERED: LanTUS (INSULIN GLARGINE INJ) 1 UNITS/0.01 ML SC SCH (21:00)
[2024-12-24] VITALS (7 sets, daily range): BP systolic 117–133; BP diastolic 56–64; TEMP 96.1–97.3; O2SAT 90–99
[2024-12-24 04:40] LABS: HEMATOCRIT 33.1 % (42.0-52.0); HEMOGLOBIN 10.8 g/dl (13.5-17.5); MEAN CORPUSCULAR HEMOGLOBIN 29.9 pg (27.0-33.0); MEAN CORPUSCULAR HGB CONC 32.6 g/dl (32.0-36.5); MEAN CORPUSCULAR VOLUME 91.7 fl (80.0-96.0); PLATELET COUNT, AUTOMATED 163 10^3/uL (150-450); RED BLOOD COUNT 3.61 10^6/uL (4.30-6.10); WHITE BLOOD COUNT 11.2 10^3/uL (4.0-10.0)
[2024-12-24 04:58] LABS: ALBUMIN 1.9 G/DL (3.2-5.2); ALKALINE PHOSPHATASE 86 U/L (40-129); ALT/SGPT 30 U/L (7.0-40); AST/SGOT 18 U/L (<34); BILIRUBIN,TOTAL 0.3 MG/DL (0.3-1.2); BLOOD UREA NITROGEN 28 MG/DL (9-23); CARBON DIOXIDE LEVEL 20 MMOL/L (20-31); CHLORIDE LEVEL 111 MMOL/L (98-107); CREATININE FOR GFR 1.12 MG/DL (0.70-1.30); GLOMERULAR FILTRATION RATE > 60.0 (>35); GLUCOSE, FASTING 189 MG/DL (74-106); POTASSIUM SERUM 3.9 MMOL/L (3.5-5.1); SODIUM LEVEL 141 MMOL/L (136-145); TOTAL PROTEIN 4.5 G/DL (5.7-8.2)
[2024-12-24 11:12] LABS: PROCALCITONIN 0.37 ng/ml
[2024-12-24] MEDS: cefTRIAXone SOD 2 GM in DEXTROSE 5% (D5W) ADV/MINI-BAG 50 ML IV SCH (12:28)
[2024-12-24] MEDS: FUROSEMIDE 20MG/2ML VIAL IV ONE (12:29)
[2024-12-25] VITALS (11 sets, daily range): BP systolic 113–162; BP diastolic 56–91; TEMP 97–98.1; O2SAT 95–100
[2024-12-25 05:16] LABS: HEMATOCRIT 36.8 % (42.0-52.0); HEMOGLOBIN 11.8 g/dl (13.5-17.5); MEAN CORPUSCULAR HEMOGLOBIN 29.9 pg (27.0-33.0); MEAN CORPUSCULAR HGB CONC 32.1 g/dl (32.0-36.5); MEAN CORPUSCULAR VOLUME 93.4 fl (80.0-96.0); PLATELET COUNT, AUTOMATED 234 10^3/uL (150-450); RED BLOOD COUNT 3.94 10^6/uL (4.30-6.10); WHITE BLOOD COUNT 18.6 10^3/uL (4.0-10.0)
[2024-12-25 05:39] LABS: ALBUMIN 2.2 G/DL (3.2-5.2); BILIRUBIN,TOTAL 0.4 MG/DL (0.3-1.2); CALCIUM LEVEL 7.9 MG/DL (8.3-10.6); CREATININE FOR GFR 1.34 MG/DL (0.70-1.30); GLOMERULAR FILTRATION RATE 51.9 (>35); POTASSIUM SERUM 3.8 MMOL/L (3.5-5.1)
[2024-12-25] MEDS ORDERED: CEFEPIME HCL 1 GM in DEXTROSE 5% (D5W) ADV/MINI-BAG 50 ML IV SCH (07:10)
[2024-12-25] MEDS: CEFEPIME HCL 2 GM in DEXTROSE 5% (D5W) ADV/MINI-BAG 50 ML IV SCH (08:10)
[2024-12-25] MEDS ORDERED: PILL CUTTER 1 EACH XX PRN (09:15)
[2024-12-25] MEDS: GLUCOSE 4 GM CHEW PO PRN (11:25)
[2024-12-25] MEDS: aMILoride 5 MG TAB PO SCH (11:26)
[2024-12-25] MEDS: FUROSEMIDE 40 MG TAB PO SCH (11:27)
[2024-12-25] MEDS: METOPROLOL SUCC *XL* 12.5MG PER 1/2 TAB (TopROL *XL*) PO ONE (11:31)
[2024-12-25] MEDS: MICAFUNGIN SODIUM 100 MG in DEXTROSE 5% (D5W) MINI-BAG PLU 100 ML IV SCH (15:29)
[2024-12-25 17:19] LABS: C REACTIVE PROTEIN QUANTITATIV 9.03 MG/DL (<1.0)
[2024-12-25 17:30] LABS: ERYTHROCYTE SEDIMENTATION RATE 24 mm/hr (0-20)
[2024-12-25] MEDS: LanTUS (INSULIN GLARGINE INJ) 1 UNITS/0.01 ML SC SCH (20:29)
[2024-12-26 04:00] VITALS: BP 119/65; TEMP 97.4; O2SAT 97
[2024-12-26 07:19] LABS: HEMATOCRIT 37.1 % (42.0-52.0); HEMOGLOBIN 12.3 g/dl (13.5-17.5); MEAN CORPUSCULAR HEMOGLOBIN 29.7 pg (27.0-33.0); MEAN CORPUSCULAR HGB CONC 33.2 g/dl (32.0-36.5); MEAN CORPUSCULAR VOLUME 89.6 fl (80.0-96.0); PLATELET COUNT, AUTOMATED 240 10^3/uL (150-450); RED BLOOD COUNT 4.14 10^6/uL (4.30-6.10)
[2024-12-26 07:47] LABS: ALBUMIN 2.4 G/DL (3.2-5.2); BILIRUBIN,TOTAL 0.6 MG/DL (0.3-1.2); CALCIUM LEVEL 8.1 MG/DL (8.3-10.6); CREATININE FOR GFR 1.19 MG/DL (0.70-1.30); GLOMERULAR FILTRATION RATE 59.9 (>35); POTASSIUM SERUM 3.9 MMOL/L (3.5-5.1)
[2024-12-26 08:00] VITALS: BP 117/61; TEMP 98.3; O2SAT 95
[2024-12-26] MEDS ORDERED: predniSONE 20 MG TAB PO SCH (09:00)
[2024-12-26] MEDS: METOPROLOL SUCC *XL* 25MG TAB (TopROL *XL*) PO SCH (09:08)
[2024-12-26] MEDS: predniSONE 20 MG TAB PO SCH (09:10)
[2024-12-26] MEDS: FUROSEMIDE 20MG/2ML VIAL IV ONE (12:54)
[2024-12-26 16:00] VITALS: BP 109/59; TEMP 97.3; O2SAT 96
[2024-12-26] MEDS: QUEtiapine FUMARATE 12.5 MG HALF-TAB PO SCH (17:00)
[2024-12-26 19:26] VITALS: BP 109/56; TEMP 98.2; O2SAT 95
[2024-12-26] MEDS: cefTRIAXone SOD 2 GM in DEXTROSE 5% (D5W) ADV/MINI-BAG 50 ML IV SCH (20:35)
[2024-12-27] VITALS (9 sets, daily range): BP systolic 101–134; BP diastolic 54–65; TEMP 96.8–98.6; O2SAT 95–100
[2024-12-27 05:32] LABS: HEMATOCRIT 36.5 % (42.0-52.0); HEMOGLOBIN 11.8 g/dl (13.5-17.5); MEAN CORPUSCULAR HGB CONC 32.3 g/dl (32.0-36.5); MEAN CORPUSCULAR VOLUME 89.7 fl (80.0-96.0); PLATELET COUNT, AUTOMATED 229 10^3/uL (150-450); RED BLOOD COUNT 4.07 10^6/uL (4.30-6.10); WHITE BLOOD COUNT 11.8 10^3/uL (4.0-10.0)
[2024-12-27 05:50] LABS: CREATININE FOR GFR 1.29 MG/DL (0.70-1.30); GLOMERULAR FILTRATION RATE 54.3 (>35); POTASSIUM SERUM 3.7 MMOL/L (3.5-5.1)
[2024-12-27 06:25] LABS: LYMPHOCYTES 2 % (16-44); MONOCYTES 4 % (0-5); NEUTROPHILS 94 % (28-66)
[2024-12-27 06:26] LABS: ANISOCYTOSIS 1+; BURR CELLS 1+; PLATELET ESTIMATE NORMAL (NORMAL)
[2024-12-27 06:27] LABS: POIKILOCYTOSIS 1+
[2024-12-27] MEDS: predniSONE 20 MG TAB PO SCH (08:43)
[2024-12-27] MEDS ORDERED: FLUCONAZOLE 100 MG TAB PO SCH (09:00)
[2024-12-27] MEDS: MICAFUNGIN SODIUM 100 MG in DEXTROSE 5% (D5W) MINI-BAG PLU 100 ML IV SCH (14:52)
[2024-12-27] MEDS ORDERED: fentaNYL 100 MCG/2 ML INJECTION As Ordered ONE (16:00)
[2024-12-27] MEDS ORDERED: LIDOCAINE 2% 100MG/5ML SDV (FOR ANES.) As Ordered ONE (16:00)
[2024-12-27] MEDS ORDERED: propofoL 200 MG/20 ML VIAL As Ordered ONE (16:00)
[2024-12-27] MEDS: CETACAINE SPRAY 5GM As Ordered ONE (17:20)
[2024-12-27] MEDS: SALMETEROL DISKUS 50MCG INHALER (SEREVENT) INH SCH (21:00)
[2024-12-28] MEDS ORDERED: PERMETHRIN 5% CREAM 60 GM TOP SCH
[2024-12-28 04:20] VITALS: BP 112/56; TEMP 97.5; O2SAT 96
[2024-12-28 06:16] LABS: BASO % 0.2 % (0.0-1.0); HEMATOCRIT 35.8 % (42.0-52.0); HEMOGLOBIN 11.9 g/dl (13.5-17.5); LYMPH # 0.4 10^3/uL (1.5-5.0); LYMPH % 3.3 % (24.0-44.0); MEAN CORPUSCULAR HEMOGLOBIN 29.6 pg (27.0-33.0); MEAN CORPUSCULAR HGB CONC 33.2 g/dl (32.0-36.5); MEAN CORPUSCULAR VOLUME 89.1 fl (80.0-96.0); MONO # 0.5 10^3/uL (0.0-0.8); MONO % 3.9 % (2.0-8.0); NEUTROPHILS # 10.9 10^3/uL (1.5-8.5); PLATELET COUNT, AUTOMATED 233 10^3/uL (150-450); RED BLOOD COUNT 4.02 10^6/uL (4.30-6.10)
[2024-12-28 06:29] LABS: CALCIUM LEVEL 7.8 MG/DL (8.3-10.6); CREATININE FOR GFR 1.24 MG/DL (0.70-1.30)
[2024-12-28] MEDS: TORSEMIDE 20 MG TAB PO SCH (08:10)
[2024-12-28 08:15] VITALS: BP 130/71; TEMP 97.8; O2SAT 97
[2024-12-28 16:25] VITALS: BP 135/69; TEMP 97.3; O2SAT 93
[2024-12-28 19:19] LABS: IMMUNOGLOBULIN M 26.6 MG/DL (50-300)
[2024-12-28 20:03] VITALS: BP 127/67; TEMP 97.5; O2SAT 94
[2024-12-28] MEDS: PERMETHRIN 5% CREAM 60 GM TOP ONE (22:09)
[2024-12-29] MEDS ORDERED: PERMETHRIN 5% CREAM 60 GM TOP SCH
[2024-12-29 03:04] VITALS: BP 118/66; TEMP 97.5; O2SAT 96
[2024-12-29 06:25] LABS: BASO % 0.1 % (0.0-1.0); HEMATOCRIT 39.2 % (42.0-52.0); HEMOGLOBIN 12.3 g/dl (13.5-17.5); LYMPH # 0.7 10^3/uL (1.5-5.0); LYMPH % 5.2 % (24.0-44.0); MEAN CORPUSCULAR HEMOGLOBIN 28.7 pg (27.0-33.0); MEAN CORPUSCULAR HGB CONC 31.4 g/dl (32.0-36.5); MEAN CORPUSCULAR VOLUME 91.6 fl (80.0-96.0); MONO # 0.5 10^3/uL (0.0-0.8); MONO % 3.6 % (2.0-8.0); NEUTROPHILS # 12.8 10^3/uL (1.5-8.5); NEUTROPHILS % 89.3 % (36.0-66.0); PLATELET COUNT, AUTOMATED 291 10^3/uL (150-450); RED BLOOD COUNT 4.28 10^6/uL (4.30-6.10); WHITE BLOOD COUNT 14.3 10^3/uL (4.0-10.0)
[2024-12-29 06:44] LABS: CALCIUM LEVEL 8.2 MG/DL (8.3-10.6); CREATININE FOR GFR 1.46 MG/DL (0.70-1.30); GLOMERULAR FILTRATION RATE 46.8 (>35); POTASSIUM SERUM 3.8 MMOL/L (3.5-5.1)
[2024-12-29] MEDS: [UNRECOGNIZED DRUG - OTHER] XX SCH (08:33)
[2024-12-29 11:58] LABS: C REACTIVE PROTEIN QUANTITATIV 3.35 MG/DL (<1.0)
[2024-12-29 12:00] VITALS: BP 116/64; TEMP 97.9; O2SAT 93
[2024-12-29] MEDS: SODIUM CHLORIDE 0.9% INJ 10 ML SYR IV SCH (18:22)
[2024-12-29 20:09] VITALS: BP 114/63; TEMP 97.3; O2SAT 94
[2024-12-30 03:00] VITALS: BP 110/64; TEMP 97.7; O2SAT 97
[2024-12-30 06:16] LABS: BASO % 0.2 % (0.0-1.0); EOS % 0.1 % (0.0-3.0); HEMATOCRIT 38.6 % (42.0-52.0); HEMOGLOBIN 12.7 g/dl (13.5-17.5); LYMPH # 0.7 10^3/uL (1.5-5.0); LYMPH % 4.4 % (24.0-44.0); MEAN CORPUSCULAR HEMOGLOBIN 29.2 pg (27.0-33.0); MEAN CORPUSCULAR HGB CONC 32.9 g/dl (32.0-36.5); MEAN CORPUSCULAR VOLUME 88.7 fl (80.0-96.0); MONO # 0.5 10^3/uL (0.0-0.8); MONO % 3.5 % (2.0-8.0); NEUTROPHILS % 89.9 % (36.0-66.0); PLATELET COUNT, AUTOMATED 273 10^3/uL (150-450); RED BLOOD COUNT 4.35 10^6/uL (4.30-6.10); WHITE BLOOD COUNT 15.6 10^3/uL (4.0-10.0)
[2024-12-30 06:31] LABS: CALCIUM LEVEL 8.2 MG/DL (8.3-10.6); CREATININE FOR GFR 1.51 MG/DL (0.70-1.30); POTASSIUM SERUM 3.9 MMOL/L (3.5-5.1)
[2024-12-30] MEDS: FLUCONAZOLE 100 MG TAB PO SCH (08:13)
[2024-12-30] MEDS: AMIODARONE 200 MG TAB (PACERONE) PO SCH (12:32)
[2024-12-30 12:33] VITALS: TEMP 97.7; O2SAT 97
[2024-12-30 20:29] VITALS: BP 104/55; TEMP 97.7; O2SAT 94
[2024-12-31 04:53] VITALS: BP 122/67; TEMP 97.7; O2SAT 98
[2024-12-31 06:26] LABS: BASO # 0.1 10^3/uL (0.0-0.2); BASO % 0.3 % (0.0-1.0); HEMATOCRIT 40.9 % (42.0-52.0); HEMOGLOBIN 13.4 g/dl (13.5-17.5); LYMPH # 1.2 10^3/uL (1.5-5.0); MEAN CORPUSCULAR HEMOGLOBIN 29.1 pg (27.0-33.0); MEAN CORPUSCULAR HGB CONC 32.8 g/dl (32.0-36.5); MEAN CORPUSCULAR VOLUME 88.9 fl (80.0-96.0); MONO # 0.7 10^3/uL (0.0-0.8); MONO % 3.4 % (2.0-8.0); NEUTROPHILS # 16.9 10^3/uL (1.5-8.5); NEUTROPHILS % 88.1 % (36.0-66.0); PLATELET COUNT, AUTOMATED 322 10^3/uL (150-450); WHITE BLOOD COUNT 19.2 10^3/uL (4.0-10.0)
[2024-12-31 06:55] LABS: PROCALCITONIN 0.23 ng/ml
[2024-12-31 06:56] LABS: CALCIUM LEVEL 8.7 MG/DL (8.3-10.6); CREATININE FOR GFR 1.63 MG/DL (0.70-1.30); POTASSIUM SERUM 5.3 MMOL/L (3.5-5.1)
[2024-12-31 13:00] VITALS: BP 108/54; TEMP 97.7; O2SAT 96
[2024-12-31 20:15] VITALS: BP 111/61; TEMP 97.7; O2SAT 94
[2025-01-01 04:37] VITALS: BP 107/59; TEMP 97.7; O2SAT 97
[2025-01-01 05:45] LABS: BASO # 0.1 10^3/uL (0.0-0.2); BASO % 0.3 % (0.0-1.0); HEMATOCRIT 40.6 % (42.0-52.0); HEMOGLOBIN 13.5 g/dl (13.5-17.5); LYMPH % 5.4 % (24.0-44.0); MEAN CORPUSCULAR HEMOGLOBIN 29.3 pg (27.0-33.0); MEAN CORPUSCULAR HGB CONC 33.3 g/dl (32.0-36.5); MEAN CORPUSCULAR VOLUME 88.1 fl (80.0-96.0); MONO # 0.6 10^3/uL (0.0-0.8); MONO % 3.1 % (2.0-8.0); NEUTROPHILS % 88.9 % (36.0-66.0); PLATELET COUNT, AUTOMATED 289 10^3/uL (150-450); RED BLOOD COUNT 4.61 10^6/uL (4.30-6.10); WHITE BLOOD COUNT 19.1 10^3/uL (4.0-10.0)
[2025-01-01 06:17] LABS: CALCIUM LEVEL 8.5 MG/DL (8.3-10.6); CREATININE FOR GFR 1.98 MG/DL (0.70-1.30); GLOMERULAR FILTRATION RATE 32.5 (>35); POTASSIUM SERUM 4.3 MMOL/L (3.5-5.1)
[2025-01-01 12:00] VITALS: BP 88/50; TEMP 97.5; O2SAT 95
[2025-01-01] MEDS: NS 500 ML IV ONE (12:54)
[2025-01-01 13:53] VITALS: BP 94/52
[2025-01-01] MEDS: cefTRIAXone SOD 2 GM in DEXTROSE 5% (D5W) ADV/MINI-BAG 50 ML IV ONE (14:01)
[2025-01-01 20:32] VITALS: BP 95/53; TEMP 97.2; O2SAT 96
[2025-01-01 21:21] VITALS: BP_SYST 92; BP_DIAS 53; BP_DIAS 56
[2025-01-01] MEDS: ACETAMINOPHEN 325 MG TAB PO PRN (22:06)
[2025-01-01 23:41] VITALS: BP 98/62; TEMP 97.2; O2SAT 98
[2025-01-02] VITALS (7 sets, daily range): BP systolic 86–104; BP diastolic 48–64; TEMP 97.3–97.8; O2SAT 90–99
[2025-01-02 05:32] LABS: BASO # 0.1 10^3/uL (0.0-0.2); BASO % 0.3 % (0.0-1.0); HEMOGLOBIN 13.6 g/dl (13.5-17.5); LYMPH # 0.8 10^3/uL (1.5-5.0); LYMPH % 4.5 % (24.0-44.0); MEAN CORPUSCULAR HEMOGLOBIN 29.1 pg (27.0-33.0); MEAN CORPUSCULAR HGB CONC 32.4 g/dl (32.0-36.5); MEAN CORPUSCULAR VOLUME 89.7 fl (80.0-96.0); MONO # 0.7 10^3/uL (0.0-0.8); MONO % 3.9 % (2.0-8.0); NEUTROPHILS # 15.4 10^3/uL (1.5-8.5); NEUTROPHILS % 88.5 % (36.0-66.0); PLATELET COUNT, AUTOMATED 320 10^3/uL (150-450); RED BLOOD COUNT 4.68 10^6/uL (4.30-6.10); WHITE BLOOD COUNT 17.4 10^3/uL (4.0-10.0)
[2025-01-02 05:53] LABS: C REACTIVE PROTEIN QUANTITATIV 1.17 MG/DL (<1.0); CALCIUM LEVEL 8.8 MG/DL (8.3-10.6); CREATININE FOR GFR 2.16 MG/DL (0.70-1.30); GLOMERULAR FILTRATION RATE 29.3 (>35); POTASSIUM SERUM 4.6 MMOL/L (3.5-5.1)
[2025-01-02] MEDS: APIXABAN 2.5 MG TAB (ELIQUIS) PO SCH (08:07)
[2025-01-02] MEDS: NS 500 ML IV ONE (08:07)
[2025-01-02 09:07] LABS: QuantiFERON-TB Gold Plus NEGATIVE (NEGATIVE)
[2025-01-02] MEDS: cefTRIAXone SOD 2 GM in DEXTROSE 5% (D5W) ADV/MINI-BAG 50 ML IV SCH (09:36)
[2025-01-02] MEDS: MIDODRINE 2.5 MG TAB PO SCH (11:56)
[2025-01-02 17:10] LABS: CREATININE,RANDOM URINE 31.8 MG/DL
[2025-01-02 17:25] LABS: APPEARANCE, URINE CLEAR (CLEAR); BACTERIA, URINE AUTO NEGATIVE (NEGATIVE); BILIRUBIN, URINE AUTO NEGATIVE (NEGATIVE); BLOOD, URINE BLOOD NEGATIVE (NEGATIVE); COLOR, URINE YELLOW (YELLOW); GLUCOSE, URINE (UA) AUTO 3+ mg/dL (NEGATIVE); KETONE, URINE AUTO NEGATIVE (NEGATIVE); LEUKOCYTE ESTERASE, URINE AUTO NEGATIVE (NEGATIVE); NITRITE, URINE AUTO NEGATIVE (NEGATIVE); PROTEIN, URINE AUTO NEGATIVE (NEGATIVE); RBC, URINE AUTO 0 /HPF (0-3); SQUAMOUS EPITHELIAL CELL UR AU 0 /HPF (0-6); UROBILINOGEN, URINE AUTO 0.2 mg/dL (0.0-2.0); WBC, URINE AUTO 3 /HPF (0-3)
[2025-01-02] MEDS: MIDODRINE 5 MG TAB PO ONE (21:45)
[2025-01-03] VITALS (7 sets, daily range): BP systolic 104–121; BP diastolic 53–67; TEMP 97.3–97.7; O2SAT 90–98
[2025-01-03] MEDS: CHLORASEPTIC SPRAY MT PRN (01:54)
[2025-01-03] MEDS: SODIUM CHLORIDE 0.9% INJ 10 ML SYR IV PRN (04:16)
[2025-01-03] MEDS: LIDOCAINE 2% 5ML JELLY UROJET TOP ONE (06:00)
[2025-01-03 07:38] LABS: BASO % 0.2 % (0.0-1.0); HEMATOCRIT 34.8 % (42.0-52.0); LYMPH # 0.9 10^3/uL (1.5-5.0); LYMPH % 7.3 % (24.0-44.0); MEAN CORPUSCULAR HGB CONC 32.2 g/dl (32.0-36.5); MEAN CORPUSCULAR VOLUME 90.2 fl (80.0-96.0); MONO # 0.5 10^3/uL (0.0-0.8); MONO % 4.4 % (2.0-8.0); NEUTROPHILS # 10.6 10^3/uL (1.5-8.5); PLATELET COUNT, AUTOMATED 263 10^3/uL (150-450); RED BLOOD COUNT 3.86 10^6/uL (4.30-6.10); WHITE BLOOD COUNT 12.3 10^3/uL (4.0-10.0)
[2025-01-03 08:03] LABS: CALCIUM LEVEL 8.8 MG/DL (8.3-10.6); CREATININE FOR GFR 2.03 MG/DL (0.70-1.30); GLOMERULAR FILTRATION RATE 31.5 (>35)
[2025-01-03 08:06] LABS: ALBUMIN 2.8 G/DL (3.2-5.2); BILIRUBIN,TOTAL 0.7 MG/DL (0.3-1.2); CALCIUM LEVEL 8.4 MG/DL (8.3-10.6); CREATININE FOR GFR 2.01 MG/DL (0.70-1.30); GLOMERULAR FILTRATION RATE 31.9 (>35); POTASSIUM SERUM 4.8 MMOL/L (3.5-5.1); TOTAL PROTEIN 5.4 G/DL (5.7-8.2)
[2025-01-03 08:07] LABS: HEMOGLOBIN 11.2 g/dl (13.5-17.5)
[2025-01-03] MEDS: FINASTERIDE 5MG TAB PO SCH (12:47)
[2025-01-04 04:06] VITALS: BP 138/73; TEMP 97.7; O2SAT 97
[2025-01-04 06:38] LABS: BASO % 0.3 % (0.0-1.0); HEMATOCRIT 35.7 % (42.0-52.0); HEMOGLOBIN 11.3 g/dl (13.5-17.5); LYMPH # 0.7 10^3/uL (1.5-5.0); LYMPH % 5.8 % (24.0-44.0); MEAN CORPUSCULAR HEMOGLOBIN 29.7 pg (27.0-33.0); MEAN CORPUSCULAR HGB CONC 31.7 g/dl (32.0-36.5); MEAN CORPUSCULAR VOLUME 93.7 fl (80.0-96.0); MONO # 0.5 10^3/uL (0.0-0.8); MONO % 4.5 % (2.0-8.0); NEUTROPHILS # 10.1 10^3/uL (1.5-8.5); NEUTROPHILS % 87.6 % (36.0-66.0); PLATELET COUNT, AUTOMATED 204 10^3/uL (150-450); RED BLOOD COUNT 3.81 10^6/uL (4.30-6.10); WHITE BLOOD COUNT 11.5 10^3/uL (4.0-10.0)
[2025-01-04 07:03] LABS: CREATININE FOR GFR 1.53 MG/DL (0.70-1.30); GLOMERULAR FILTRATION RATE 44.3 (>35)
[2025-01-04 12:00] VITALS: BP 108/60; TEMP 97.5; O2SAT 95
[2025-01-04 20:39] VITALS: BP 143/77; TEMP 97.7; O2SAT 100
[2025-01-04] MEDS: PERMETHRIN 5% CREAM 60 GM TOP ONE (21:00)
[2025-01-05 03:56] VITALS: BP 144/76; TEMP 97.5; O2SAT 96
[2025-01-05 06:17] LABS: BASO % 0.2 % (0.0-1.0); HEMATOCRIT 37.6 % (42.0-52.0); HEMOGLOBIN 11.9 g/dl (13.5-17.5); LYMPH # 0.7 10^3/uL (1.5-5.0); LYMPH % 5.1 % (24.0-44.0); MEAN CORPUSCULAR HEMOGLOBIN 29.3 pg (27.0-33.0); MEAN CORPUSCULAR HGB CONC 31.6 g/dl (32.0-36.5); MEAN CORPUSCULAR VOLUME 92.6 fl (80.0-96.0); MONO # 0.6 10^3/uL (0.0-0.8); MONO % 4.6 % (2.0-8.0); NEUTROPHILS # 11.2 10^3/uL (1.5-8.5); NEUTROPHILS % 87.9 % (36.0-66.0); PLATELET COUNT, AUTOMATED 221 10^3/uL (150-450); RED BLOOD COUNT 4.06 10^6/uL (4.30-6.10); WHITE BLOOD COUNT 12.8 10^3/uL (4.0-10.0)
[2025-01-05 06:46] LABS: CALCIUM LEVEL 8.9 MG/DL (8.3-10.6); CREATININE FOR GFR 1.45 MG/DL (0.70-1.30); GLOMERULAR FILTRATION RATE 47.2 (>35); POTASSIUM SERUM 4.7 MMOL/L (3.5-5.1)
[2025-01-05 08:37] VITALS: BP 124/68
[2025-01-05] MEDS: METOPROLOL SUCC *XL* 25MG TAB (TopROL *XL*) PO SCH (08:37)
[2025-01-05] MEDS ORDERED: FLUC100T3 PO (08:46)
[2025-01-05] MEDS ORDERED: AMIO200T49 PO (08:46)
[2025-01-05] MEDS ORDERED: FINA5TAB2 PO (08:46)
[2025-01-05] MEDS ORDERED: METO1TAB32 PO (08:58)
[2025-01-05 12:00] VITALS: BP 109/51; TEMP 97.5; O2SAT 98
== END 2025-01-05 15:04 | disposition home health service (06) | DRG 871 ==
LOC: M ED 08:56 → M ED INP 14:44 → M ICU 19:30 → M PCU 12-27 12:12 → M MSPAV 12-28 16:20
PROVIDERS: ADMIT Internal Medicine; ATTEND Internal Medicine Nephrology
PROC: XW033E5 Introduction of Remdesivir Anti-infective into Peripheral Vein, Percutaneous Approach, New Technology Group 5 (ICD-10-PCS; 2024-12-22)
PROC: B246ZZZ Ultrasonography of Right and Left Heart (ICD-10-PCS; 2024-12-25)
PROC: B246ZZ4 Ultrasonography of Right and Left Heart, Transesophageal (ICD-10-PCS; principal; 2024-12-27 17:00)
PROC: 30233J1 Transfusion of Nonautologous Serum Albumin into Peripheral Vein, Percutaneous Approach (ICD-10-PCS; 2025-01-03)
DX: A40.8 Other streptococcal sepsis (principal); U07.1 COVID-19; J96.01 Acute respiratory failure with hypoxia; J15.211 Pneumonia due to Methicillin susceptible Staphylococcus aureus; I50.33 Acute on chronic diastolic (congestive) heart failure; J15.0 Pneumonia due to Klebsiella pneumoniae; I48.92 Unspecified atrial flutter; J84.9 Interstitial pulmonary disease, unspecified; I13.0 Hypertensive heart and chronic kidney disease with heart failure and stage 1 through stage 4 chronic kidney disease, or unspecified chronic kidney disease; J44.0 Chronic obstructive pulmonary disease with (acute) lower respiratory infection; I24.89 Other forms of acute ischemic heart disease; I48.21 Permanent atrial fibrillation; N17.9 Acute kidney failure, unspecified; R65.20 Severe sepsis without septic shock; L40.50 Arthropathic psoriasis, unspecified; M31.6 Other giant cell arteritis; K21.9 Gastro-esophageal reflux disease without esophagitis; N18.30 Chronic kidney disease, stage 3 unspecified; E11.22 Type 2 diabetes mellitus with diabetic chronic kidney disease; L89.152 Pressure ulcer of sacral region, stage 2; I49.5 Sick sinus syndrome; D50.9 Iron deficiency anemia, unspecified; I25.10 Atherosclerotic heart disease of native coronary artery without angina pectoris; H54.8 Legal blindness, as defined in USA; M54.50 Low back pain, unspecified; D35.02 Benign neoplasm of left adrenal gland; G89.29 Other chronic pain; Z85.828 Personal history of other malignant neoplasm of skin; Z95.5 Presence of coronary angioplasty implant and graft; Z96.642 Presence of left artificial hip joint; Z95.0 Presence of cardiac pacemaker; Z87.891 Personal history of nicotine dependence; Z79.01 Long term (current) use of anticoagulants; Z79.52 Long term (current) use of systemic steroids; Z79.899 Other long term (current) drug therapy; Z79.4 Long term (current) use of insulin

== ENCOUNTER 2025-01-06 13:19 | Emergency (ER) | payer MEDICARE, BC ==
[~2025-01-06] VITALS: Ht 175.3 cm; Wt 60.0 kg
[~2025-01-06 13:19] MED LIST changes: +AMIO200T49 PO; +BACT800T5 PO; +DIGO62.5 PO; +FINA5TAB2 PO; +FLUC100T3 PO; +LAGEVRIO PO; +LANTINJ4 SC; +METO1TAB32 PO; +NOVOINJ3 SUBQ; +PRED20TA PO
[2025-01-06] MEDS: cefTRIAXone SOD 2 GM in DEXTROSE 5% (D5W) ADV/MINI-BAG 50 ML IV ONE (14:57)
[2025-01-06] MEDS: SODIUM CHLORIDE 0.9% INJ 10 ML SYR IV PRN (15:41)
[2025-01-06 15:45] VITALS: BP 109/53; O2SAT 96
[2025-01-06 15:57] VITALS: TEMP 97
== END 2025-01-06 16:01 | disposition home or self-care (01) ==
LOC: M ED 13:19
DX: J13 Pneumonia due to Streptococcus pneumoniae (principal); E11.9 Type 2 diabetes mellitus without complications; Z79.01 Long term (current) use of anticoagulants; Z79.899 Other long term (current) drug therapy; Z79.4 Long term (current) use of insulin
CPT/HCPCS: 99284; J0696; J1642

== ENCOUNTER → 2025-01-12 | Outpatient (REF) | payer MEDICARE, BC ==
[~2025-01-12] MED LIST changes: +CEFT1INJ65 IV; +CLOT10TR11 PO; +NOVOINJ3 SC; -NOVOINJ3 SUBQ; +NYST-38 PO; +PRED-1142 PO; -PRED1TABL PO
[2025-01-12 15:07] LABS: HEMATOCRIT 39.3 % (42.0-52.0); HEMOGLOBIN 12.3 g/dl (13.5-17.5); MEAN CORPUSCULAR HEMOGLOBIN 29.1 pg (27.0-33.0); MEAN CORPUSCULAR HGB CONC 31.3 g/dl (32.0-36.5); MEAN CORPUSCULAR VOLUME 93.1 fl (80.0-96.0); PLATELET COUNT, AUTOMATED 232 10^3/uL (150-450); RED BLOOD COUNT 4.22 10^6/uL (4.30-6.10); WHITE BLOOD COUNT 18.7 10^3/uL (4.0-10.0)
[2025-01-12 15:16] LABS: ERYTHROCYTE SEDIMENTATION RATE 27 mm/hr (0-20)
[2025-01-12 15:22] LABS: C REACTIVE PROTEIN QUANTITATIV < 0.50 MG/DL (<1.0)
[2025-01-12 15:23] LABS: ALKALINE PHOSPHATASE 147 U/L (40-129); ALT/SGPT 101 U/L (7.0-40); AST/SGOT 40 U/L (<34); BILIRUBIN,TOTAL 0.5 MG/DL (0.3-1.2); BLOOD UREA NITROGEN 56 MG/DL (9-23); CALCIUM LEVEL 8.7 MG/DL (8.3-10.6); CARBON DIOXIDE LEVEL 24 MMOL/L (20-31); CHLORIDE LEVEL 100 MMOL/L (98-107); CREATININE FOR GFR 1.39 MG/DL (0.70-1.30); GLOMERULAR FILTRATION RATE 49.7 (>35); GLUCOSE, FASTING 218 MG/DL (74-106); POTASSIUM SERUM 5.3 MMOL/L (3.5-5.1); SODIUM LEVEL 135 MMOL/L (136-145)
== END ==
LOC: M LAB REF 14:34
PROVIDERS: ATTEND Internal Medicine Nephrology
DX: R78.81 Bacteremia (principal); A49.1 Streptococcal infection, unspecified site

== ENCOUNTER 2025-01-13 18:44 | Inpatient (IN) | payer MEDICARE, BC ==
[~2025-01-13] VITALS: Ht 172.7 cm; Wt 60.3 kg
[~2025-01-13 18:44] MED LIST changes: -CEFT1INJ65 IV; -CLOT10TR11 PO; -NYST-38 PO
[2025-01-13 20:28] LABS: BASO % 0.2 % (0.0-1.0); HEMATOCRIT 37.3 % (42.0-52.0); LYMPH # 0.2 10^3/uL (1.5-5.0); MEAN CORPUSCULAR HEMOGLOBIN 29.3 pg (27.0-33.0); MEAN CORPUSCULAR HGB CONC 32.2 g/dl (32.0-36.5); MONO # 0.1 10^3/uL (0.0-0.8); MONO % 1.3 % (2.0-8.0); NEUTROPHILS % 93.4 % (36.0-66.0); PLATELET COUNT, AUTOMATED 207 10^3/uL (150-450); WHITE BLOOD COUNT 9.6 10^3/uL (4.0-10.0)
[2025-01-13 20:40] LABS: INR 1.31; PARTIAL THROMBOPLASTIN TIME 26.5 SECONDS (24.8-34.2); PROTHROMBIN TIME 16.5 SECONDS (12.5-14.5)
[2025-01-13] MEDS: MAGIC MOUTHWASH 5ML ORAL SYRINGE SS ONE (21:10)
[2025-01-13 21:52] LABS: ALBUMIN 2.7 G/DL (3.2-5.2); BILIRUBIN,DIRECT 0.2 MG/DL (<0.4); BILIRUBIN,TOTAL 0.5 MG/DL (0.3-1.2); CALCIUM LEVEL 8.9 MG/DL (8.3-10.6); CK-MB VALUE MASS 9.5 NG/ML (<3.6); CREATININE FOR GFR 1.63 MG/DL (0.70-1.30); MB/CK RELATIVE INDEX 9.04 (< OR =4); POTASSIUM SERUM 5.8 MMOL/L (3.5-5.1); TOTAL PROTEIN 5.8 G/DL (5.7-8.2)
[2025-01-13] MEDS: NS (Normal Saline) 0.9% 1,000 ML IV ONE (21:55)
[2025-01-13 22:00] LABS: KETONE, URINE AUTO RFX NEGATIVE (NEGATIVE); LEUKOCYTE ESTERASE UR AUTO RFX NEGATIVE (NEGATIVE); NITRITE, URINE AUTO RFX NEGATIVE (NEGATIVE); RBC, URINE AUTO RFX 0 /HPF (0-3); SQUAM EPITHELIAL CELL UR AURFX 0 /HPF (0-6); WBC, URINE AUTO RFX 1 /HPF (0-3)
[2025-01-13 22:00] LABS: PREALBUMIN 28.5 MG/DL (10.0-40.0)
[2025-01-13 22:26] LABS: CK-MB VALUE MASS 9.6 NG/ML (<3.6)
[2025-01-13 22:27] LABS: MB/CK RELATIVE INDEX 9.69 (< OR =4)
[2025-01-13] MEDS: INSULIN LISPRO (NovoLOG) PER UNIT SC ONE (22:30)
[2025-01-13] MEDS ORDERED: GLUCOSE 4 GM CHEW PO PRN (23:35)
[2025-01-13] MEDS ORDERED: GLUCAGON INJ 1MG VIAL SC PRN (23:35)
[2025-01-13] MEDS ORDERED: DEXTROSE 50% 50ML SYRINGE IV PRN (23:35)
[2025-01-13] MEDS: INSULIN LISPRO (NovoLOG) PER UNIT SC SCH (23:57)
[2025-01-14] VITALS (9 sets, daily range): BP systolic 94–142; BP diastolic 53–90; TEMP 96.4–98.7; O2SAT 95–100
[2025-01-14] MEDS ORDERED: ACETAMINOPHEN 325 MG TAB PO PRN (00:20)
[2025-01-14] MEDS ORDERED: MOM 30ML SUSPENSION UDC PO PRN (00:20)
[2025-01-14] MEDS ORDERED: MAALOX 30 ML SUSP *UDC PO PRN (00:20)
[2025-01-14] MEDS ORDERED: FLUC100T3 PO (00:37)
[2025-01-14] MEDS ORDERED: AMIO200T49 PO (00:37)
[2025-01-14] MEDS ORDERED: METO1TAB32 PO (00:37)
[2025-01-14] MEDS ORDERED: FINA5TAB2 PO (00:37)
[2025-01-14 00:39] LABS: VENOUS BASE EXCESS -3.1 (-2.0-2.0); VENOUS HCO3 22.3 MMOL/L (23.0-27.0); VENOUS O2 SATURATION 60.9 % (60.0-80.0); VENOUS PARTIAL PRESSURE O2 33.9 mmHg (30.0-50.0); VENOUS PH 7.353 UNITS (7.330-7.430); VENOUS STANDARD HCO3 21.2 MMOL/L; VENOUS TOTAL CO2 23.5 MMOL/L (24.0-28.0)
[2025-01-14] MEDS ORDERED: HOME MED LIST COMPLETE! XX SCH ×2 (00:40→01:30)
[2025-01-14] MEDS ORDERED: NITROGLYCERIN 0.4MG SUBL TABLET SL PRN (01:15)
[2025-01-14] MEDS: SODIUM CHLORIDE 0.9% INJ 10 ML SYR IV SCH (01:15)
[2025-01-14] MEDS ORDERED: SODIUM CHLORIDE 0.9% INJ 10 ML SYR IV PRN (01:15)
[2025-01-14] MEDS ORDERED: NYST-38 PO (01:25)
[2025-01-14] MEDS ORDERED: CEFT1INJ65 IV (01:25)
[2025-01-14] MEDS: NS (Normal Saline) 0.9% 1,000 ML IV ONE (02:34)
[2025-01-14 02:41] LABS: VENOUS BASE EXCESS -2.7 (-2.0-2.0); VENOUS PARTIAL PRESSURE CO2 43.4 mmHg (38.0-50.0); VENOUS PH 7.342 UNITS (7.330-7.430); VENOUS STANDARD HCO3 21.4 MMOL/L; VENOUS TOTAL CO2 24.3 MMOL/L (24.0-28.0)
[2025-01-14 03:37] LABS: CALCIUM LEVEL 8.2 MG/DL (8.3-10.6); CREATININE FOR GFR 1.37 MG/DL (0.70-1.30); GLOMERULAR FILTRATION RATE 50.6 (>35); MAGNESIUM LEVEL 1.8 MG/DL (1.8-2.4); POTASSIUM SERUM 4.5 MMOL/L (3.5-5.1)
[2025-01-14] MEDS: NS (Normal Saline) 0.9% 1,000 ML IV SCH (03:37)
[2025-01-14] MEDS: METOPROLOL SUCC *XL* 25MG TAB (TopROL *XL*) PO SCH (08:52)
[2025-01-14] MEDS ORDERED: TIOTROPIUM INH SCH (09:00)
[2025-01-14] MEDS ORDERED: OLODATEROL INH SCH (09:00)
[2025-01-14] MEDS ORDERED: APREMILAST 30 MG TAB (PATIENT'S OWN MED) PO SCH (09:00)
[2025-01-14] MEDS: cefTRIAXone SOD 2 GM in DEXTROSE 5% (D5W) ADV/MINI-BAG 50 ML IV SCH (09:13)
[2025-01-14] MEDS: predniSONE 20 MG TAB PO SCH (09:22)
[2025-01-14] MEDS: AMIODARONE 200 MG TAB (PACERONE) PO SCH (09:22)
[2025-01-14] MEDS: FINASTERIDE 5MG TAB PO SCH (09:22)
[2025-01-14] MEDS: DOCUSATE SODIUM 100MG CAPSULE PO SCH (09:22)
[2025-01-14] MEDS: PANTOPRAZOLE 40MG TAB (PROTONIX) PO SCH (09:22)
[2025-01-14] MEDS: CLOPIDOGREL 75 MG TAB PO SCH (09:22)
[2025-01-14] MEDS: APIXABAN 5 MG TAB (ELIQUIS) PO SCH (09:23)
[2025-01-14] MEDS: FLUCONAZOLE 100 MG TAB PO SCH (09:23)
[2025-01-14] MEDS: aMILoride 5 MG TAB PO SCH (09:23)
[2025-01-14] MEDS: MAGIC MOUTHWASH 5ML ORAL SYRINGE SS PRN (11:49)
[2025-01-14] MEDS: INSULIN LISPRO (NovoLOG) PER UNIT SC SCH ×2 (12:50→20:29)
[2025-01-14] MEDS: CLOTRIMAZOLE 10 MG TROCHE PO SCH (13:00)
[2025-01-14] MEDS: TIOTROPIUM BROM 2.5MCG/ACTUATION 4GM INH IH SCH (13:12)
[2025-01-14] MEDS: FORMOTEROL FUMARATE 20 MCG/2 ML INHALATION SOLUTION (PERFOROMIST) INH SCH (13:12)
[2025-01-14 13:26] LABS: HEMATOCRIT 35.7 % (42.0-52.0); HEMOGLOBIN 11.6 g/dl (13.5-17.5); MEAN CORPUSCULAR HGB CONC 32.5 g/dl (32.0-36.5); MEAN CORPUSCULAR VOLUME 92.2 fl (80.0-96.0); PLATELET COUNT, AUTOMATED 206 10^3/uL (150-450); RED BLOOD COUNT 3.87 10^6/uL (4.30-6.10); WHITE BLOOD COUNT 17.2 10^3/uL (4.0-10.0)
[2025-01-14 15:12] LABS: PROCALCITONIN 0.2 ng/ml
[2025-01-14] MEDS ORDERED: SYMBICORT 80/4.5MCG INHALER 6GM INH SCH (20:00)
[2025-01-14] MEDS: LanTUS (INSULIN GLARGINE INJ) 1 UNITS/0.01 ML SC SCH (20:35)
[2025-01-14] MEDS ORDERED: LanTUS (INSULIN GLARGINE INJ) 1 UNITS/0.01 ML SC SCH (21:00)
[2025-01-15 03:36] VITALS: BP 154/66; TEMP 97.9; O2SAT 99
[2025-01-15 05:40] LABS: HEMATOCRIT 30.3 % (42.0-52.0); HEMOGLOBIN 9.8 g/dl (13.5-17.5); LYMPH # 0.4 10^3/uL (1.5-5.0); MEAN CORPUSCULAR HEMOGLOBIN 29.8 pg (27.0-33.0); MEAN CORPUSCULAR HGB CONC 32.3 g/dl (32.0-36.5); MEAN CORPUSCULAR VOLUME 92.1 fl (80.0-96.0); MONO # 0.4 10^3/uL (0.0-0.8); NEUTROPHILS % 92.8 % (36.0-66.0); PLATELET COUNT, AUTOMATED 166 10^3/uL (150-450); RED BLOOD COUNT 3.29 10^6/uL (4.30-6.10); WHITE BLOOD COUNT 11.9 10^3/uL (4.0-10.0)
[2025-01-15 05:55] LABS: ALBUMIN 2.2 G/DL (3.2-5.2); BILIRUBIN,TOTAL 0.3 MG/DL (0.3-1.2); CREATININE FOR GFR 1.2 MG/DL (0.70-1.30); GLOMERULAR FILTRATION RATE 59.3 (>35); MAGNESIUM LEVEL 1.6 MG/DL (1.8-2.4); POTASSIUM SERUM 5.1 MMOL/L (3.5-5.1); TOTAL PROTEIN 4.5 G/DL (5.7-8.2)
[2025-01-15] MEDS: MAG SULF 1GM/100ML (MAG RUN) 1 GM in IV 1 EA IV SCH (06:52)
[2025-01-15 07:40] VITALS: BP 117/63; TEMP 98.4; O2SAT 98
[2025-01-15 08:30] VITALS: BP 117/63
[2025-01-15] MEDS: ATORVASTATIN 20 MG TAB PO SCH (08:30)
[2025-01-15] MEDS: LanTUS (INSULIN GLARGINE INJ) 1 UNITS/0.01 ML SC SCH (08:30)
[2025-01-15] MEDS ORDERED: CLOT10TR11 PO (10:53)
[2025-01-15] MEDS ORDERED: FLUC100T3 PO (18:45)
== END 2025-01-15 11:56 | disposition home health service (06) | DRG 641 ==
LOC: M ED 18:44 → M ED INP 23:32 → M PCU 01-14 01:22
PROVIDERS: ADMIT Family Medicine; ATTEND Internal Medicine
DX: E86.0 Dehydration (principal); B37.0 Candidal stomatitis; I24.89 Other forms of acute ischemic heart disease; I50.32 Chronic diastolic (congestive) heart failure; I48.92 Unspecified atrial flutter; I48.21 Permanent atrial fibrillation; N17.9 Acute kidney failure, unspecified; E87.20 Acidosis, unspecified; J44.9 Chronic obstructive pulmonary disease, unspecified; K21.9 Gastro-esophageal reflux disease without esophagitis; M31.6 Other giant cell arteritis; L89.152 Pressure ulcer of sacral region, stage 2; N18.30 Chronic kidney disease, stage 3 unspecified; E87.5 Hyperkalemia; I25.10 Atherosclerotic heart disease of native coronary artery without angina pectoris; E11.65 Type 2 diabetes mellitus with hyperglycemia; Z86.16 Personal history of COVID-19; L40.8 Other psoriasis; Z85.828 Personal history of other malignant neoplasm of skin; Z96.642 Presence of left artificial hip joint; Z95.0 Presence of cardiac pacemaker; Z95.2 Presence of prosthetic heart valve; Z79.899 Other long term (current) drug therapy; Z79.4 Long term (current) use of insulin

== ENCOUNTER → 2025-01-19 | Outpatient (REF) | payer MEDICARE, BC ==
[~2025-01-19] MED LIST changes: +CEFT1INJ65 IV; +CLOT10TR11 PO; +NYST-38 PO
[2025-01-19 12:31] LABS: HEMATOCRIT 35.5 % (42.0-52.0); HEMOGLOBIN 11.4 g/dl (13.5-17.5); MEAN CORPUSCULAR HEMOGLOBIN 30.1 pg (27.0-33.0); MEAN CORPUSCULAR HGB CONC 32.1 g/dl (32.0-36.5); MEAN CORPUSCULAR VOLUME 93.7 fl (80.0-96.0); PLATELET COUNT, AUTOMATED 204 10^3/uL (150-450); RED BLOOD COUNT 3.79 10^6/uL (4.30-6.10); WHITE BLOOD COUNT 13.8 10^3/uL (4.0-10.0)
[2025-01-19 12:43] LABS: ERYTHROCYTE SEDIMENTATION RATE 12 mm/hr (0-20)
[2025-01-19 13:05] LABS: ALBUMIN 2.5 G/DL (3.2-5.2); ALKALINE PHOSPHATASE 139 U/L (40-129); ALT/SGPT 98 U/L (7.0-40); AST/SGOT 31 U/L (<34); BILIRUBIN,TOTAL 0.3 MG/DL (0.3-1.2); BLOOD UREA NITROGEN 51 MG/DL (9-23); C REACTIVE PROTEIN QUANTITATIV < 0.50 MG/DL (<1.0); CALCIUM LEVEL 8.2 MG/DL (8.3-10.6); CARBON DIOXIDE LEVEL 23 MMOL/L (20-31); CHLORIDE LEVEL 99 MMOL/L (98-107); CREATININE FOR GFR 1.07 MG/DL (0.70-1.30); GLUCOSE, FASTING 254 MG/DL (74-106); POTASSIUM SERUM 3.7 MMOL/L (3.5-5.1); SODIUM LEVEL 134 MMOL/L (136-145); TOTAL PROTEIN 5.3 G/DL (5.7-8.2)
== END ==
LOC: M LAB REF 11:26
PROVIDERS: ATTEND Family Medicine Adult Medicine
DX: B95.4 Other streptococcus as the cause of diseases classified elsewhere (principal)

== ENCOUNTER → 2025-01-25 | Outpatient (CLI) | payer MEDICARE, BC ==
[2025-01-25 10:44] LABS: BASO % 0.2 % (0.0-1.0); EOS % 0.2 % (0.0-3.0); HEMATOCRIT 37.9 % (42.0-52.0); LYMPH # 1.2 10^3/uL (1.5-5.0); LYMPH % 9.4 % (24.0-44.0); MEAN CORPUSCULAR HEMOGLOBIN 30.5 pg (27.0-33.0); MEAN CORPUSCULAR HGB CONC 31.7 g/dl (32.0-36.5); MEAN CORPUSCULAR VOLUME 96.4 fl (80.0-96.0); MONO # 0.6 10^3/uL (0.0-0.8); MONO % 4.3 % (2.0-8.0); NEUTROPHILS # 10.9 10^3/uL (1.5-8.5); NEUTROPHILS % 83.2 % (36.0-66.0); PLATELET COUNT, AUTOMATED 192 10^3/uL (150-450); RED BLOOD COUNT 3.93 10^6/uL (4.30-6.10); WHITE BLOOD COUNT 13.2 10^3/uL (4.0-10.0)
[2025-01-25 10:53] LABS: ERYTHROCYTE SEDIMENTATION RATE 18 mm/hr (0-20)
[2025-01-25 11:12] LABS: C REACTIVE PROTEIN QUANTITATIV < 0.50 MG/DL (<1.0)
[2025-01-25 11:13] LABS: ALBUMIN 2.6 G/DL (3.2-5.2); ALKALINE PHOSPHATASE 150 U/L (40-129); ALT/SGPT 97 U/L (7.0-40); AST/SGOT 29 U/L (<34); BILIRUBIN,TOTAL 0.3 MG/DL (0.3-1.2); BLOOD UREA NITROGEN 31 MG/DL (9-23); CALCIUM LEVEL 8.6 MG/DL (8.3-10.6); CARBON DIOXIDE LEVEL 28 MMOL/L (20-31); CHLORIDE LEVEL 100 MMOL/L (98-107); CREATININE FOR GFR 0.93 MG/DL (0.70-1.30); GLOMERULAR FILTRATION RATE 80.5 (>35); GLUCOSE, FASTING 216 MG/DL (74-106); POTASSIUM SERUM 3.9 MMOL/L (3.5-5.1); SODIUM LEVEL 141 MMOL/L (136-145); TOTAL PROTEIN 5.6 G/DL (5.7-8.2)
== END ==
LOC: M LAB 09:59
PROVIDERS: ATTEND Internal Medicine Infectious Disease
DX: B37.7 Candidal sepsis (principal)

== ENCOUNTER → 2025-02-01 | Outpatient (CLI) | payer MEDICARE, BC ==
[2025-02-01 11:21] LABS: BASO % 0.2 % (0.0-1.0); EOS % 0.1 % (0.0-3.0); HEMATOCRIT 37.2 % (42.0-52.0); HEMOGLOBIN 11.7 g/dl (13.5-17.5); LYMPH # 0.9 10^3/uL (1.5-5.0); LYMPH % 6.8 % (24.0-44.0); MEAN CORPUSCULAR HEMOGLOBIN 30.7 pg (27.0-33.0); MEAN CORPUSCULAR HGB CONC 31.5 g/dl (32.0-36.5); MEAN CORPUSCULAR VOLUME 97.6 fl (80.0-96.0); MONO # 0.6 10^3/uL (0.0-0.8); MONO % 4.7 % (2.0-8.0); NEUTROPHILS # 11.2 10^3/uL (1.5-8.5); NEUTROPHILS % 83.7 % (36.0-66.0); PLATELET COUNT, AUTOMATED 208 10^3/uL (150-450); RED BLOOD COUNT 3.81 10^6/uL (4.30-6.10); WHITE BLOOD COUNT 13.3 10^3/uL (4.0-10.0)
[2025-02-01 11:28] LABS: ERYTHROCYTE SEDIMENTATION RATE 17 mm/hr (0-20)
[2025-02-01 11:50] LABS: ALBUMIN 2.6 G/DL (3.2-5.2); BILIRUBIN,TOTAL 0.5 MG/DL (0.3-1.2); C REACTIVE PROTEIN QUANTITATIV 0.52 MG/DL (<1.0); CALCIUM LEVEL 8.7 MG/DL (8.3-10.6); GLOMERULAR FILTRATION RATE 73.8 (>35); POTASSIUM SERUM 3.2 MMOL/L (3.5-5.1); TOTAL PROTEIN 5.4 G/DL (5.7-8.2)
== END ==
LOC: M LAB 10:21
PROVIDERS: ATTEND Family Medicine
DX: B37.7 Candidal sepsis (principal)

== ENCOUNTER 2025-03-21 11:14 | Emergency (ER) | payer MEDICARE, BC ==
[~2025-03-21] VITALS: Ht 177.8 cm; Wt 62.7 kg
[~2025-03-21 11:14] MED LIST changes: +AMIL5TAB4 PO; -AMIO200T49 PO; +AMIO200T54 PO; +ATIV1TAB10 PO; +DOXY100T PO; +FURO40TA2 PO; +LASI40TA9 PO; +MAG100TA PO; +MAGN200T PO; +MAGN400C PO; +MICA100V IV; +PEN-61 SC; +POTA-298 PO; +PRED10TA2 PO
[2025-03-21 13:17] VITALS: BP 104/52; TEMP 97.1; O2SAT 100
[2025-03-21] MEDS: SODIUM CHLORIDE 0.9% INJ 10 ML SYR IV SCH (14:17)
[2025-03-21] MEDS: HEPARIN LOCK FLUSH 100 UNITS/ML 3 ML SYRINGE IV SCH (14:17)
== END 2025-03-21 14:58 | disposition home or self-care (01) ==
LOC: EDBD 11:14 → M ED 11:14
DX: T82.594A Other mechanical complication of infusion catheter, initial encounter (principal); Y92.9 Unspecified place or not applicable; Y93.9 Activity, unspecified; I48.91 Unspecified atrial fibrillation; I25.10 Atherosclerotic heart disease of native coronary artery without angina pectoris; I25.2 Old myocardial infarction; J44.9 Chronic obstructive pulmonary disease, unspecified; Z95.0 Presence of cardiac pacemaker; H54.8 Legal blindness, as defined in USA; Z79.01 Long term (current) use of anticoagulants; Z79.4 Long term (current) use of insulin; Z79.899 Other long term (current) drug therapy
CPT/HCPCS: 71045; 96374; 99284; J1642

== ENCOUNTER → 2025-04-02 | Outpatient (CLI) | payer MEDICARE, BC ==
[2025-04-02 10:20] LABS: BASO # 0.1 10^3/uL (0.0-0.2); BASO % 0.4 % (0.0-1.0); EOS # 0.0 10^3/uL (0.0-0.5); EOS % 0.3 % (0.0-3.0); LYMPH # 2.0 10^3/uL (1.5-5.0); LYMPH % 13.9 % (24.0-44.0); MONO # 0.8 10^3/uL (0.0-0.8); MONO % 5.6 % (2.0-8.0); NEUTROPHILS # 10.8 10^3/uL (1.5-8.5); NEUTROPHILS % 77.2 % (36.0-66.0); PLATELET COUNT, AUTOMATED 239 10^3/uL (150-450)
[2025-04-02 10:48] LABS: C REACTIVE PROTEIN QUANTITATIV 2.3 MG/DL (<1.0)
[2025-04-02 10:49] LABS: ALT/SGPT 54.0 U/L (7.0-40); AST/SGOT 43.0 U/L (<34); CALCIUM LEVEL 9.4 MG/DL (8.3-10.6); CARBON DIOXIDE LEVEL 30.0 MMOL/L (20-31); CHLORIDE LEVEL 100.0 MMOL/L (98-107); CREATININE FOR GFR 1.31 MG/DL (0.70-1.30); GLOMERULAR FILTRATION RATE 53.3 (>35); POTASSIUM SERUM 3.6 MMOL/L (3.5-5.1); SODIUM LEVEL 145.0 MMOL/L (136-145)
== END ==
LOC: M LAB 09:04
PROVIDERS: ATTEND Internal Medicine Infectious Disease
DX: B37.7 Candidal sepsis (principal)

== ENCOUNTER → 2025-04-09 | Outpatient (CLI) | payer MEDICARE, BC | LOC: M LAB 09:21 | PROVIDERS: ATTEND Internal Medicine Infectious Disease | DX: B37.7 Candidal sepsis (principal) ==

== ENCOUNTER 2025-04-13 13:39 | Emergency (ER) | payer MEDICARE, BC ==
[~2025-04-13] VITALS: Ht 177.8 cm; Wt 59.1 kg
[~2025-04-13 13:39] MED LIST changes: +SLOW1TAB3 PO; -SLOWTAB2 PO
[2025-04-13 13:47] VITALS: BP 116/58; TEMP 98.2; O2SAT 99
[2025-04-13 14:51] LABS: KETONE, URINE AUTO RFX NEGATIVE (NEGATIVE); LEUKOCYTE ESTERASE UR AUTO RFX NEGATIVE (NEGATIVE); NITRITE, URINE AUTO RFX NEGATIVE (NEGATIVE); RBC, URINE AUTO RFX 0 /HPF (0-3); SQUAM EPITHELIAL CELL UR AURFX 0 /HPF (0-6); WBC, URINE AUTO RFX 0 /HPF (0-3)
[2025-04-13 15:38] LABS: BASO # 0.0 10^3/uL (0.0-0.2); BASO % 0.1 % (0.0-1.0); EOS # 0.0 10^3/uL (0.0-0.5); EOS % 0.0 % (0.0-3.0); LYMPH # 0.4 10^3/uL (1.5-5.0); LYMPH % 3.6 % (24.0-44.0); MONO # 0.4 10^3/uL (0.0-0.8); MONO % 3.5 % (2.0-8.0); NEUTROPHILS # 11.0 10^3/uL (1.5-8.5); NEUTROPHILS % 90.7 % (36.0-66.0); PLATELET COUNT, AUTOMATED 283 10^3/uL (150-450)
[2025-04-13 15:43] LABS: ESTIMATED AVERAGE GLUCOSE 166.0 MG/DL (60-110)
[2025-04-13 15:53] LABS: CALCIUM LEVEL 8.6 MG/DL (8.3-10.6); CARBON DIOXIDE LEVEL 30.0 MMOL/L (20-31); CHLORIDE LEVEL 101.0 MMOL/L (98-107); CREATININE FOR GFR 1.29 MG/DL (0.70-1.30); GLOMERULAR FILTRATION RATE 54.3 (>35); POTASSIUM SERUM 4.0 MMOL/L (3.5-5.1); SODIUM LEVEL 144.0 MMOL/L (136-145)
== END 2025-04-13 16:15 | disposition left against medical advice (07) ==
LOC: M ED 13:39
DX: R33.9 Retention of urine, unspecified (principal); Z53.9 Procedure and treatment not carried out, unspecified reason; Z95.0 Presence of cardiac pacemaker; I48.91 Unspecified atrial fibrillation; I25.10 Atherosclerotic heart disease of native coronary artery without angina pectoris; I10 Essential (primary) hypertension; K21.9 Gastro-esophageal reflux disease without esophagitis; E11.9 Type 2 diabetes mellitus without complications; M31.6 Other giant cell arteritis; Z79.01 Long term (current) use of anticoagulants; Z79.4 Long term (current) use of insulin; Z79.899 Other long term (current) drug therapy

== ENCOUNTER → 2025-05-02 | Outpatient (REF) | payer MEDICARE, BC ==
[2025-05-02 19:05] LABS: IRON (FE) 23.0 UG/DL (65-175); PERCENT SATURATION 9.9 % (19.7-50.0)
== END ==
LOC: M LAB REF 17:42
PROVIDERS: ATTEND Nurse Practitioner Family
DX: D50.9 Iron deficiency anemia, unspecified (principal)

== ENCOUNTER 2025-05-14 06:53 | Outpatient (CLI) | payer MEDICARE, BC ==
[~2025-05-14] VITALS: Ht 177.8 cm; Wt 59.0 kg
[~2025-05-14 06:53] MED LIST changes: +NS (Normal Saline) 0.9% 1,000 ML IV SCH
[2025-05-14 07:00] VITALS: BP 159/72; O2SAT 99
[2025-05-14] MEDS ORDERED: diphenhydrAMINE 50 MG/ML VIAL IV PRN (07:01)
[2025-05-14] MEDS ORDERED: ALBUTEROL SULFATE 2.5 MG/0.5 ML INH CONCENTRATE NEB SOLN INH PRN (07:01)
[2025-05-14] MEDS ORDERED: EPINEPHrine INJ 1 MG/ML 1ML AMP IM PRN (07:01)
[2025-05-14] MEDS: IRON SUCROSE 500 MG in NS 250 ML OVER 4 HRS IV ONE (08:02)
[2025-05-14 09:00] VITALS: BP 120/64; O2SAT 94
[2025-05-14 10:00] VITALS: BP 142/65; O2SAT 99
[2025-05-14 11:00] VITALS: BP 144/66; O2SAT 96
[2025-05-14 12:05] VITALS: BP 137/63; O2SAT 100
== END 2025-05-14 12:10 | disposition home or self-care (01) ==
LOC: M INFU 06:53
PROVIDERS: ATTEND Nurse Practitioner Family
DX: D50.9 Iron deficiency anemia, unspecified (principal)
CPT/HCPCS: 96365; 96366; J1756

== ENCOUNTER → 2025-05-18 | Outpatient (CLI) | payer MEDICARE, BC ==
[~2025-05-18] MED LIST changes: -NS (Normal Saline) 0.9% 1,000 ML IV SCH
[2025-05-18 13:10] LABS: ESTIMATED AVERAGE GLUCOSE 151.0 MG/DL (60-110)
== END ==
LOC: M WUC 08:16
PROVIDERS: ATTEND Family Medicine
DX: E11.9 Type 2 diabetes mellitus without complications (principal)

== ENCOUNTER → 2025-05-18 | Outpatient (CLI) | payer MEDICARE, BC ==
[2025-05-18 12:51] LABS: BASO # 0.1 10^3/uL (0.0-0.2); BASO % 0.4 % (0.0-1.0); EOS # 0.1 10^3/uL (0.0-0.5); EOS % 0.7 % (0.0-3.0); LYMPH # 1.3 10^3/uL (1.5-5.0); LYMPH % 8.7 % (24.0-44.0); MONO # 0.9 10^3/uL (0.0-0.8); MONO % 6.4 % (2.0-8.0); NEUTROPHILS # 11.9 10^3/uL (1.5-8.5); NEUTROPHILS % 82.0 % (36.0-66.0); PLATELET COUNT, AUTOMATED 367 10^3/uL (150-450)
[2025-05-18 13:00] LABS: C REACTIVE PROTEIN QUANTITATIV 2.81 MG/DL (<1.0)
[2025-05-18 13:01] LABS: ALT/SGPT 20.0 U/L (7.0-40); AST/SGOT 20.0 U/L (<34); CALCIUM LEVEL 9.4 MG/DL (8.3-10.6); CARBON DIOXIDE LEVEL 28.0 MMOL/L (20-31); CHLORIDE LEVEL 102.0 MMOL/L (98-107); CPK CREATINE PHOSPHOKINASE 27.0 U/L (46-171); CREATININE FOR GFR 1.39 MG/DL (0.70-1.30); ERYTHROCYTE SEDIMENTATION RATE 59 mm/hr (0-20); GLOMERULAR FILTRATION RATE 49.7 (>35); IRON (FE) 32.0 UG/DL (65-175); MAGNESIUM LEVEL 1.7 MG/DL (1.8-2.4); PERCENT SATURATION 12.1 % (19.7-50.0); PHOSPHORUS LEVEL 3.0 MG/DL (2.4-5.1); POTASSIUM SERUM 3.8 MMOL/L (3.5-5.1); SODIUM LEVEL 141.0 MMOL/L (136-145)
[2025-05-18 13:02] LABS: TOTAL 25(OH) VITAMIN D 60.7 NG/ML (20.0-100.0); VITAMIN B12 LEVEL 832.0 PG/ML (211-911)
== END ==
LOC: M WUC 08:14
PROVIDERS: ATTEND Internal Medicine
DX: M31.6 Other giant cell arteritis (principal); R29.898 Other symptoms and signs involving the musculoskeletal system; E11.9 Type 2 diabetes mellitus without complications; Z79.899 Other long term (current) drug therapy

== ENCOUNTER 2025-05-28 07:12 | Outpatient (CLI) | payer MEDICARE, BC ==
[~2025-05-28] VITALS: Ht 180.3 cm; Wt 59.0 kg
[~2025-05-28 07:12] MED LIST changes: +ALBUTEROL SULFATE 2.5 MG/0.5 ML INH CONCENTRATE NEB SOLN INH PRN; +EPINEPHrine INJ 1 MG/ML 1ML AMP IM PRN; +diphenhydrAMINE 50 MG/ML VIAL IV PRN
[2025-05-28] MEDS ORDERED: NS (Normal Saline) 0.9% 1,000 ML IV SCH (07:30)
[2025-05-28 07:56] VITALS: BP 154/67; O2SAT 95
[2025-05-28] MEDS: IRON SUCROSE 500 MG in NS 250 ML OVER 4 HRS IV ONE (08:31)
[2025-05-28 09:30] VITALS: BP 133/80; O2SAT 99
[2025-05-28 10:30] VITALS: BP 131/64; O2SAT 99
[2025-05-28 11:30] VITALS: BP 139/70; O2SAT 99
[2025-05-28 12:15] VITALS: BP 146/74; O2SAT 98
== END 2025-05-28 12:15 ==
LOC: M INFU 07:12
PROVIDERS: ATTEND Nurse Practitioner Family
DX: D50.9 Iron deficiency anemia, unspecified (principal)
CPT/HCPCS: 96365; 96366; 99195; J1756

== ENCOUNTER → 2025-05-29 | Outpatient (CLI) | payer MEDICARE, BC ==
[~2025-05-29] MED LIST changes: -ALBUTEROL SULFATE 2.5 MG/0.5 ML INH CONCENTRATE NEB SOLN INH PRN; -EPINEPHrine INJ 1 MG/ML 1ML AMP IM PRN; -diphenhydrAMINE 50 MG/ML VIAL IV PRN
== END ==
LOC: M RAD 10:08
PROVIDERS: ATTEND Surgery
DX: I70.202 Unspecified atherosclerosis of native arteries of extremities, left leg (principal); L89.624 Pressure ulcer of left heel, stage 4

== ENCOUNTER → 2025-07-04 | Outpatient (POV) | payer MEDICARE, BC ==
[~2025-07-04] VITALS: Ht 177.8 cm; Wt 68.2 kg
[~2025-07-04] MED LIST changes: +MAGN400C2 PO
[2025-07-04 15:45] VITALS: BP 125/60; O2SAT 100
[2025-07-04 16:50] LABS: PLATELET COUNT, AUTOMATED 363 10^3/uL (150-450)
[2025-07-04 17:16] LABS: ALT/SGPT 26.0 U/L (7.0-40); AST/SGOT 27.0 U/L (<34); CALCIUM LEVEL 9.3 MG/DL (8.3-10.6); CARBON DIOXIDE LEVEL 26.0 MMOL/L (20-31); CHLORIDE LEVEL 103.0 MMOL/L (98-107); CREATININE FOR GFR 1.28 MG/DL (0.70-1.30); GLOMERULAR FILTRATION RATE 54.5 (>35); POTASSIUM SERUM 5.3 MMOL/L (3.5-5.1); SODIUM LEVEL 142.0 MMOL/L (136-145)
[2025-07-04 17:17] LABS: INR 1.44
== END ==
LOC: M IRPOV 15:21
PROVIDERS: ATTEND Radiology Diagnostic Radiology
DX: I70.245 Atherosclerosis of native arteries of left leg with ulceration of other part of foot (principal); L97.429 Non-pressure chronic ulcer of left heel and midfoot with unspecified severity; I48.91 Unspecified atrial fibrillation; I12.9 Hypertensive chronic kidney disease with stage 1 through stage 4 chronic kidney disease, or unspecified chronic kidney disease; N18.9 Chronic kidney disease, unspecified; E11.51 Type 2 diabetes mellitus with diabetic peripheral angiopathy without gangrene; E11.22 Type 2 diabetes mellitus with diabetic chronic kidney disease; Z79.01 Long term (current) use of anticoagulants; Z79.4 Long term (current) use of insulin; Z79.52 Long term (current) use of systemic steroids; Z79.899 Other long term (current) drug therapy
CPT/HCPCS: 80053; 85027; 85610; G0463

== ENCOUNTER → 2025-07-06 | Outpatient (CLI) | payer MEDICARE, BC ==
[~2025-07-06] MED LIST changes: +ACETAMINOPHEN 325 MG TAB PO PRN; +ASPIRIN 325 MG TAB PO ONE; +ATIV1TAB7 PO; +DOXY-441 PO; +FLUO1CRE2 TOP; +NS (Normal Saline) 0.9% 1,000 ML IV SCH; +ONDANSETRON 4MG/2ML VIAL IV PRN; +PERCOCET 5MG/325MG TAB PO PRN; +QUET1TAB17 PO; +TAMS1CAP17 PO
[2025-07-06 07:38] VITALS: TEMP 96.9
[2025-07-06 08:14] LABS: PLATELET COUNT, AUTOMATED 357 10^3/uL (150-450)
[2025-07-06 08:24] LABS: INR 1.05
[2025-07-06 08:45] LABS: CALCIUM LEVEL 9.8 MG/DL (8.3-10.6); CARBON DIOXIDE LEVEL 29.0 MMOL/L (20-31); CHLORIDE LEVEL 100.0 MMOL/L (98-107); CREATININE FOR GFR 1.36 MG/DL (0.70-1.30); GLOMERULAR FILTRATION RATE 50.7 (>35); POTASSIUM SERUM 4.2 MMOL/L (3.5-5.1); SODIUM LEVEL 142.0 MMOL/L (136-145)
[2025-07-06] MEDS: NS (Normal Saline) 0.9% 1,000 ML IV SCH (09:04)
[2025-07-06] MEDS: MIDAZOLAM INJ 2 MG/2 ML VIAL IV PRN (09:04)
[2025-07-06] MEDS: HEPARIN 1,000 UNITS/ML 10 ML VIAL (FOR RADIOLOGY & DIALYSIS ONLY) IV PRN (09:37)
[2025-07-06] MEDS: ISOVUE-300 61% 100 ML VIAL IV SCH (10:43)
[2025-07-06] MEDS: LIDOCAINE 1% MDV 20 ML VIAL SC SCH (10:43)
[2025-07-06 13:00] VITALS: BP 117/59; O2SAT 100
== END ==
LOC: M IRPRO 07:37
PROVIDERS: ATTEND Radiology Diagnostic Radiology
DX: I73.9 Peripheral vascular disease, unspecified (principal); R09.89 Other specified symptoms and signs involving the circulatory and respiratory systems
CPT/HCPCS: 37230; 75774; 80048; 85027; 85610; 93975; 99152; 99153; C1760; C1874; C1886; J2250; J3010; Q9967

== ENCOUNTER → 2025-07-17 | Outpatient (CLI) | payer MEDICARE, BC ==
[~2025-07-17] MED LIST changes: -ACETAMINOPHEN 325 MG TAB PO PRN; -ASPIRIN 325 MG TAB PO ONE; -NS (Normal Saline) 0.9% 1,000 ML IV SCH; -ONDANSETRON 4MG/2ML VIAL IV PRN; -PERCOCET 5MG/325MG TAB PO PRN
== END ==
LOC: M RAD 08:51
PROVIDERS: ATTEND Registered Nurse School
DX: I73.9 Peripheral vascular disease, unspecified (principal); I74.3 Embolism and thrombosis of arteries of the lower extremities

== ENCOUNTER → 2025-07-21 | Outpatient (CLI) | payer MEDICARE, BC ==
[~2025-07-21] MED LIST changes: -ATIV1TAB7 PO; -DOXY-441 PO; -FLUO1CRE2 TOP; -QUET1TAB17 PO; -TAMS1CAP17 PO
[2025-07-21 12:01] LABS: PLATELET COUNT, AUTOMATED 458 10^3/uL (150-450)
[2025-07-21 12:31] LABS: ALT/SGPT 23.0 U/L (7.0-40); AST/SGOT 22.0 U/L (<34); CALCIUM LEVEL 9.2 MG/DL (8.3-10.6); CARBON DIOXIDE LEVEL 27.0 MMOL/L (20-31); CHLORIDE LEVEL 100.0 MMOL/L (98-107); CREATININE FOR GFR 1.3 MG/DL (0.70-1.30); GLOMERULAR FILTRATION RATE 53.5 (>35); POTASSIUM SERUM 4.0 MMOL/L (3.5-5.1); SODIUM LEVEL 139.0 MMOL/L (136-145)
== END ==
LOC: M LAB 10:54
PROVIDERS: ATTEND Radiology Diagnostic Radiology
DX: I73.9 Peripheral vascular disease, unspecified (principal); D64.9 Anemia, unspecified

== ENCOUNTER → 2025-07-23 | Outpatient (CLI) | payer MEDICARE, BC ==
[~2025-07-23] VITALS: Ht 177.8 cm; Wt 68.2 kg
[~2025-07-23] MED LIST changes: +ACETAMINOPHEN 325 MG TAB PO PRN; +ATIV1TAB7 PO; +DOXY-441 PO; +FLUO1CRE2 TOP; +HEPARIN 1,000 UNITS/ML 10 ML VIAL (FOR RADIOLOGY & DIALYSIS ONLY) IV PRN; +HEPARIN SOD 5000 UNITS/ML 1 ML VIAL/SYRINGE IV STA; +NS (Normal Saline) 0.9% 1,000 ML IV SCH; +ONDANSETRON 4MG/2ML VIAL IV PRN; +PERCOCET 5MG/325MG TAB PO PRN; +QUET1TAB17 PO; +TAMS1CAP17 PO
[2025-07-23] MEDS: MIDAZOLAM INJ 2 MG/2 ML VIAL IV PRN (13:16)
[2025-07-23] MEDS: NS (Normal Saline) 0.9% 1,000 ML IV SCH (13:22)
[2025-07-23] MEDS: HEPARIN 1,000 UNITS/ML 10 ML VIAL (FOR RADIOLOGY & DIALYSIS ONLY) IV STA (13:25)
[2025-07-23] MEDS: LIDOCAINE 1% MDV 20 ML VIAL SC SCH (13:43)
[2025-07-23] MEDS: ISOVUE-300 61% 100 ML VIAL IV SCH (13:47)
[2025-07-23 16:00] VITALS: BP 120/56; O2SAT 96
== END ==
LOC: M IRPRO 09:10
PROVIDERS: ATTEND Registered Nurse School
DX: I73.9 Peripheral vascular disease, unspecified (principal); R09.89 Other specified symptoms and signs involving the circulatory and respiratory systems
CPT/HCPCS: 36246; 36247; 37230; 37252; 37253; 75710; 76937; 93975; 99152; 99153; C1725; C1753; C1760; C1874; C1886; J2250; J3010; Q9967

== ENCOUNTER 2025-07-26 18:24 | Emergency (ER) | payer MEDICARE, BC ==
[~2025-07-26] VITALS: Ht 177.8 cm; Wt 67.0 kg
[~2025-07-26 18:24] MED LIST changes: -ACETAMINOPHEN 325 MG TAB PO PRN; -ATIV1TAB7 PO; -DOXY-441 PO; -FLUO1CRE2 TOP; -HEPARIN 1,000 UNITS/ML 10 ML VIAL (FOR RADIOLOGY & DIALYSIS ONLY) IV PRN; -HEPARIN SOD 5000 UNITS/ML 1 ML VIAL/SYRINGE IV STA; -NS (Normal Saline) 0.9% 1,000 ML IV SCH; -ONDANSETRON 4MG/2ML VIAL IV PRN; -PERCOCET 5MG/325MG TAB PO PRN; -QUET1TAB17 PO; -TAMS1CAP17 PO
[2025-07-26 19:47] LABS: BASO # 0.1 10^3/uL (0.0-0.2); BASO % 0.4 % (0.0-1.0); EOS # 0.0 10^3/uL (0.0-0.5); EOS % 0.3 % (0.0-3.0); LYMPH # 0.7 10^3/uL (1.5-5.0); LYMPH % 4.7 % (24.0-44.0); MONO # 0.9 10^3/uL (0.0-0.8); MONO % 6.3 % (2.0-8.0); NEUTROPHILS # 12.9 10^3/uL (1.5-8.5); NEUTROPHILS % 86.8 % (36.0-66.0); PLATELET COUNT, AUTOMATED 282 10^3/uL (150-450)
[2025-07-26] MEDS: ONDANSETRON 4MG/2ML VIAL IV ONE (19:51)
[2025-07-26] MEDS: NS (Normal Saline) 0.9% 1,000 ML IV ONE (19:51)
[2025-07-26 20:22] LABS: INR 1.36
[2025-07-26 20:24] LABS: CK-MB VALUE MASS 4.9 NG/ML (<3.6)
[2025-07-26 20:25] LABS: ALT/SGPT 31.0 U/L (7.0-40); AST/SGOT 37.0 U/L (<34); C REACTIVE PROTEIN QUANTITATIV 8.84 MG/DL (<1.0); CALCIUM LEVEL 8.8 MG/DL (8.3-10.6); CARBON DIOXIDE LEVEL 26.0 MMOL/L (20-31); CHLORIDE LEVEL 100.0 MMOL/L (98-107); CREATININE FOR GFR 1.38 MG/DL (0.70-1.30); GLOMERULAR FILTRATION RATE 49.8 (>35); POTASSIUM SERUM 4.6 MMOL/L (3.5-5.1); SODIUM LEVEL 138.0 MMOL/L (136-145)
[2025-07-26 20:36] LABS: CPK CREATINE PHOSPHOKINASE 62.0 U/L (46-171); MB/CK RELATIVE INDEX 7.9 (< OR =4)
[2025-07-26] MEDS ORDERED: ISOVUE-370 76% 100 ML VIAL As Ordered ONE (22:01)
[2025-07-26] MEDS: cefTRIAXone SOD 1 GM in DEXTROSE 5% (D5W) ADV/MINI-BAG 50 ML IV ONE (22:41)
[2025-07-26] MEDS: NS 500 ML IV ONE (22:41)
[2025-07-26] MEDS ORDERED: TAMS1CAP17 PO (23:17)
[2025-07-26] MEDS ORDERED: QUET1TAB17 PO (23:17)
[2025-07-26] MEDS ORDERED: ATIV1TAB7 PO (23:17)
[2025-07-26] MEDS ORDERED: FLUO1CRE2 TOP (23:18)
[2025-07-26] MEDS ORDERED: HOME MED LIST COMPLETE! XX SCH ×2 (23:20→23:25)
[2025-07-26] MEDS ORDERED: DOXY-441 PO (23:48)
[2025-07-26 23:50] VITALS: BP 145/66
[2025-07-27 00:01] VITALS: TEMP 98; O2SAT 96
== END 2025-07-27 00:23 | disposition home or self-care (01) ==
LOC: M ED 18:24
DX: J18.9 Pneumonia, unspecified organism (principal); R91.8 Other nonspecific abnormal finding of lung field; R74.02 Elevation of levels of lactic acid dehydrogenase [LDH]; Z95.5 Presence of coronary angioplasty implant and graft; I48.91 Unspecified atrial fibrillation; I11.0 Hypertensive heart disease with heart failure; E11.9 Type 2 diabetes mellitus without complications; J44.9 Chronic obstructive pulmonary disease, unspecified; Z95.0 Presence of cardiac pacemaker; Z79.01 Long term (current) use of anticoagulants; Z79.899 Other long term (current) drug therapy
CPT/HCPCS: 71045; 71260; 80048; 80076; 82550; 82553; 83605; 84145; 84484; 85025; 85610; 85730; 86140; 87040; 87486; 87581; 87633; 87798; 93005; 93041; 94760; 96374; 96375; 99285; J0696; J2405; Q9967

== ENCOUNTER → 2025-08-02 | Outpatient (REF) | payer MEDICARE, BC ==
[~2025-08-02] MED LIST changes: +ATIV1TAB7 PO; +DOXY-441 PO; +FERR325T3 PO; +FLUO1CRE2 TOP; +QUET1TAB17 PO; +TAMS1CAP17 PO
[2025-08-02 19:15] LABS: IRON (FE) 20.0 UG/DL (65-175); PERCENT SATURATION 8.9 % (19.7-50.0)
== END ==
LOC: M LAB REF 16:57
PROVIDERS: ATTEND Nurse Practitioner Family
DX: D50.9 Iron deficiency anemia, unspecified (principal)

== ENCOUNTER → 2025-08-06 | Outpatient (POV) | payer MEDICARE, BC | LOC: M IRPOV 10:37 | PROVIDERS: ATTEND Registered Nurse School | DX: Z48.812 Encounter for surgical aftercare following surgery on the circulatory system (principal); I70.244 Atherosclerosis of native arteries of left leg with ulceration of heel and midfoot; L97.429 Non-pressure chronic ulcer of left heel and midfoot with unspecified severity; Z79.02 Long term (current) use of antithrombotics/antiplatelets; Z79.82 Long term (current) use of aspirin; Z95.828 Presence of other vascular implants and grafts ==

== ENCOUNTER → 2025-08-20 | Outpatient (CLI) | payer MEDICARE, BC | LOC: M PLARAD 09:02 | PROVIDERS: ATTEND Internal Medicine Pulmonary Disease | DX: R91.8 Other nonspecific abnormal finding of lung field (principal) | CPT/HCPCS: 78815; A9552 ==

== ENCOUNTER → 2025-08-23 | Outpatient (CLI) | payer MEDICARE, BC | LOC: M RAD 13:18 | PROVIDERS: ATTEND Radiology Diagnostic Radiology | DX: I70.202 Unspecified atherosclerosis of native arteries of extremities, left leg (principal) ==

== ENCOUNTER → 2025-08-29 | Outpatient (POV) | payer MEDICARE, BC ==
[~2025-08-29] MED LIST changes: +FINA-37 PO; -FINA5TAB2 PO; +MAGN100C3 PO; +NYST0.1C TOP; +POTA20LI16 PO; +POTA20PW PO
== END ==
LOC: M IRPOV 10:00
PROVIDERS: ATTEND Registered Nurse School
DX: I70.244 Atherosclerosis of native arteries of left leg with ulceration of heel and midfoot (principal); L97.428 Non-pressure chronic ulcer of left heel and midfoot with other specified severity; Z79.01 Long term (current) use of anticoagulants; Z79.4 Long term (current) use of insulin; Z79.82 Long term (current) use of aspirin; Z79.52 Long term (current) use of systemic steroids; Z79.899 Other long term (current) drug therapy; Z83.3 Family history of diabetes mellitus; Z87.891 Personal history of nicotine dependence